=== PATIENT | male | born 1955 | race American Indian/Alaskan Native ===

== ENCOUNTER 2018-11-06 19:26 | Inpatient (IN) | payer OTHER ==
[2018-11-06] MEDS ORDERED: TYLENOL PO STA (19:52)
[2018-11-06] MEDS ORDERED: NACL 0.9% 500 ML 500 ML IV ONE (19:52)
--- NOTE | 2018-11-06 20:14 | Emergency Department Report ---
ED Fever HPI - General Chief Complaint: Fever Stated Complaint: FEVER Time Seen by Provider: 11/06/18 20:09 Source: patient Exam Limitations: no limitations - History of Present Illness Initial Comments: PT is a 62-year-old male that comes to the emergency room with complaints of fever. Patient also complaining of being fatigued. Patient states he had a prostate biopsy yesterday. Timing/Duration: this morning Fever Severity/Quality: greater than 102 F Fever Therapy SALES ADMINISTRATOR: none Associated Symptoms: denies: abdominal pain, chest pain, confusion, cough, diaphoresis, headache, muscle aches, nausea/vomiting, rash, shortness of breath, sore throat, stiff neck, syncope, weakness ED Review of Systems ROS: Stated complaint: FEVER Other details as noted in HPI Constitutional: fever. denies: chills Eyes: denies: eye pain, eye discharge, vision change ENT: denies: ear pain, throat pain Respiratory: denies: cough, shortness of breath, wheezing Cardiovascular: denies: chest pain, palpitations Endocrine: no symptoms reported Gastrointestinal: denies: abdominal pain, nausea, diarrhea Genitourinary: denies: urgency, dysuria Musculoskeletal: denies: back pain, joint swelling, arthralgia Skin: denies: rash, lesions Neurological: denies: headache, weakness, paresthesias Psychiatric: denies: anxiety, depression Hematological/Lymphatic: denies: easy bleeding, easy bruising ED Past Medical Hx - Past Medical History Previous Medical History?: Yes Hx Sickle Cell Disease: Yes Hx Asthma: No - Surgical History Past Surgical History?: Yes Additional Surgical History: Prostate biopsy - Family History Family history: no significant - Social History Smoking Status: Never Smoker Substance Use Type: None ED Physical Exam - General Limitations: No Limitations General appearance: alert, in no apparent distress - Head Head exam: Present: atraumatic, normocephalic - Eye Eye exam: Present: normal appearance - ENT ENT exam: Present: mucous membranes moist - Neck Neck exam: Present: normal inspection - Respiratory Respiratory exam: Present: normal lung sounds bilaterally. Absent: respiratory distress - Cardiovascular Cardiovascular Exam: Present: regular rate, normal rhythm. Absent: systolic murmur, diastolic murmur, rubs, gallop - GI/Abdominal GI/Abdominal exam: Present: soft, normal bowel sounds - Rectal Rectal exam: Present: deferred - Extremities Exam Extremities exam: Present: normal inspection - Back Exam Back exam: Present: normal inspection - Neurological Exam Neurological exam: Present: alert, oriented X3 - Psychiatric Psychiatric exam: Present: normal affect, normal mood - Skin Skin exam: Present: warm, dry, intact, normal color. Absent: rash ED Course Vital Signs 11/06/18 11/06/18 11/06/18 15:16 19:29 19:34 Temperature 102.5 F H Pulse Rate 104 H Respiratory 20 Rate Blood Pressure 124/74 97/64 106/65 Blood Pressure [Right] O2 Sat by Pulse 95 Oximetry 11/06/18 11/06/18 11/06/18 19:46 20:00 20:16 Temperature Pulse Rate 102 H 98 H 99 H Respiratory 32 H 23 32 H Rate Blood Pressure 97/64 104/64 97/59 Blood Pressure [Right] O2 Sat by Pulse 95 97 96 Oximetry 11/06/18 11/06/18 11/06/18 20:30 20:46 21:00 Temperature Pulse Rate 101 H 97 H 103 H Respiratory 27 H 29 H 33 H Rate Blood Pressure 97/59 119/68 112/65 Blood Pressure [Right] O2 Sat by Pulse 95 97 100 Oximetry 11/06/18 11/06/18 11/06/18 21:14 21:16 21:30 Temperature 100.7 F H Pulse Rate 101 H 101 H 98 H Respiratory 28 H 29 H 28 H Rate Blood Pressure 106/67 117/66 Blood Pressure 106/67 [Right] O2 Sat by Pulse 100 100 100 Oximetry 11/06/18 11/06/18 11/06/18 21:45 22:17 22:30 Temperature Pulse Rate 101 H 105 H 108 H Respiratory 31 H 26 H 27 H Rate Blood Pressure 111/68 140/69 118/48 Blood Pressure [Right] O2 Sat by Pulse 100 100 98 Oximetry 11/06/18 11/06/18 11/06/18 22:45 23:01 23:15 Temperature Pulse Rate 107 H 105 H 106 H Respiratory 25 H 31 H 30 H Rate Blood Pressure 112/62 112/62 111/66 Blood Pressure [Right] O2 Sat by Pulse 100 100 97 Oximetry 11/06/18 11/06/18 11/07/18 23:30 23:45 00:01 Temperature Pulse Rate 104 H 95 H 108 H Respiratory 26 H 25 H 23 Rate Blood Pressure 115/63 114/65 110/65 Blood Pressure [Right] O2 Sat by Pulse 99 97 Oximetry 11/07/18 11/07/18 11/07/18 00:15 00:19 00:28 Temperature 100.5 F H 98.1 F Pulse Rate 103 H Respiratory 16 Rate Blood Pressure 110/65 Blood Pressure [Right] O2 Sat by Pulse Oximetry 11/07/18 11/07/18 11/07/18 00:30 00:45 01:00 Temperature Pulse Rate 101 H 98 H 96 H Respiratory 30 H 26 H 26 H Rate Blood Pressure 118/68 112/73 111/70 Blood Pressure [Right] O2 Sat by Pulse 96 Oximetry 11/07/18 11/07/18 01:10 01:28 Temperature 99.3 F Pulse Rate 101 H 96 H Respiratory 28 H 28 H Rate Blood Pressure 111/70 90/48 Blood Pressure [Right] O2 Sat by Pulse 94 95 Oximetry - Reevaluation(s) Reevaluation #1: Discussed all results with patient. Patient agrees with plan of care and admission. Patient admitted to the hospitalist service. 11/06/18 23:30 - Consultations Consultation #1: Hospitalist consulted for admission. Hospitalist to admit patient and assume care of patient. 11/06/18 23:30 ED Medical Decision Making - Lab Data Result diagrams: 11/06/18 20:18 11/06/18 20:18 - EKG Data -: EKG Interpreted by [facility] EKG shows normal: sinus rhythm, axis, intervals, QRS complexes, ST-T waves Rate: normal - Radiology Data Radiology results: report reviewed, image reviewed PROCEDURE: XR CHEST 1V AP TECHNIQUE: Single AP view of the chest HISTORY: possible Sepsis COMPARISONS: FINDINGS: Cardiac and mediastinal contours are unremarkable. There is some streaky opacity at the right lung base. There is mild vascular and interstitial prominence. No pleural effusion identified. Noted is a right shoulder prosthesis. IMPRESSION: Mild scarring or atelectasis of the right lung base Findings suggestive of mild CHF Right shoulder prosthesis. ADDENDUM ADDENDUM: No extraluminal air is seen to suggest bowel perforation. Incidental note is made of a small fat- containing umbilical hernia. PROCEDURE: CT ABDOMEN PELVIS WO CON TECHNIQUE: Computerized axial tomography of the abdomen and pelvis was performed without intravenous contrast. This study is performed without intravascular contrast material and its sensitivity for abdominal and pelvic pathology, including neoplasms, inflammation, abscess, free fluid, thrombosis, arterial dissection and infarction, is reduced compared with a contrast enhanced study. HISTORY: abd pAIN COMPARISONS: None . FINDINGS: Visualized lower thorax: No significant abnormality. Liver: There is diffuse low-attenuation of the liver, compatible with fatty infiltration. Spleen: Spleen is mildly prominent. Gallbladder and biliary system: Gallbladder is present. There is layering high density within the gallbladder lumen, which could be related to gallbladder sludge or gallstones. Pancreas: Normal. Adrenals: Normal. Kidneys: 2.3 cm left renal cyst. No hydronephrosis or urolithiasis. GI tract: Appendix is visualized and does not appear inflamed. No evidence of bowel obstruction . The transverse colon is decompressed, which could be related to peristalsis. There is mild distention of the right colon with stool. No definite signs of colonic obstruction are seen however. There is stranding surrounding the rectum and also the prostate gland and seminal vesicles Lymph nodes and mesentery: Normal. Vasculature: Normal.. Bladder: Normal. Reproductive organs: There is stranding surrounding the seminal vesicles and prostate. Prostate measures 6 cm transverse Peritoneum: No free fluid. Musculoskeletal structures: No significant abnormality. Other: None. IMPRESSION: There is stranding surrounding the rectum as well as the seminal vesicles and prostate. Findings could be related to proctitis or prostatitis. Fatty infiltration of the liver. Possible gallbladder sludge or stones . - Medical Decision Making She is a 62-year-old male that presents emergency room with complaints of fever. Patient found to have prostatitis and urinary tract infection and sepsis. Patient was treated with a sepsis protocol and IV fluids and antibiotics. His labs unremarkable except for elevated white count and acute renal insufficiency and lactic acidosis and UTI. Patient source of fever. To be a acute prostatitis. Patient recently had a prostate biopsy. Patient was admitted to the hospitalist service. - Differential Diagnosis fever. Prostatitis. Colon injury. Fever secondary to procedure Critical Care Time: Yes Critical care attestation.: If time is entered above; I have spent that time in minutes in the direct care of this critically ill patient, excluding procedure time. Critical Care Time: 45 MINUTES ED Disposition Clinical Impression: Lactic acid acidosis, Acute renal insufficiency Sepsis Qualifiers: Sepsis type: sepsis due to unspecified organism Qualified Code(s): A41.9 - Sepsis, unspecified organism Fever Qualifiers: Fever type: unspecified Qualified Code(s): R50.9 - Fever, unspecified Prostatitis Qualifiers: Prostatitis type: acute Qualified Code(s): N41.0 - Acute prostatitis UTI (urinary tract infection) Qualifiers: Urinary tract infection type: site unspecified Hematuria presence: with hematuria Qualified Code(s): N39.0 - Urinary tract infection, site not specified; R31.9 - Hematuria, unspecified Disposition: 09 OP ADMIT IP TO THIS HOSP Is pt being admited?: Yes Does the pt Need Aspirin: No Condition: Critical Time of Disposition: 23:29
[2018-11-06] MEDS ORDERED: NACL 0.9% 1000 ML 1,000 ML IV ONE ×2 (20:15→21:19)
--- NOTE | 2018-11-06 20:49 | XRay Report ---
PROCEDURE: XR CHEST 1V AP TECHNIQUE: Single AP view of the chest HISTORY: possible Sepsis COMPARISONS: FINDINGS: Cardiac and mediastinal contours are unremarkable. There is some streaky opacity at the right lung ba se. There is mild vascular and interstitial prominence. No pleural effusion identified. Noted is a ri ght shoulder prosthesis. IMPRESSION: Mild scarring or atelectasis of the right lung base Findings suggestive of mild CHF Right shoulder prosthesis. This document is electronically signed by Derik Carrasco MD., November 06 2018 08:47:19 PM ET
[2018-11-06 20:55] LABS: Hematocrit 32.5 % (35.5-45.6); Hemoglobin 11.1 gm/dl (11.8-15.2); Mean Corpuscular HGB Conc 34 % (32-34); Mean Corpuscular Volume 83 fl (84-94); Red Blood Count 3.91 M/mm3 (3.65-5.03); Red Cell Distribution Width 20.4 % (13.2-15.2)
[2018-11-06 20:56] LABS: Platelet Count 117 K/mm3 (140-440)
[2018-11-06 21:05] LABS: INR 1.11 (0.87-1.13)
[2018-11-06 21:16] LABS: Calcium 8.8 mg/dL (8.4-10.2)
[2018-11-06] MEDS ORDERED: ZOSYN/NS 4.5GM/100ML 4.5 GM/100 ML VIAL IV ONE (21:19)
[2018-11-06 21:49] LABS: Basophils % (Manual) 0 % (0.0-1.8); Eosinophils % (Manual) 0 % (0.0-4.3); Total Cells Counted 100
[2018-11-06 21:50] LABS: Anisocytosis 1+; Platelet Estimate Consistent w Auto; Target Cells 1+
--- NOTE | 2018-11-06 22:45 | Cat Scan Report ---
PROCEDURE: CT ABDOMEN PELVIS WO CON TECHNIQUE: Computerized axial tomography of the abdomen and pelvis was performed without intravenous contrast. This study is performed without intravascular contrast material and its sensitivity for ab dominal and pelvic pathology, including neoplasms, inflammation, abscess, free fluid, thrombosis, art erial dissection and infarction, is reduced compared with a contrast enhanced study. HISTORY: abd pAIN COMPARISONS: None . FINDINGS: Visualized lower thorax: No significant abnormality. Liver: There is diffuse low-attenuation of the liver, compatible with fatty infiltration. Spleen: Spleen is mildly prominent. Gallbladder and biliary system: Gallbladder is present. There is layering high density within the gal lbladder lumen, which could be related to gallbladder sludge or gallstones. Pancreas: Normal. Adrenals: Normal. Kidneys: 2.3 cm left renal cyst. No hydronephrosis or urolithiasis. GI tract: Appendix is visualized and does not appear inflamed. No evidence of bowel obstruction . Th e transverse colon is decompressed, which could be related to peristalsis. There is mild distention o f the right colon with stool. No definite signs of colonic obstruction are seen however. There is str anding surrounding the rectum and also the prostate gland and seminal vesicles Lymph nodes and mesentery: Normal. Vasculature: Normal.. Bladder: Normal. Reproductive organs: There is stranding surrounding the seminal vesicles and prostate. Prostate measu res 6 cm transverse Peritoneum: No free fluid. Musculoskeletal structures: No significant abnormality. Other: None. IMPRESSION: There is stranding surrounding the rectum as well as the seminal vesicles and prostate. Findings coul d be related to proctitis or prostatitis. Fatty infiltration of the liver. Possible gallbladder sludge or stones . This document is electronically signed by Ursula Glasgow MD., November 06 2018 10:43:36 PM ET
--- NOTE | 2018-11-06 23:49 | History and Physical Report ---
History of Present Illness Date of examination: 11/07/18 History of present illness: 62-year-old man with a history of sickle cell disease comes emergency room with complaints of fever,chills, fatigue, status post prostate biopsy on Saturday. Review of systems Constitutional: no weight loss Ears, eyes, nose, mouth and throat: no nasal congestion, no nasal discharge, no sinus pressure, no vision change, no red eye. Neck: No neck pain or rigidity. Cardiovascular: no palpitations, chest pain Respiratory: no cough, shortness of breath Gastrointestinal: no hematochezia, abdominal pain Genitourinary : no frequency , no hematuria Musculoskeletal: no joint swelling or muscle ache Integumentary: no rash, no pruritis Neurological: no parathesias, no focal weakness Endocrine: no cold or heat intolerance, no polyuria or polydipsia Hematologic/Lymphatic: no easy bruising, no easy bleeding, no gland swelling Allergic/Immunologic: no urticaria, no angioedema. PAST MEDICAL HISTORY: sickle cell disease PAST SURGICAL HISTORY: Right shoulder, left wrist, right great toe SOCIAL HISTORY: Denies alcohol, drugs, tobacco FAMILY HISTORY: Hypertension Medications and Allergies Allergies Allergy/AdvReac Type Severity Reaction Status Date / Time No Known Allergies Allergy Unverified 04/17/16 18:17 Exam - Physical Exam Narrative exam: General Apperance: The patient lying in bed, breathing comfortable HEENT: Normocephalic, atraumatic. Pupils equally round and reactive to light, EOMI, no sclericterus or JVD or thyromegaly or nodule. , no carotid bruit, mucous membranes moist, no exudate or erythema Heart: S1-S2, regular is rhythm Lungs: Clear to auscultation bilaterally, breathing comfortable Abdomen: Positive bowel sounds, soft, nontender, nondistended, no organomegaly Extremities: No edema cyanosis clubbing Skin: no rash, nodule, warm and dry Neuro: cranial nerves 2-12 intact, speech is fluent, motor/sensory intact - Constitutional Vitals: Temp Pulse Resp BP Pulse Ox 100.7 F H 105 H 31 H 112/62 100 11/06/18 21:16 11/06/18 23:01 11/06/18 23:01 11/06/18 23:01 11/06/18 23:01 Results - Labs CBC & Chem 7: 11/06/18 20:18 11/06/18 20:18 Labs: Abnormal lab results 11/06/18 11/06/18 11/06/18 Range/Units 20:18 20:18 20:18 WBC 15.3 H (4.5-11.0) K/mm3 Hgb 11.1 L (11.8-15.2) gm/dl Hct 32.5 L (35.5-45.6) % MCV 83 L (84-94) fl RDW 20.4 H (13.2-15.2) % Plt Count 117 L (140-440) K/mm3 Seg Neuts % (Manual) 95.0 H (40.0-70.0) % Lymphocytes % (Manual) 4.0 L (13.4-35.0) % Nucleated RBC % 2.0 H (0.0-0.9) % Seg Neutrophils # Man 14.5 H (1.8-7.7) K/mm3 Lymphocytes # (Manual) 0.6 L (1.2-5.4) K/mm3 PT 15.0 H (12.2-14.9) Sec. Potassium 3.3 L (3.6-5.0) mmol/L Creatinine 1.9 H (0.8-1.5) mg/dL Glucose 110 H (75-100) mg/dL Lactic Acid (0.7-2.0) mmol/L Total Bilirubin 1.70 H (0.1-1.2) mg/dL Total Protein 6.2 L (6.3-8.2) g/dL 11/06/18 11/06/18 Range/Units 20:18 22:54 WBC (4.5-11.0) K/mm3 Hgb (11.8-15.2) gm/dl Hct (35.5-45.6) % MCV (84-94) fl RDW (13.2-15.2) % Plt Count (140-440) K/mm3 Seg Neuts % (Manual) (40.0-70.0) % Lymphocytes % (Manual) (13.4-35.0) % Nucleated RBC % (0.0-0.9) % Seg Neutrophils # Man (1.8-7.7) K/mm3 Lymphocytes # (Manual) (1.2-5.4) K/mm3 PT (12.2-14.9) Sec. Potassium (3.6-5.0) mmol/L Creatinine (0.8-1.5) mg/dL Glucose (75-100) mg/dL Lactic Acid 5.80 H* 8.30 H* (0.7-2.0) mmol/L Total Bilirubin (0.1-1.2) mg/dL Total Protein (6.3-8.2) g/dL Assessment and Plan Assessment Sepsis Acute renal failure Sickle cell disease, stable Plan Admit to medicine Start IV fluid, Zosyn, follow cultures IV morphine, DVT prophylaxis
[2018-11-07 00:30] LABS: Bacteria,Urine 2+ /HPF (Negative); Bilirubin,Urine NEG (Negative); Blood,Urine LG (Negative); Color,Urine Amber (Yellow); Granular Casts,Urine 2 /LPF; Hyaline Casts,Urine 56 /LPF; Mucus,Urine FEW /HPF; Urobilinogen,Urine < 2.0 mg/dL (<2.0)
[2018-11-07 00:35] LABS: RBC,Urine > 182.0 /HPF (0.0-6.0)
[2018-11-07] MEDS ORDERED: ZOFRAN IV PRN (01:19)
[2018-11-07] MEDS ORDERED: MORPHINE IV PRN (01:19)
[2018-11-07] MEDS ORDERED: SODIUM CHLORIDE FLUSH SYRINGE 10 ML IV PRN (01:19)
[2018-11-07] MEDS: NACL 0.9% 1000 ML 1,000 ML IV SCH ×3 (02:06→19:36)
[2018-11-07] MEDS ORDERED: ZOSYN/NS 4.5GM/100ML 4.5 GM/100 ML VIAL IV SCH ×2 (05:00→06:00)
[2018-11-07] MEDS: ZOSYN/NS 2.25 GM/50ML 2.25 GM/50 ML BAG IV SCH ×2 (05:43→11:32)
[2018-11-07 05:59] LABS: Hematocrit 32.2 % (35.5-45.6); Hemoglobin 10.8 gm/dl (11.8-15.2); Mean Corpuscular HGB Conc 34 % (32-34); Mean Corpuscular Volume 83 fl (84-94); Platelet Count 116 K/mm3 (140-440); Red Blood Count 3.87 M/mm3 (3.65-5.03); Red Cell Distribution Width 19.8 % (13.2-15.2)
[2018-11-07 06:26] LABS: BUN/Creatinine Ratio 12; Blood Urea Nitrogen 17 mg/dL (9-20); Calcium 8.2 mg/dL (8.4-10.2); Hemolysis Index 6
[2018-11-07] MEDS: SODIUM CHLORIDE FLUSH SYRINGE 10 ML IV SCH (09:14)
[2018-11-07 10:06] LABS: Band Neutrophils # (Manual) 7.9 K/mm3; Basophils % (Manual) 0 % (0.0-1.8); Eosinophils % (Manual) 0 % (0.0-4.3); Total Cells Counted 100
[2018-11-07 10:07] LABS: Anisocytosis 1+; Hypochromasia 1+; Macrocytosis 1+; Platelet Estimate Consistent w Auto
--- NOTE | 2018-11-07 14:22 | Consultation ---
History of Present Illness - Reason for Consult Consult date: 11/07/18 sepsis Requesting physician: RIGO BAUM - History of Present Illness 62 y/o male with a history of sickle cell disease; admitted on 11/06/18 due to 24 hour-history of fever, chills and generalized malaise. Patient underwent transrectal-prostate biopsy on 11/05/[address] Hidalgo. Patient denies N/V/D, cough, SOB, abdominal pain, urinary symptoms. In the ED, temp 102, HR 104, R 20, O2 sat 95%, BP 97/64. WBC 15-->36K, Hg 11, Plat 117. Creat 1.9. LFTs normal. Lactate 5.8. UA 59 wbc, trace LE, +nitrates, large blood. Blood culture 10/17/[address] abd showed rectal prostate and seminal vesicles stranding. Review of Systems: General: + fever, + chills, nightsweats, +malaise Cutaneous: no rash, pruritus Head: no headaches or injury Eyes: no changes in vision, eye pain, double vision Ears: no ear pain, ear discharge, ringing or hearing loss Nose: no nose bleeding, stuffiness Mouth & throat: no bleeding gums, no horseness, no dental problems, or swollen glands Neck: no pain, node enlargement/lumps, tyroid enlargement or tenderness Respiratory: no cough, wheezing, sputum, hemoptysis, pleuritic chest pain Cardiovascular: no chest pain, leg edema, cyanosis, ESCALANTE, orthopnea Musculoskeletal: no decreased joint motion, bone or joint pain, joint swelling, muscle aches Gastrointestinal: no nausea, vomiting, hematemesis, diarrhea, constipation, melena, bright red blood in stools, fecal incontinence, jaundice Genitourinary/Reproductive: no frequent urination, dysuria, hematuria, incontinence Neurogical: no seizures, no headaches, no weakness, no paresthesias, no loss of speech or vision; no memory loss, no vertigo, no tremors, no numbness Psychiatric: stable mood; no excessive anxiety, sadness or moodiness Medications and Allergies Allergies Allergy/AdvReac Type Severity Reaction Status Date / Time No Known Allergies Allergy Unverified 04/17/16 18:17 Active Meds: Active Medications Acetaminophen (Tylenol) 650 mg PO Q4H PRN PRN Reason: Pain MILD(1-3)/Fever >100.5/RAY Albuterol (Proventil) 2.5 mg IH Q6HRT [facility] Sodium Chloride (Nacl 0.9% 1000 Ml) 1,000 mls @ 150 mls/hr IV DIRECT [facility] Last Admin: 11/07/18 11:31 Dose: 150 mls/hr Documented by: Piperacillin Sod/Tazobactam Sod (Zosyn/Ns 2.25 Gm/50ml) 2.25 gm in 50 mls @ 100 mls/hr IV Q6HR [facility] Last Admin: 11/07/18 11:32 Dose: 100 mls/hr Documented by: Morphine Sulfate (Morphine) 2 mg IV Q4H PRN PRN Reason: Pain, Moderate (4-6) Ondansetron HCl (Zofran) 4 mg IV Q4H PRN PRN Reason: Nausea And Vomiting Sodium Chloride (Sodium Chloride Flush Syringe 10 Ml) 10 ml IV BID [facility] Last Admin: 11/07/18 09:14 Dose: 10 ml Documented by: Sodium Chloride (Sodium Chloride Flush Syringe 10 Ml) 10 ml IV PRN PRN PRN Reason: LINE FLUSH Physical Examination - Physical Exam Narrative exam: General appearance: Alert in NAD, conversant Eyes: anicteric sclerae, moist conjunctivae; no lid-lag; PERRLA HENT: Atraumatic; oropharynx clear with moist mucous membranes and no mucosal ulcerations/no oral thrush; normal hard and soft palate. Normal external ears. Neck: Trachea midline; supple, no thyromegaly or lymphadenopathy Lungs: CTA, with normal respiratory effort and no intercostal retractions CV: RRR, no murmurs Abdomen: Soft, non-tender; no masses or hepatosplenomegaly Extremities: No peripheral edema or extremity lymphadenopathy Skin: Normal temperature, turgor and texture; no rash, ulcers or subcutaneous nodules Psych: Appropriate affect, alert and oriented to person, place and time. Neuro: alert and oriented x 3. Moving all extermities - Constitutional Vitals: Vital Signs Temp Pulse Resp BP Pulse Ox 101.0 F H 94 H 22 103/60 95 11/07/18 11:48 11/07/18 11:48 11/07/18 11:48 11/07/18 11:48 11/07/18 12:28 Temperature -Last 24 Hours Temperature 101.0 F Temperature 99.3 F Temperature 98.1 F Temperature 100.5 F Temperature 100.7 F Temperature 102.5 F Results - Labs CBC & Chem 7: 11/07/18 05:13 11/07/18 05:13 Labs: Abnormal lab results 11/06/18 11/06/18 11/06/18 Range/Units 20:18 20:18 20:18 WBC 15.3 H (4.5-11.0) K/mm3 Hgb 11.1 L (11.8-15.2) gm/dl Hct 32.5 L (35.5-45.6) % MCV 83 L (84-94) fl RDW 20.4 H (13.2-15.2) % Plt Count 117 L (140-440) K/mm3 Seg Neuts % (Manual) 95.0 H (40.0-70.0) % Lymphocytes % (Manual) 4.0 L (13.4-35.0) % Nucleated RBC % 2.0 H (0.0-0.9) % Seg Neutrophils # Man 14.5 H (1.8-7.7) K/mm3 Lymphocytes # (Manual) 0.6 L (1.2-5.4) K/mm3 PT 15.0 H (12.2-14.9) Sec. Potassium 3.3 L (3.6-5.0) mmol/L Carbon Dioxide (22-30) mmol/L Creatinine 1.9 H (0.8-1.5) mg/dL Glucose 110 H (75-100) mg/dL Lactic Acid (0.7-2.0) mmol/L Calcium (8.4-10.2) mg/dL Total Bilirubin 1.70 H (0.1-1.2) mg/dL Total Protein 6.2 L (6.3-8.2) g/dL Urine WBC (Auto) (0.0-6.0) /HPF 11/06/18 11/06/18 11/07/18 Range/Units 20:18 22:54 00:07 WBC (4.5-11.0) K/mm3 Hgb (11.8-15.2) gm/dl Hct (35.5-45.6) % MCV (84-94) fl RDW (13.2-15.2) % Plt Count (140-440) K/mm3 Seg Neuts % (Manual) (40.0-70.0) % Lymphocytes % (Manual) (13.4-35.0) % Nucleated RBC % (0.0-0.9) % Seg Neutrophils # Man (1.8-7.7) K/mm3 Lymphocytes # (Manual) (1.2-5.4) K/mm3 PT (12.2-14.9) Sec. Potassium (3.6-5.0) mmol/L Carbon Dioxide (22-30) mmol/L Creatinine (0.8-1.5) mg/dL Glucose (75-100) mg/dL Lactic Acid 5.80 H* 8.30 H* (0.7-2.0) mmol/L Calcium (8.4-10.2) mg/dL Total Bilirubin (0.1-1.2) mg/dL Total Protein (6.3-8.2) g/dL Urine WBC (Auto) 59.0 H (0.0-6.0) /HPF 11/07/18 11/07/18 Range/Units 05:13 05:13 WBC 36.0 H (4.5-11.0) K/mm3 Hgb 10.8 L (11.8-15.2) gm/dl Hct 32.2 L (35.5-45.6) % MCV 83 L (84-94) fl RDW 19.8 H (13.2-15.2) % Plt Count 116 L (140-440) K/mm3 Seg Neuts % (Manual) 74.0 H (40.0-70.0) % Lymphocytes % (Manual) 3.0 L (13.4-35.0) % Nucleated RBC % 2.0 H (0.0-0.9) % Seg Neutrophils # Man 26.6 H (1.8-7.7) K/mm3 Lymphocytes # (Manual) 1.1 L (1.2-5.4) K/mm3 PT (12.2-14.9) Sec. Potassium (3.6-5.0) mmol/L Carbon Dioxide 21 L (22-30) mmol/L Creatinine (0.8-1.5) mg/dL Glucose 107 H (75-100) mg/dL Lactic Acid (0.7-2.0) mmol/L Calcium 8.2 L (8.4-10.2) mg/dL Total Bilirubin (0.1-1.2) mg/dL Total Protein (6.3-8.2) g/dL Urine WBC (Auto) (0.0-6.0) /HPF Assessment and Plan Cultures: Blood culture 10/17/2018 no growth today. Assessment: 62 y/o male with a history of sickle cell disease; admitted on 11/06/18 due to 24 hour-history of fever, chills and generalized malaise. Patient underwent transre ctal-prostate biopsy on 11/05/[address] Hidalgo. Patient denies N/V/D, cough, SOB, abdominal pain, urinary symptoms. 1) Severe Sepsis: Present on admission, manifested by fever, tachycardia, hypotension, leukocytosis, increased lactate. Etiology most likely UTI +/- post-biopsy prostatitis and prostatitis. He received cipro PO x 3 days before biopsy. - UA 59 wbc, trace LE, +nitrates, large blood. - Blood culture 10/17/2018 no growth today. - CT abd showed rectal prostate and seminal vesicles stranding. 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
[2018-11-07] MEDS: PROVENTIL IH SCH ×2 (15:26→20:53)
--- NOTE | 2018-11-07 15:42 | Progress Note ---
Assessment and Plan Assessment and plan: he is a 62-year-old male that presents emergency room with complaints of fever. Patient found to have prostatitis and urinary tract infection and sepsis. Patient was treated with a sepsis protocol and IV fluids and antibiotics. His labs unremarkable except for elevated white count and acute renal insufficiency and lactic acidosis and UTI. Patient source of fever. To be a acute prostatitis. Patient recently had a prostate biopsy. Patient was admitted to the hospitalist service. Sepsis Acute Cystitis s/p recent prostate biopsy Acute renal failure Sickle cell disease, stable Acute Respiratory Failure with hypoxia Thrombocytopenia Plan Continue supportive care Cultures, Urine culture. ID consult Continue gentle hydration, Zosyn, follow cultures Ok to start diet IV morphine, DVT prophylaxis History Interval history: Patient seen and examined today, admitted with sepsis. Denies any chest pain or chronic shortness of breath, Still with some shortness of breath today. Intermittent fever through out the day. Hospitalist Physical - Constitutional Vitals: Temp Pulse Resp BP Pulse Ox 101.0 F H 101 H 18 103/60 95 11/07/18 11:48 11/07/18 15:27 11/07/18 15:27 11/07/18 11:48 11/07/18 12:28 General appearance: Present: no acute distress, well-nourished - EENT Eyes: Present: PERRL, EOM intact ENT: hearing intact, clear oral mucosa - Neck Neck: Present: supple, normal ROM - Respiratory Respiratory effort: normal Respiratory: bilateral: CTA - Cardiovascular Rhythm: regular Heart Sounds: Present: S1 & S2. Absent: systolic murmur, diastolic murmur - Extremities Extremities: no ischemia, pulses intact, pulses symmetrical, No edema, normal temperature, normal color, Full ROM Peripheral Pulses: within normal limits - Abdominal General gastrointestinal: soft, non-tender, non-distended, normal bowel sounds - Integumentary Integumentary: Present: clear, warm, dry - Psychiatric Psychiatric: appropriate mood/affect, intact judgment & insight, memory intact, cooperative - Neurologic Neurologic: CNII-XII intact, moves all extremities - Allied Health Allied health notes reviewed: nursing Results - Labs CBC & Chem 7: 11/08/18 04:32 11/08/18 04:32 Labs: Laboratory Last Values WBC 36.0 K/mm3 (4.5-11.0) H 11/07/18 05:13 RBC 3.87 M/mm3 (3.65-5.03) 11/07/18 05:13 Hgb 10.8 gm/dl (11.8-15.2) L 11/07/18 05:13 Hct 32.2 % (35.5-45.6) L 11/07/18 05:13 MCV 83 fl (84-94) L 11/07/18 05:13 MCH 28 pg (28-32) 11/07/18 05:13 MCHC 34 % (32-34) 11/07/18 05:13 RDW 19.8 % (13.2-15.2) H 11/07/18 05:13 Plt Count 116 K/mm3 (140-440) L 11/07/18 05:13 Add Manual Diff Complete 11/07/18 05:13 Total Counted 100 11/07/18 05:13 Seg Neutrophils % Car Dropper 11/07/18 05:13 Seg Neuts % (Manual) 74.0 % (40.0-70.0) H 11/07/18 05:13 Band Neutrophils % 22.0 % 11/07/18 05:13 Lymphocytes % (Manual) 3.0 % (13.4-35.0) L 11/07/18 05:13 Reactive Lymphs % (Man) 0 % 11/07/18 05:13 Monocytes % (Manual) 1.0 % (0.0-7.3) 11/07/18 05:13 Eosinophils % (Manual) 0 % (0.0-4.3) 11/07/18 05:13 Basophils % (Manual) 0 % (0.0-1.8) 11/07/18 05:13 Metamyelocytes % 0 % 11/07/18 05:13 Myelocytes % 0 % 11/07/18 05:13 Promyelocytes % 0 % 11/07/18 05:13 Blast Cells % 0 % 11/07/18 05:13 Nucleated RBC % 2.0 % (0.0-0.9) H 11/07/18 05:13 Seg Neutrophils # Man 26.6 K/mm3 (1.8-7.7) H 11/07/18 05:13 Band Neutrophils # 7.9 K/mm3 11/07/18 05:13 Lymphocytes # (Manual) 1.1 K/mm3 (1.2-5.4) L 11/07/18 05:13 Abs React Lymphs (Man) 0.0 K/mm3 11/07/18 05:13 Monocytes # (Manual) 0.4 K/mm3 (0.0-0.8) 11/07/18 05:13 Eosinophils # (Manual) 0.0 K/mm3 (0.0-0.4) 11/07/18 05:13 Basophils # (Manual) 0.0 K/mm3 (0.0-0.1) 11/07/18 05:13 Metamyelocytes # 0.0 K/mm3 11/07/18 05:13 Myelocytes # 0.0 K/mm3 11/07/18 05:13 Promyelocytes # 0.0 K/mm3 11/07/18 05:13 Blast Cells # 0.0 K/mm3 11/07/18 05:13 WBC Morphology Not Reportable 11/07/18 05:13 Hypersegmented Neuts Not Reportable 11/07/18 05:13 Hyposegmented Neuts Not Reportable 11/07/18 05:13 Hypogranular Neuts Not Reportable 11/07/18 05:13 Smudge Cells Not Reportable 11/07/18 05:13 Toxic Granulation Not Reportable 11/07/18 05:13 Toxic Vacuolation Not Reportable 11/07/18 05:13 Dohle Bodies Not Reportable 11/07/18 05:13 Pelger-Huet Anomaly Not Reportable 11/07/18 05:13 Tory Rods Not Reportable 11/07/18 05:13 Platelet Estimate Consistent w auto 11/07/18 05:13 Clumped Platelets Not Reportable 11/07/18 05:13 Plt Clumps, EDTA Not Reportable 11/07/18 05:13 Large Platelets Not Reportable 11/07/18 05:13 Giant Platelets Not Reportable 11/07/18 05:13 Platelet Satelliting Not Reportable 11/07/18 05:13 Plt Morphology Comment Not Reportable 11/07/18 05:13 RBC Morphology Not Reportable 11/07/18 05:13 Dimorphic RBCs Not Reportable 11/07/18 05:13 Polychromasia Not Reportable 11/07/18 05:13 Hypochromasia 1+ 11/07/18 05:13 Poikilocytosis Not Reportable 11/07/18 05:13 Anisocytosis 1+ 11/07/18 05:13 Microcytosis Few 11/07/18 05:13 Macrocytosis 1+ 11/07/18 05:13 Spherocytes Not Reportable 11/07/18 05:13 Pappenheimer Bodies Not Reportable 11/07/18 05:13 Sickle Cells Not Reportable 11/07/18 05:13 Target Cells Not Reportable 11/07/18 05:13 Tear Drop Cells Not Reportable 11/07/18 05:13 Ovalocytes Not Reportable 11/07/18 05:13 Helmet Cells Not Reportable 11/07/18 05:13 [place] Bodies Not Reportable 11/07/18 05:13 [place] Rings Not Reportable 11/07/18 05:13 [place] Cells Not Reportable 11/07/18 05:13 Bite Cells Not Reportable 11/07/18 05:13 Crenated Cell Not Reportable 11/07/18 05:13 Elliptocytes Not Reportable 11/07/18 05:13 Acanthocytes (Spur) Not Reportable 11/07/18 05:13 Rouleaux Not Reportable 11/07/18 05:13 Hemoglobin C Crystals Not Reportable 11/07/18 05:13 Schistocytes Not Reportable 11/07/18 05:13 Malaria parasites Not Reportable 11/07/18 05:13 Sarwat Bodies Not Reportable 11/07/18 05:13 Hem Pathologist Commnt No 11/07/18 05:13 PT 15.0 Sec. (12.2-14.9) H 11/06/18 20:18 INR 1.11 (0.87-1.13) 11/06/18 20:18 VBG pH 7.340 (7.320-7.420) 11/06/18 20:18 Sodium 144 mmol/L (137-145) 11/07/18 05:13 Potassium 4.2 mmol/L (3.6-5.0) D 11/07/18 05:13 Chloride 104.4 mmol/L (98-107) 11/07/18 05:13 Carbon Dioxide 21 mmol/L (22-30) L 11/07/18 05:13 Anion Gap 23 mmol/L 11/07/18 05:13 BUN 17 mg/dL (9-20) 11/07/18 05:13 Creatinine 1.4 mg/dL (0.8-1.5) 11/07/18 05:13 Estimated GFR > 60 ml/min 11/07/18 05:13 BUN/Creatinine Ratio 12 % 11/07/18 05:13 Glucose 107 mg/dL (75-100) H 11/07/18 05:13 Lactic Acid 8.30 mmol/L (0.7-2.0) H* 11/06/18 22:54 Calcium 8.2 mg/dL (8.4-10.2) L 11/07/18 05:13 Total Bilirubin 1.70 mg/dL (0.1-1.2) H 11/06/18 20:18 AST 29 units/L (5-40) 11/06/18 20:18 ALT 17 units/L (7-56) 11/06/18 20:18 Alkaline Phosphatase 88 units/L (35-129) 11/06/18 20:18 Total Protein 6.2 g/dL (6.3-8.2) L 11/06/18 20:18 Albumin 4.0 g/dL (3.9-5) 11/06/18 20:18 Albumin/Globulin Ratio 1.8 % 11/06/18 20:18 Urine Color Rubia (Yellow) 11/07/18 00:07 Urine Turbidity Cloudy (Clear) 11/07/18 00:07 Urine pH 5.0 (5.0-7.0) 11/07/18 00:07 Ur Specific Reynolds 1.015 (1.003-1.030) 11/07/18 00:07 Urine Protein 100 mg/dl mg/dL (Negative) 11/07/18 00:07 Urine Glucose (UA) Neg mg/dL (Negative) 11/07/18 00:07 Urine Ketones Neg mg/dL (Negative) 11/07/18 00:07 Urine Blood Lg (Negative) 11/07/18 00:07 Urine Nitrite Pos (Negative) 11/07/18 00:07 Urine Bilirubin Neg (Negative) 11/07/18 00:07 Urine Urobilinogen < 2.0 mg/dL (<2.0) 11/07/18 00:07 Ur Leukocyte Esterase Tr (Negative) 11/07/18 00:07 Urine WBC (Auto) 59.0 /HPF (0.0-6.0) H 11/07/18 00:07 Urine RBC (Auto) > 182.0 /HPF (0.0-6.0) 11/07/18 00:07 U Epithel Cells (Auto) 1.0 /HPF (0-13.0) 11/07/18 00:07 Urine Bacteria (Auto) 2+ /HPF (Negative) 11/07/18 00:07 Hyaline Casts 56 /LPF 11/07/18 00:07 Granular Casts 2 /LPF 11/07/18 00:07 Urine Mucus Few /HPF 11/07/18 00:07 Active Medications - Current Medications Current Medications: Generic Name Dose Route Start Last Admin Trade Name Freq PRN Reason Stop Dose Admin Acetaminophen 650 mg 11/07/18 01:19 Tylenol PO Q4H PRN Pain MILD(1-3)/Fever >100.5/RAY Albuterol 2.5 mg 11/07/18 14:00 11/07/18 15:26 Proventil IH 2.5 mg Q6HRT LENORE Administration Sodium Chloride 1,000 mls @ 150 mls/hr 11/07/18 02:00 11/07/18 11:31 Nacl 0.9% 1000 Ml IV 150 mls/hr DIRECT LENORE Administration Cefepime HCl 2 gm in 100 mls @ 200 mls/hr 11/07/18 15:00 Maxipime/Ns 2 Gm/100 Ml IV Q8HR LENORE Protocol Metronidazole 500 mg in 100 mls @ 100 mls/hr 11/07/18 15:00 Flagyl 500 Mg/100 Ml IV Q8HR LENORE Protocol Morphine Sulfate 2 mg 11/07/18 01:19 Morphine IV Q4H PRN Pain, Moderate (4-6) Ondansetron HCl 4 mg 11/07/18 01:19 Zofran IV Q4H PRN Nausea And Vomiting Sodium Chloride 10 ml 11/07/18 10:00 11/07/18 09:14 Sodium Chloride Flush Syringe 10 Ml IV 10 ml BID LENORE Administration Sodium Chloride 10 ml 11/07/18 01:19 Sodium Chloride Flush Syringe 10 Ml IV PRN PRN LINE FLUSH Nutrition/Malnutrition Assess - Dietary Evaluation Nutrition/Malnutrition Findings: Nutrition Notes Start: 11/07/18 14:42 Freq: Status: Active Protocol: Document 11/07/18 14:42 RM (Rec: 11/07/18 14:43 RM [id number]) Nutrition Notes Need for Assessment generated from: educational adviser,Education Initial or Follow up Brief Note Subjective/Other Information Screened for new onset DM diet education. No Dx of DM or A1c in record. Per nurse pt does not have hx of DM. Nutrition Intervention Revisit per MD consult or patient Sign Off request:
[2018-11-07] MEDS: TYLENOL PO PRN (18:08)
[2018-11-07] MEDS: FLAGYL 500 MG/100 ML 500 MG/100 ML BAG IV SCH ×2 (18:13→22:00)
[2018-11-07] MEDS: MAXIPIME/NS 2 GM/100 ML 2 GM/100 ML BAG IV SCH ×2 (18:15→22:00)
[2018-11-08] MEDS: TYLENOL PO PRN ×3 (04:42→17:14)
[2018-11-08] MEDS: FLAGYL 500 MG/100 ML 500 MG/100 ML BAG IV SCH ×3 (05:00→13:03)
[2018-11-08 05:22] LABS: Hematocrit 31.3 % (35.5-45.6); Hemoglobin 10.4 gm/dl (11.8-15.2); Mean Corpuscular HGB Conc 33 % (32-34); Mean Corpuscular Volume 82 fl (84-94); Platelet Count 126 K/mm3 (140-440); Red Blood Count 3.83 M/mm3 (3.65-5.03)
[2018-11-08 05:32] LABS: Red Cell Distribution Width 20.7 % (13.2-15.2)
[2018-11-08 06:00] LABS: BUN/Creatinine Ratio 11; Blood Urea Nitrogen 11 mg/dL (9-20); Hemolysis Index 4
[2018-11-08] MEDS: MAXIPIME/NS 2 GM/100 ML 2 GM/100 ML BAG IV SCH ×2 (06:51→13:03)
[2018-11-08] MEDS: PROVENTIL IH SCH ×3 (07:36→21:35)
[2018-11-08] MEDS: NACL 0.9% 1000 ML 1,000 ML IV SCH (09:45)
[2018-11-08] MEDS: SODIUM CHLORIDE FLUSH SYRINGE 10 ML IV SCH (10:00)
[2018-11-08] MEDS ORDERED: NACL 0.9% 1000 ML 1,000 ML IV ONE ×3 (11:29→16:09)
--- NOTE | 2018-11-08 12:43 | Progress Note ---
Assessment and Plan Assessment and plan: he is a 62-year-old male that presents emergency room with complaints of fever. Patient found to have prostatitis and urinary tract infection and sepsis. Patient was treated with a sepsis protocol and IV fluids and antibiotics. His labs unremarkable except for elevated white count and acute renal insufficiency and lactic acidosis and UTI. Patient source of fever. To be a acute prostatitis. Patient recently had a prostate biopsy. Patient was admitted to the hospitalist service. Sepsis- Secondary to GNR bactermia Acute Cystitis s/p recent prostate biopsy Acute renal failure Sickle cell disease, stable Acute Respiratory Failure with hypoxia Thrombocytopenia Plan Continue supportive care Obtain chest x-ray Give 2 additional bolus of fluid Obtain echocardiogram to rule out any cardiac pathology considering patient's sickle cell disease Cultures, Urine culture. ID consult INPUT NOTED Continue gentle hydration, Zosyn, follow cultures Ok to start diet IV morphine, DVT prophylaxis History Interval history: Patient seen and examined today, admitted with sepsis. still with shortness of breath, and recurrent fever. Hospitalist Physical - Physical exam Narrative exam: VITAL SIGNS: Reviewed. GENERAL: The patient appeared well nourished and normally developed, Vital signs as documented. Ill-appearing and appears with mild distress HEAD: No signs of head trauma. EYES: Pupils are equal. Extraocular motions intact. EARS: Hearing grossly intact. MOUTH: Oropharynx is normal. NECK: No adenopathy, no JVD. CHEST: Chest with wheezing but much better than yesterday sounds bilaterally. No rales, or rhonchi. CARDIAC: Tachycardic but regular rhythm. S1 and S2, without murmurs, gallops, or rubs. VASCULAR: No Edema. Peripheral pulses normal and equal in all extremities. ABDOMEN: Soft, non tender and non distended. No rebound or guarding, and no masses palpated. Bowel Sounds normal. MUSCULOSKELETAL: Good range of motion of all major joints. Extremities without clubbing, cyanosis or edema. NEUROLOGIC EXAM: Alert and oriented x 3 No focal sensory or strength deficits. Speech normal. Follows commands. PSYCHIATRIC: Mood normal. SKIN: No rash or lesions. - Constitutional Vitals: Temp Pulse Resp BP Pulse Ox 97.7 F 102 H 18 112/68 95 11/08/18 07:02 11/08/18 07:52 11/08/18 07:52 11/08/18 04:24 11/08/18 07:36 General appearance: Present: no acute distress, well-nourished Results - Labs CBC & Chem 7: 11/08/18 04:32 11/08/18 04:32 Labs: Laboratory Last Values WBC 33.2 K/mm3 (4.5-11.0) H 11/08/18 04:32 RBC 3.83 M/mm3 (3.65-5.03) 11/08/18 04:32 Hgb 10.4 gm/dl (11.8-15.2) L 11/08/18 04:32 Hct 31.3 % (35.5-45.6) L 11/08/18 04:32 MCV 82 fl (84-94) L 11/08/18 04:32 MCH 27 pg (28-32) L 11/08/18 04:32 MCHC 33 % (32-34) 11/08/18 04:32 RDW 20.7 % (13.2-15.2) H 11/08/18 04:32 Plt Count 126 K/mm3 (140-440) L 11/08/18 04:32 Add Manual Diff Complete 11/07/18 05:13 Total Counted 100 11/07/18 05:13 Seg Neutrophils % Environmental Permitting Specialist 11/07/18 05:13 Seg Neuts % (Manual) 74.0 % (40.0-70.0) H 11/07/18 05:13 Band Neutrophils % 22.0 % 11/07/18 05:13 Lymphocytes % (Manual) 3.0 % (13.4-35.0) L 11/07/18 05:13 Reactive Lymphs % (Man) 0 % 11/07/18 05:13 Monocytes % (Manual) 1.0 % (0.0-7.3) 11/07/18 05:13 Eosinophils % (Manual) 0 % (0.0-4.3) 11/07/18 05:13 Basophils % (Manual) 0 % (0.0-1.8) 11/07/18 05:13 Metamyelocytes % 0 % 11/07/18 05:13 Myelocytes % 0 % 11/07/18 05:13 Promyelocytes % 0 % 11/07/18 05:13 Blast Cells % 0 % 11/07/18 05:13 Nucleated RBC % 2.0 % (0.0-0.9) H 11/07/18 05:13 Seg Neutrophils # Man 26.6 K/mm3 (1.8-7.7) H 11/07/18 05:13 Band Neutrophils # 7.9 K/mm3 11/07/18 05:13 Lymphocytes # (Manual) 1.1 K/mm3 (1.2-5.4) L 11/07/18 05:13 Abs React Lymphs (Man) 0.0 K/mm3 11/07/18 05:13 Monocytes # (Manual) 0.4 K/mm3 (0.0-0.8) 11/07/18 05:13 Eosinophils # (Manual) 0.0 K/mm3 (0.0-0.4) 11/07/18 05:13 Basophils # (Manual) 0.0 K/mm3 (0.0-0.1) 11/07/18 05:13 Metamyelocytes # 0.0 K/mm3 11/07/18 05:13 Myelocytes # 0.0 K/mm3 11/07/18 05:13 Promyelocytes # 0.0 K/mm3 11/07/18 05:13 Blast Cells # 0.0 K/mm3 11/07/18 05:13 WBC Morphology Not Reportable 11/07/18 05:13 Hypersegmented Neuts Not Reportable 11/07/18 05:13 Hyposegmented Neuts Not Reportable 11/07/18 05:13 Hypogranular Neuts Not Reportable 11/07/18 05:13 Smudge Cells Not Reportable 11/07/18 05:13 Toxic Granulation Not Reportable 11/07/18 05:13 Toxic Vacuolation Not Reportable 11/07/18 05:13 Dohle Bodies Not Reportable 11/07/18 05:13 Pelger-Huet Anomaly Not Reportable 11/07/18 05:13 Tory Rods Not Reportable 11/07/18 05:13 Platelet Estimate Consistent w auto 11/07/18 05:13 Clumped Platelets Not Reportable 11/07/18 05:13 Plt Clumps, EDTA Not Reportable 11/07/18 05:13 Large Platelets Not Reportable 11/07/18 05:13 Giant Platelets Not Reportable 11/07/18 05:13 Platelet Satelliting Not Reportable 11/07/18 05:13 Plt Morphology Comment Not Reportable 11/07/18 05:13 RBC Morphology Not Reportable 11/07/18 05:13 Dimorphic RBCs Not Reportable 11/07/18 05:13 Polychromasia Not Reportable 11/07/18 05:13 Hypochromasia 1+ 11/07/18 05:13 Poikilocytosis Not Reportable 11/07/18 05:13 Anisocytosis 1+ 11/07/18 05:13 Microcytosis Few 11/07/18 05:13 Macrocytosis 1+ 11/07/18 05:13 Spherocytes Not Reportable 11/07/18 05:13 Pappenheimer Bodies Not Reportable 11/07/18 05:13 Sickle Cells Not Reportable 11/07/18 05:13 Target Cells Not Reportable 11/07/18 05:13 Tear Drop Cells Not Reportable 11/07/18 05:13 Ovalocytes Not Reportable 11/07/18 05:13 Helmet Cells Not Reportable 11/07/18 05:13 Ques[place] Bodies Not Reportable 11/07/18 05:13 [place] Rings Not Reportable 11/07/18 05:13 Sheng Cells Not Reportable 11/07/18 05:13 Bite Cells Not Reportable 11/07/18 05:13 Crenated Cell Not Reportable 11/07/18 05:13 Elliptocytes Not Reportable 11/07/18 05:13 Acanthocytes (Spur) Not Reportable 11/07/18 05:13 Rouleaux Not Reportable 11/07/18 05:13 Hemoglobin C Crystals Not Reportable 11/07/18 05:13 Schistocytes Not Reportable 11/07/18 05:13 Malaria parasites Not Reportable 11/07/18 05:13 Sarwat Bodies Not Reportable 11/07/18 05:13 Hem Pathologist Commnt No 11/07/18 05:13 PT 15.0 Sec. (12.2-14.9) H 11/06/18 20:18 INR 1.11 (0.87-1.13) 11/06/18 20:18 VBG pH 7.340 (7.320-7.420) 11/06/18 20:18 Sodium 142 mmol/L (137-145) 11/08/18 04:32 Potassium 3.7 mmol/L (3.6-5.0) 11/08/18 04:32 Chloride 106.5 mmol/L (98-107) 11/08/18 04:32 Carbon Dioxide 22 mmol/L (22-30) 11/08/18 04:32 Anion Gap 17 mmol/L 11/08/18 04:32 BUN 11 mg/dL (9-20) 11/08/18 04:32 Creatinine 1.0 mg/dL (0.8-1.5) 11/08/18 04:32 Estimated GFR > 60 ml/min 11/08/18 04:32 BUN/Creatinine Ratio 11 % 11/08/18 04:32 Glucose 124 mg/dL (75-100) H 11/08/18 04:32 Lactic Acid 1.40 mmol/L (0.7-2.0) 11/07/18 23:22 Calcium 8.0 mg/dL (8.4-10.2) L 11/08/18 04:32 Total Bilirubin 1.70 mg/dL (0.1-1.2) H 11/06/18 20:18 AST 29 units/L (5-40) 11/06/18 20:18 ALT 17 units/L (7-56) 11/06/18 20:18 Alkaline Phosphatase 88 units/L (35-129) 11/06/18 20:18 Total Protein 6.2 g/dL (6.3-8.2) L 11/06/18 20:18 Albumin 4.0 g/dL (3.9-5) 11/06/18 20:18 Albumin/Globulin Ratio 1.8 % 11/06/18 20:18 Urine Color Rubia (Yellow) 11/07/18 00:07 Urine Turbidity Cloudy (Clear) 11/07/18 00:07 Urine pH 5.0 (5.0-7.0) 11/07/18 00:07 Ur Specific [place] 1.015 (1.003-1.030) 11/07/18 00:07 Urine Protein 100 mg/dl mg/dL (Negative) 11/07/18 00:07 Urine Glucose (UA) Neg mg/dL (Negative) 11/07/18 00:07 Urine Ketones Neg mg/dL (Negative) 11/07/18 00:07 Urine Blood Lg (Negative) 11/07/18 00:07 Urine Nitrite Pos (Negative) 11/07/18 00:07 Urine Bilirubin Neg (Negative) 11/07/18 00:07 Urine Urobilinogen < 2.0 mg/dL (<2.0) 11/07/18 00:07 Ur Leukocyte Esterase Tr (Negative) 11/07/18 00:07 Urine WBC (Auto) 59.0 /HPF (0.0-6.0) H 11/07/18 00:07 Urine RBC (Auto) > 182.0 /HPF (0.0-6.0) 11/07/18 00:07 U Epithel Cells (Auto) 1.0 /HPF (0-13.0) 11/07/18 00:07 Urine Bacteria (Auto) 2+ /HPF (Negative) 11/07/18 00:07 Hyaline Casts 56 /LPF 11/07/18 00:07 Granular Casts 2 /LPF 11/07/18 00:07 Urine Mucus Few /HPF 11/07/18 00:07 Active Medications - Current Medications Current Medications: Generic Name Dose Route Start Last Admin Trade Name Freq PRN Reason Stop Dose Admin Acetaminophen 650 mg 11/07/18 01:19 11/08/18 11:25 Tylenol PO 650 mg Q4H PRN Administration Pain MILD(1-3)/Fever >100.5/RAY Albuterol 2.5 mg 11/08/18 08:00 11/08/18 07:36 Proventil IH 2.5 mg TIDRT LENORE Administration Sodium Chloride 1,000 mls @ 150 mls/hr 11/07/18 02:00 11/08/18 09:45 Nacl 0.9% 1000 Ml IV 150 mls/hr DIRECT LENORE Administration Cefepime HCl 2 gm in 100 mls @ 200 mls/hr 11/07/18 15:00 11/08/18 06:51 Maxipime/Ns 2 Gm/100 Ml IV 200 mls/hr Q8HR LENORE Administration Protocol Metronidazole 500 mg in 100 mls @ 100 mls/hr 11/07/18 15:00 11/08/18 06:56 Flagyl 500 Mg/100 Ml IV Not Given Q8HR LENORE Protocol Morphine Sulfate 2 mg 11/07/18 01:19 Morphine IV Q4H PRN Pain, Moderate (4-6) Ondansetron HCl 4 mg 11/07/18 01:19 11/07/18 18:08 Zofran IV 4 mg Q4H PRN Administration Nausea And Vomiting Sodium Chloride 10 ml 11/07/18 10:00 11/08/18 10:00 Sodium Chloride Flush Syringe 10 Ml IV 10 ml BID LENORE Administration Sodium Chloride 10 ml 11/07/18 01:19 Sodium Chloride Flush Syringe 10 Ml IV PRN PRN LINE FLUSH Nutrition/Malnutrition Assess - Dietary Evaluation Nutrition/Malnutrition Findings: Nutrition Notes Start: 11/07/18 14:42 Freq: Status: Active Protocol: Document 11/07/18 14:42 RM (Rec: 11/07/18 14:43 RM [id number]) Nutrition Notes Need for Assessment generated from: frickertron checker,Education Initial or Follow up Brief Note Subjective/Other Information Screened for new onset DM diet education. No Dx of DM or A1c in record. Per nurse pt does not have hx of DM. Nutrition Intervention Revisit per MD consult or patient Sign Off request:
[2018-11-08] MEDS ORDERED: SOLU-Medrol IV ONE (15:10)
--- NOTE | 2018-11-08 16:30 | Progress Note ---
Assessment and Plan Cultures: Blood culture 10/17/2018: GNR 11/07/2018 urine culture: <10K bacteria Assessment: 62 y/o male with a history of sickle cell disease; admitted on 11/06/18 due to 24 hour-history of fever, chills and generalized malaise. Patient underwent transrectal-prostate biopsy on 11/05/[address] Hidalgo. Patient denies N/V/D, cough, SOB, abdominal pain, urinary symptoms. 1) Severe Sepsis secondary to GNR bacteremia: Present on admission, manifested by fever, tachycardia, hypotension, leukocytosis, increased lactate. Etiology most likely UTI +/- post-biopsy prostatitis and prostatitis. He received cipro PO x 3 days before biopsy. - UA 59 wbc, trace LE, +nitrates, large blood. - Blood culture 10/17/2018 no growth today. - CT abd showed rectal prostate and seminal vesicles stranding. 2) BIN: better Recommendations: - given increasing WBC and persistent fever, in spite of Cefepime, will d/c Cefepime, Flagyl and started IV Meropenem - consult - follow up ID and sensitivity d/w Dr. Neumann. Holger Lara MD [facility] C: [phone] O: [phone] F: [phone] Subjective Date of service: 11/08/18 Interval history: Still spiking high fevers. Reports shortness of breath. WBC increased. No diarrhea, no BM. Objective - Exam Narrative Exam: Physical Exam: Constitutional: Alert, cooperative. No acute distress Head, Ears, Nose: Normocephalic, atraumatic. External ears, nose normal Eyes: Conjunctivae/corneas clear. No icterus. No ptosis. Neck: Supple, no meningeal signs Cardiovascular: S1, S2 normal. Respiratory: Good air entry, clear to auscultation bilaterally GI: Soft, non-tender; bowel sounds normal. No peritoneal signs Musculoskeletal: No pedal edema, no cyanosis. Skin: No rash or abscess Hem/Lymphatic: No palpable cervical or supraclavicular nodes. No lymphangitis Psych: Mood ok. Affect normal Neurological: Awake, alert, oriented. No gross abnormality - Constitutional Vitals: Vital Signs Temp Pulse Resp BP Pulse Ox 102.2 F H 134 H 26 H 164/83 97 03/23/19 11:17 11/08/18 14:30 11/08/18 14:30 11/08/18 11:17 11/08/18 14:10 Temperature -Last 24 Hours Temperature 102.2 F Temperature 97.7 F Temperature 101.4 F Temperature 98.6 F Temperature 99.7 F Temperature 98.5 F Temperature 100.1 F Temperature 102.8 F - Labs CBC & Chem 7: 11/08/18 04:32 11/08/18 04:32 Labs: Abnormal lab results 11/08/18 11/08/18 Range/Units 04:32 04:32 WBC 33.2 H (4.5-11.0) K/mm3 Hgb 10.4 L (11.8-15.2) gm/dl Hct 31.3 L (35.5-45.6) % MCV 82 L (84-94) fl MCH 27 L (28-32) pg RDW 20.7 H (13.2-15.2) % Plt Count 126 L (140-440) K/mm3 Glucose 124 H (75-100) mg/dL Calcium 8.0 L (8.4-10.2) mg/dL
--- NOTE | 2018-11-08 16:46 | XRay Report ---
PROCEDURE: XR CHEST 1V AP HISTORY: SHORTNESS OF BREATH FINDINGS: Frontal view of the chest was acquired and compared to the prior examination of November 06. There is cardiomegaly. There is left lateral basilar linear scar versus atelectasis. There is no acut e consolidative pulmonary infiltrate. There is a right proximal humeral prosthesis. IMPRESSION: Cardiomegaly This document is electronically signed by Ildefonso Wilkes MD., November 08 2018 04:44:18 PM ET
[2018-11-08] MEDS: MERREM 1,000 MG in NACL 0.9% 100 ML IV SCH ×2 (17:15→23:55)
[2018-11-09] MEDS: MERREM 1,000 MG in NACL 0.9% 100 ML IV SCH ×3 (06:01→22:22)
[2018-11-09] MEDS: TYLENOL PO PRN (06:06)
[2018-11-09] MEDS: PROVENTIL IH SCH ×3 (08:49→20:19)
[2018-11-09 09:22] LABS: Mean Corpuscular HGB Conc 34 % (32-34); Mean Corpuscular Volume 83 fl (84-94); Red Blood Count 3.52 M/mm3 (3.65-5.03)
[2018-11-09] MEDS: SODIUM CHLORIDE FLUSH SYRINGE 10 ML IV SCH ×2 (09:25→22:26)
[2018-11-09 09:27] LABS: Red Cell Distribution Width 20.1 % (13.2-15.2)
[2018-11-09 10:18] LABS: Platelet Count 127 K/mm3 (140-440)
--- NOTE | 2018-11-09 14:10 | Progress Note ---
Assessment and Plan Assessment and plan: he is a 62-year-old male that presents emergency room with complaints of fever. Patient found to have prostatitis and urinary tract infection and sepsis. Patient was treated with a sepsis protocol and IV fluids and antibiotics. His labs unremarkable except for elevated white count and acute renal insufficiency and lactic acidosis and UTI. Patient source of fever. To be a acute prostatitis. Patient recently had a prostate biopsy. Patient was admitted to the hospitalist service. chest xray: cardiomegaly Sepsis- Secondary to GNR bactermia Acute Cystitis s/p recent prostate biopsy Ecoli Bacterimia Acute renal failure Sickle cell disease, stable Acute Respiratory Failure with hypoxia Thrombocytopenia Plan Continue supportive care Abx adjusted by ID, noted improvement Will call Dr Hidalgo again in AM Give 2 additional bolus of fluid outpatient cardiology eval for cardiomegaly Cultures, Urine culture. ID consult INPUT NOTED Continue gentle hydration, Cultures noted Ok to start diet IV morphine, DVT prophylaxis History Interval history: Patient seen and examined today, admitted with sepsis. still with shortness of breath, But appears to be improving clinically Hospitalist Physical - Physical exam Narrative exam: VITAL SIGNS: Reviewed. GENERAL: The patient appeared well nourished and normally developed, Vital signs as documented. Ill-appearing and appears with mild distress HEAD: No signs of head trauma. EYES: Pupils are equal. Extraocular motions intact. EARS: Hearing grossly intact. MOUTH: Oropharynx is normal. NECK: No adenopathy, no JVD. CHEST: Chest with clear sounds bilaterally. No rales, or rhonchi. CARDIAC: regular rate and rhythm. S1 and S2, without murmurs, gallops, or rubs. VASCULAR: No Edema. Peripheral pulses normal and equal in all extremities. ABDOMEN: Soft, non tender and non distended. No rebound or guarding, and no masses palpated. Bowel Sounds normal. MUSCULOSKELETAL: Good range of motion of all major joints. Extremities without clubbing, cyanosis or edema. NEUROLOGIC EXAM: Alert and oriented x 3 No focal sensory or strength deficits. Speech normal. Follows commands. PSYCHIATRIC: Mood normal. SKIN: No rash or lesions. - Constitutional Vitals: Temp Pulse Resp BP Pulse Ox 98.8 F 92 H 24 127/85 96 11/09/18 11:35 11/09/18 11:35 11/09/18 11:35 11/09/18 11:35 11/09/18 11:35 General appearance: Present: no acute distress, well-nourished Results - Labs CBC & Chem 7: 11/09/18 08:28 11/08/18 04:32 Labs: Laboratory Last Values WBC 22.3 K/mm3 (4.5-11.0) H 11/09/18 08:28 RBC 3.52 M/mm3 (3.65-5.03) L 11/09/18 08:28 Hgb 10.0 gm/dl (11.8-15.2) L 11/09/18 08:28 Hct 29.0 % (35.5-45.6) L 11/09/18 08:28 MCV 83 fl (84-94) L 11/09/18 08:28 MCH 28 pg (28-32) 11/09/18 08:28 MCHC 34 % (32-34) 11/09/18 08:28 RDW 20.1 % (13.2-15.2) H 11/09/18 08:28 Plt Count 127 K/mm3 (140-440) L 11/09/18 08:28 Add Manual Diff Complete 11/07/18 05:13 Total Counted 100 11/07/18 05:13 Seg Neutrophils % [employer] 11/07/18 05:13 Seg Neuts % (Manual) 74.0 % (40.0-70.0) H 11/07/18 05:13 Band Neutrophils % 22.0 % 11/07/18 05:13 Lymphocytes % (Manual) 3.0 % (13.4-35.0) L 11/07/18 05:13 Reactive Lymphs % (Man) 0 % 11/07/18 05:13 Monocytes % (Manual) 1.0 % (0.0-7.3) 11/07/18 05:13 Eosinophils % (Manual) 0 % (0.0-4.3) 11/07/18 05:13 Basophils % (Manual) 0 % (0.0-1.8) 11/07/18 05:13 Metamyelocytes % 0 % 11/07/18 05:13 Myelocytes % 0 % 11/07/18 05:13 Promyelocytes % 0 % 11/07/18 05:13 Blast Cells % 0 % 11/07/18 05:13 Nucleated RBC % 2.0 % (0.0-0.9) H 11/07/18 05:13 Seg Neutrophils # Man 26.6 K/mm3 (1.8-7.7) H 11/07/18 05:13 Band Neutrophils # 7.9 K/mm3 11/07/18 05:13 Lymphocytes # (Manual) 1.1 K/mm3 (1.2-5.4) L 11/07/18 05:13 Abs React Lymphs (Man) 0.0 K/mm3 11/07/18 05:13 Monocytes # (Manual) 0.4 K/mm3 (0.0-0.8) 11/07/18 05:13 Eosinophils # (Manual) 0.0 K/mm3 (0.0-0.4) 11/07/18 05:13 Basophils # (Manual) 0.0 K/mm3 (0.0-0.1) 11/07/18 05:13 Metamyelocytes # 0.0 K/mm3 11/07/18 05:13 Myelocytes # 0.0 K/mm3 11/07/18 05:13 Promyelocytes # 0.0 K/mm3 11/07/18 05:13 Blast Cells # 0.0 K/mm3 11/07/18 05:13 WBC Morphology Not Reportable 11/07/18 05:13 Hypersegmented Neuts Not Reportable 11/07/18 05:13 Hyposegmented Neuts Not Reportable 11/07/18 05:13 Hypogranular Neuts Not Reportable 11/07/18 05:13 Smudge Cells Not Reportable 11/07/18 05:13 Toxic Granulation Not Reportable 11/07/18 05:13 Toxic Vacuolation Not Reportable 11/07/18 05:13 Dohle Bodies Not Reportable 11/07/18 05:13 Pelger-Huet Anomaly Not Reportable 11/07/18 05:13 Tory Rods Not Reportable 11/07/18 05:13 Platelet Estimate Consistent w auto 11/07/18 05:13 Clumped Platelets Not Reportable 11/07/18 05:13 Plt Clumps, EDTA Not Reportable 11/07/18 05:13 Large Platelets Not Reportable 11/07/18 05:13 Giant Platelets Not Reportable 11/07/18 05:13 Platelet Satelliting Not Reportable 11/07/18 05:13 Plt Morphology Comment Not Reportable 11/07/18 05:13 RBC Morphology Not Reportable 11/07/18 05:13 Dimorphic RBCs Not Reportable 11/07/18 05:13 Polychromasia Not Reportable 11/07/18 05:13 Hypochromasia 1+ 11/07/18 05:13 Poikilocytosis Not Reportable 11/07/18 05:13 Anisocytosis 1+ 11/07/18 05:13 Microcytosis Few 11/07/18 05:13 Macrocytosis 1+ 11/07/18 05:13 Spherocytes Not Reportable 11/07/18 05:13 Pappenheimer Bodies Not Reportable 11/07/18 05:13 Sickle Cells Not Reportable 11/07/18 05:13 Target Cells Not Reportable 11/07/18 05:13 Tear Drop Cells Not Reportable 11/07/18 05:13 Ovalocytes Not Reportable 11/07/18 05:13 Helmet Cells Not Reportable 11/07/18 05:13 Quesada-Morse Bodies Not Reportable 11/07/18 05:13 [place] Rings Not Reportable 11/07/18 05:13 Sheng Cells Not Reportable 11/07/18 05:13 Bite Cells Not Reportable 11/07/18 05:13 Crenated Cell Not Reportable 11/07/18 05:13 Elliptocytes Not Reportable 11/07/18 05:13 Acanthocytes (Spur) Not Reportable 11/07/18 05:13 Rouleaux Not Reportable 11/07/18 05:13 Hemoglobin C Crystals Not Reportable 11/07/18 05:13 Schistocytes Not Reportable 11/07/18 05:13 Malaria parasites Not Reportable 11/07/18 05:13 [place] Bodies Not Reportable 11/07/18 05:13 Hem Pathologist Commnt No 11/07/18 05:13 PT 15.0 Sec. (12.2-14.9) H 11/06/18 20:18 INR 1.11 (0.87-1.13) 11/06/18 20:18 VBG pH 7.340 (7.320-7.420) 11/06/18 20:18 Sodium 142 mmol/L (137-145) 11/08/18 04:32 Potassium 3.7 mmol/L (3.6-5.0) 11/08/18 04:32 Chloride 106.5 mmol/L (98-107) 11/08/18 04:32 Carbon Dioxide 22 mmol/L (22-30) 11/08/18 04:32 Anion Gap 17 mmol/L 11/08/18 04:32 BUN 11 mg/dL (9-20) 11/08/18 04:32 Creatinine 1.0 mg/dL (0.8-1.5) 11/08/18 04:32 Estimated GFR > 60 ml/min 11/08/18 04:32 BUN/Creatinine Ratio 11 % 11/08/18 04:32 Glucose 124 mg/dL (75-100) H 11/08/18 04:32 Lactic Acid 1.40 mmol/L (0.7-2.0) 11/07/18 23:22 Calcium 8.0 mg/dL (8.4-10.2) L 11/08/18 04:32 Total Bilirubin 1.70 mg/dL (0.1-1.2) H 11/06/18 20:18 AST 29 units/L (5-40) 11/06/18 20:18 ALT 17 units/L (7-56) 11/06/18 20:18 Alkaline Phosphatase 88 units/L (35-129) 11/06/18 20:18 Total Protein 6.2 g/dL (6.3-8.2) L 11/06/18 20:18 Albumin 4.0 g/dL (3.9-5) 11/06/18 20:18 Albumin/Globulin Ratio 1.8 % 11/06/18 20:18 Urine Color Rubia (Yellow) 11/07/18 00:07 Urine Turbidity Cloudy (Clear) 11/07/18 00:07 Urine pH 5.0 (5.0-7.0) 11/07/18 00:07 Ur Specific [place] 1.015 (1.003-1.030) 11/07/18 00:07 Urine Protein 100 mg/dl mg/dL (Negative) 11/07/18 00:07 Urine Glucose (UA) Neg mg/dL (Negative) 11/07/18 00:07 Urine Ketones Neg mg/dL (Negative) 11/07/18 00:07 Urine Blood Lg (Negative) 11/07/18 00:07 Urine Nitrite Pos (Negative) 11/07/18 00:07 Urine Bilirubin Neg (Negative) 11/07/18 00:07 Urine Urobilinogen < 2.0 mg/dL (<2.0) 11/07/18 00:07 Ur Leukocyte Esterase Tr (Negative) 11/07/18 00:07 Urine WBC (Auto) 59.0 /HPF (0.0-6.0) H 11/07/18 00:07 Urine RBC (Auto) > 182.0 /HPF (0.0-6.0) 11/07/18 00:07 U Epithel Cells (Auto) 1.0 /HPF (0-13.0) 11/07/18 00:07 Urine Bacteria (Auto) 2+ /HPF (Negative) 11/07/18 00:07 Hyaline Casts 56 /LPF 11/07/18 00:07 Granular Casts 2 /LPF 11/07/18 00:07 Urine Mucus Few /HPF 11/07/18 00:07 Active Medications - Current Medications Current Medications: Generic Name Dose Route Start Last Admin Trade Name Freq PRN Reason Stop Dose Admin Acetaminophen 650 mg 11/07/18 01:19 11/09/18 06:06 Tylenol PO 650 mg Q4H PRN Administration Pain MILD(1-3)/Fever >100.5/RAY Albuterol 2.5 mg 11/08/18 08:00 11/09/18 08:49 Proventil IH 2.5 mg TIDRT LENORE Administration Sodium Chloride 1,000 mls @ 150 mls/hr 11/07/18 02:00 11/08/18 09:45 Nacl 0.9% 1000 Ml IV 150 mls/hr DIRECT LENORE Administration Meropenem 1,000 mg/ Sodium 100 mls @ 100 mls/hr 11/08/18 17:00 11/09/18 13:29 Chloride IV 100 mls/hr Q8HR LENORE Administration Protocol Morphine Sulfate 2 mg 11/07/18 01:19 Morphine IV Q4H PRN Pain, Moderate (4-6) Ondansetron HCl 4 mg 11/07/18 01:19 11/07/18 18:08 Zofran IV 4 mg Q4H PRN Administration Nausea And Vomiting Sodium Chloride 10 ml 11/07/18 10:00 11/09/18 09:25 Sodium Chloride Flush Syringe 10 Ml IV 10 ml BID LENORE Administration Sodium Chloride 10 ml 11/07/18 01:19 Sodium Chloride Flush Syringe 10 Ml IV PRN PRN LINE FLUSH Nutrition/Malnutrition Assess - Dietary Evaluation Nutrition/Malnutrition Findings: Nutrition Notes Start: 11/07/18 14:42 Freq: Status: Active Protocol: Document 11/07/18 14:42 RM (Rec: 11/07/18 14:43 RM [id number]) Nutrition Notes Need for Assessment generated from: community outreach advocate,Education Initial or Follow up Brief Note Subjective/Other Information Screened for new onset DM diet education. No Dx of DM or A1c in record. Per nurse pt does not have hx of DM. Nutrition Intervention Revisit per MD consult or patient Sign Off request:
[2018-11-10] MEDS: NACL 0.9% 1000 ML 1,000 ML IV SCH ×3 (02:00→23:28)
[2018-11-10] MEDS: TYLENOL PO PRN ×3 (03:37→14:15)
[2018-11-10] MEDS ORDERED: PROVENTIL IH PRN (04:01)
[2018-11-10] MEDS: MERREM 1,000 MG in NACL 0.9% 100 ML IV SCH ×3 (05:35→21:47)
[2018-11-10 06:27] LABS: Hematocrit 29.4 % (35.5-45.6); Mean Corpuscular HGB Conc 34 % (32-34); Mean Corpuscular Volume 82 fl (84-94); Red Blood Count 3.59 M/mm3 (3.65-5.03); Red Cell Distribution Width 20.1 % (13.2-15.2)
[2018-11-10] MEDS: PROVENTIL IH SCH ×4 (07:54→20:44)
[2018-11-10 08:13] LABS: Platelet Count 144 K/mm3 (140-440)
[2018-11-10] MEDS: SODIUM CHLORIDE FLUSH SYRINGE 10 ML IV SCH ×3 (08:54→21:47)
--- NOTE | 2018-11-10 11:35 | Progress Note ---
Assessment and Plan Cultures: 11/06/2018 Blood culture : ESBL E. Coli, 11/07/2018 urine culture: <10K bacteria 11/08/2018 Blood culture: GNR, 4 out of 4 bottles Assessment: 62 y/o male with a history of sickle cell disease; admitted on 11/06/18 due to 24 hour-history of fever, chills and generalized malaise. Patient underwent transrectal-prostate biopsy on 11/05/[address] Hidalgo. Patient denies N/V/D, cough, SOB, abdominal pain, urinary symptoms. 1) Severe Sepsis secondary to GNR bacteremia: Fevers continuing, leukocytosis trending down. Etiology most likely UTI +/- post-biopsy prostatitis and prostatitis. He received cipro PO x 3 days before biopsy. - UA 59 wbc, trace LE, +nitrates, large blood. - Blood culture 10/17/2018 no growth today. - CT abd showed rectal prostate and seminal vesicles stranding 2) ESBL E. Coli bacteremia: Continue Meropenem. Repeat blood cultures show GNR, 4 out of 4 bottles, F/u ID and CARMEL's. Repeat blood cultures to ensure clearance. Order CT with contrast. 3) UTI: U/A with 59 WBC and trace LE, significant hematuria . Urine culture negative. 2) BIN: better Recommendations: - f/u consult -new blood cultures ordered to ensure clearance -CT scan with contrast ordered -Continue Meropenem 1 gm IV every 8 hours -continue contact isolation for ESBL -f/u ID and CARMEL's Alexandria Iverson NP [facility] M: [phone] O:[phone] Subjective Date of service: 11/10/18 Interval history: Patient seen and examined. Reports generalized weakness, no SOB. +fevers. Family at bedside. Objective - Exam Narrative Exam: Constitutional: Alert, cooperative. mild distress observed. Head, Ears, Nose: Normocephalic, atraumatic. External ears, nose normal Eyes: Conjunctivae/corneas clear. No icterus. No ptosis. Neck: Supple, no meningeal signs Cardiovascular: S1, S2 normal. Respiratory: Good air entry, clear to auscultation bilaterally GI: Soft, non-tender; bowel sounds normal. No peritoneal signs Musculoskeletal: No pedal edema, no cyanosis. Skin: No rash or abscess Hem/Lymphatic: No palpable cervical or supraclavicular nodes. No lymphangitis Psych: Mood ok. Affect normal Neurological: Awake, alert, oriented. No gross abnormality - Constitutional Vitals: Vital Signs Temp Pulse Resp BP Pulse Ox 102.7 F H 119 H 20 115/75 93 11/10/18 05:12 11/10/18 08:07 11/10/18 08:07 11/09/18 23:05 11/10/18 07:54 Temperature -Last 24 Hours Temperature 102.7 F Temperature 99.3 F Temperature 99.3 F Temperature 98.4 F Temperature 98.8 F - Labs CBC & Chem 7: 11/10/18 05:55 11/08/18 04:32 Labs: Abnormal lab results 11/10/18 Range/Units 05:55 WBC 12.9 H (4.5-11.0) K/mm3 RBC 3.59 L (3.65-5.03) M/mm3 Hgb 10.0 L (11.8-15.2) gm/dl Hct 29.4 L (35.5-45.6) % MCV 82 L (84-94) fl RDW 20.1 H (13.2-15.2) %
--- NOTE | 2018-11-10 14:06 | Cat Scan Report ---
CT ABDOMEN PELVIS WITH CONTRAST: HISTORY: Worsening fever. COMPARISON: 11/06/18. TECHNIQUE: Helical CT in 1.25mm intervals following IV contrast. Sagittal and coronal reconstructions. FINDINGS: Lung bases: Mild cardiomegaly is stable. Small bilateral pleural effusions have developed. Partial atelectasis has developed in the left lower lobe. Liver: Normal. Biliary system: Normal. Pancreas: Normal. Spleen: There is moderate splenomegaly measuring 15.7 cm. There are multiple subtle foci of enhancement within the splenic parenchyma. The etiology of this is unclear. These do not have the typical appearance of hemangiomas or abscesses. A neoplastic process cannot be excluded. Kidneys/ureters/bladder: Few cysts in the left kidney measuring up to 2 cm are unchanged. Focal cortical scarring in the posterior right kidney is again noted. The ureters are normal course and caliber. The bladder is unremarkable. Adrenal glands: Normal. Aorta: Normal. Intestines: No evidence for bowel obstruction, bowel wall thickening or inflammation. There is moderate stool in the colon. Appendix: Normal. Pelvic viscera: The prostate gland remains mildly enlarged measuring 6 cm in diameter. Fat stranding surrounding the prostate and rectum has resolved. Ascites: None. Adenopathy: None. Musculoskeletal: Intact. No fracture or suspicious bony lesion. IMPRESSION: Mild cardiomegaly, stable. Small pleural effusions have developed. Partial atelectasis has developed in the left lower lobe. Infiltrate is thought less likely. Moderate splenomegaly. There are multiple foci of enhancement in the spleen following IV contrast. The etiology of these are unclear. Please see above. Nonspecific fat stranding surrounding the prostate gland, seminal vesicles and rectum has resolved.
[2018-11-10] MEDS ORDERED: LASIX IV ONE (15:15)
[2018-11-10] MEDS ORDERED: SOLU-Medrol IV ONE (15:35)
--- NOTE | 2018-11-10 19:23 | Progress Note ---
Assessment and Plan Assessment and plan: he is a 62-year-old male that presents emergency room with complaints of fever. Patient found to have prostatitis and urinary tract infection and sepsis. Patient was treated with a sepsis protocol and IV fluids and antibiotics. His labs unremarkable except for elevated white count and acute renal insufficiency and lactic acidosis and UTI. Patient source of fever. To be a acute prostatitis. Patient recently had a prostate biopsy. Patient was admitted to the hospitalist service. chest xray: cardiomegaly CT A/P: IMPRESSION: Mild cardiomegaly, stable. Small pleural effusions have developed. Partial atelectasis has developed in the left lower lobe. Infiltrate is thought less likely. Moderate splenomegaly. There are multiple foci of enhancement in the spleen following IV contrast. The etiology of these are unclear. Please see above. Nonspecific fat stranding surrounding the prostate gland, seminal vesicles and rectum has resolved. Severe Sepsis WITH POSITIVE SOFA creteria- Secondary to GNR bactermia ESBL E coli bactermia Acute Cystitis s/p recent prostate biopsy Acute renal failure Sickle cell disease, stable Acute Respiratory Failure with hypoxia-Improving Thrombocytopenia Plan Continue supportive care Abx adjusted by ID, noted improvement s/p Transrectal prostate biopsy on 11/05/18. Dr Hidalgo informed patient is in the hospital Patient received fluid resuscitation. Will give a small dose of lasix. outpatient cardiology eval for cardiomegaly Contact isolation for ESBL Cultures, Urine culture. ID consult INPUT NOTED Continue gentle hydration, Cultures noted Ok to start diet ADD heparin to DVT prophy and monitor H/H IV morphine, DVT prophylaxis Plan discussed with patient, family and ID History Interval history: Patient seen and examined today, admitted with sepsis. shortness of breath improving. Hospitalist Physical - Physical exam Narrative exam: VITAL SIGNS: Reviewed. GENERAL: The patient appeared well nourished and normally developed, Vital signs as documented. Ill-appearing HEAD: No signs of head trauma. EYES: Pupils are equal. Extraocular motions intact. EARS: Hearing grossly intact. MOUTH: Oropharynx is normal. NECK: No adenopathy, no JVD. CHEST: Chest with clear sounds bilaterally. No rales, or rhonchi. CARDIAC: regular rate and rhythm. S1 and S2, without murmurs, gallops, or rubs. VASCULAR: No Edema. Peripheral pulses normal and equal in all extremities. ABDOMEN: Soft, non tender and non distended. No rebound or guarding, and no masses palpated. Bowel Sounds normal. MUSCULOSKELETAL: Good range of motion of all major joints. Extremities without clubbing, cyanosis or edema. NEUROLOGIC EXAM: Alert and oriented x 3 No focal sensory or strength deficits. Speech normal. Follows commands. PSYCHIATRIC: Mood normal. SKIN: No rash or lesions. - Constitutional Vitals: Temp Pulse Resp BP Pulse Ox 99.4 F 111 H 20 94/52 97 11/10/18 16:33 11/10/18 16:33 11/10/18 16:33 11/10/18 16:33 11/10/18 16:33 General appearance: Present: no acute distress, well-nourished Results - Labs CBC & Chem 7: 11/10/18 05:55 11/08/18 04:32 Labs: Laboratory Last Values WBC 12.9 K/mm3 (4.5-11.0) H 11/10/18 05:55 RBC 3.59 M/mm3 (3.65-5.03) L 11/10/18 05:55 Hgb 10.0 gm/dl (11.8-15.2) L 11/10/18 05:55 Hct 29.4 % (35.5-45.6) L 11/10/18 05:55 MCV 82 fl (84-94) L 11/10/18 05:55 MCH 28 pg (28-32) 11/10/18 05:55 MCHC 34 % (32-34) 11/10/18 05:55 RDW 20.1 % (13.2-15.2) H 11/10/18 05:55 Plt Count 144 K/mm3 (140-440) 11/10/18 05:55 Add Manual Diff Complete 11/07/18 05:13 Total Counted 100 11/07/18 05:13 Seg Neutrophils % Multimedia Journalist 11/07/18 05:13 Seg Neuts % (Manual) 74.0 % (40.0-70.0) H 11/07/18 05:13 Band Neutrophils % 22.0 % 11/07/18 05:13 Lymphocytes % (Manual) 3.0 % (13.4-35.0) L 11/07/18 05:13 Reactive Lymphs % (Man) 0 % 11/07/18 05:13 Monocytes % (Manual) 1.0 % (0.0-7.3) 11/07/18 05:13 Eosinophils % (Manual) 0 % (0.0-4.3) 11/07/18 05:13 Basophils % (Manual) 0 % (0.0-1.8) 11/07/18 05:13 Metamyelocytes % 0 % 11/07/18 05:13 Myelocytes % 0 % 11/07/18 05:13 Promyelocytes % 0 % 11/07/18 05:13 Blast Cells % 0 % 11/07/18 05:13 Nucleated RBC % 2.0 % (0.0-0.9) H 11/07/18 05:13 Seg Neutrophils # Man 26.6 K/mm3 (1.8-7.7) H 11/07/18 05:13 Band Neutrophils # 7.9 K/mm3 11/07/18 05:13 Lymphocytes # (Manual) 1.1 K/mm3 (1.2-5.4) L 11/07/18 05:13 Abs React Lymphs (Man) 0.0 K/mm3 11/07/18 05:13 Monocytes # (Manual) 0.4 K/mm3 (0.0-0.8) 11/07/18 05:13 Eosinophils # (Manual) 0.0 K/mm3 (0.0-0.4) 11/07/18 05:13 Basophils # (Manual) 0.0 K/mm3 (0.0-0.1) 11/07/18 05:13 Metamyelocytes # 0.0 K/mm3 11/07/18 05:13 Myelocytes # 0.0 K/mm3 11/07/18 05:13 Promyelocytes # 0.0 K/mm3 11/07/18 05:13 Blast Cells # 0.0 K/mm3 11/07/18 05:13 WBC Morphology Not Reportable 11/07/18 05:13 Hypersegmented Neuts Not Reportable 11/07/18 05:13 Hyposegmented Neuts Not Reportable 11/07/18 05:13 Hypogranular Neuts Not Reportable 11/07/18 05:13 Smudge Cells Not Reportable 11/07/18 05:13 Toxic Granulation Not Reportable 11/07/18 05:13 Toxic Vacuolation Not Reportable 11/07/18 05:13 Dohle Bodies Not Reportable 11/07/18 05:13 Pelger-Huet Anomaly Not Reportable 11/07/18 05:13 Tory Rods Not Reportable 11/07/18 05:13 Platelet Estimate Consistent w auto 11/07/18 05:13 Clumped Platelets Not Reportable 11/07/18 05:13 Plt Clumps, EDTA Not Reportable 11/07/18 05:13 Large Platelets Not Reportable 11/07/18 05:13 Giant Platelets Not Reportable 11/07/18 05:13 Platelet Satelliting Not Reportable 11/07/18 05:13 Plt Morphology Comment Not Reportable 11/07/18 05:13 RBC Morphology Not Reportable 11/07/18 05:13 Dimorphic RBCs Not Reportable 11/07/18 05:13 Polychromasia Not Reportable 11/07/18 05:13 Hypochromasia 1+ 11/07/18 05:13 Poikilocytosis Not Reportable 11/07/18 05:13 Anisocytosis 1+ 11/07/18 05:13 Microcytosis Few 11/07/18 05:13 Macrocytosis 1+ 11/07/18 05:13 Spherocytes Not Reportable 11/07/18 05:13 Pappenheimer Bodies Not Reportable 11/07/18 05:13 Sickle Cells Not Reportable 11/07/18 05:13 Target Cells Not Reportable 11/07/18 05:13 Tear Drop Cells Not Reportable 11/07/18 05:13 Ovalocytes Not Reportable 11/07/18 05:13 Helmet Cells Not Reportable 11/07/18 05:13 Quesada-Tar Heel Bodies Not Reportable 11/07/18 05:13 Clifton Rings Not Reportable 11/07/18 05:13 Sheng Cells Not Reportable 11/07/18 05:13 Bite Cells Not Reportable 11/07/18 05:13 Crenated Cell Not Reportable 11/07/18 05:13 Elliptocytes Not Reportable 11/07/18 05:13 Acanthocytes (Spur) Not Reportable 11/07/18 05:13 Rouleaux Not Reportable 11/07/18 05:13 Hemoglobin C Crystals Not Reportable 11/07/18 05:13 Schistocytes Not Reportable 11/07/18 05:13 Malaria parasites Not Reportable 11/07/18 05:13 Sarwat Bodies Not Reportable 11/07/18 05:13 Hem Pathologist Commnt No 11/07/18 05:13 PT 15.0 Sec. (12.2-14.9) H 11/06/18 20:18 INR 1.11 (0.87-1.13) 11/06/18 20:18 VBG pH 7.340 (7.320-7.420) 11/06/18 20:18 Sodium 142 mmol/L (137-145) 11/08/18 04:32 Potassium 3.7 mmol/L (3.6-5.0) 11/08/18 04:32 Chloride 106.5 mmol/L (98-107) 11/08/18 04:32 Carbon Dioxide 22 mmol/L (22-30) 11/08/18 04:32 Anion Gap 17 mmol/L 11/08/18 04:32 BUN 11 mg/dL (9-20) 11/08/18 04:32 Creatinine 1.0 mg/dL (0.8-1.5) 11/08/18 04:32 Estimated GFR > 60 ml/min 11/08/18 04:32 BUN/Creatinine Ratio 11 % 11/08/18 04:32 Glucose 124 mg/dL (75-100) H 11/08/18 04:32 Lactic Acid 1.40 mmol/L (0.7-2.0) 11/07/18 23:22 Calcium 8.0 mg/dL (8.4-10.2) L 11/08/18 04:32 Total Bilirubin 1.70 mg/dL (0.1-1.2) H 11/06/18 20:18 AST 29 units/L (5-40) 11/06/18 20:18 ALT 17 units/L (7-56) 11/06/18 20:18 Alkaline Phosphatase 88 units/L (35-129) 11/06/18 20:18 Total Protein 6.2 g/dL (6.3-8.2) L 11/06/18 20:18 Albumin 4.0 g/dL (3.9-5) 11/06/18 20:18 Albumin/Globulin Ratio 1.8 % 11/06/18 20:18 Urine Color Rubia (Yellow) 11/07/18 00:07 Urine Turbidity Cloudy (Clear) 11/07/18 00:07 Urine pH 5.0 (5.0-7.0) 11/07/18 00:07 Ur Specific [place] 1.015 (1.003-1.030) 11/07/18 00:07 Urine Protein 100 mg/dl mg/dL (Negative) 11/07/18 00:07 Urine Glucose (UA) Neg mg/dL (Negative) 11/07/18 00:07 Urine Ketones Neg mg/dL (Negative) 11/07/18 00:07 Urine Blood Lg (Negative) 11/07/18 00:07 Urine Nitrite Pos (Negative) 11/07/18 00:07 Urine Bilirubin Neg (Negative) 11/07/18 00:07 Urine Urobilinogen < 2.0 mg/dL (<2.0) 11/07/18 00:07 Ur Leukocyte Esterase Tr (Negative) 11/07/18 00:07 Urine WBC (Auto) 59.0 /HPF (0.0-6.0) H 11/07/18 00:07 Urine RBC (Auto) > 182.0 /HPF (0.0-6.0) 11/07/18 00:07 U Epithel Cells (Auto) 1.0 /HPF (0-13.0) 11/07/18 00:07 Urine Bacteria (Auto) 2+ /HPF (Negative) 11/07/18 00:07 Hyaline Casts 56 /LPF 11/07/18 00:07 Granular Casts 2 /LPF 11/07/18 00:07 Urine Mucus Few /HPF 11/07/18 00:07 Active Medications - Current Medications Current Medications: Generic Name Dose Route Start Last Admin Trade Name Freq PRN Reason Stop Dose Admin Acetaminophen 650 mg 11/07/18 01:19 11/10/18 14:15 Tylenol PO 650 mg Q4H PRN Administration Pain MILD(1-3)/Fever >100.5/RAY Albuterol 2.5 mg 11/08/18 08:00 11/10/18 14:40 Proventil IH 2.5 mg TIDRT LENORE Administration Albuterol 2.5 mg 11/10/18 04:01 Proventil IH Q6HRT PRN Shortness Of Breath Sodium Chloride 1,000 mls @ 75 mls/hr 11/07/18 02:00 11/10/18 10:55 Nacl 0.9% 1000 Ml IV 150 mls/hr DIRECT LENORE Administration Meropenem 1,000 mg/ Sodium 100 mls @ 100 mls/hr 11/08/18 17:00 11/10/18 14:19 Chloride IV 100 mls/hr Q8HR LENORE Administration Protocol Morphine Sulfate 2 mg 11/07/18 01:19 Morphine IV Q4H PRN Pain, Moderate (4-6) Ondansetron HCl 4 mg 11/07/18 01:19 11/07/18 18:08 Zofran IV 4 mg Q4H PRN Administration Nausea And Vomiting Sodium Chloride 10 ml 11/07/18 10:00 11/10/18 14:23 Sodium Chloride Flush Syringe 10 Ml IV 10 ml BID LENORE Administration Sodium Chloride 10 ml 11/07/18 01:19 Sodium Chloride Flush Syringe 10 Ml IV PRN PRN LINE FLUSH Nutrition/Malnutrition Assess - Dietary Evaluation Nutrition/Malnutrition Findings: Nutrition Notes Start: 11/07/18 14:42 Freq: Status: Active Protocol: Document 11/07/18 14:42 RM (Rec: 11/07/18 14:43 RM [id number]) Nutrition Notes Need for Assessment generated from: youth care specialist,Education Initial or Follow up Brief Note Subjective/Other Information Screened for new onset DM diet education. No Dx of DM or A1c in record. Per nurse pt does not have hx of DM. Nutrition Intervention Revisit per MD consult or patient Sign Off request:
[2018-11-10] MEDS: HEPARIN SUB-Q SCH (21:47)
[2018-11-11] MEDS: MERREM 1,000 MG in NACL 0.9% 100 ML IV SCH ×3 (05:35→21:24)
[2018-11-11 05:46] LABS: Hematocrit 27.9 % (35.5-45.6); Hemoglobin 9.4 gm/dl (11.8-15.2); Mean Corpuscular HGB Conc 34 % (32-34); Mean Corpuscular Volume 82 fl (84-94); Red Blood Count 3.39 M/mm3 (3.65-5.03)
[2018-11-11 05:48] LABS: Platelet Count 121 K/mm3 (140-440); Red Cell Distribution Width 20.3 % (13.2-15.2)
[2018-11-11 06:17] LABS: BUN/Creatinine Ratio 20; Blood Urea Nitrogen 14 mg/dL (9-20); Calcium 8.9 mg/dL (8.4-10.2); Hemolysis Index 16
[2018-11-11] MEDS: PROVENTIL IH SCH ×3 (08:57→21:20)
[2018-11-11] MEDS: SODIUM CHLORIDE FLUSH SYRINGE 10 ML IV SCH ×2 (10:23→21:24)
[2018-11-11] MEDS: HEPARIN SUB-Q SCH ×2 (10:23→21:25)
--- NOTE | 2018-11-11 10:52 | Progress Note ---
Assessment and Plan Cultures: 11/06/2018 Blood culture : ESBL E. Coli, 11/07/2018 urine culture: <10K bacteria 11/08/2018 Blood culture: GNR, 4 out of 4 bottles 11/10/2018 Blood culture: in progress Assessment: 62 y/o male with a history of sickle cell disease; admitted on 11/06/18 due to 24 hour-history of fever, chills and generalized malaise. Patient underwent transrectal-prostate biopsy on 11/05/[address] Hidalgo. Patient denies N/V/D, cough, SOB, abdominal pain, urinary symptoms. 1) Severe Sepsis secondary to GNR bacteremia: Fevers and leukocytosis continuing. Etiology E.coli bacteremia, Source most likely UTI. He received cipro PO x 3 days before biopsy. - UA 59 wbc, trace LE, +nitrates, large blood. - Blood culture 10/17/2018 no growth today. - CT abd showed rectal prostate and seminal vesicles stranding - CT with contrast showed that the The prostate gland remains mildly enlarged measuring 6 cm in diameter.Nonspecific fat stranding surrounding the prostate gland, seminal vesicles and rectum has resolved. 2) ESBL E. Coli bacteremia: Continue Meropenem. Repeat blood cultures show GNR, 4 out of 4 bottles, F/u ID and CARMEL's. F/u repeat blood cultures to ensure clearance. 3) UTI: U/A with 59 WBC and trace LE, significant hematuria . Urine culture negative. 2) BIN: better Recommendations: - f/u consult -f/u repeat blood cultures ordered to ensure clearance -Continue Meropenem 1 gm IV every 8 hours, D4 -continue contact isolation for ESBL -f/u ID and CARMEL's - consider urology consult if fever persists -Anticipate discharge on Ertapenem 1 gm IV q day for total 10 day ending 11-18-18 -Order sent to [facility] for approval -f/u in ID office 11-27-18 [facility] M: [phone] O:[phone] Subjective Date of service: 11/11/18 Interval history: Patient seen and examined. Reports generalized weakness, no SOB. +fevers. Family at bedside. Objective - Exam Narrative Exam: Constitutional: Alert, cooperative. mild distress observed. Head, Ears, Nose: Normocephalic, atraumatic. External ears, nose normal Eyes: Conjunctivae/corneas clear. No icterus. No ptosis. Neck: Supple, no meningeal signs Cardiovascular: S1, S2 normal. Respiratory: Good air entry, clear to auscultation bilaterally, + tachypnea GI: Soft, non-tender; bowel sounds normal. No peritoneal signs Musculoskeletal: No pedal edema, no cyanosis. Skin: No rash or abscess Hem/Lymphatic: No palpable cervical or supraclavicular nodes. No lymphangitis Psych: Mood ok. Affect normal Neurological: Awake, alert, oriented. No gross abnormality - Constitutional Vitals: Vital Signs Temp Pulse Resp BP Pulse Ox 98.8 F 88 19 133/88 98 11/11/18 05:12 11/11/18 09:11 11/11/18 09:11 11/11/18 05:12 11/11/18 09:01 Temperature -Last 24 Hours Temperature 98.8 F Temperature 98.9 F Temperature 99.4 F Temperature 101.0 F - Labs CBC & Chem 7: 11/11/18 05:02 11/11/18 05:02 Labs: Abnormal lab results 11/11/18 11/11/18 Range/Units 05:02 05:02 WBC 16.5 H (4.5-11.0) K/mm3 RBC 3.39 L (3.65-5.03) M/mm3 Hgb 9.4 L (11.8-15.2) gm/dl Hct 27.9 L (35.5-45.6) % MCV 82 L (84-94) fl RDW 20.3 H (13.2-15.2) % Plt Count 121 L (140-440) K/mm3 Chloride 107.7 H (98-107) mmol/L Creatinine 0.7 L (0.8-1.5) mg/dL Glucose 150 H (75-100) mg/dL
[2018-11-11] MEDS ORDERED: SENOKOT PO SCH (13:00)
[2018-11-11] MEDS: NACL 0.9% 1000 ML 1,000 ML IV SCH (13:12)
--- NOTE | 2018-11-11 17:49 | Progress Note ---
Assessment and Plan Assessment and plan: he is a 62-year-old male that presents emergency room with complaints of fever. Patient found to have prostatitis and urinary tract infection and sepsis. Patient was treated with a sepsis protocol and IV fluids and antibiotics. His labs unremarkable except for elevated white count and acute renal insufficiency and lactic acidosis and UTI. Patient source of fever. To be a acute prostatitis. Patient recently had a prostate biopsy. Patient was admitted to the hospitalist service. chest xray: cardiomegaly CT A/P: IMPRESSION: Mild cardiomegaly, stable. Small pleural effusions have developed. Partial atelectasis has developed in the left lower lobe. Infiltrate is thought less likely. Moderate splenomegaly. There are multiple foci of enhancement in the spleen following IV contrast. The etiology of these are unclear. Please see above. Nonspecific fat stranding surrounding the prostate gland, seminal vesicles and rectum has resolved. Severe Sepsis WITH POSITIVE SOFA creteria- Secondary to GNR bactermia ESBL E coli bactermia Acute Cystitis s/p recent prostate biopsy Acute renal failure Sickle cell disease, stable Acute Respiratory Failure with hypoxia-Improving Thrombocytopenia Plan Continue supportive care Abx adjusted by ID, noted improvement s/p Transrectal prostate biopsy on 11/05/18. Dr Hidalgo informed patient is in the hospital Patient received fluid resuscitation. Will give a small dose of lasix. outpatient cardiology eval for cardiomegaly Contact isolation for ESBL Cultures, Urine culture. ID consult INPUT NOTED Continue gentle hydration, Cultures noted Ok to start diet ADD heparin to DVT prophy and monitor H/H IV morphine, DVT prophylaxis Plan discussed with patient, family and ID History Interval history: Patient seen and examined today, admitted with sepsis. Shortness of breath improving, But still with fever. Hospitalist Physical - Physical exam Narrative exam: VITAL SIGNS: Reviewed. GENERAL: The patient appeared well nourished and normally developed, Vital signs as documented. Ill-appearing HEAD: No signs of head trauma. EYES: Pupils are equal. Extraocular motions intact. EARS: Hearing grossly intact. MOUTH: Oropharynx is normal. NECK: No adenopathy, no JVD. CHEST: Chest with clear sounds bilaterally. No rales, or rhonchi. CARDIAC: regular rate and rhythm. S1 and S2, without murmurs, gallops, or rubs. VASCULAR: No Edema. Peripheral pulses normal and equal in all extremities. ABDOMEN: Soft, non tender and non distended. No rebound or guarding, and no masses palpated. Bowel Sounds normal. MUSCULOSKELETAL: Good range of motion of all major joints. Extremities without clubbing, cyanosis or edema. NEUROLOGIC EXAM: Alert and oriented x 3 No focal sensory or strength deficits. Speech normal. Follows commands. PSYCHIATRIC: Mood normal. SKIN: No rash or lesions. - Constitutional Vitals: Temp Pulse Resp BP Pulse Ox 99.8 F H 106 H 20 119/81 95 11/11/18 12:16 11/11/18 14:57 11/11/18 14:57 11/11/18 12:16 11/11/18 12:16 General appearance: Present: no acute distress, well-nourished Results - Labs CBC & Chem 7: 11/12/18 05:59 11/12/18 05:59 Labs: Laboratory Last Values WBC 16.5 K/mm3 (4.5-11.0) H 11/11/18 05:02 RBC 3.39 M/mm3 (3.65-5.03) L 11/11/18 05:02 Hgb 9.4 gm/dl (11.8-15.2) L 11/11/18 05:02 Hct 27.9 % (35.5-45.6) L 11/11/18 05:02 MCV 82 fl (84-94) L 11/11/18 05:02 MCH 28 pg (28-32) 11/11/18 05:02 MCHC 34 % (32-34) 11/11/18 05:02 RDW 20.3 % (13.2-15.2) H 11/11/18 05:02 Plt Count 121 K/mm3 (140-440) L 11/11/18 05:02 Add Manual Diff Complete 11/07/18 05:13 Total Counted 100 11/07/18 05:13 Seg Neutrophils % [employer] 11/07/18 05:13 Seg Neuts % (Manual) 74.0 % (40.0-70.0) H 11/07/18 05:13 Band Neutrophils % 22.0 % 11/07/18 05:13 Lymphocytes % (Manual) 3.0 % (13.4-35.0) L 11/07/18 05:13 Reactive Lymphs % (Man) 0 % 11/07/18 05:13 Monocytes % (Manual) 1.0 % (0.0-7.3) 11/07/18 05:13 Eosinophils % (Manual) 0 % (0.0-4.3) 11/07/18 05:13 Basophils % (Manual) 0 % (0.0-1.8) 11/07/18 05:13 Metamyelocytes % 0 % 11/07/18 05:13 Myelocytes % 0 % 11/07/18 05:13 Promyelocytes % 0 % 11/07/18 05:13 Blast Cells % 0 % 11/07/18 05:13 Nucleated RBC % 2.0 % (0.0-0.9) H 11/07/18 05:13 Seg Neutrophils # Man 26.6 K/mm3 (1.8-7.7) H 11/07/18 05:13 Band Neutrophils # 7.9 K/mm3 11/07/18 05:13 Lymphocytes # (Manual) 1.1 K/mm3 (1.2-5.4) L 11/07/18 05:13 Abs React Lymphs (Man) 0.0 K/mm3 11/07/18 05:13 Monocytes # (Manual) 0.4 K/mm3 (0.0-0.8) 11/07/18 05:13 Eosinophils # (Manual) 0.0 K/mm3 (0.0-0.4) 11/07/18 05:13 Basophils # (Manual) 0.0 K/mm3 (0.0-0.1) 11/07/18 05:13 Metamyelocytes # 0.0 K/mm3 11/07/18 05:13 Myelocytes # 0.0 K/mm3 11/07/18 05:13 Promyelocytes # 0.0 K/mm3 11/07/18 05:13 Blast Cells # 0.0 K/mm3 11/07/18 05:13 WBC Morphology Not Reportable 11/07/18 05:13 Hypersegmented Neuts Not Reportable 11/07/18 05:13 Hyposegmented Neuts Not Reportable 11/07/18 05:13 Hypogranular Neuts Not Reportable 11/07/18 05:13 Smudge Cells Not Reportable 11/07/18 05:13 Toxic Granulation Not Reportable 11/07/18 05:13 Toxic Vacuolation Not Reportable 11/07/18 05:13 Dohle Bodies Not Reportable 11/07/18 05:13 Pelger-Huet Anomaly Not Reportable 11/07/18 05:13 Tory Rods Not Reportable 11/07/18 05:13 Platelet Estimate Consistent w auto 11/07/18 05:13 Clumped Platelets Not Reportable 11/07/18 05:13 Plt Clumps, EDTA Not Reportable 11/07/18 05:13 Large Platelets Not Reportable 11/07/18 05:13 Giant Platelets Not Reportable 11/07/18 05:13 Platelet Satelliting Not Reportable 11/07/18 05:13 Plt Morphology Comment Not Reportable 11/07/18 05:13 RBC Morphology Not Reportable 11/07/18 05:13 Dimorphic RBCs Not Reportable 11/07/18 05:13 Polychromasia Not Reportable 11/07/18 05:13 Hypochromasia 1+ 11/07/18 05:13 Poikilocytosis Not Reportable 11/07/18 05:13 Anisocytosis 1+ 11/07/18 05:13 Microcytosis Few 11/07/18 05:13 Macrocytosis 1+ 11/07/18 05:13 Spherocytes Not Reportable 11/07/18 05:13 Pappenheimer Bodies Not Reportable 11/07/18 05:13 Sickle Cells Not Reportable 11/07/18 05:13 Target Cells Not Reportable 11/07/18 05:13 Tear Drop Cells Not Reportable 11/07/18 05:13 Ovalocytes Not Reportable 11/07/18 05:13 Helmet Cells Not Reportable 11/07/18 05:13 [place] Bodies Not Reportable 11/07/18 05:13 [place] Rings Not Reportable 11/07/18 05:13 [place] Cells Not Reportable 11/07/18 05:13 Bite Cells Not Reportable 11/07/18 05:13 Crenated Cell Not Reportable 11/07/18 05:13 Elliptocytes Not Reportable 11/07/18 05:13 Acanthocytes (Spur) Not Reportable 11/07/18 05:13 Rouleaux Not Reportable 11/07/18 05:13 Hemoglobin C Crystals Not Reportable 11/07/18 05:13 Schistocytes Not Reportable 11/07/18 05:13 Malaria parasites Not Reportable 11/07/18 05:13 [place] Bodies Not Reportable 11/07/18 05:13 Hem Pathologist Commnt No 11/07/18 05:13 PT 15.0 Sec. (12.2-14.9) H 11/06/18 20:18 INR 1.11 (0.87-1.13) 11/06/18 20:18 VBG pH 7.340 (7.320-7.420) 11/06/18 20:18 Sodium 143 mmol/L (137-145) 11/11/18 05:02 Potassium 4.3 mmol/L (3.6-5.0) 11/11/18 05:02 Chloride 107.7 mmol/L (98-107) H 11/11/18 05:02 Carbon Dioxide 27 mmol/L (22-30) 11/11/18 05:02 Anion Gap 13 mmol/L 11/11/18 05:02 BUN 14 mg/dL (9-20) 11/11/18 05:02 Creatinine 0.7 mg/dL (0.8-1.5) L 11/11/18 05:02 Estimated GFR > 60 ml/min 11/11/18 05:02 BUN/Creatinine Ratio 20 % 11/11/18 05:02 Glucose 150 mg/dL (75-100) H 11/11/18 05:02 Lactic Acid 1.40 mmol/L (0.7-2.0) 11/07/18 23:22 Calcium 8.9 mg/dL (8.4-10.2) 11/11/18 05:02 Total Bilirubin 1.70 mg/dL (0.1-1.2) H 11/06/18 20:18 AST 29 units/L (5-40) 11/06/18 20:18 ALT 17 units/L (7-56) 11/06/18 20:18 Alkaline Phosphatase 88 units/L (35-129) 11/06/18 20:18 Total Protein 6.2 g/dL (6.3-8.2) L 11/06/18 20:18 Albumin 4.0 g/dL (3.9-5) 11/06/18 20:18 Albumin/Globulin Ratio 1.8 % 11/06/18 20:18 Urine Color Rubia (Yellow) 11/07/18 00:07 Urine Turbidity Cloudy (Clear) 11/07/18 00:07 Urine pH 5.0 (5.0-7.0) 11/07/18 00:07 Ur Specific Dickinson 1.015 (1.003-1.030) 11/07/18 00:07 Urine Protein 100 mg/dl mg/dL (Negative) 11/07/18 00:07 Urine Glucose (UA) Neg mg/dL (Negative) 11/07/18 00:07 Urine Ketones Neg mg/dL (Negative) 11/07/18 00:07 Urine Blood Lg (Negative) 11/07/18 00:07 Urine Nitrite Pos (Negative) 11/07/18 00:07 Urine Bilirubin Neg (Negative) 11/07/18 00:07 Urine Urobilinogen < 2.0 mg/dL (<2.0) 11/07/18 00:07 Ur Leukocyte Esterase Tr (Negative) 11/07/18 00:07 Urine WBC (Auto) 59.0 /HPF (0.0-6.0) H 11/07/18 00:07 Urine RBC (Auto) > 182.0 /HPF (0.0-6.0) 11/07/18 00:07 U Epithel Cells (Auto) 1.0 /HPF (0-13.0) 11/07/18 00:07 Urine Bacteria (Auto) 2+ /HPF (Negative) 11/07/18 00:07 Hyaline Casts 56 /LPF 11/07/18 00:07 Granular Casts 2 /LPF 11/07/18 00:07 Urine Mucus Few /HPF 11/07/18 00:07 Active Medications - Current Medications Current Medications: Generic Name Dose Route Start Last Admin Trade Name Freq PRN Reason Stop Dose Admin Acetaminophen 650 mg 11/07/18 01:19 11/10/18 14:15 Tylenol PO 650 mg Q4H PRN Administration Pain MILD(1-3)/Fever >100.5/RAY Albuterol 2.5 mg 11/08/18 08:00 11/11/18 14:43 Proventil IH 2.5 mg TIDRT [facility] Administration Albuterol 2.5 mg 11/10/18 04:01 Proventil IH Q6HRT PRN Shortness Of Breath Heparin Sodium (Porcine) 5,000 unit 11/10/18 22:00 11/11/18 10:23 Heparin SUB-Q 5,000 unit Q12HR [facility] Administration Sodium Chloride 1,000 mls @ 75 mls/hr 11/07/18 02:00 11/11/18 13:12 Nacl 0.9% 1000 Ml IV 150 mls/hr DIRECT [facility] Administration Meropenem 1,000 mg/ Sodium 100 mls @ 100 mls/hr 11/08/18 17:00 11/11/18 14:44 Chloride IV 100 mls/hr Q8HR [facility] Administration Protocol Morphine Sulfate 2 mg 11/07/18 01:19 Morphine IV Q4H PRN Pain, Moderate (4-6) Ondansetron HCl 4 mg 11/07/18 01:19 11/07/18 18:08 Zofran IV 4 mg Q4H PRN Administration Nausea And Vomiting Senna 17.2 mg 11/11/18 13:06 Senokot PO Q12H [facility] Sodium Chloride 10 ml 11/07/18 10:00 11/11/18 10:23 Sodium Chloride Flush Syringe 10 Ml IV 10 ml BID [facility] Administration Sodium Chloride 10 ml 11/07/18 01:19 Sodium Chloride Flush Syringe 10 Ml IV PRN PRN LINE FLUSH Nutrition/Malnutrition Assess - Dietary Evaluation Nutrition/Malnutrition Findings: Nutrition Notes Start: 11/07/18 14:42 Freq: Status: Active Protocol: Document 11/07/18 14:42 RM (Rec: 11/07/18 14:43 RM [id number]) Nutrition Notes Need for Assessment generated from: behavioral health worker,Education Initial or Follow up Brief Note Subjective/Other Information Screened for new onset DM diet education. No Dx of DM or A1c in record. Per nurse pt does not have hx of DM. Nutrition Intervention Revisit per MD consult or patient Sign Off request:
[2018-11-12] MEDS: TYLENOL PO PRN (01:25)
[2018-11-12] MEDS: MERREM 1,000 MG in NACL 0.9% 100 ML IV SCH ×3 (06:42→22:19)
[2018-11-12 06:51] LABS: Hematocrit 27.6 % (35.5-45.6); Hemoglobin 9.4 gm/dl (11.8-15.2); Mean Corpuscular HGB Conc 34 % (32-34); Mean Corpuscular Volume 82 fl (84-94); Red Blood Count 3.39 M/mm3 (3.65-5.03)
[2018-11-12 06:52] LABS: Platelet Count 111 K/mm3 (140-440); Red Cell Distribution Width 20.1 % (13.2-15.2)
[2018-11-12 06:58] LABS: BUN/Creatinine Ratio 26; Blood Urea Nitrogen 18 mg/dL (9-20); Calcium 8.2 mg/dL (8.4-10.2); Hemolysis Index 39
[2018-11-12] MEDS: PROVENTIL IH SCH (08:27)
--- NOTE | 2018-11-12 10:22 | XRay Report ---
AP CHEST: HISTORY: Shortness of breath Compared to 11/08/18. Cardiomegaly is unchanged. Pulmonary vessels are borderline. Mild bibasilar linear scarring or atelectasis is unchanged. The lungs are grossly clear. No large infiltrate, pleural effusion or pneumothorax is identified. IMPRESSION: Cardiomegaly. Bibasilar scarring versus atelectasis. No acute change since 11/08/18.
--- NOTE | 2018-11-12 11:03 | Progress Note ---
Assessment and Plan Cultures: 11/06/2018 Blood culture : ESBL E. Coli, 11/07/2018 urine culture: <10K bacteria 11/08/2018 Blood culture: GNR, 4 out of 4 bottles 11/10/2018 Blood culture: GNR 2 out of 4 bottles Assessment: 62 y/o male with a history of sickle cell disease; admitted on 11/06/18 due to 24 hour-history of fever, chills and generalized malaise. Patient underwent transrectal-prostate biopsy on 11/05/[address] Hidalgo. Patient denies N/V/D, cough, SOB, abdominal pain, urinary symptoms. 1) Severe Sepsis secondary to GNR bacteremia: Fevers spikes and leukocytosis continuing. Etiology E.coli bacteremia, Source most likely UTI. He received cipro PO x 3 days before biopsy. - UA 59 wbc, trace LE, +nitrates, large blood. - Blood culture 10/17/2018 no growth today. - CT abd showed rectal prostate and seminal vesicles stranding - CT with contrast showed that the The prostate gland remains mildly enlarged measuring 6 cm in diameter.Nonspecific fat stranding surrounding the prostate gland, seminal vesicles and rectum has resolved. -Spleen CT/US - showed lesions, ?sickle cell or emboli 2) ESBL E. Coli bacteremia: Continue Meropenem. Repeat blood cultures show GNR, 4 out of 4 bottles. Repeat cultures still growing GNR, 2 out of 4 bottles. Ordered repeat blood cultures to ensure clearance. 3) UTI: U/A with 59 WBC and trace LE, significant hematuria . Urine culture negative. 2) BIN: better Recommendations: -f/u repeat blood cultures for ID and CARMEL's -Continue Meropenem 1 gm IV every 8 hours, D5 -continue contact isolation for ESBL -Repeat CBC for morning -order repeat blood cultures -order TTE -order abdominal ultrasound to evaluate spleen lesions -f/u renal ultrasound -Discussion with Dr. Neumann -Discussion with Dr. Hidalgo regarding persistent bacteremia and fevers. -request and surgical consultations -Anticipate discharge on Ertapenem 1 gm IV q day for total 10 day ending 11-18-18 -f/u in ID office 11-27-18 d/w Dr. Eddy Iverson, [employer] ANALYST [facility] M: [id number] O:[phone] Subjective Date of service: 11/12/18 Interval history: Patient seen and examined. Reports generalized weakness, + tachypnea, no pain. + fevers. Objective - Exam Narrative Exam: Constitutional: Alert, cooperative. mild distress observed. Head, Ears, Nose: Normocephalic, atraumatic. External ears, nose normal Eyes: Conjunctivae/corneas clear. No icterus. No ptosis. Neck: Supple, no meningeal signs Cardiovascular: S1, S2 normal. Respiratory: Good air entry, clear to auscultation bilaterally, + tachypnea GI: Soft, non-tender; bowel sounds normal. No peritoneal signs Musculoskeletal: No pedal edema, no cyanosis. Skin: No rash or abscess Hem/Lymphatic: No palpable cervical or supraclavicular nodes. No lymphangitis Psych: Mood ok. Affect normal Neurological: Awake, alert, oriented. No gross abnormality - Constitutional Vitals: Vital Signs Temp Pulse Resp BP Pulse Ox 99.3 F 123 H 20 103/67 94 11/12/18 06:36 11/12/18 08:47 11/12/18 08:47 11/12/18 06:36 11/12/18 08:27 Temperature -Last 24 Hours Temperature 99.3 F Temperature 101.6 F Temperature 101.6 F Temperature 99.8 F - Labs CBC & Chem 7: 11/12/18 05:59 11/12/18 05:59 Labs: Abnormal lab results 11/12/18 11/12/18 Range/Units 05:59 05:59 WBC 13.6 H (4.5-11.0) K/mm3 RBC 3.39 L (3.65-5.03) M/mm3 Hgb 9.4 L (11.8-15.2) gm/dl Hct 27.6 L (35.5-45.6) % MCV 82 L (84-94) fl RDW 20.1 H (13.2-15.2) % Plt Count 111 L (140-440) K/mm3 Creatinine 0.7 L (0.8-1.5) mg/dL Glucose 130 H (75-100) mg/dL Calcium 8.2 L (8.4-10.2) mg/dL
[2018-11-12] MEDS: SENOKOT PO SCH ×4 (11:44→22:19)
[2018-11-12] MEDS: SODIUM CHLORIDE FLUSH SYRINGE 10 ML IV SCH ×2 (11:45→22:20)
[2018-11-12] MEDS: HEPARIN SUB-Q SCH ×2 (11:45→22:20)
--- NOTE | 2018-11-12 14:18 | Consultation ---
History of Present Illness - Reason for Consult Consult date: 11/12/18 - History of Present Illness NEW TO OUR PRACTICE 62 y/o male with a history of sickle cell disease; admitted on 11/06/18 due to 24 hour-history of fever, chills and generalized malaise. Patient underwent transrectal-prostate biopsy on 11/05/[address] Hidalgo. Patient denies N/V/D, cough, SOB, abdominal pain, urinary symptoms. Pt's mother at the bedside. reviewed surgery note. Cultures: 11/06/2018 Blood culture : ESBL E. Coli, 11/07/2018 urine culture: <10K bacteria 11/08/2018 Blood culture: GNR, 4 out of 4 bottles 11/10/2018 Blood culture: GNR 2 out of 4 bottles - UA 59 wbc, trace LE, +nitrates, large blood. - Blood culture 10/17/2018 no growth today. - CT abd showed rectal prostate and seminal vesicles stranding - CT with contrast showed that the The prostate gland remains mildly enlarged measuring 6 cm in diameter.Nonspecific fat stranding surrounding the prostate gland, seminal vesicles and rectum has resolved. Assessment: 1) Severe Sepsis secondary to GNR bacteremia: Fevers spikes and leukocytosis continuing. Etiology E.coli bacteremia, Source most likely UTI. He received cipro PO x 3 days before biopsy. -No surigical intervention needed at this time -continue abx therapy Medications and Allergies Allergies Allergy/AdvReac Type Severity Reaction Status Date / Time No Known Allergies Allergy Unverified 04/17/16 18:17 Home Medications Medication Instructions Recorded Confirmed Last Taken Type Aspir-Low 81 mg PO 11/08/18 1 Week Ago History ~11/01/18 Folic Acid [Folvite] 1 mg PO QDAY 11/08/18 11/08/18 1 Week Ago History ~11/01/18 Multivitamin 1 tab PO DAILY 11/08/18 11/08/18 11/01/18 History Active Meds: Active Medications Acetaminophen (Tylenol) 650 mg PO Q4H PRN PRN Reason: Pain MILD(1-3)/Fever >100.5/RAY Last Admin: 11/12/18 01:25 Dose: 650 mg Documented by: Albuterol (Proventil) 2.5 mg IH Q6HRT PRN PRN Reason: Shortness Of Breath Last Admin: 11/12/18 05:23 Dose: 2.5 mg Documented by: Albuterol/Ipratropium (Duoneb *Not For Prn Use*) 1 ampul IH Q6HRT [facility] Heparin Sodium (Porcine) (Heparin) 5,000 unit SUB-Q Q12HR [facility] Last Admin: 11/12/18 11:45 Dose: 5,000 unit Documented by: Sodium Chloride (Nacl 0.9% 1000 Ml) 1,000 mls @ 75 mls/hr IV DIRECT [facility] Last Admin: 11/11/18 13:12 Dose: 150 mls/hr Documented by: Meropenem 1,000 mg/ Sodium (Chloride) 100 mls @ 100 mls/hr IV Q8HR [facility]; Pr otocol Last Admin: 11/12/18 06:42 Dose: 100 mls/hr Documented by: Morphine Sulfate (Morphine) 2 mg IV Q4H PRN PRN Reason: Pain, Moderate (4-6) Ondansetron HCl (Zofran) 4 mg IV Q4H PRN PRN Reason: Nausea And Vomiting Last Admin: 11/07/18 18:08 Dose: 4 mg Documented by: Senna (Senokot) 17.2 mg PO Q12H [facility] Sodium Chloride (Sodium Chloride Flush Syringe 10 Ml) 10 ml IV BID [facility] Last Admin: 11/12/18 11:45 Dose: 10 ml Documented by: Sodium Chloride (Sodium Chloride Flush Syringe 10 Ml) 10 ml IV PRN PRN PRN Reason: LINE FLUSH Exam - Constitutional Vitals: Temp Pulse Resp BP Pulse Ox 97.8 F 111 H 20 124/82 96 11/12/18 12:29 11/12/18 12:29 11/12/18 12:29 11/12/18 12:29 11/12/18 12:29 Results - Labs CBC & Chem 7: 11/12/18 05:59 11/12/18 05:59 Labs: Abnormal lab results 11/12/18 11/12/18 Range/Units 05:59 05:59 WBC 13.6 H (4.5-11.0) K/mm3 RBC 3.39 L (3.65-5.03) M/mm3 Hgb 9.4 L (11.8-15.2) gm/dl Hct 27.6 L (35.5-45.6) % MCV 82 L (84-94) fl RDW 20.1 H (13.2-15.2) % Plt Count 111 L (140-440) K/mm3 Creatinine 0.7 L (0.8-1.5) mg/dL Glucose 130 H (75-100) mg/dL Calcium 8.2 L (8.4-10.2) mg/dL
[2018-11-12] MEDS ORDERED: MIRALAX 3350 PO NR (14:33)
--- NOTE | 2018-11-12 14:37 | Consultation ---
History of Present Illness Consult date: 11/12/18 - History of present illness History of present illness: 62 yo M with hx of sickle cell anemia underwent transrectal biopsy by Dr. Hidalgo on 11/05/18. The patient states his PCP found that his [employer] was 5.2 and an MRI of the hips done showed something abnormal on the prostate. He was scheduled for prostate bx. The biopsy was uneventful, however less than 24 hours after the procedure he started experiencing chills, fevers. He states that at some point he started to become delirious and his family called EMS to take him to the hospital. Since being in the hospital he states he has noticed his abdomen is more distended that usual. He denies abdominal pain, n/v. He is tolerating a diet. He is having flatus and has had 2 small BMs without gross hematochezia or melena. He has not noticed any mucous discharge from rectum. No pain upon defecation and no urgency to have a BM. He c/o frequent urination but no dysuria. He is SOB at times. No CP. He is persistently febrile. Past History Past Medical History: other (sickle cell anemia) Past Surgical History: Other (prostate biopsy) Social history: no significant social history Family history: no significant family history Medications and Allergies Allergies Allergy/AdvReac Type Severity Reaction Status Date / Time No Known Allergies Allergy Unverified 04/17/16 18:17 Home Medications Medication Instructions Recorded Confirmed Last Taken Type Aspir-Low 81 mg PO 11/08/18 1 Week Ago History ~11/01/18 Folic Acid [Folvite] 1 mg PO QDAY 11/08/18 11/08/18 1 Week Ago History ~11/01/18 Multivitamin 1 tab PO DAILY 11/08/18 11/08/18 11/01/18 History Active Meds: Active Medications Acetaminophen (Tylenol) 650 mg PO Q4H PRN PRN Reason: Pain MILD(1-3)/Fever >100.5/RAY Last Admin: 11/12/18 01:25 Dose: 650 mg Documented by: Albuterol (Proventil) 2.5 mg IH Q6HRT PRN PRN Reason: Shortness Of Breath Last Admin: 11/12/18 05:23 Dose: 2.5 mg Documented by: Albuterol/Ipratropium (Duoneb *Not For Prn Use*) 1 ampul IH Q6HRT [facility] Docusate Sodium (Colace) 100 mg PO BID [facility] Heparin Sodium (Porcine) (Heparin) 5,000 unit SUB-Q Q12HR [facility] Last Admin: 11/12/18 11:45 Dose: 5,000 unit Documented by: Sodium Chloride (Nacl 0.9% 1000 Ml) 1,000 mls @ 75 mls/hr IV DIRECT [facility] Last Admin: 11/11/18 13:12 Dose: 150 mls/hr Documented by: Meropenem 1,000 mg/ Sodium (Chloride) 100 mls @ 100 mls/hr IV Q8HR [facility]; Protocol Last Admin: 11/12/18 06:42 Dose: 100 mls/hr Documented by: Morphine Sulfate (Morphine) 2 mg IV Q4H PRN PRN Reason: Pain, Moderate (4-6) Ondansetron HCl (Zofran) 4 mg IV Q4H PRN PRN Reason: Nausea And Vomiting Last Admin: 11/07/18 18:08 Dose: 4 mg Documented by: Polyethylene Glycol (Miralax [id number]) 17 gm PO ONCE ONE Stop: 11/12/18 14:34 Senna (Senokot) 17.2 mg PO Q12H [facility] Sodium Chloride (Sodium Chloride Flush Syringe 10 Ml) 10 ml IV BID [facility] Last Admin: 11/12/18 11:45 Dose: 10 ml Documented by: Sodium Chloride (Sodium Chloride Flush Syringe 10 Ml) 10 ml IV PRN PRN PRN Reason: LINE FLUSH Review of Systems All systems: negative (10 pt ROS peformed and negative except for that listed in HPI) Exam Vital Signs BP 124/74 11/06/18 15:16 Narrative exam: Gen; AAOx3. NAD ENT: no scleral icterus or conjunctival pallor CV: s1, S2+ Resp: even and unlabored Abd: soft, distended, NT. + bowel sounds in all 4 quadrants. No r/r/g Ext: no c/c/e Rectal: No gross blood, masses, or TTP. No stool in rectal vault. Firm area at 6 oclock position without fluctuance or TTP. External exam - no induration, fluctuance, or drainage. Results - Labs 11/12/18 05:59 11/12/18 05:59 Abnormal lab results 11/12/18 11/12/18 Range/Units 05:59 05:59 WBC 13.6 H (4.5-11.0) K/mm3 RBC 3.39 L (3.65-5.03) M/mm3 Hgb 9.4 L (11.8-15.2) gm/dl Hct 27.6 L (35.5-45.6) % MCV 82 L (84-94) fl RDW 20.1 H (13.2-15.2) % Plt Count 111 L (140-440) K/mm3 Creatinine 0.7 L (0.8-1.5) mg/dL Glucose 130 H (75-100) mg/dL Calcium 8.2 L (8.4-10.2) mg/dL Diabetes panel 11/12/18 Range/Units 05:59 Sodium 139 (137-145) mmol/L Potassium 4.2 (3.6-5.0) mmol/L Chloride 105.7 (98-107) mmol/L Carbon Dioxide 22 (22-30) mmol/L BUN 18 (9-20) mg/dL Creatinine 0.7 L (0.8-1.5) mg/dL Glucose 130 H (75-100) mg/dL Calcium 8.2 L (8.4-10.2) mg/dL Calcium panel 11/12/18 Range/Units 05:59 Calcium 8.2 L (8.4-10.2) mg/dL Pituitary panel 11/12/18 Range/Units 05:59 Sodium 139 (137-145) mmol/L Potassium 4.2 (3.6-5.0) mmol/L Chloride 105.7 (98-107) mmol/L Carbon Dioxide 22 (22-30) mmol/L BUN 18 (9-20) mg/dL Creatinine 0.7 L (0.8-1.5) mg/dL Glucose 130 H (75-100) mg/dL Calcium 8.2 L (8.4-10.2) mg/dL Adrenal panel 11/12/18 Range/Units 05:59 Sodium 139 (137-145) mmol/L Potassium 4.2 (3.6-5.0) mmol/L Chloride 105.7 (98-107) mmol/L Carbon Dioxide 22 (22-30) mmol/L BUN 18 (9-20) mg/dL Creatinine 0.7 L (0.8-1.5) mg/dL Glucose 130 H (75-100) mg/dL Calcium 8.2 L (8.4-10.2) mg/dL - Imaging CT scan - abdomen: report reviewed, image reviewed CT scan - pelvis: report reviewed, image reviewed Assessment and Plan 62 yo M with 1. sepsis 2. GNR bacteremia 3. UTI 4. s/p transrectal prostate biopsy on 11/05/18 CT scan from 11/10/18 reviewed and compared with CT scan from 11/06. There is an improvement in inflammation surrounding rectum and prostate on most recent imaging. There is no free air or evidence of abscess. Plan: 1. continue with abx 2. doubt acute rectal perforation. No evidence for perforation or abscess on physical exam or imaging. Firm area on rectal exam likely the site of prostate biopsy. 3. bowel regimen 4. reg diet 5. urology on board No general surgical intervention indicated at this time. D/W Dr. Neumann Thank you, please call with questions
[2018-11-12] MEDS: DUONEB *Not for PRN Use IH SCH ×3 (14:50→22:33)
--- NOTE | 2018-11-12 16:12 | Event Note ---
Date: 11/12/18 Physician attestation: I have independently interviewed and examined the patient. I personally discussed interval history, physical exam findings and assessment/plan with WILLIAM Iverson. I personally called Dr Hidalgo to discuss case lauro make him aware of persistent bactermeia. He does not have credintials at [facility]. Patient continues with high fever and persistently positive blood culture for ESBL E coli despite appropriate abx-meroepenem. CT x 2 showed no perirectal collections. I will request and surgical consultations. Repeat blood cultures today. At discharge will continue ertapenem 1 gm IV qday for 21 jo-nan at least from negative blood cultures. Also requested TTE and Spleen US as spleen CT showed lesions ? from Sickle cell or emboli. Corrine Ortega
--- NOTE | 2018-11-12 17:16 | Progress Note ---
Assessment and Plan Assessment and plan: he is a 62-year-old male that presents emergency room with complaints of fever. Patient found to have prostatitis and urinary tract infection and sepsis. Patient was treated with a sepsis protocol and IV fluids and antibiotics. His labs unremarkable except for elevated white count and acute renal insufficiency and lactic acidosis and UTI. Patient source of fever. To be a acute prostatitis. Patient recently had a prostate biopsy. Patient was admitted to the hospitalist service. chest xray: cardiomegaly CT A/P: IMPRESSION: Mild cardiomegaly, stable. Small pleural effusions have developed. Partial atelectasis has developed in the left lower lobe. Infiltrate is thought less likely. Moderate splenomegaly. There are multiple foci of enhancement in the spleen following IV contrast. The etiology of these are unclear. Please see above. Nonspecific fat stranding surrounding the prostate gland, seminal vesicles and rectum has resolved. Severe Sepsis WITH POSITIVE SOFA criteria- Secondary to GNR bacterial ESBL E coli bactermia Persistent Fever and persistent bactermia Acute Cystitis s/p recent prostate biopsy Acute renal failure Secondary to vasomotor nephropathy Sickle cell disease, stable Acute Respiratory Failure with Hypoxia-Improving Thrombocytopenia Plan Continue supportive care Abx adjusted by ID, Continue Merropenem s/p Transrectal prostate biopsy on 11/05/18. Dr Hidalgo informed patient is in the hospital Patient received fluid resuscitation. TTE, US OF SPLEEN pending, evaluate for septic Emboli and General Surgery consult Outpatient cardiology eval for Cardiomegaly Contact isolation for ESBL Cultures, Urine culture. ID consult INPUT NOTED IV morphine, DVT prophylaxis Plan discussed with patient, family and ID and surgery History Interval history: Patient seen and examined today, admitted with sepsis. Shortness of breath improving, persistent fever Hospitalist Physical - Physical exam Narrative exam: VITAL SIGNS: Reviewed. GENERAL: The patient appeared well nourished and normally developed, Vital signs as documented. Ill-appearing HEAD: No signs of head trauma. EYES: Pupils are equal. Extraocular motions intact. EARS: Hearing grossly intact. MOUTH: Oropharynx is normal. NECK: No adenopathy, no JVD. CHEST: Chest with clear sounds bilaterally. No rales, or rhonchi. CARDIAC: regular rate and rhythm. S1 and S2, without murmurs, gallops, or rubs. VASCULAR: No Edema. Peripheral pulses normal and equal in all extremities. ABDOMEN: Soft, non tender and non distended. No rebound or guarding, and no masses palpated. Bowel Sounds normal. MUSCULOSKELETAL: Good range of motion of all major joints. Extremities without clubbing, cyanosis or edema. NEUROLOGIC EXAM: Alert and oriented x 3 No focal sensory or strength deficits. Speech normal. Follows commands. PSYCHIATRIC: Mood normal. SKIN: No rash or lesions. - Constitutional Vitals: Temp Pulse Resp BP Pulse Ox 97.8 F 96 H 20 124/82 96 11/12/18 12:29 11/12/18 15:04 11/12/18 15:04 11/12/18 12:29 11/12/18 12:29 General appearance: Present: no acute distress, well-nourished Results - Labs CBC & Chem 7: 11/12/18 05:59 11/12/18 05:59 Labs: Laboratory Last Values WBC 13.6 K/mm3 (4.5-11.0) H 11/12/18 05:59 RBC 3.39 M/mm3 (3.65-5.03) L 11/12/18 05:59 Hgb 9.4 gm/dl (11.8-15.2) L 11/12/18 05:59 Hct 27.6 % (35.5-45.6) L 11/12/18 05:59 MCV 82 fl (84-94) L 11/12/18 05:59 MCH 28 pg (28-32) 11/12/18 05:59 MCHC 34 % (32-34) 11/12/18 05:59 RDW 20.1 % (13.2-15.2) H 11/12/18 05:59 Plt Count 111 K/mm3 (140-440) L 11/12/18 05:59 Add Manual Diff Complete 11/07/18 05:13 Total Counted 100 11/07/18 05:13 Seg Neutrophils % [employer] 11/07/18 05:13 Seg Neuts % (Manual) 74.0 % (40.0-70.0) H 11/07/18 05:13 Band Neutrophils % 22.0 % 11/07/18 05:13 Lymphocytes % (Manual) 3.0 % (13.4-35.0) L 11/07/18 05:13 Reactive Lymphs % (Man) 0 % 11/07/18 05:13 Monocytes % (Manual) 1.0 % (0.0-7.3) 11/07/18 05:13 Eosinophils % (Manual) 0 % (0.0-4.3) 11/07/18 05:13 Basophils % (Manual) 0 % (0.0-1.8) 11/07/18 05:13 Metamyelocytes % 0 % 11/07/18 05:13 Myelocytes % 0 % 11/07/18 05:13 Promyelocytes % 0 % 11/07/18 05:13 Blast Cells % 0 % 11/07/18 05:13 Nucleated RBC % 2.0 % (0.0-0.9) H 11/07/18 05:13 Seg Neutrophils # Man 26.6 K/mm3 (1.8-7.7) H 11/07/18 05:13 Band Neutrophils # 7.9 K/mm3 11/07/18 05:13 Lymphocytes # (Manual) 1.1 K/mm3 (1.2-5.4) L 11/07/18 05:13 Abs React Lymphs (Man) 0.0 K/mm3 11/07/18 05:13 Monocytes # (Manual) 0.4 K/mm3 (0.0-0.8) 11/07/18 05:13 Eosinophils # (Manual) 0.0 K/mm3 (0.0-0.4) 11/07/18 05:13 Basophils # (Manual) 0.0 K/mm3 (0.0-0.1) 11/07/18 05:13 Metamyelocytes # 0.0 K/mm3 11/07/18 05:13 Myelocytes # 0.0 K/mm3 11/07/18 05:13 Promyelocytes # 0.0 K/mm3 11/07/18 05:13 Blast Cells # 0.0 K/mm3 11/07/18 05:13 WBC Morphology Not Reportable 11/07/18 05:13 Hypersegmented Neuts Not Reportable 11/07/18 05:13 Hyposegmented Neuts Not Reportable 11/07/18 05:13 Hypogranular Neuts Not Reportable 11/07/18 05:13 Smudge Cells Not Reportable 11/07/18 05:13 Toxic Granulation Not Reportable 11/07/18 05:13 Toxic Vacuolation Not Reportable 11/07/18 05:13 Dohle Bodies Not Reportable 11/07/18 05:13 Pelger-Huet Anomaly Not Reportable 11/07/18 05:13 Tory Rods Not Reportable 11/07/18 05:13 Platelet Estimate Consistent w auto 11/07/18 05:13 Clumped Platelets Not Reportable 11/07/18 05:13 Plt Clumps, EDTA Not Reportable 11/07/18 05:13 Large Platelets Not Reportable 11/07/18 05:13 Giant Platelets Not Reportable 11/07/18 05:13 Platelet Satelliting Not Reportable 11/07/18 05:13 Plt Morphology Comment Not Reportable 11/07/18 05:13 RBC Morphology Not Reportable 11/07/18 05:13 Dimorphic RBCs Not Reportable 11/07/18 05:13 Polychromasia Not Reportable 11/07/18 05:13 Hypochromasia 1+ 11/07/18 05:13 Poikilocytosis Not Reportable 11/07/18 05:13 Anisocytosis 1+ 11/07/18 05:13 Microcytosis Few 11/07/18 05:13 Macrocytosis 1+ 11/07/18 05:13 Spherocytes Not Reportable 11/07/18 05:13 Pappenheimer Bodies Not Reportable 11/07/18 05:13 Sickle Cells Not Reportable 11/07/18 05:13 Target Cells Not Reportable 11/07/18 05:13 Tear Drop Cells Not Reportable 11/07/18 05:13 Ovalocytes Not Reportable 11/07/18 05:13 Helmet Cells Not Reportable 11/07/18 05:13 [place] Bodies Not Reportable 11/07/18 05:13 [place] Rings Not Reportable 11/07/18 05:13 [place] Cells Not Reportable 11/07/18 05:13 Bite Cells Not Reportable 11/07/18 05:13 Crenated Cell Not Reportable 11/07/18 05:13 Elliptocytes Not Reportable 11/07/18 05:13 Acanthocytes (Spur) Not Reportable 11/07/18 05:13 Rouleaux Not Reportable 11/07/18 05:13 Hemoglobin C Crystals Not Reportable 11/07/18 05:13 Schistocytes Not Reportable 11/07/18 05:13 Malaria parasites Not Reportable 11/07/18 05:13 [place] Bodies Not Reportable 11/07/18 05:13 Hem Pathologist Commnt No 11/07/18 05:13 PT 15.0 Sec. (12.2-14.9) H 11/06/18 20:18 INR 1.11 (0.87-1.13) 11/06/18 20:18 VBG pH 7.340 (7.320-7.420) 11/06/18 20:18 Sodium 139 mmol/L (137-145) 11/12/18 05:59 Potassium 4.2 mmol/L (3.6-5.0) 11/12/18 05:59 Chloride 105.7 mmol/L (98-107) 11/12/18 05:59 Carbon Dioxide 22 mmol/L (22-30) 11/12/18 05:59 Anion Gap 16 mmol/L 11/12/18 05:59 BUN 18 mg/dL (9-20) 11/12/18 05:59 Creatinine 0.7 mg/dL (0.8-1.5) L 11/12/18 05:59 Estimated GFR > 60 ml/min 11/12/18 05:59 BUN/Creatinine Ratio 26 % 11/12/18 05:59 Glucose 130 mg/dL (75-100) H 11/12/18 05:59 Lactic Acid 1.40 mmol/L (0.7-2.0) 11/07/18 23:22 Calcium 8.2 mg/dL (8.4-10.2) L 11/12/18 05:59 Total Bilirubin 1.70 mg/dL (0.1-1.2) H 11/06/18 20:18 AST 29 units/L (5-40) 11/06/18 20:18 ALT 17 units/L (7-56) 11/06/18 20:18 Alkaline Phosphatase 88 units/L (35-129) 11/06/18 20:18 Total Protein 6.2 g/dL (6.3-8.2) L 11/06/18 20:18 Albumin 4.0 g/dL (3.9-5) 11/06/18 20:18 Albumin/Globulin Ratio 1.8 % 11/06/18 20:18 Urine Color Rubia (Yellow) 11/07/18 00:07 Urine Turbidity Cloudy (Clear) 11/07/18 00:07 Urine pH 5.0 (5.0-7.0) 11/07/18 00:07 Ur Specific [place] 1.015 (1.003-1.030) 11/07/18 00:07 Urine Protein 100 mg/dl mg/dL (Negative) 11/07/18 00:07 Urine Glucose (UA) Neg mg/dL (Negative) 11/07/18 00:07 Urine Ketones Neg mg/dL (Negative) 11/07/18 00:07 Urine Blood Lg (Negative) 11/07/18 00:07 Urine Nitrite Pos (Negative) 11/07/18 00:07 Urine Bilirubin Neg (Negative) 11/07/18 00:07 Urine Urobilinogen < 2.0 mg/dL (<2.0) 11/07/18 00:07 Ur Leukocyte Esterase Tr (Negative) 11/07/18 00:07 Urine WBC (Auto) 59.0 /HPF (0.0-6.0) H 11/07/18 00:07 Urine RBC (Auto) > 182.0 /HPF (0.0-6.0) 11/07/18 00:07 U Epithel Cells (Auto) 1.0 /HPF (0-13.0) 11/07/18 00:07 Urine Bacteria (Auto) 2+ /HPF (Negative) 11/07/18 00:07 Hyaline Casts 56 /LPF 11/07/18 00:07 Granular Casts 2 /LPF 11/07/18 00:07 Urine Mucus Few /HPF 11/07/18 00:07 Active Medications - Current Medications Current Medications: Generic Name Dose Route Start Last Admin Trade Name Freq PRN Reason Stop Dose Admin Acetaminophen 650 mg 11/07/18 01:19 11/12/18 01:25 Tylenol PO 650 mg Q4H PRN Administration Pain MILD(1-3)/Fever >100.5/RAY Albuterol 2.5 mg 11/10/18 04:01 11/12/18 05:23 Proventil IH 2.5 mg Q6HRT PRN Administration Shortness Of Breath Albuterol/Ipratropium 1 ampul 11/12/18 09:30 11/12/18 15:34 Duoneb *Not For Prn Use* IH Not Given Q6HRT [facility] Docusate Sodium 100 mg 11/12/18 15:00 Colace PO BID LENORE Heparin Sodium (Porcine) 5,000 unit 11/10/18 22:00 11/12/18 11:45 Heparin SUB-Q 5,000 unit Q12HR LENORE Administration Sodium Chloride 1,000 mls @ 75 mls/hr 11/07/18 02:00 11/11/18 13:12 Nacl 0.9% 1000 Ml IV 150 mls/hr DIRECT LENORE Administration Meropenem 1,000 mg/ Sodium 100 mls @ 100 mls/hr 11/08/18 17:00 11/12/18 06:42 Chloride IV 100 mls/hr Q8HR LENORE Administration Protocol Morphine Sulfate 2 mg 11/07/18 01:19 Morphine IV Q4H PRN Pain, Moderate (4-6) Ondansetron HCl 4 mg 11/07/18 01:19 11/07/18 18:08 Zofran IV 4 mg Q4H PRN Administration Nausea And Vomiting Polyethylene Glycol 17 gm 11/12/18 14:33 Miralax 3350 PO 11/12/18 18:00 ONCE NR Senna 17.2 mg 11/12/18 22:00 Senokot PO Q12H LENORE Sodium Chloride 10 ml 11/07/18 10:00 11/12/18 11:45 Sodium Chloride Flush Syringe 10 Ml IV 10 ml BID LENORE Administration Sodium Chloride 10 ml 11/07/18 01:19 Sodium Chloride Flush Syringe 10 Ml IV PRN PRN LINE FLUSH Nutrition/Malnutrition Assess - Dietary Evaluation Nutrition/Malnutrition Findings: Nutrition Notes Start: 11/07/18 14:42 Freq: Status: Active Protocol: Document 11/07/18 14:42 RM (Rec: 11/07/18 14:43 RM [id number]) Nutrition Notes 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 No Dx of DM or A1c in record. Per nurse pt does not have hx of DM. Nutrition Intervention Revisit per MD consult or patient Sign Off request: - Attestation Statement I have reviewed and agreed w/ Malnutrition eval & tx plan: Yes
[2018-11-12] MEDS: NACL 0.9% 1000 ML 1,000 ML IV SCH (17:39)
[2018-11-12] MEDS: COLACE PO SCH ×2 (19:27→22:20)
--- NOTE | 2018-11-12 20:21 | Ultrasound Report ---
PROCEDURE: US RENAL BILAT TECHNIQUE: Real-time sonography in multiple planes of the kidneys, ureters and urinary bladder was p erformed with image documentation. HISTORY: Pyelonephritis COMPARISONS: None . FINDINGS: RIGHT kidney: Normal echotexture. No focal renal mass, calculus, or hydronephrosis. Length: 13 x 5.5 x 4.9 cm. LEFT kidney: There are well-defined simple cyst measuring 2.1 x 1.9 cm is noted in the lower portion. Otherwise renal parenchymal echotexture is within normal limits without calculi or hydronephrosis.. Length: 13.2 x 6.3 x 6.3 cm. Bladder: Normal. No distention or wall thickening. IMPRESSION: Unremarkable study. This document is electronically signed by Tyrell Urbina MD., November 12 2018 08:19:32 PM ET
--- NOTE | 2018-11-12 20:43 | Ultrasound Report ---
PROCEDURE: US SPLEEN TECHNIQUE: Real-time sonography in multiple planes of the spleen was performed with image documentat ion. CPT 75218 HISTORY: Splenic lesions COMPARISONS: CT abdomen 11/10/2018 . FINDINGS: There is mild degree splenomegaly. Multiple mixed echogenic ill-defined lesions are identified scatte red in the spleen largest measuring 3.4 x 2.0 x 2.3 cm. Some of the lesions have cystic components. T hese lesions are relatively hypovascular. A small amount of perisplenic fluid is noted near the infer ior margin. IMPRESSION: Multiple nonspecific lesions identified in the spleen which appear predominantly solid an d mixed echoic. Differential diagnosis includes benign lesions such as hemangioma and malignant lesio ns such as metastases. Clinical correlation and biopsy are recommended. Etiologies such as abscess, a nd infarction are unlikely and etiologies such as lymphangioma and lymphoma are felt to be less likel y. This document is electronically signed by Tyrell Urbina MD., November 12 2018 08:41:17 PM ET
[2018-11-13] MEDS: TYLENOL PO PRN ×2 (01:30→23:16)
[2018-11-13] MEDS: DUONEB *Not for PRN Use IH SCH ×4 (03:44→22:03)
[2018-11-13] MEDS: MERREM 1,000 MG in NACL 0.9% 100 ML IV SCH ×3 (06:14→23:12)
[2018-11-13] MEDS: COLACE PO SCH ×2 (11:01→23:24)
[2018-11-13] MEDS: HEPARIN SUB-Q SCH ×2 (11:01→23:20)
[2018-11-13] MEDS: SODIUM CHLORIDE FLUSH SYRINGE 10 ML IV SCH ×2 (11:02→23:19)
[2018-11-13] MEDS: NACL 0.9% 1000 ML 1,000 ML IV SCH (11:08)
[2018-11-13] MEDS: SENOKOT PO SCH ×2 (11:14→23:24)
--- NOTE | 2018-11-13 11:16 | Progress Note ---
Assessment and Plan Cultures: 11/06/2018 Blood culture : ESBL E. Coli, 11/07/2018 urine culture: <10K bacteria 11/08/2018 Blood culture: ESBL E. coli 4 out of 4 bottles 11/10/2018 Blood culture: ESBL E. coli 2 out of 4 bottles 11/12/2018 Blood Cultures: in progress Assessment: 62 y/o male with a history of sickle cell disease; admitted on 11/06/18 due to 24 hour-history of fever, chills and generalized malaise. Patient underwent transrectal-prostate biopsy on 11/05/[address] Hidalgo. Patient denies N/V/D, co ugh, SOB, abdominal pain, urinary symptoms. 1) Severe Sepsis secondary to GNR bacteremia: Noted fever spike 102.8, leukocytosis continuing. Etiology E.coli bacteremia, Source unclear most likely UTI. He received cipro PO x 3 days before biopsy. - UA 59 wbc, trace LE, +nitrates, large blood. - Blood culture 10/17/2018 no growth today. - CT abd showed rectal prostate and seminal vesicles stranding - CT with contrast showed that the The prostate gland remains mildly enlarged measuring 6 cm in diameter.Nonspecific fat stranding surrounding the prostate gland, seminal vesicles and rectum has resolved. -Spleen CT/US - showed lesions, ?sickle cell or emboli -Chest xray: The lungs are grossly clear. No consolidation -Renal U/S: right kidney: Normal echotexture. Left Kidney: well-defined simple cyst measuring 2.1 x 1.9 cm is noted in the lower portion. Otherwise renal parenchymal echotexture is within normal limits without calculi or hydronephrosus -Abdominal U/S: Multiple nonspecific lesions identified in the spleen which appear predominantly solid and mixed echoic. DDX includes benign lesions such as hemangioma and malignant lesions such as metastases. Clinical correlation and biopsy are recommended. 2) ESBL E. Coli bacteremia: Continue Meropenem. Repeat blood cultures show ESBL E. coli 4 out of 4 bottles. Repeat cultures still growing ESBL E. coli 2 out of 4 bottles. Ordered repeat blood cultures to ensure clearance. 3) UTI: U/A with 59 WBC and trace LE, significant hematuria . Urine culture negative. 2) BIN: better Recommendations: -f/u repeat blood cultures for ID and CARMEL's -Continue Meropenem 1 gm IV every 8 hours, D6 -continue contact isolation for ESBL -f/u TTE -Anticipate discharge on Ertapenem 1 gm IV q day for total 21 days from negative cultures -f/u in ID office 11-27-18 -Order chest CT with contrast -order CRP, CESAR, ANCA, C3, C4 -Order FLU PCR and Flu rapid -if further work up is negative , will consider WBC scan Alexandria Iverson NP [facility] M: [phone] O:[phone] Subjective Date of service: 11/13/18 Interval history: Patient seen and examined. Asleep, easily arousable. Mostly non-conversant today. Objective - Exam Narrative Exam: Constitutional: Alert, cooperative. mild distress observed. Head, Ears, Nose: Normocephalic, atraumatic. External ears, nose normal Eyes: Conjunctivae/corneas clear. No icterus. No ptosis. Neck: Supple, no meningeal signs Cardiovascular: S1, S2 normal. Respiratory: Good air entry, clear to auscultation bilaterally, + tachypnea GI: Soft, non-tender; bowel sounds normal. No peritoneal signs Musculoskeletal: No pedal edema, no cyanosis. Skin: No rash or abscess Hem/Lymphatic: No palpable cervical or supraclavicular nodes. No lymphangitis Psych: Mood ok. Affect normal Neurological: Awake, alert, oriented. No gross abnormality - Constitutional Vitals: Vital Signs Temp Pulse Resp BP Pulse Ox 102.8 F H 104 H 20 116/75 99 11/13/18 00:42 11/13/18 08:40 11/13/18 08:40 11/13/18 06:54 11/13/18 06:54 Temperature -Last 24 Hours Temperature 102.8 F Temperature 102.8 F Temperature 97.8 F - Labs CBC & Chem 7: 11/13/18 11:45 11/13/18 11:45
[2018-11-13 13:36] LABS: Hemoglobin 8.3 gm/dl (11.8-15.2); Mean Corpuscular HGB Conc 35 % (32-34); Mean Corpuscular Volume 81 fl (84-94); Red Blood Count 2.96 M/mm3 (3.65-5.03)
[2018-11-13 13:37] LABS: Platelet Count 135 K/mm3 (140-440); Red Cell Distribution Width 20.2 % (13.2-15.2)
[2018-11-13 13:48] LABS: BUN/Creatinine Ratio 20; Blood Urea Nitrogen 16 mg/dL (9-20); Calcium 8.5 mg/dL (8.4-10.2); Hemolysis Index 8
[2018-11-13 15:29] LABS: Band Neutrophils # (Manual) 1.8 K/mm3; Basophils % (Manual) 0 % (0.0-1.8); Eosinophils % (Manual) 0 % (0.0-4.3); Total Cells Counted 100
[2018-11-13 15:30] LABS: Anisocytosis 1+; Giant Platelets 1+; Poikilocytosis 1+; Target Cells 2+
[2018-11-13 15:31] LABS: Hypochromasia 2+; Large Platelets Few
[2018-11-13 15:33] LABS: Platelet Estimate Consistent w Auto
--- NOTE | 2018-11-13 17:19 | Progress Note ---
Assessment and Plan 62 yo M with 1. sepsis 2. GNR bacteremia 3. UTI 4. s/p transrectal prostate biopsy on 11/05/18 5. splenomegaly 6. sickle cell disease Patient continues to have high fevers. Discussed with Dr. Kam and there is concern for spleen pathology. I reviewed all abdominal images with Dr. Bowser. Abscess unlikely but he suspects possible splenic infarction. Recommends four phase liver CT to reevaluate. Plan: 1. continue with abx 2. doubt acute rectal perforation. No evidence for perforation or abscess on physical exam or imaging. Firm area on rectal exam likely the site of prostate biopsy. 3. bowel regimen 4. reg diet 5. will obtain CT abd/pelvis with IV contrast - four phase liver protocol. D/W office machine technician 6. CT chest and additional lab work ordered per ID to r/o other causes of infection Discussed work up and plan with patient and his mother. They understand. Very complex case. Will follow up Ct scan and review imaging with radiology in am. Further recommendations to follow. Thank you, please call with questions Subjective Date of service: 11/13/18 Narrative: Pt seen and examined. No acute complaints. Feels ok. Had a very large bowel movement this am which has helped with abdominal bloating. He is tolerating a diet. No n/v. Continues to have fevers. Objective Vital Signs - 12hr 11/13/18 11/13/18 11/13/18 06:54 08:29 08:40 Temperature Pulse Rate 88 Pulse Rate [ 100 H 104 H Anterior Bilateral Throughout] Respiratory 20 Rate Respiratory 20 20 Rate [Anterior Bilateral Throughout] Blood Pressure 116/75 O2 Sat by Pulse 99 Oximetry 11/13/18 11/13/18 11/13/18 11:38 13:23 13:35 Temperature 100.5 F H Pulse Rate 109 H Pulse Rate [ 100 H 109 H Anterior Bilateral Throughout] Respiratory 22 Rate Respiratory 20 20 Rate [Anterior Bilateral Throughout] Blood Pressure 119/71 O2 Sat by Pulse 94 Oximetry - General physical appearance Narrative Exam: Gen: AAOx3. NAD CV: s1, S2+ resp: even and unlabored Abd: soft, mildly distended, + LUQ TTP. No r/r/g Ext: no c/c/e - Labs 11/13/18 11:45 11/13/18 11:45 Diabetes panel 11/13/18 Range/Units 11:45 Sodium 138 (137-145) mmol/L Potassium 3.7 (3.6-5.0) mmol/L Chloride 104.1 (98-107) mmol/L Carbon Dioxide 24 (22-30) mmol/L BUN 16 (9-20) mg/dL Creatinine 0.8 (0.8-1.5) mg/dL Glucose 168 H (75-100) mg/dL Calcium 8.5 (8.4-10.2) mg/dL Calcium panel 11/13/18 Range/Units 11:45 Calcium 8.5 (8.4-10.2) mg/dL Pituitary panel 11/13/18 Range/Units 11:45 Sodium 138 (137-145) mmol/L Potassium 3.7 (3.6-5.0) mmol/L Chloride 104.1 (98-107) mmol/L Carbon Dioxide 24 (22-30) mmol/L BUN 16 (9-20) mg/dL Creatinine 0.8 (0.8-1.5) mg/dL Glucose 168 H (75-100) mg/dL Calcium 8.5 (8.4-10.2) mg/dL Adrenal panel 11/13/18 Range/Units 11:45 Sodium 138 (137-145) mmol/L Potassium 3.7 (3.6-5.0) mmol/L Chloride 104.1 (98-107) mmol/L Carbon Dioxide 24 (22-30) mmol/L BUN 16 (9-20) mg/dL Creatinine 0.8 (0.8-1.5) mg/dL Glucose 168 H (75-100) mg/dL Calcium 8.5 (8.4-10.2) mg/dL
--- NOTE | 2018-11-13 21:50 | Progress Note ---
Assessment and Plan Assessment and plan: he is a 62-year-old male that presents emergency room with complaints of fever. Patient found to have prostatitis and urinary tract infection and sepsis. Patient was treated with a sepsis protocol and IV fluids and antibiotics. His labs unremarkable except for elevated white count and acute renal insufficiency and lactic acidosis and UTI. Patient source of fever. To be a acute prostatitis. Patient recently had a prostate biopsy. Patient was admitted to the hospitalist service. * Patient has contineud on approprate antibiotic therapy but has continued to have persistent bacteremia given for 7 days * Abdominal ultrasound of the liver concerning for possible splenic infarct reviewed by surgeon and radiology does not show any evidence of abscess although a triphasic CT is being requested and ordered. * Surgery was consulted and ruled out rectal perforation * I have proceeded to consult hematology to advise if any hematological causes could be contributed to this * TTE done does not show any evidence of valvular regurgitation but reveals abnormal diastolic relaxation * I have also discussed with patient's urologist Dr. Hidalgo * Patient required some steroids and has also been placed on nebulizer treatments for respiratory distress which has improved * CT chest is pending chest xray: cardiomegaly CT A/P: IMPRESSION: Mild cardiomegaly, stable. Small pleural effusions have developed. Partial atelectasis has developed in the left lower lobe. Infiltrate is thought less likely. Moderate splenomegaly. There are multiple foci of enhancement in the spleen following IV contrast. The etiology of these are unclear. Please see above. Nonspecific fat stranding surrounding the prostate gland, seminal vesicles and rectum has resolved. Severe Sepsis WITH POSITIVE SOFA criteria- Secondary to GNR bacterial ESBL E coli bactermia Persistent Fever and persistent bactermia Acute Cystitis s/p recent prostate biopsy Acute renal failure Secondary to vasomotor nephropathy Sickle cell disease, stable Acute Respiratory Failure with Hypoxia-Improving Thrombocytopenia Plan Continue supportive care Abx adjusted by ID, Continue Merropenem s/p Transrectal prostate biopsy on 11/05/18. Dr Hidalgo informed patient is in the hospital Patient received fluid resuscitation. and General Surgery consult Outpatient cardiology eval for Cardiomegaly Contact isolation for ESBL Cultures, Urine culture. ID consult INPUT NOTED IV morphine, DVT prophylaxis Plan discussed with patient, family and ID and surgery History Interval history: Patient seen and examined today, admitted with sepsis. unfortunately still with fever and persistent bactermia Hospitalist Physical - Physical exam Narrative exam: VITAL SIGNS: Reviewed. GENERAL: The patient appeared well nourished and normally developed, Vital signs as documented. Ill-appearing HEAD: No signs of head trauma. EYES: Pupils are equal. Extraocular motions intact. EARS: Hearing grossly intact. MOUTH: Oropharynx is normal. NECK: No adenopathy, no JVD. CHEST: Chest with clear sounds bilaterally. No rales, or rhonchi. CARDIAC: regular rate and rhythm. S1 and S2, without murmurs, gallops, or rubs. VASCULAR: No Edema. Peripheral pulses normal and equal in all extremities. ABDOMEN: Soft, non tender and non distended. No rebound or guarding, and no masses palpated. Bowel Sounds normal. MUSCULOSKELETAL: Good range of motion of all major joints. Extremities without clubbing, cyanosis or edema. NEUROLOGIC EXAM: Alert and oriented x 3 No focal sensory or strength deficits. Speech normal. Follows commands. PSYCHIATRIC: Mood normal. SKIN: No rash or lesions. - Constitutional Vitals: Temp Pulse Resp BP Pulse Ox 99.9 F H 109 H 20 99/53 91 11/13/18 17:25 11/13/18 17:25 11/13/18 20:59 11/13/18 17:25 11/13/18 17:25 General appearance: Present: no acute distress, well-nourished Results - Labs CBC & Chem 7: 11/13/18 11:45 11/13/18 11:45 Labs: Laboratory Last Values WBC 19.8 K/mm3 (4.5-11.0) H 11/13/18 11:45 RBC 2.96 M/mm3 (3.65-5.03) L 11/13/18 11:45 Hgb 8.3 gm/dl (11.8-15.2) L 11/13/18 11:45 Hct 24.0 % (35.5-45.6) L 11/13/18 11:45 MCV 81 fl (84-94) L 11/13/18 11:45 MCH 28 pg (28-32) 11/13/18 11:45 MCHC 35 % (32-34) H 11/13/18 11:45 RDW 20.2 % (13.2-15.2) H 11/13/18 11:45 Plt Count 135 K/mm3 (140-440) L 11/13/18 11:45 Lymph # Box Coverer Hand 11/13/18 11:45 Add Manual Diff Complete 11/13/18 11:45 Total Counted 100 11/13/18 11:45 Seg Neutrophils % Box Coverer Hand 11/07/18 05:13 Seg Neuts % (Manual) 82.0 % (40.0-70.0) H 11/13/18 11:45 Band Neutrophils % 9.0 % 11/13/18 11:45 Lymphocytes % (Manual) 4.0 % (13.4-35.0) L 11/13/18 11:45 Reactive Lymphs % (Man) 1.0 % 11/13/18 11:45 Monocytes % (Manual) 2.0 % (0.0-7.3) 11/13/18 11:45 Eosinophils % (Manual) 0 % (0.0-4.3) 11/13/18 11:45 Basophils % (Manual) 0 % (0.0-1.8) 11/13/18 11:45 Metamyelocytes % 2.0 % 11/13/18 11:45 Myelocytes % 0 % 11/13/18 11:45 Promyelocytes % 0 % 11/13/18 11:45 Blast Cells % 0 % 11/13/18 11:45 Nucleated RBC % 6.0 % (0.0-0.9) H 11/13/18 11:45 Seg Neutrophils # Man 16.2 K/mm3 (1.8-7.7) H 11/13/18 11:45 Band Neutrophils # 1.8 K/mm3 11/13/18 11:45 Lymphocytes # (Manual) 0.8 K/mm3 (1.2-5.4) L 11/13/18 11:45 Abs React Lymphs (Man) 0.2 K/mm3 11/13/18 11:45 Monocytes # (Manual) 0.4 K/mm3 (0.0-0.8) 11/13/18 11:45 Eosinophils # (Manual) 0.0 K/mm3 (0.0-0.4) 11/13/18 11:45 Basophils # (Manual) 0.0 K/mm3 (0.0-0.1) 11/13/18 11:45 Metamyelocytes # 0.4 K/mm3 11/13/18 11:45 Myelocytes # 0.0 K/mm3 11/13/18 11:45 Promyelocytes # 0.0 K/mm3 11/13/18 11:45 Blast Cells # 0.0 K/mm3 11/13/18 11:45 WBC Morphology Not Reportable 11/13/18 11:45 Hypersegmented Neuts Not Reportable 11/13/18 11:45 Hyposegmented Neuts Not Reportable 11/13/18 11:45 Hypogranular Neuts Not Reportable 11/13/18 11:45 Smudge Cells Not Reportable 11/13/18 11:45 Toxic Granulation Not Reportable 11/13/18 11:45 Toxic Vacuolation Not Reportable 11/13/18 11:45 Dohle Bodies Not Reportable 11/13/18 11:45 Pelger-Huet Anomaly Not Reportable 11/13/18 11:45 Tory Rods Not Reportable 11/13/18 11:45 Platelet Estimate Consistent w auto 11/13/18 11:45 Clumped Platelets Not Reportable 11/13/18 11:45 Plt Clumps, EDTA Not Reportable 11/13/18 11:45 Large Platelets Few 11/13/18 11:45 Giant Platelets 1+ 11/13/18 11:45 Platelet Satelliting Not Reportable 11/13/18 11:45 Plt Morphology Comment Not Reportable 11/13/18 11:45 RBC Morphology Not Reportable 11/13/18 11:45 Dimorphic RBCs Not Reportable 11/13/18 11:45 Polychromasia 1+ 11/13/18 11:45 Hypochromasia 2+ 11/13/18 11:45 Poikilocytosis 1+ 11/13/18 11:45 Anisocytosis 1+ 11/13/18 11:45 Microcytosis Not Reportable 11/13/18 11:45 Macrocytosis Not Reportable 11/13/18 11:45 Spherocytes Not Reportable 11/13/18 11:45 Pappenheimer Bodies Not Reportable 11/13/18 11:45 Sickle Cells Not Reportable 11/13/18 11:45 Target Cells 2+ 11/13/18 11:45 Tear Drop Cells Not Reportable 11/13/18 11:45 Ovalocytes Not Reportable 11/13/18 11:45 Helmet Cells Not Reportable 11/13/18 11:45 [place] Bodies Not Reportable 11/13/18 11:45 [place] Rings Not Reportable 11/13/18 11:45 [place] Cells Not Reportable 11/13/18 11:45 Bite Cells Not Reportable 11/13/18 11:45 Crenated Cell Not Reportable 11/13/18 11:45 Elliptocytes Not Reportable 11/13/18 11:45 Acanthocytes (Spur) Not Reportable 11/13/18 11:45 Rouleaux Not Reportable 11/13/18 11:45 Hemoglobin C Crystals Not Reportable 11/13/18 11:45 Schistocytes Not Reportable 11/13/18 11:45 Malaria parasites Not Reportable 11/13/18 11:45 Sarwat Bodies Not Reportable 11/13/18 11:45 Hem Pathologist Commnt No 11/13/18 11:45 PT 15.0 Sec. (12.2-14.9) H 11/06/18 20:18 INR 1.11 (0.87-1.13) 11/06/18 20:18 VBG pH 7.340 (7.320-7.420) 11/06/18 20:18 Sodium 138 mmol/L (137-145) 11/13/18 11:45 Potassium 3.7 mmol/L (3.6-5.0) 11/13/18 11:45 Chloride 104.1 mmol/L (98-107) 11/13/18 11:45 Carbon Dioxide 24 mmol/L (22-30) 11/13/18 11:45 Anion Gap 14 mmol/L 11/13/18 11:45 BUN 16 mg/dL (9-20) 11/13/18 11:45 Creatinine 0.8 mg/dL (0.8-1.5) 11/13/18 11:45 Estimated GFR > 60 ml/min 11/13/18 11:45 BUN/Creatinine Ratio 20 % 11/13/18 11:45 Glucose 168 mg/dL (75-100) H 11/13/18 11:45 Lactic Acid 1.40 mmol/L (0.7-2.0) 11/07/18 23:22 Calcium 8.5 mg/dL (8.4-10.2) 11/13/18 11:45 Total Bilirubin 1.70 mg/dL (0.1-1.2) H 11/06/18 20:18 AST 29 units/L (5-40) 11/06/18 20:18 ALT 17 units/L (7-56) 11/06/18 20:18 Alkaline Phosphatase 88 units/L (35-129) 11/06/18 20:18 Total Protein 6.2 g/dL (6.3-8.2) L 11/06/18 20:18 Albumin 4.0 g/dL (3.9-5) 11/06/18 20:18 Albumin/Globulin Ratio 1.8 % 11/06/18 20:18 Urine Color Rubia (Yellow) 11/07/18 00:07 Urine Turbidity Cloudy (Clear) 11/07/18 00:07 Urine pH 5.0 (5.0-7.0) 11/07/18 00:07 Ur Specific [place] 1.015 (1.003-1.030) 11/07/18 00:07 Urine Protein 100 mg/dl mg/dL (Negative) 11/07/18 00:07 Urine Glucose (UA) Neg mg/dL (Negative) 11/07/18 00:07 Urine Ketones Neg mg/dL (Negative) 11/07/18 00:07 Urine Blood Lg (Negative) 11/07/18 00:07 Urine Nitrite Pos (Negative) 11/07/18 00:07 Urine Bilirubin Neg (Negative) 11/07/18 00:07 Urine Urobilinogen < 2.0 mg/dL (<2.0) 11/07/18 00:07 Ur Leukocyte Esterase Tr (Negative) 11/07/18 00:07 Urine WBC (Auto) 59.0 /HPF (0.0-6.0) H 11/07/18 00:07 Urine RBC (Auto) > 182.0 /HPF (0.0-6.0) 11/07/18 00:07 U Epithel Cells (Auto) 1.0 /HPF (0-13.0) 11/07/18 00:07 Urine Bacteria (Auto) 2+ /HPF (Negative) 11/07/18 00:07 Hyaline Casts 56 /LPF 11/07/18 00:07 Granular Casts 2 /LPF 11/07/18 00:07 Urine Mucus Few /HPF 11/07/18 00:07 HIV 1&2 Antibody Rapid Non react (Non React) 11/13/18 15:59 HIV P24 Antigen Non react (Non React) 11/13/18 15:59 Active Medications - Current Medications Current Medications: Generic Name Dose Route Start Last Admin Trade Name Freq PRN Reason Stop Dose Admin Acetaminophen 650 mg 11/07/18 01:19 11/13/18 01:30 Tylenol PO 650 mg Q4H PRN Administration Pain MILD(1-3)/Fever >100.5/RAY Albuterol 2.5 mg 11/10/18 04:01 11/12/18 05:23 Proventil IH 2.5 mg Q6HRT PRN Administration Shortness Of Breath Albuterol/Ipratropium 1 ampul 11/12/18 09:30 11/13/18 13:23 Duoneb *Not For Prn Use* IH 1 ampul Q6HRT LENORE Administration Docusate Sodium 100 mg 11/12/18 15:00 11/13/18 11:01 Colace PO 100 mg BID LENORE Administration Heparin Sodium (Porcine) 5,000 unit 11/10/18 22:00 11/13/18 11:01 Heparin SUB-Q 5,000 unit Q12HR LENORE Administration Sodium Chloride 1,000 mls @ 75 mls/hr 11/07/18 02:00 11/13/18 11:08 Nacl 0.9% 1000 Ml IV 150 mls/hr DIRECT LENORE Administration Meropenem 1,000 mg/ Sodium 100 mls @ 100 mls/hr 11/08/18 17:00 11/13/18 16:05 Chloride IV 100 mls/hr Q8HR LENORE Administration Protocol Morphine Sulfate 2 mg 11/07/18 01:19 Morphine IV Q4H PRN Pain, Moderate (4-6) Ondansetron HCl 4 mg 11/07/18 01:19 11/07/18 18:08 Zofran IV 4 mg Q4H PRN Administration Nausea And Vomiting Senna 17.2 mg 11/12/18 22:00 11/13/18 11:14 Senokot PO Not Given Q12H LENORE Sodium Chloride 10 ml 11/07/18 10:00 11/13/18 11:02 Sodium Chloride Flush Syringe 10 Ml IV Not Given BID LENORE Sodium Chloride 10 ml 11/07/18 01:19 Sodium Chloride Flush Syringe 10 Ml IV PRN PRN LINE FLUSH Nutrition/Malnutrition Assess - Dietary Evaluation Nutrition/Malnutrition Findings: Nutrition Notes Start: 11/07/18 14:42 Freq: Status: Active Protocol: Document 11/13/18 08:59 TW (Rec: 11/13/18 09:00 TW [id number]) Co-Sign 11/13/18 08:59 LP Nutrition Notes Need for Assessment generated from: LOS Initial or Follow up Brief Note Height 5 ft 9 in Weight 92 kg [place] Body Weight (kg) 72.72 BMI 29.9 Subjective/Other Information Screened for LOS. Per ADL, pt is eating 100% of meals. Nutrition Intervention Revisit per MD consult or patient Sign Off request:
[2018-11-14] MEDS: NACL 0.9% 1000 ML 1,000 ML IV SCH ×2 (03:08→22:04)
--- NOTE | 2018-11-14 05:24 | Hem/Onc Progress Note ---
Assessment and Plan fever prostate bx h/o sickle - admission hb 11, MCV normal. splenomegaly d/w dr rubio - ? spleen infarct - ? trial of NSAID dictation pending - Patient Problems (1) Fever Current Visit: Yes Status: Acute Qualifiers: Fever type: unspecified Qualified Code(s): R50.9 - Fever, unspecified Subjective Date of service: 11/14/18 Principal diagnosis: anemia - fever Interval history: leg swelling Objective - Constitutional Vitals: Last Vital Signs Temp 102.2 F H 11/14/18 05:16 Pulse 101 H 11/14/18 05:16 Resp 20 11/14/18 05:16 BP 129/75 11/14/18 05:16 Pulse Ox 95 11/14/18 05:16 Pain Intensity (0-10): denies any pain General appearance: no acute distress Performance status: 3-limited selfcare - EENT Eyes: EOM intact ENT: clear oral mucosa Lymph node exam: negative cervical - Neck Neck: normal ROM - Respiratory Respiratory effort: Positive: normal Respiratory: bilateral: CTA - Cardiovascular Heart Sounds: Present: S1 & S2 Extremity abnormal: edema - Gastrointestinal General gastrointestinal: Present: soft, non-tender Rectal Exam: deferred - Genitourinary Male genitourinary: Present: deferred - Integumentary Integumentary: warm - Musculoskeletal Musculoskeletal: strength equal bilaterally - Neurologic Neurologic: moves all extremities - Labs Lab Results: Laboratory Results - last 24 hr 11/13/18 11/13/18 11/13/18 11:45 11:45 15:59 WBC 19.8 H RBC 2.96 L Hgb 8.3 L Hct 24.0 L MCV 81 L MCH 28 MCHC 35 H RDW 20.2 H Plt Count 135 L Lymph # Process Control Operator Add Manual Diff Complete Total Counted 100 Seg Neuts % (Manual) 82.0 H Band Neutrophils % 9.0 Lymphocytes % (Manual) 4.0 L Reactive Lymphs % (Man) 1.0 Monocytes % (Manual) 2.0 Eosinophils % (Manual) 0 Basophils % (Manual) 0 Metamyelocytes % 2.0 Myelocytes % 0 Promyelocytes % 0 Blast Cells % 0 Nucleated RBC % 6.0 H Seg Neutrophils # Man 16.2 H Band Neutrophils # 1.8 Lymphocytes # (Manual) 0.8 L Abs React Lymphs (Man) 0.2 Monocytes # (Manual) 0.4 Eosinophils # (Manual) 0.0 Basophils # (Manual) 0.0 Metamyelocytes # 0.4 Myelocytes # 0.0 Promyelocytes # 0.0 Blast Cells # 0.0 WBC Morphology Not Reportable Hypersegmented Neuts Not Reportable Hyposegmented Neuts Not Reportable Hypogranular Neuts Not Reportable Smudge Cells Not Reportable Toxic Granulation Not Reportable Toxic Vacuolation Not Reportable Dohle Bodies Not Reportable Pelger-Huet Anomaly Not Reportable Tory Rods Not Reportable Platelet Estimate Consistent w auto Clumped Platelets Not Reportable Plt Clumps, EDTA Not Reportable Large Platelets Few Giant Platelets 1+ Platelet Satelliting Not Reportable Plt Morphology Comment Not Reportable RBC Morphology Not Reportable Dimorphic RBCs Not Reportable Polychromasia 1+ Hypochromasia 2+ Poikilocytosis 1+ Anisocytosis 1+ Microcytosis Not Reportable Macrocytosis Not Reportable Spherocytes Not Reportable Pappenheimer Bodies Not Reportable Sickle Cells Not Reportable Target Cells 2+ Tear Drop Cells Not Reportable Ovalocytes Not Reportable Helmet Cells Not Reportable [place] Bodies Not Reportable [place] Rings Not Reportable [place] Cells Not Reportable Bite Cells Not Reportable Crenated Cell Not Reportable Elliptocytes Not Reportable Acanthocytes (Spur) Not Reportable Rouleaux Not Reportable Hemoglobin C Crystals Not Reportable Schistocytes Not Reportable Malaria parasites Not Reportable Sarwat Bodies Not Reportable Hem Pathologist Commnt No Sodium 138 Potassium 3.7 Chloride 104.1 Carbon Dioxide 24 Anion Gap 14 BUN 16 Creatinine 0.8 Estimated GFR > 60 BUN/Creatinine Ratio 20 Glucose 168 H Calcium 8.5 C-Reactive Protein HIV 1&2 Antibody Rapid Non react HIV P24 Antigen Non react 11/14/18 00:00 WBC RBC Hgb Hct MCV MCH MCHC RDW Plt Count Lymph # Add Manual Diff Total Counted Seg Neuts % (Manual) Band Neutrophils % Lymphocytes % (Manual) Reactive Lymphs % (Man) Monocytes % (Manual) Eosinophils % (Manual) Basophils % (Manual) Metamyelocytes % Myelocytes % Promyelocytes % Blast Cells % Nucleated RBC % Seg Neutrophils # Man Band Neutrophils # Lymphocytes # (Manual) Abs React Lymphs (Man) Monocytes # (Manual) Eosinophils # (Manual) Basophils # (Manual) Metamyelocytes # Myelocytes # Promyelocytes # Blast Cells # WBC Morphology Hypersegmented Neuts Hyposegmented Neuts Hypogranular Neuts Smudge Cells Toxic Granulation Toxic Vacuolation Dohle Bodies Pelger-Huet Anomaly Tory Rods Platelet Estimate Clumped Platelets Plt Clumps, EDTA Large Platelets Giant Platelets Platelet Satelliting Plt Morphology Comment RBC Morphology Dimorphic RBCs Polychromasia Hypochromasia Poikilocytosis Anisocytosis Microcytosis Macrocytosis Spherocytes Pappenheimer Bodies Sickle Cells Target Cells Tear Drop Cells Ovalocytes Helmet Cells [place] Bodies [place] Rings Sheng Cells Bite Cells Crenated Cell Elliptocytes Acanthocytes (Spur) Rouleaux Hemoglobin C Crystals Schistocytes Malaria parasites Sarwat Bodies Hem Pathologist Commnt Sodium Potassium Chloride Carbon Dioxide Anion Gap BUN Creatinine Estimated GFR BUN/Creatinine Ratio Glucose Calcium C-Reactive Protein 31.80 H HIV 1&2 Antibody Rapid HIV P24 Antigen Medications & Allergies - Medications Allergies/Adverse Reactions: Allergies No Known Allergies Allergy (Unverified 04/17/16 18:17) Home Medications: Home Medications Medication Instructions Recorded Confirmed Last Taken Type Aspir-Low 81 mg PO DAILY 11/08/18 11/15/18 1 Week Ago History ~11/01/18 Folic Acid [Folvite] 1 mg PO QDAY 11/08/18 11/08/18 1 Week Ago History ~11/01/18 Multivitamin 1 tab PO DAILY 11/08/18 11/08/18 11/01/18 History Active Medications: Generic Name Dose Route Start Last Admin Trade Name Abramq PRN Reason Stop Dose Admin Acetaminophen 650 mg 11/07/18 01:19 11/13/18 23:16 Tylenol PO 650 mg Q4H PRN Administration Pain MILD(1-3)/Fever >100.5/RAY Albuterol 2.5 mg 11/10/18 04:01 11/12/18 05:23 Proventil IH 2.5 mg Q6HRT PRN Administration Shortness Of Breath Albuterol/Ipratropium 1 ampul 11/14/18 08:00 Duoneb *Not For Prn Use* IH TIDRT LENORE Docusate Sodium 100 mg 11/12/18 15:00 11/13/18 23:24 Colace PO Not Given BID LENORE Heparin Sodium (Porcine) 5,000 unit 11/10/18 22:00 11/13/18 23:20 Heparin SUB-Q 5,000 unit Q12HR LENORE Administration Sodium Chloride 1,000 mls @ 75 mls/hr 11/07/18 02:00 11/14/18 03:08 Nacl 0.9% 1000 Ml IV 150 mls/hr DIRECT LENORE Administration Meropenem 1,000 mg/ Sodium 100 mls @ 100 mls/hr 11/08/18 17:00 11/13/18 23:12 Chloride IV 100 mls/hr Q8HR LENORE Administration Protocol Morphine Sulfate 2 mg 11/07/18 01:19 Morphine IV Q4H PRN Pain, Moderate (4-6) Ondansetron HCl 4 mg 11/07/18 01:19 11/07/18 18:08 Zofran IV 4 mg Q4H PRN Administration Nausea And Vomiting Senna 17.2 mg 11/12/18 22:00 11/13/18 23:24 Senokot PO Not Given Q12H LENORE Sodium Chloride 10 ml 11/07/18 10:00 11/13/18 23:19 Sodium Chloride Flush Syringe 10 Ml IV 10 ml BID LENORE Administration Sodium Chloride 10 ml 11/07/18 01:19 Sodium Chloride Flush Syringe 10 Ml IV PRN PRN LINE FLUSH
--- NOTE | 2018-11-14 05:46 | Event Note ---
Date: 11/13/18 [id number]
[2018-11-14] MEDS: MERREM 1,000 MG in NACL 0.9% 100 ML IV SCH (05:57)
[2018-11-14 06:40] LABS: Hematocrit 22.4 % (35.5-45.6); Hemoglobin 7.7 gm/dl (11.8-15.2); Mean Corpuscular HGB Conc 34 % (32-34); Mean Corpuscular Volume 81 fl (84-94); Red Blood Count 2.77 M/mm3 (3.65-5.03); Red Cell Distribution Width 19.7 % (13.2-15.2)
[2018-11-14] MEDS: DUONEB *Not for PRN Use IH SCH ×3 (09:00→20:39)
--- NOTE | 2018-11-14 09:18 | Progress Note ---
Assessment and Plan Cultures: 11/06/2018 Blood culture : ESBL E. Coli, 11/07/2018 urine culture: <10K bacteria 11/08/2018 Blood culture: ESBL E. coli 4 out of 4 bottles 11/10/2018 Blood culture: ESBL E. coli 2 out of 4 bottles 11/12/2018 Blood Cultures: ESBL E. coli 1 out of 4 bottles 11/14/2018 Blood Cultures: in progress Assessment: 62 y/o male with a history of sickle cell disease; admitted on 11/06/18 due to 24 hour-history of fever, chills and generalized malaise. Patient underwent transrectal-prostate biopsy on 11/05/[address] Hidalgo. Patient denies N/V/D, cough, SOB, abdominal pain, urinary symptoms. 1) Severe Sepsis secondary to GNR bacteremia: Leukocytois trending up, Fever spikes continuing. Etiology ESBL E.coli bacteremia, Source unclear, ?UTI, sickle? malignancy?. - UA 59 wbc, trace LE, +nitrates, large blood. - Blood culture 10/17/2018 no growth today. - CT abd showed rectal prostate and seminal vesicles stranding - CT with contrast showed that the The prostate gland remains mildly enlarged measuring 6 cm in diameter.Nonspecific fat stranding surrounding the prostate gland, seminal vesicles and rectum has resolved. -Spleen CT/US - showed lesions, ?sickle cell or emboli -Chest xray: The lungs are grossly clear. No consolidation -Renal U/S: right kidney: Normal echotexture. Left Kidney: well-defined simple cyst measuring 2.1 x 1.9 cm is noted in the lower portion. Otherwise renal parenchymal echotexture is within normal limits without calculi or hydronephrosus -Abdominal U/S: Multiple nonspecific lesions identified in the spleen which appear predominantly solid and mixed echoic. DDX includes benign lesions such as hemangioma and malignant lesions such as metastases. Clinical correlation and biopsy are recommended. -CRP 31.80 -TTE- No valvular vegetation -CT abdomen and pelvis with 4 phase liver protocol shows evidence of evolving splenic infarction.The remainder of the splenic parenchyma is hypoattenuated with no evidence of perfusion. Mild inflammatory fat stranding has developed surrounding the spleen. No evidence for splenic hemorrhage. 2) ESBL E. Coli bacteremia: Continue Meropenem. Repeat blood cultures 11/08/18 ESBL E. coli 4 out of 4 bottles. Repeat cultures 11/10/18 still growing ESBL E. coli 2 out of 4 bottles. Repeat Blood cultures 11/12/18 still growing ESBL E. co l, 1 out of 4 bottles. Will repeat blood cultures today to ensure clearance. 3) UTI: U/A with 59 WBC and trace LE, significant hematuria . Urine culture negative. 4) BIN: better 5) HAP vs aspiration Pneumonia: Chest CT shows Left lower lobe consolidation consistent with pneumonia. Trace bilateral pleural effusions. Will add Vancomycin to cover HAP. Recommendations: -f/u repeat blood cultures for ID and CARMEL's -new blood cultures ordered to ensure clearance -continue contact isolation for ESBL -f/u CESAR, ANCA, C3, C4 -f/u FLU PCR and Flu rapid -if further work up is negative, will consider WBC scan -cardiology consult for ANGELA -discontinue Meropenem -Start Vabomere 4 gms IV every 8 hours (switch not due to meropenem failure but source control) -Start Vancomycin PK dosing to cover HAP Dr. Kam will be front office attendant this weekend [phone], please call for questions. Alexandria Iverson NP [facility] M: [id number] O:[phone] Subjective Date of service: 11/14/18 Interval history: Patient seen and examined. Sitting up in bed eating breakfast. Mild acute distress with tachypnea. Mother at bedside. Objective - Exam Narrative Exam: Constitutional: Alert, cooperative. mild distress observed. Head, Ears, Nose: Normocephalic, atraumatic. External ears, nose normal Eyes: Conjunctivae/corneas clear. No icterus. No ptosis. Neck: Supple, no meningeal signs Cardiovascular: S1, S2 normal. Respiratory: Good air entry, clear to auscultation bilaterally, + tachypnea GI: Soft, non-tender; bowel sounds normal. No peritoneal signs Musculoskeletal: No pedal edema, no cyanosis. Skin: No rash or abscess Hem/Lymphatic: No palpable cervical or supraclavicular nodes. No lymphangitis Psych: Mood ok. Affect normal Neurological: Awake, alert, oriented. No gross abnormality - Constitutional Vitals: Vital Signs Temp Pulse Resp BP Pulse Ox 102.2 F H 101 H 20 129/75 95 11/14/18 05:16 11/14/18 05:16 11/14/18 05:16 11/14/18 05:16 11/14/18 05:16 Temperature -Last 24 Hours Temperature 102.2 F Temperature 101.0 F Temperature 103.0 F Temperature 99.9 F Temperature 100.5 F - Labs CBC & Chem 7: 11/14/18 05:29 11/13/18 11:45 Labs: Abnormal lab results 11/13/18 11/13/18 11/14/18 Range/Units 11:45 11:45 00:00 WBC 19.8 H (4.5-11.0) K/mm3 RBC 2.96 L (3.65-5.03) M/mm3 Hgb 8.3 L (11.8-15.2) gm/dl Hct 24.0 L (35.5-45.6) % MCV 81 L (84-94) fl MCHC 35 H (32-34) % RDW 20.2 H (13.2-15.2) % Plt Count 135 L (140-440) K/mm3 Seg Neuts % (Manual) 82.0 H (40.0-70.0) % Lymphocytes % (Manual) 4.0 L (13.4-35.0) % Nucleated RBC % 6.0 H (0.0-0.9) % Seg Neutrophils # Man 16.2 H (1.8-7.7) K/mm3 Lymphocytes # (Manual) 0.8 L (1.2-5.4) K/mm3 Glucose 168 H (75-100) mg/dL C-Reactive Protein 31.80 H (0.00-1.30) mg/dL 11/14/18 Range/Units 05:29 WBC 24.2 H (4.5-11.0) K/mm3 RBC 2.77 L (3.65-5.03) M/mm3 Hgb 7.7 L (11.8-15.2) gm/dl Hct 22.4 L (35.5-45.6) % MCV 81 L (84-94) fl MCHC (32-34) % RDW 19.7 H (13.2-15.2) % Plt Count (140-440) K/mm3 Seg Neuts % (Manual) (40.0-70.0) % Lymphocytes % (Manual) (13.4-35.0) % Nucleated RBC % (0.0-0.9) % Seg Neutrophils # Man (1.8-7.7) K/mm3 Lymphocytes # (Manual) (1.2-5.4) K/mm3 Glucose (75-100) mg/dL C-Reactive Protein (0.00-1.30) mg/dL
[2018-11-14 09:42] LABS: Platelet Count 165 K/mm3 (140-440)
[2018-11-14] MEDS: COLACE PO SCH ×2 (10:00→22:18)
[2018-11-14] MEDS: SENOKOT PO SCH ×2 (10:00→22:18)
[2018-11-14] MEDS: SODIUM CHLORIDE FLUSH SYRINGE 10 ML IV SCH ×2 (11:33→22:19)
[2018-11-14] MEDS: HEPARIN SUB-Q SCH ×2 (12:36→21:57)
[2018-11-14] MEDS: VABOMERE 4 GM in NACL 0.9% 250ML 250 ML IV SCH ×2 (12:37→22:03)
--- NOTE | 2018-11-14 14:11 | Cat Scan Report ---
CT CHEST WITHOUT CONTRAST: HISTORY: Persistent fever, bacteremia, spleen lesions. COMPARISON: none. TECHNIQUE: Helical CT in 1.25mm intervals without IV contrast. Sagittal and coronal reformatted images. FINDINGS: Thyroid gland: Normal. Tracheobronchial tree: Normal. Esophagus: Normal. Heart: Mild cardiomegaly. Pericardium: Normal. Mediastinum: Normal. Lung Dunlap: There is consolidation throughout most of the left lower lobe. Mild linear atelectasis or scarring is noted at the right lung base. The upper lung zones are well aerated. No underlying parenchymal lung disease is appreciated. Pleural Spaces: Trace bilateral pleural effusions, left greater than right. Musculoskeletal: Intact. Right shoulder arthroplasty is noted. No bony destruction or suspicious bony lesion. IMPRESSION: Left lower lobe consolidation consistent with pneumonia. Trace bilateral pleural effusions. Mild cardiomegaly.
--- NOTE | 2018-11-14 14:21 | Cat Scan Report ---
CT ABDOMEN PELVIS WITH AND WITHOUT CONTRAST: HISTORY: Fever, bacteremia, splenic lesions. COMPARISON: 11/10/18. 11/06/18. TECHNIQUE: Helical CT in 1.25mm intervals before and after IV contrast. Sagittal and coronal reconstructions. Four-phase liver CT protocol. FINDINGS: Liver: Normal. Biliary system: Normal. Pancreas: Normal. Spleen: There is mild splenomegaly measuring 15.6 x 8.8 cm in axial plane. The spleen has a heterogeneous appearance on the precontrast images. Following the administration of IV contrast there is patchy in enhancement of approximately 10% of the splenic parenchyma. On the previous study, this enhancement pattern was thought to represent multiple splenic lesions. On the four-phase protocol, I suspect that there is an evolving splenic infarction. The patchy areas of enhancement on the previous study appear to represent viable splenic tissue and not masses. The remainder of the splenic parenchyma is hypoattenuated with no evidence of perfusion. Mild inflammatory fat stranding has developed surrounding the spleen. No evidence for splenic hemorrhage. Kidneys/ureters/bladder: Within normal limits. Focal scarring in the left kidney and left renal cysts are unchanged. Adrenal glands: Normal. Aorta: Normal. Intestines: No evidence for bowel obstruction or focal inflammation. Appendix: Appendectomy changes are suspected. Ascites: None. Adenopathy: None. Musculoskeletal: Normal. 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 Please see above. These findings were discussed with Dr. Powell.
--- NOTE | 2018-11-14 14:59 | Progress Note ---
Assessment and Plan 62 yo M with 1. sepsis 2. GNR bacteremia 3. UTI 4. s/p transrectal prostate biopsy on 11/05/18 5. splenomegaly 6. sickle cell disease Ct scan a/p Liver protocol performed today was reviewed with Dr. Bowser and Dr. Day. 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 There is no definitive abscess. Probable LLL PNA. Splenic infarction can lead to fever, LUQ pain, and leukocytosis and is not ne cessarily related to E coli bacteremia. Bacteremia is presumed to be a result of prostate biopsy induced prostatitis. Plan: 1. continue with abx 2. doubt acute rectal perforation. No evidence for perforation or abscess on physical exam or imaging. Firm area on rectal exam likely the site of prostate biopsy. 3. bowel regimen 4. reg diet 5. No clear indication for splenectomy or splenic drainage at this time. Would continue to observe patient and trend WBC 6. add NSAIDs Discussed work up and plan with patient and his mother. They understand. Very complex case. Reviewed plan with Dr. Celestin and Dr. Kam. Thank you, please call with questions Subjective Date of service: 11/14/18 Narrative: Pt seen and examined. No change. c/o abdominal distension but denies pain. + Fevers. Objective Vital Signs - 12hr 11/14/18 11/14/18 11/14/18 05:16 09:00 09:10 Temperature 102.2 F H Pulse Rate 101 H Pulse Rate [ 106 H 110 H Anterior Bilateral Throughout] Respiratory 20 Rate Respiratory 20 20 Rate [Anterior Bilateral Throughout] Blood Pressure 129/75 O2 Sat by Pulse 95 94 Oximetry 11/14/18 11/14/18 11/14/18 12:06 14:21 14:32 Temperature 100.3 F H Pulse Rate 107 H Pulse Rate [ 108 H 111 H Anterior Bilateral Throughout] Respiratory 22 Rate Respiratory 20 20 Rate [Anterior Bilateral Throughout] Blood Pressure 105/49 O2 Sat by Pulse 94 Oximetry - General physical appearance Narrative Exam: Gen: AAOx3. NAD ENT: no scleral icterus or conjunctival pallor CV: s1, S2+ resp; even and unlabored Abd: soft, distended, LUQ TTP - moderate. No r/r/g Ext: no c/c/e - Labs 11/14/18 05:29 11/13/18 11:45
[2018-11-14] MEDS ORDERED: VANCOMYCIN PHARMACY TO DOSE IV SCH (16:00)
[2018-11-14] MEDS ORDERED: VANCOMYCIN 1,500 MG in NACL 0.9% 500 ML 500 ML IV ONE (16:30)
[2018-11-14] MEDS: IBUPROFEN PO SCH ×2 (17:06→21:57)
--- NOTE | 2018-11-14 19:03 | Progress Note ---
Assessment and Plan Assessment and plan: Patient is a 62-year-old man with a history of Sickle cell disease and elevated PSA s/p transrectal-prostate biopsy on 11/05/[address] Hidalgo who presented to [facility] ED with fevers. Patient was diagnosis with prostatitis/urinary tract infection and sepsis. He was seen by Urologist, Dr. Hui on 11/12/18. Patient was treated with sepsis protocol including, IV fluids and antibiotics. His labs revealed elevated white count, acute renal insufficiency, lactic acidosis and UTI. Patient has continuedto have persistent bacteremia of E. coli despite Abx given for 7 days. * Chest xray: cardiomegaly * CT A/P: IMPRESSION: Mild cardiomegaly, stable. Small pleural effusions have developed. Partial atelectasis has developed in the left lower lobe. Infiltrate is thought less likely. Moderate splenomegaly. There are multiple foci of enhancement in the spleen following IV contrast. The etiology of these are unclear. Please see above. Nonspecific fat stranding surrounding the prostate gland, seminal vesicles and rectum has resolved. /Severe Sepsis, Secondary to E.coli UTI/prostatitis: ID is following, continue abx. /Splenic infarction can lead to fever, LUQ pain, and leukocytosis and is not necessarily related to E coli bacteremia. Bacteremia is presumed to be a result of prostate biopsy induced prostatitis: General Surgery is following,added NSAIDs /ESBL E coli bactermia: continue abx per ID recommendations /Acute Cystitis s/p recent prostate biopsy: Urology did evaluate and deemed no surgery needed at the time, recommended continuing ABX /Acute renal failure Secondary to vasomotor nephropathy: continue to monitor bmp /Sickle cell disease, stable: pain control and adequate hydration /Acute Respiratory Failure with Hypoxia-Improving: continue daily weaning O2 trails /Thrombocytopenia most likely consumption related: continue to monitor cbc and treat the sepsis /DVT ppx: on sq heparin Preventive Immunization once ID clears. History Interval history: Patient was seen and examined. Follow-up on current diagnosis fevers. Overnight uneventful. Patient denies any chest pain, shortness breath, nausea/vomiting or severe headaches. Imaging, nursing note, chart, labs and old chart reviewed. Discussed with patient. Hospitalist Physical - Physical exam Narrative exam: Gen: WDWN, NAD, Awake, Alert, Orientated HEENT: NCAT, EOMI, PERRL, OP Clear Neck: supple, no adenopathy, no thyromegaly, no JVD CVS/Heart: Regular tachycardia, normal S1S2, pulses present bilaterally Chest/Lungs: CTA B, Symmetrical chest expansion, good air entry bilaterally GI/Abdomen: soft, NTND, good bowel sounds, no guarding or rebound /Bladder: no suprapubic tenderness, no CVA or paraspinal tenderness Extermity/Skin: no c/c/e, no obvious rash MSK: FROM x 4 Neuro: CN 2-12 grossly intact, no new focal deficits Psych: calm - Constitutional Vitals: Temp Pulse Resp BP Pulse Ox 102.6 F H 113 H 24 122/71 93 11/14/18 17:12 11/14/18 17:12 11/14/18 17:12 11/14/18 17:12 11/14/18 17:12 General appearance: Present: no acute distress, well-nourished Results - Labs CBC & Chem 7: 11/15/18 04:43 11/15/18 04:43 Labs: Laboratory Last Values WBC 24.2 K/mm3 (4.5-11.0) H 11/14/18 05:29 RBC 2.77 M/mm3 (3.65-5.03) L 11/14/18 05:29 Hgb 7.7 gm/dl (11.8-15.2) L 11/14/18 05:29 Hct 22.4 % (35.5-45.6) L 11/14/18 05:29 MCV 81 fl (84-94) L 11/14/18 05:29 MCH 28 pg (28-32) 11/14/18 05:29 MCHC 34 % (32-34) 11/14/18 05:29 RDW 19.7 % (13.2-15.2) H 11/14/18 05:29 Plt Count 165 K/mm3 (140-440) 11/14/18 05:29 Lymph # Land Examiner 11/13/18 11:45 Add Manual Diff Complete 11/13/18 11:45 Total Counted 100 11/13/18 11:45 Seg Neutrophils % Land Examiner 11/07/18 05:13 Seg Neuts % (Manual) 82.0 % (40.0-70.0) H 11/13/18 11:45 Band Neutrophils % 9.0 % 11/13/18 11:45 Lymphocytes % (Manual) 4.0 % (13.4-35.0) L 11/13/18 11:45 Reactive Lymphs % (Man) 1.0 % 11/13/18 11:45 Monocytes % (Manual) 2.0 % (0.0-7.3) 11/13/18 11:45 Eosinophils % (Manual) 0 % (0.0-4.3) 11/13/18 11:45 Basophils % (Manual) 0 % (0.0-1.8) 11/13/18 11:45 Metamyelocytes % 2.0 % 11/13/18 11:45 Myelocytes % 0 % 11/13/18 11:45 Promyelocytes % 0 % 11/13/18 11:45 Blast Cells % 0 % 11/13/18 11:45 Nucleated RBC % 6.0 % (0.0-0.9) H 11/13/18 11:45 Seg Neutrophils # Man 16.2 K/mm3 (1.8-7.7) H 11/13/18 11:45 Band Neutrophils # 1.8 K/mm3 11/13/18 11:45 Lymphocytes # (Manual) 0.8 K/mm3 (1.2-5.4) L 11/13/18 11:45 Abs React Lymphs (Man) 0.2 K/mm3 11/13/18 11:45 Monocytes # (Manual) 0.4 K/mm3 (0.0-0.8) 11/13/18 11:45 Eosinophils # (Manual) 0.0 K/mm3 (0.0-0.4) 11/13/18 11:45 Basophils # (Manual) 0.0 K/mm3 (0.0-0.1) 11/13/18 11:45 Metamyelocytes # 0.4 K/mm3 11/13/18 11:45 Myelocytes # 0.0 K/mm3 11/13/18 11:45 Promyelocytes # 0.0 K/mm3 11/13/18 11:45 Blast Cells # 0.0 K/mm3 11/13/18 11:45 WBC Morphology Not Reportable 11/13/18 11:45 Hypersegmented Neuts Not Reportable 11/13/18 11:45 Hyposegmented Neuts Not Reportable 11/13/18 11:45 Hypogranular Neuts Not Reportable 11/13/18 11:45 Smudge Cells Not Reportable 11/13/18 11:45 Toxic Granulation Not Reportable 11/13/18 11:45 Toxic Vacuolation Not Reportable 11/13/18 11:45 Dohle Bodies Not Reportable 11/13/18 11:45 Pelger-Huet Anomaly Not Reportable 11/13/18 11:45 Tory Rods Not Reportable 11/13/18 11:45 Platelet Estimate Consistent w auto 11/13/18 11:45 Clumped Platelets Not Reportable 11/13/18 11:45 Plt Clumps, EDTA Not Reportable 11/13/18 11:45 Large Platelets Few 11/13/18 11:45 Giant Platelets 1+ 11/13/18 11:45 Platelet Satelliting Not Reportable 11/13/18 11:45 Plt Morphology Comment Not Reportable 11/13/18 11:45 RBC Morphology Not Reportable 11/13/18 11:45 Dimorphic RBCs Not Reportable 11/13/18 11:45 Polychromasia 1+ 11/13/18 11:45 Hypochromasia 2+ 11/13/18 11:45 Poikilocytosis 1+ 11/13/18 11:45 Anisocytosis 1+ 11/13/18 11:45 Microcytosis Not Reportable 11/13/18 11:45 Macrocytosis Not Reportable 11/13/18 11:45 Spherocytes Not Reportable 11/13/18 11:45 Pappenheimer Bodies Not Reportable 11/13/18 11:45 Sickle Cells Not Reportable 11/13/18 11:45 Target Cells 2+ 11/13/18 11:45 Tear Drop Cells Not Reportable 11/13/18 11:45 Ovalocytes Not Reportable 11/13/18 11:45 Helmet Cells Not Reportable 11/13/18 11:45 [place] Bodies Not Reportable 11/13/18 11:45 Wilson Rings Not Reportable 11/13/18 11:45 [place] Cells Not Reportable 11/13/18 11:45 Bite Cells Not Reportable 11/13/18 11:45 Crenated Cell Not Reportable 11/13/18 11:45 Elliptocytes Not Reportable 11/13/18 11:45 Acanthocytes (Spur) Not Reportable 11/13/18 11:45 Rouleaux Not Reportable 11/13/18 11:45 Hemoglobin C Crystals Not Reportable 11/13/18 11:45 Schistocytes Not Reportable 11/13/18 11:45 Malaria parasites Not Reportable 11/13/18 11:45 [place] Bodies Not Reportable 11/13/18 11:45 Hem Pathologist Commnt No 11/13/18 11:45 PT 15.0 Sec. (12.2-14.9) H 11/06/18 20:18 INR 1.11 (0.87-1.13) 11/06/18 20:18 VBG pH 7.340 (7.320-7.420) 11/06/18 20:18 Sodium 138 mmol/L (137-145) 11/13/18 11:45 Potassium 3.7 mmol/L (3.6-5.0) 11/13/18 11:45 Chloride 104.1 mmol/L (98-107) 11/13/18 11:45 Carbon Dioxide 24 mmol/L (22-30) 11/13/18 11:45 Anion Gap 14 mmol/L 11/13/18 11:45 BUN 16 mg/dL (9-20) 11/13/18 11:45 Creatinine 0.8 mg/dL (0.8-1.5) 11/13/18 11:45 Estimated GFR > 60 ml/min 11/13/18 11:45 BUN/Creatinine Ratio 20 % 11/13/18 11:45 Glucose 168 mg/dL (75-100) H 11/13/18 11:45 Lactic Acid 1.40 mmol/L (0.7-2.0) 11/07/18 23:22 Calcium 8.5 mg/dL (8.4-10.2) 11/13/18 11:45 Total Bilirubin 1.70 mg/dL (0.1-1.2) H 11/06/18 20:18 AST 29 units/L (5-40) 11/06/18 20:18 ALT 17 units/L (7-56) 11/06/18 20:18 Alkaline Phosphatase 88 units/L (35-129) 11/06/18 20:18 C-Reactive Protein 31.80 mg/dL (0.00-1.30) H 11/14/18 00:00 Total Protein 6.2 g/dL (6.3-8.2) L 11/06/18 20:18 Albumin 4.0 g/dL (3.9-5) 11/06/18 20:18 Albumin/Globulin Ratio 1.8 % 11/06/18 20:18 Urine Color Rubia (Yellow) 11/07/18 00:07 Urine Turbidity Cloudy (Clear) 11/07/18 00:07 Urine pH 5.0 (5.0-7.0) 11/07/18 00:07 Ur Specific [place] 1.015 (1.003-1.030) 11/07/18 00:07 Urine Protein 100 mg/dl mg/dL (Negative) 11/07/18 00:07 Urine Glucose (UA) Neg mg/dL (Negative) 11/07/18 00:07 Urine Ketones Neg mg/dL (Negative) 11/07/18 00:07 Urine Blood Lg (Negative) 11/07/18 00:07 Urine Nitrite Pos (Negative) 11/07/18 00:07 Urine Bilirubin Neg (Negative) 11/07/18 00:07 Urine Urobilinogen < 2.0 mg/dL (<2.0) 11/07/18 00:07 Ur Leukocyte Esterase Tr (Negative) 11/07/18 00:07 Urine WBC (Auto) 59.0 /HPF (0.0-6.0) H 11/07/18 00:07 Urine RBC (Auto) > 182.0 /HPF (0.0-6.0) 11/07/18 00:07 U Epithel Cells (Auto) 1.0 /HPF (0-13.0) 11/07/18 00:07 Urine Bacteria (Auto) 2+ /HPF (Negative) 11/07/18 00:07 Hyaline Casts 56 /LPF 11/07/18 00:07 Granular Casts 2 /LPF 11/07/18 00:07 Urine Mucus Few /HPF 11/07/18 00:07 HIV 1&2 Antibody Rapid Non react (Non React) 11/13/18 15:59 HIV P24 Antigen Non react (Non React) 11/13/18 15:59 Active Medications - Current Medications Current Medications: Generic Name Dose Route Start Last Admin Trade Name Freq PRN Reason Stop Dose Admin Acetaminophen 650 mg 11/07/18 01:19 11/13/18 23:16 Tylenol PO 650 mg Q4H PRN Administration Pain MILD(1-3)/Fever >100.5/RAY Albuterol 2.5 mg 11/10/18 04:01 11/12/18 05:23 Proventil IH 2.5 mg Q6HRT PRN Administration Shortness Of Breath Albuterol/Ipratropium 1 ampul 11/14/18 08:00 11/14/18 14:21 Duoneb *Not For Prn Use* IH 1 ampul TIDRT LENORE Administration Docusate Sodium 100 mg 11/12/18 15:00 11/14/18 10:00 Colace PO Not Given BID LENORE Heparin Sodium (Porcine) 5,000 unit 11/10/18 22:00 11/14/18 12:36 Heparin SUB-Q 5,000 unit Q12HR LENORE Administration Sodium Chloride 1,000 mls @ 75 mls/hr 11/07/18 02:00 11/14/18 03:08 Nacl 0.9% 1000 Ml IV 150 mls/hr DIRECT LENORE Administration MEROPENEM/VABORBACTAM 4 gm/ 250 mls @ 90 mls/hr 11/14/18 12:00 11/14/18 12:37 Sodium Chloride IV 90 mls/hr Q8HR LENORE Administration Vancomycin HCl 1,250 mg/ 275 mls @ 166.667 mls/hr 11/15/18 06:00 Sodium Chloride IV Q12H LENORE Ibuprofen 600 mg 11/14/18 17:00 11/14/18 17:06 Motrin PO 600 mg Q8HR LENORE Administration Morphine Sulfate 2 mg 11/07/18 01:19 Morphine IV Q4H PRN Pain, Moderate (4-6) Ondansetron HCl 4 mg 11/07/18 01:19 11/07/18 18:08 Zofran IV 4 mg Q4H PRN Administration Nausea And Vomiting Senna 17.2 mg 11/12/18 22:00 11/14/18 10:00 Senokot PO Not Given Q12H LENORE Sodium Chloride 10 ml 11/07/18 10:00 11/14/18 11:33 Sodium Chloride Flush Syringe 10 Ml IV Not Given BID LENORE Sodium Chloride 10 ml 11/07/18 01:19 Sodium Chloride Flush Syringe 10 Ml IV PRN PRN LINE FLUSH Nutrition/Malnutrition Assess - Dietary Evaluation Nutrition/Malnutrition Findings: Nutrition Notes Start: 11/07/18 14:42 Freq: Status: Active Protocol: Document 11/13/18 08:59 TW (Rec: 11/13/18 09:00 TW [id number]) Co-Sign 11/13/18 08:59 LP Nutrition Notes Need for Assessment generated from: LOS Initial or Follow up Brief Note Height 5 ft 9 in Weight 92 kg Couch Body Weight (kg) 72.72 BMI 29.9 Subjective/Other Information Screened for LOS. Per ADL, pt is eating 100% of meals. Nutrition Intervention Revisit per MD consult or patient Sign Off request:
[2018-11-15] MEDS: VANCOMYCIN 1,250 MG in NACL 0.9% 250ML 250 ML IV SCH ×2 (05:15→17:51)
[2018-11-15 05:34] LABS: Hemoglobin 6.8 gm/dl (11.8-15.2); Mean Corpuscular HGB Conc 35 % (32-34); Mean Corpuscular Volume 81 fl (84-94); Platelet Count 245 K/mm3 (140-440); Red Cell Distribution Width 19.6 % (13.2-15.2)
[2018-11-15 05:44] LABS: Hematocrit 19.5 % (35.5-45.6)
[2018-11-15 05:45] LABS: Alanine Aminotransferase 23 units/L (7-56); Albumin 2.4 g/dL (3.9-5); BUN/Creatinine Ratio 14; Blood Urea Nitrogen 10 mg/dL (9-20); Calcium 7.7 mg/dL (8.4-10.2); Hemolysis Index 5
[2018-11-15] MEDS ORDERED: NACL 0.9% 500 ML 500 ML IV ONE (05:59)
[2018-11-15] MEDS: VABOMERE 4 GM in NACL 0.9% 250ML 250 ML IV SCH ×3 (06:29→22:52)
[2018-11-15] MEDS: IBUPROFEN PO SCH (06:29)
[2018-11-15 06:35] LABS: Band Neutrophils # (Manual) 0.8 K/mm3; Basophils % (Manual) 0 % (0.0-1.8); Eosinophils % (Manual) 0 % (0.0-4.3); Total Cells Counted 100
[2018-11-15 06:38] LABS: Anisocytosis 1+; Poikilocytosis 3+; Target Cells 3+
[2018-11-15 06:39] LABS: Large Platelets Few; Platelet Estimate Cons; Stomatocytes Few
[2018-11-15 07:36] LABS: Iron 15 ug/dL (49-181)
[2018-11-15] MEDS: DUONEB *Not for PRN Use IH SCH ×3 (07:42→20:37)
--- NOTE | 2018-11-15 08:53 | Progress Note ---
Assessment and Plan Assessment and plan: Patient is a 62-year-old man with a history of Sickle cell disease, AVN of bilateral hips, AVN shoulder and elevated PSA (2->5) s/p transrectal-prostate biopsy on 11/05/[address] Hidalgo who presented to [facility] ED with fevers. Patient was diagnosis with prostatitis/urinary tract infection and sepsis. He was seen by Urologist, Dr. Hui on 11/12/18. Patient was treated with sepsis protocol including, IV fluids and antibiotics. His labs revealed elevated white count, acute renal insufficiency, lactic acidosis and UTI. Patient has continuedto have persistent bacteremia of E. coli despite Abx given for 7 days. Patient was scheduled for bilateral THR and had a MRI pelvis by Dr. Quiroga at [place] and it showed a lesion on the prostate 1 week prior to TURP * Chest xray: cardiomegaly * CT A/P: IMPRESSION: Mild cardiomegaly, stable. Small pleural effusions have developed. Partial atelectasis has developed in the left lower lobe. Infiltrate is thought less likely. Moderate splenomegaly. There are multiple foci of enhancement in the spleen following IV contrast. The etiology of these are unclear. Please see above. Nonspecific fat stranding surrounding the prostate gland, seminal vesicles and rectum has resolved. * 11/12/18 U/S renal bilateral IMPRESSION: Unremarkable study. * 11/12/18 U/S abdomen IMPRESSION: Multiple nonspecific lesions identified in the spleen which appear predominantly solid and mixed echoic. Differential diagnosis includes benign lesions such as hemangioma and malignant lesions such as metastases. Clinical correlation and biopsy are recommended. Etiologies such as abscess, and infarction are unlikely and etiologies such as lymphangioma and lymphoma are felt to be less likely. * 11/14/18 CT chest wo constrast IMPRESSION: Left lower lobe consolidation consistent with pneumonia. Trace bilateral pleural effusions. Mild cardiomegaly. * 11/14/18 CT abd/pelvis with and withou contrast IMPRESSION: Evolving infarction of the spleen is suspected. Please see above. These findings were discussed with Dr. Powell. /Severe Sepsis, Secondary to E.coli UTI/prostatitis: ID is following, continue abx. 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, added NSAIDs will stop due to anemia /ESBL E coli bactermia is presumed to be a result of prostate biopsy induced prostatitis: continue abx per ID recommendations, /Acute Cystitis s/p recent prostate biopsy: Urology did evaluate and deemed no surgery needed at the time, recommended continuing ABX /Acute renal failure Secondary to vasomotor nephropathy: continue to monitor bmp /Sickle cell disease, stable: pain control and adequate hydration /Acute Respiratory Failure with Hypoxia-Improving: continue daily weaning O2 trails /Thrombocytopenia most likely consumption related: continue to monitor cbc and treat the sepsis /DVT ppx: on sq heparin Preventive Immunization once ID clears. 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 ?ANGELA get MRI pelvis on Saturday, if patient stay bacteremia, Urology will need to re- evaluate History Interval history: Patient was seen and examined. Follow-up on current diagnosis fevers. Overnight uneventful. Patient denies any chest pain, shortness breath, nausea/vomiting or severe headaches. Imaging, nursing note, chart, labs and old chart reviewed. Discussed with patient. Hospitalist Physical - Physical exam Narrative exam: Gen: WDWN, NAD, Awake, Alert, Orientated HEENT: NCAT, EOMI, PERRL, OP Clear Neck: supple, no adenopathy, no thyromegaly, no JVD CVS/Heart: Regular tachycardia, normal S1S2, pulses present bilaterally Chest/Lungs: CTA B, Symmetrical chest expansion, good air entry bilaterally GI/Abdomen: soft, NTND, good bowel sounds, no guarding or rebound /Bladder: no suprapubic tenderness, no CVA or paraspinal tenderness Extermity/Skin: no c/c/e, no obvious rash MSK: FROM x 4 Neuro: CN 2-12 grossly intact, no new focal deficits Psych: calm - Constitutional Vitals: Temp Pulse Resp BP Pulse Ox 98.5 F 97 H 20 114/67 100 11/15/18 05:40 11/15/18 07:52 11/15/18 07:52 11/15/18 05:40 11/15/18 07:42 General appearance: Present: no acute distress, well-nourished Results - Labs CBC & Chem 7: 11/15/18 04:43 11/15/18 04:43 Labs: Laboratory Last Values WBC 25.0 K/mm3 (4.5-11.0) H 11/15/18 04:43 RBC 2.40 M/mm3 (3.65-5.03) L 11/15/18 04:43 Hgb 6.8 gm/dl (11.8-15.2) L 11/15/18 04:43 Hct 19.5 % (35.5-45.6) L* 11/15/18 04:43 MCV 81 fl (84-94) L 11/15/18 04:43 MCH 28 pg (28-32) 11/15/18 04:43 MCHC 35 % (32-34) H 11/15/18 04:43 RDW 19.6 % (13.2-15.2) H 11/15/18 04:43 Plt Count 245 K/mm3 (140-440) 11/15/18 04:43 [place] % (Auto) [employer] 11/15/18 04:43 Lymph # [employer] 11/13/18 11:45 Add Manual Diff Complete 11/15/18 04:43 Total Counted 100 11/15/18 04:43 Seg Neutrophils % [employer] 11/07/18 05:13 Seg Neuts % (Manual) 87.0 % (40.0-70.0) H 11/15/18 04:43 Band Neutrophils % 3.0 % 11/15/18 04:43 Lymphocytes % (Manual) 5.0 % (13.4-35.0) L 11/15/18 04:43 Reactive Lymphs % (Man) 0 % 11/15/18 04:43 Monocytes % (Manual) 5.0 % (0.0-7.3) 11/15/18 04:43 Eosinophils % (Manual) 0 % (0.0-4.3) 11/15/18 04:43 Basophils % (Manual) 0 % (0.0-1.8) 11/15/18 04:43 Metamyelocytes % 0 % 11/15/18 04:43 Myelocytes % 0 % 11/15/18 04:43 Promyelocytes % 0 % 11/15/18 04:43 Blast Cells % 0 % 11/15/18 04:43 Nucleated RBC % Not Reportable 11/15/18 04:43 Seg Neutrophils # Man 21.8 K/mm3 (1.8-7.7) H 11/15/18 04:43 Band Neutrophils # 0.8 K/mm3 11/15/18 04:43 Lymphocytes # (Manual) 1.3 K/mm3 (1.2-5.4) 11/15/18 04:43 Abs React Lymphs (Man) 0.0 K/mm3 11/15/18 04:43 Monocytes # (Manual) 1.3 K/mm3 (0.0-0.8) H 11/15/18 04:43 Eosinophils # (Manual) 0.0 K/mm3 (0.0-0.4) 11/15/18 04:43 Basophils # (Manual) 0.0 K/mm3 (0.0-0.1) 11/15/18 04:43 Metamyelocytes # 0.0 K/mm3 11/15/18 04:43 Myelocytes # 0.0 K/mm3 11/15/18 04:43 Promyelocytes # 0.0 K/mm3 11/15/18 04:43 Blast Cells # 0.0 K/mm3 11/15/18 04:43 WBC Morphology Not Reportable 11/15/18 04:43 Hypersegmented Neuts Not Reportable 11/15/18 04:43 Hyposegmented Neuts Not Reportable 11/15/18 04:43 Hypogranular Neuts Not Reportable 11/15/18 04:43 Smudge Cells Not Reportable 11/15/18 04:43 Toxic Granulation Not Reportable 11/15/18 04:43 Toxic Vacuolation Not Reportable 11/15/18 04:43 Dohle Bodies Not Reportable 11/15/18 04:43 Pelger-Huet Anomaly Not Reportable 11/15/18 04:43 Tory Rods Not Reportable 11/15/18 04:43 Platelet Estimate Cons 11/15/18 04:43 Clumped Platelets Not Reportable 11/15/18 04:43 Plt Clumps, EDTA Not Reportable 11/15/18 04:43 Large Platelets Few 11/15/18 04:43 Giant Platelets Not Reportable 11/15/18 04:43 Platelet Satelliting Not Reportable 11/15/18 04:43 Plt Morphology Comment Not Reportable 11/15/18 04:43 RBC Morphology Not Reportable 11/15/18 04:43 Dimorphic RBCs Not Reportable 11/15/18 04:43 Polychromasia Not Reportable 11/15/18 04:43 Hypochromasia Not Reportable 11/15/18 04:43 Poikilocytosis 3+ 11/15/18 04:43 Anisocytosis 1+ 11/15/18 04:43 Microcytosis Not Reportable 11/15/18 04:43 Macrocytosis Not Reportable 11/15/18 04:43 Spherocytes Not Reportable 11/15/18 04:43 Pappenheimer Bodies Not Reportable 11/15/18 04:43 Sickle Cells Not Reportable 11/15/18 04:43 Target Cells 3+ 11/15/18 04:43 Tear Drop Cells Not Reportable 11/15/18 04:43 Ovalocytes Not Reportable 11/15/18 04:43 Stomatocytes Few 11/15/18 04:43 Helmet Cells Not Reportable 11/15/18 04:43 [place] Bodies Not Reportable 11/15/18 04:43 [place] Rings Not Reportable 11/15/18 04:43 Sheng Cells Not Reportable 11/15/18 04:43 Bite Cells Not Reportable 11/15/18 04:43 Crenated Cell Not Reportable 11/15/18 04:43 Elliptocytes Not Reportable 11/15/18 04:43 Acanthocytes (Spur) Not Reportable 11/15/18 04:43 Rouleaux Not Reportable 11/15/18 04:43 Hemoglobin C Crystals Not Reportable 11/15/18 04:43 Schistocytes Not Reportable 11/15/18 04:43 Malaria parasites Not Reportable 11/15/18 04:43 [place] Bodies Not Reportable 11/15/18 04:43 Hem Pathologist Commnt No 11/15/18 04:43 PT 15.0 Sec. (12.2-14.9) H 11/06/18 20:18 INR 1.11 (0.87-1.13) 11/06/18 20:18 VBG pH 7.340 (7.320-7.420) 11/06/18 20:18 Sodium 138 mmol/L (137-145) 11/15/18 04:43 Potassium 4.0 mmol/L (3.6-5.0) 11/15/18 04:43 Chloride 104.9 mmol/L (98-107) 11/15/18 04:43 Carbon Dioxide 24 mmol/L (22-30) 11/15/18 04:43 Anion Gap 13 mmol/L 11/15/18 04:43 BUN 10 mg/dL (9-20) 11/15/18 04:43 Creatinine 0.7 mg/dL (0.8-1.5) L 11/15/18 04:43 Estimated GFR > 60 ml/min 11/15/18 04:43 BUN/Creatinine Ratio 14 % 11/15/18 04:43 Glucose 146 mg/dL (75-100) H 11/15/18 04:43 Lactic Acid 1.40 mmol/L (0.7-2.0) 11/07/18 23:22 Calcium 7.7 mg/dL (8.4-10.2) L 11/15/18 04:43 Iron 15 ug/dL (49-181) L 11/15/18 04:43 Total Bilirubin 1.70 mg/dL (0.1-1.2) H 11/15/18 04:43 AST 31 units/L (5-40) 11/15/18 04:43 ALT 23 units/L (7-56) 11/15/18 04:43 Alkaline Phosphatase 87 units/L (35-129) 11/15/18 04:43 C-Reactive Protein 31.80 mg/dL (0.00-1.30) H 11/14/18 00:00 Total Protein 5.2 g/dL (6.3-8.2) L 11/15/18 04:43 Albumin 2.4 g/dL (3.9-5) L 11/15/18 04:43 Albumin/Globulin Ratio 0.9 % 11/15/18 04:43 Urine Color Rubia (Yellow) 11/07/18 00:07 Urine Turbidity Cloudy (Clear) 11/07/18 00:07 Urine pH 5.0 (5.0-7.0) 11/07/18 00:07 Ur Specific [place] 1.015 (1.003-1.030) 11/07/18 00:07 Urine Protein 100 mg/dl mg/dL (Negative) 11/07/18 00:07 Urine Glucose (UA) Neg mg/dL (Negative) 11/07/18 00:07 Urine Ketones Neg mg/dL (Negative) 11/07/18 00:07 Urine Blood Lg (Negative) 11/07/18 00:07 Urine Nitrite Pos (Negative) 11/07/18 00:07 Urine Bilirubin Neg (Negative) 11/07/18 00:07 Urine Urobilinogen < 2.0 mg/dL (<2.0) 11/07/18 00:07 Ur Leukocyte Esterase Tr (Negative) 11/07/18 00:07 Urine WBC (Auto) 59.0 /HPF (0.0-6.0) H 11/07/18 00:07 Urine RBC (Auto) > 182.0 /HPF (0.0-6.0) 11/07/18 00:07 U Epithel Cells (Auto) 1.0 /HPF (0-13.0) 11/07/18 00:07 Urine Bacteria (Auto) 2+ /HPF (Negative) 11/07/18 00:07 Hyaline Casts 56 /LPF 11/07/18 00:07 Granular Casts 2 /LPF 11/07/18 00:07 Urine Mucus Few /HPF 11/07/18 00:07 HIV 1&2 Antibody Rapid Non react (Non React) 11/13/18 15:59 HIV P24 Antigen Non react (Non React) 11/13/18 15:59 Blood Type A POSITIVE 11/15/18 05:25 Antibody Screen Negative 11/15/18 05:25 Crossmatch See Detail 11/15/18 05:25 Active Medications - Current Medications Current Medications: Generic Name Dose Route Start Last Admin Trade Name Freq PRN Reason Stop Dose Admin Acetaminophen 650 mg 11/07/18 01:19 11/13/18 23:16 Tylenol PO 650 mg Q4H PRN Administration Pain MILD(1-3)/Fever >100.5/RAY Albuterol 2.5 mg 11/10/18 04:01 11/12/18 05:23 Proventil IH 2.5 mg Q6HRT PRN Administration Shortness Of Breath Albuterol/Ipratropium 1 ampul 11/14/18 08:00 11/15/18 07:42 Duoneb *Not For Prn Use* IH 1 ampul TIDRT LENORE Administration Docusate Sodium 100 mg 11/12/18 15:00 11/14/18 22:18 Colace PO Not Given BID LENORE Sodium Chloride 1,000 mls @ 75 mls/hr 11/07/18 02:00 11/14/18 22:04 Nacl 0.9% 1000 Ml IV 150 mls/hr DIRECT LENORE Administration MEROPENEM/VABORBACTAM 4 gm/ 250 mls @ 90 mls/hr 11/14/18 12:00 11/15/18 06:29 Sodium Chloride IV 90 mls/hr Q8HR LENORE Administration Vancomycin HCl 1,250 mg/ 275 mls @ 166.667 mls/hr 11/15/18 06:00 11/15/18 05: 15 Sodium Chloride IV 166.667 mls/hr Q12H LENORE Administration Morphine Sulfate 2 mg 11/07/18 01:19 Morphine IV Q4H PRN Pain, Moderate (4-6) Ondansetron HCl 4 mg 11/07/18 01:19 11/07/18 18:08 Zofran IV 4 mg Q4H PRN Administration Nausea And Vomiting Senna 17.2 mg 11/12/18 22:00 11/14/18 22:18 Senokot PO Not Given Q12H LENORE Sodium Chloride 10 ml 11/07/18 10:00 11/14/18 22:19 Sodium Chloride Flush Syringe 10 Ml IV 10 ml BID LENORE Administration Sodium Chloride 10 ml 11/07/18 01:19 Sodium Chloride Flush Syringe 10 Ml IV PRN PRN LINE FLUSH Nutrition/Malnutrition Assess - Dietary Evaluation Nutrition/Malnutrition Findings: Nutrition Notes Start: 11/07/18 14:42 Freq: Status: Active Protocol: Document 11/13/18 08:59 TW (Rec: 11/13/18 09:00 TW [id number]) Co-Sign 11/13/18 08:59 LP Nutrition Notes Need for Assessment generated from: LOS Initial or Follow up Brief Note Height 5 ft 9 in Weight 92 kg [place] Body Weight (kg) 72.72 BMI 29.9 Subjective/Other Information Screened for LOS. Per ADL, pt is eating 100% of meals. Nutrition Intervention Revisit per MD consult or patient Sign Off request:
[2018-11-15] MEDS: TYLENOL PO PRN ×2 (09:28→14:24)
[2018-11-15] MEDS: NACL 0.9% 1000 ML 1,000 ML IV SCH (09:29)
[2018-11-15] MEDS: COLACE PO SCH ×2 (09:29→22:45)
[2018-11-15] MEDS ORDERED: IBUPROFEN PO ONE (10:00)
[2018-11-15 11:19] LABS: Total Iron Binding Capacity 169 mcg/dL (250-450)
[2018-11-15] MEDS: SENOKOT PO SCH ×2 (11:47→22:45)
[2018-11-15] MEDS: SODIUM CHLORIDE FLUSH SYRINGE 10 ML IV SCH (11:48)
--- NOTE | 2018-11-15 13:03 | Progress Note ---
Assessment and Plan - Patient Problems (1) Sepsis Current Visit: Yes Status: Acute Qualifiers: Sepsis type: sepsis due to unspecified organism Qualified Code(s): A41.9 - Sepsis, unspecified organism Plan to address problem: Pt stable. normal temp and vitals on last check. We may have two separate problems -- 1. splenic infarct due to SCD, 2. bacteremia due to prostatitis. It appears the WBC is peaking and the platelets are rising as expected with an infarcted spleen. Should see the WBC begin to drop in next few days. Platelets will probably rise even higher. Not uncommon to get to 1000. Drop in Hgb may be autolysis from SCD. Could check indirect bilirubin to confirm, if desired. Shoul d be high. No surgery recommended at this time. Will continue to follow. Please call with questions. Time=10min Subjective Date of service: 11/15/18 Patient Reports: Positive: no new complaints, other (feels bloated). Negative: nausea Objective Vital Signs - 12hr 11/15/18 11/15/18 11/15/18 05:40 06:29 07:42 Temperature 98.5 F Pulse Rate 87 Pulse Rate [ 98 H Anterior Bilateral Throughout] Respiratory 18 20 Rate Respiratory 20 Rate [Anterior Bilateral Throughout] Blood Pressure 114/67 O2 Sat by Pulse 95 100 Oximetry 11/15/18 11/15/18 07:52 09:23 Temperature Pulse Rate Pulse Rate [ 97 H Anterior Bilateral Throughout] Respiratory 18 Rate Respiratory 20 Rate [Anterior Bilateral Throughout] Blood Pressure 102/55 O2 Sat by Pulse Oximetry - General physical appearance no distress, no pain - Respiratory normal expansion, other (slight increased work of breathing) - Abdomen soft, tender (focal in left flank. rest is benign), distended (minimal), not guarding, not rigid - Integumentary no rash, no growths, no abnormal pigmentation - Psychiatric oriented to time, oriented to person, oriented to place, speech is normal, memory intact - Labs 11/15/18 04:43 11/15/18 04:43 Diabetes panel 11/15/18 Range/Units 04:43 Sodium 138 (137-145) mmol/L Potassium 4.0 (3.6-5.0) mmol/L Chloride 104.9 (98-107) mmol/L Carbon Dioxide 24 (22-30) mmol/L BUN 10 (9-20) mg/dL Creatinine 0.7 L (0.8-1.5) mg/dL Glucose 146 H (75-100) mg/dL Calcium 7.7 L (8.4-10.2) mg/dL AST 31 (5-40) units/L ALT 23 (7-56) units/L Alkaline Phosphatase 87 (35-129) units/L Total Protein 5.2 L (6.3-8.2) g/dL Albumin 2.4 L (3.9-5) g/dL Calcium panel 11/15/18 Range/Units 04:43 Calcium 7.7 L (8.4-10.2) mg/dL Albumin 2.4 L (3.9-5) g/dL Pituitary panel 11/15/18 Range/Units 04:43 Sodium 138 (137-145) mmol/L Potassium 4.0 (3.6-5.0) mmol/L Chloride 104.9 (98-107) mmol/L Carbon Dioxide 24 (22-30) mmol/L BUN 10 (9-20) mg/dL Creatinine 0.7 L (0.8-1.5) mg/dL Glucose 146 H (75-100) mg/dL Calcium 7.7 L (8.4-10.2) mg/dL Adrenal panel 11/15/18 Range/Units 04:43 Sodium 138 (137-145) mmol/L Potassium 4.0 (3.6-5.0) mmol/L Chloride 104.9 (98-107) mmol/L Carbon Dioxide 24 (22-30) mmol/L BUN 10 (9-20) mg/dL Creatinine 0.7 L (0.8-1.5) mg/dL Glucose 146 H (75-100) mg/dL Calcium 7.7 L (8.4-10.2) mg/dL Total Bilirubin 1.70 H (0.1-1.2) mg/dL AST 31 (5-40) units/L ALT 23 (7-56) units/L Alkaline Phosphatase 87 (35-129) units/L Total Protein 5.2 L (6.3-8.2) g/dL Albumin 2.4 L (3.9-5) g/dL
--- NOTE | 2018-11-15 14:14 | Progress Note ---
Assessment and Plan Cultures: 11/06/2018 Blood culture : ESBL E. Coli, 11/07/2018 urine culture: <10K bacteria 11/08/2018 Blood culture: ESBL E. coli 4 out of 4 bottles 11/10/2018 Blood culture: ESBL E. coli 2 out of 4 bottles 11/12/2018 Blood Cultures: ESBL E. coli 1 out of 4 bottles 11/14/2018 Blood Cultures: no growth todau Assessment: 62 y/o male with a history of sickle cell disease; admitted on 11/06/18 due to 24 hour-history of fever, chills and generalized malaise. Patient underwent transrectal-prostate biopsy on 11/05/[address] Hidalgo. Patient denies N/V/D, cough, SOB, abdominal pain, urinary symptoms. 1) Severe Sepsis: fever trensing down after changing to vabomere. Etiology most likely persistent ESBL bacteremia+/-UTI +/- post-biopsy prostatitis and proctitis. 2) Persistent ESBL bacteremia: source likely post trans-rectal biopsy UTI, prostatitis and proctitis. Was on meropenem for 7 days w/o improvement. Now on vabomere D2 - UA 59 wbc, trace LE, +nitrates, large blood. - Blood culture 10/17/2018 no growth today. - CT abd showed rectal prostate and seminal vesicles stranding - CT with contrast showed that the The prostate gland remains mildly enlarged measuring 6 cm in diameter.Nonspecific fat stranding surrounding the prostate gland, seminal vesicles and rectum has resolved. -Spleen CT/US - showed lesions, ?sickle cell or emboli -Chest xray: The lungs are grossly clear. No consolidation -Renal U/S: right kidney: Normal echotexture. Left Kidney: well-defined simple cyst measuring 2.1 x 1.9 cm is noted in the lower portion. Otherwise renal parenchymal echotexture is within normal limits without calculi or hydronephrosus -Abdominal U/S: Multiple nonspecific lesions identified in the spleen which appear predominantly solid and mixed echoic. DDX includes benign lesions such as hemangioma and malignant lesions such as metastases. Clinical correlation and biopsy are recommended. -CRP 31.80 -TTE- No valvular vegetation -CT abdomen and pelvis with 4 phase liver protocol shows evidence of evolving splenic infarction.The remainder of the splenic parenchyma is hypoattenuated with no evidence of perfusion. Mild inflammatory fat stranding has developed surrounding the spleen. No splenic hemorrhage. 3) Post trans-rectal biopsy UTI, prostatitis and proctitis. UA 59 wbc, trace LE, +nitrates, large blood. 11/07/2018 urine culture<10K bacteria. He received cipro PO x 3 days before biopsy. 4) Multiple Evolving Splenic infarcts +/- abscesses. CT abdomen progressive spleen infarcts. I am concerned that the spleen has developed superimposed abscesses from ESBL E coli in light of persistent bacteremia and fever. 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 I believe this is not due to meropenem failure and it is more from uncontrolled source. Continue vancomycin D2 to cover HAP ANGELA to r/o endocarditis, however endocarditis due to ESBL E coli is very rare. f/u autoimmune w/u check MRSA screening Dr Lara is rounding on Saturday Deborah Escobedo MD Infectious Diseases Polysomnographic Technician [facility] [phone] O [phone] Subjective Date of service: 11/15/18 Principal diagnosis: anemia - fever Interval history: Feels the same c/o abdominal distention, noted fever trending down. ROS as above rest negative Objective - Exam Narrative Exam: General appearance: Alert in NAD, conversant Eyes: anicteric sclerae, moist conjunctivae; no lid-lag; PERRLA HENT: Atraumatic; oropharynx clear with moist mucous membranes and no mucosal ulcerations/no oral thrush; normal hard and soft palate. Normal external ears. Neck: Trachea midline; supple, no thyromegaly or lymphadenopathy Lungs: CTA, with normal respiratory effort and no intercostal retractions CV: RRR, Abdomen: Soft, distended mild TTP LUQ no rebound Extremities: miya ankle peripheral edema Skin: Normal temperature, turgor and texture; no rash, ulcers or subcutaneous nodules Psych: Appropriate affect, alert and oriented to person, place and time. Neuro: alert and oriented x 3. Moving all extermities - Constitutional Vitals: Vital Signs Temp Pulse Resp BP Pulse Ox 98.5 F 92 H 20 102/55 100 11/15/18 05:40 11/15/18 13:58 11/15/18 13:58 11/15/18 09:23 11/15/18 07:42 Temperature -Last 24 Hours Temperature 98.5 F Temperature 98.3 F Temperature 102.6 F - Labs CBC & Chem 7: 11/15/18 04:43 11/15/18 04:43 Labs: Abnormal lab results 11/15/18 11/15/18 11/15/18 Range/Units 04:43 04:43 04:43 WBC 25.0 H (4.5-11.0) K/mm3 RBC 2.40 L (3.65-5.03) M/mm3 Hgb 6.8 L (11.8-15.2) gm/dl Hct 19.5 L* (35.5-45.6) % MCV 81 L (84-94) fl MCHC 35 H (32-34) % RDW 19.6 H (13.2-15.2) % Seg Neuts % (Manual) 87.0 H (40.0-70.0) % Lymphocytes % (Manual) 5.0 L (13.4-35.0) % Seg Neutrophils # Man 21.8 H (1.8-7.7) K/mm3 Monocytes # (Manual) 1.3 H (0.0-0.8) K/mm3 Creatinine 0.7 L (0.8-1.5) mg/dL Glucose 146 H (75-100) mg/dL Calcium 7.7 L (8.4-10.2) mg/dL Iron 15 L (49-181) ug/dL TIBC 169 L (250-450) mcg/dL Total Bilirubin 1.70 H (0.1-1.2) mg/dL Total Protein 5.2 L (6.3-8.2) g/dL Albumin 2.4 L (3.9-5) g/dL Crossmatch 11/15/18 Range/Units 05:25 WBC (4.5-11.0) K/mm3 RBC (3.65-5.03) M/mm3 Hgb (11.8-15.2) gm/dl Hct (35.5-45.6) % MCV (84-94) fl MCHC (32-34) % RDW (13.2-15.2) % Seg Neuts % (Manual) (40.0-70.0) % Lymphocytes % (Manual) (13.4-35.0) % Seg Neutrophils # Man (1.8-7.7) K/mm3 Monocytes # (Manual) (0.0-0.8) K/mm3 Creatinine (0.8-1.5) mg/dL Glucose (75-100) mg/dL Calcium (8.4-10.2) mg/dL Iron (49-181) ug/dL TIBC (250-450) mcg/dL Total Bilirubin (0.1-1.2) mg/dL Total Protein (6.3-8.2) g/dL Albumin (3.9-5) g/dL Crossmatch See Detail
--- NOTE | 2018-11-15 14:43 | Consultation ---
REASON FOR CONSULTATION: Fever, history of sickle cell. HISTORY OF PRESENT ILLNESS: I saw the patient, a 62-year-old male with a history of sickle cell, came to the hospital because of fever, chills, fatigue. He was admitted on 11/06/2018. In the recent past, the patient has been having some hip issues. Recently as the PSA was elevated, he underwent post-biopsy, which was done on Saturday, he came to the hospital because of fever, chills, fatigue. The patient has been seen by ID team, surgical team. As the fever is not improving, I have been asked to evaluate the patient. The patient has undergone CT of the chest, abdomen, and pelvis. PAST MEDICAL HISTORY: Sickle cell disease. PAST SURGICAL HISTORY: Shoulder and left wrist surgery. SOCIAL HISTORY: No history of tobacco or alcohol use. FAMILY HISTORY: Hypertension. ALLERGIES: None. MEDICATIONS: Include albuterol, meropenem. PHYSICAL EXAMINATION: GENERAL: Temperature 103, pulse 120, respirations 20, BP is 116/66. HEENT: Pallor present, no icterus. NECK: No neck lymph nodes. HEART: S1, S2. LUNGS: Clear to auscultation anteriorly. ABDOMEN: Soft. EXTREMITIES: No calf tenderness. NEUROLOGIC: Alert, awake, oriented. LABORATORY DATA: White cell 19, hemoglobin 8.3, MCV 81, and platelet 135. Potassium 3.7, creatinine 0.8, calcium 8.5 and at admission, bilirubin was 1.7. ASSESSMENT AND PLAN: 1. History of elevated PSA, status post prostate biopsy. 2. History of fevers. Based on temporal events, this has to be related to the prostate issues. ID team is on case. 3. History of anemia. At admission; hemoglobin was 11.1, MCV was normal. 4. History of sickle cell disease. Radiology mentions splenomegaly of 15.7 cm. The patient would need outpatient evaluation for the question of sickle cell. At this time, hematology issues may be secondary to the infection/medication. 5. Splenomegaly, likely secondary to infection issues. I discussed with ID team. The patient has E. coli in the blood culture. I spoke to Dr. Marcano about the patient. JOB# [id number] NM/NTS
--- NOTE | 2018-11-15 19:04 | Hem/Onc Progress Note ---
Assessment and Plan fever prostate bx h/o sickle - admission hb 11, MCV normal. splenomegaly d/w dr rubio - ? spleen infarct - ? trial of NSAID 1. History of elevated PSA, status post prostate biopsy. 2. History of fevers. Based on temporal events, this has to be related to the prostate issues. ID team is on case. 3. History of anemia. At admission; hemoglobin was 11.1, MCV was normal. 4. History of sickle cell disease. Radiology mentions splenomegaly of 15.7 cm. The patient would need outpatient evaluation for the question of sickle cell. At this time, hematology issues may be secondary to the infection/medication. 5. Splenomegaly, likely secondary to infection issues. I had discussed with ID team. The patient has E. coli in the blood culture. I spoke to Dr. Marcano about the patient. 11/15 sickle cell test - smear - no sickle cells seen fever could be sec to pneumonia or splenic infarct PRBC - low iron - IV iron trial - Patient Problems (1) Fever Current Visit: Yes Status: Acute Qualifiers: Fever type: unspecified Qualified Code(s): R50.9 - Fever, unspecified Subjective Date of service: 11/15/18 Principal diagnosis: anemia - fever Interval history: hb low - PRBC Objective - Constitutional Vitals: Last Vital Signs Temp 98.7 F 11/15/18 17:40 Pulse 106 H 11/15/18 17:40 Resp 18 11/15/18 17:40 BP 103/64 11/15/18 17:40 Pulse Ox 92 11/15/18 17:40 Pain Intensity (0-10): denies any pain General appearance: no acute distress Performance status: 3-limited selfcare - EENT Eyes: EOM intact ENT: clear oral mucosa - Neck Neck: supple - Respiratory Respiratory effort: Positive: normal Respiratory: bilateral: diminished - Cardiovascular Heart Sounds: Present: S1 & S2 Extremity abnormal: edema - Gastrointestinal General gastrointestinal: Present: soft, non-tender Rectal Exam: deferred - Genitourinary Male genitourinary: Present: deferred - Integumentary Integumentary: warm - Musculoskeletal Musculoskeletal: generalized weakness - Neurologic Neurologic: moves all extremities - Labs Lab Results: Laboratory Results - last 24 hr 11/15/18 11/15/18 11/15/18 04:43 04:43 04:43 WBC 25.0 H RBC 2.40 L Hgb 6.8 L Hct 19.5 L* MCV 81 L MCH 28 MCHC 35 H RDW 19.6 H Plt Count 245 [place] % (Auto) Poultry Farmer Add Manual Diff Complete Total Counted 100 Seg Neuts % (Manual) 87.0 H Band Neutrophils % 3.0 Lymphocytes % (Manual) 5.0 L Reactive Lymphs % (Man) 0 Monocytes % (Manual) 5.0 Eosinophils % (Manual) 0 Basophils % (Manual) 0 Metamyelocytes % 0 Myelocytes % 0 Promyelocytes % 0 Blast Cells % 0 Nucleated RBC % Not Reportable Seg Neutrophils # Man 21.8 H Band Neutrophils # 0.8 Lymphocytes # (Manual) 1.3 Abs React Lymphs (Man) 0.0 Monocytes # (Manual) 1.3 H Eosinophils # (Manual) 0.0 Basophils # (Manual) 0.0 Metamyelocytes # 0.0 Myelocytes # 0.0 Promyelocytes # 0.0 Blast Cells # 0.0 WBC Morphology Not Reportable Hypersegmented Neuts Not Reportable Hyposegmented Neuts Not Reportable Hypogranular Neuts Not Reportable Smudge Cells Not Reportable Toxic Granulation Not Reportable Toxic Vacuolation Not Reportable Dohle Bodies Not Reportable Pelger-Huet Anomaly Not Reportable Tory Rods Not Reportable Platelet Estimate Cons Clumped Platelets Not Reportable Plt Clumps, EDTA Not Reportable Large Platelets Few Giant Platelets Not Reportable Platelet Satelliting Not Reportable Plt Morphology Comment Not Reportable RBC Morphology Not Reportable Dimorphic RBCs Not Reportable Polychromasia Not Reportable Hypochromasia Not Reportable Poikilocytosis 3+ Anisocytosis 1+ Microcytosis Not Reportable Macrocytosis Not Reportable Spherocytes Not Reportable Pappenheimer Bodies Not Reportable Sickle Cells Not Reportable Target Cells 3+ Tear Drop Cells Not Reportable Ovalocytes Not Reportable Stomatocytes Few Helmet Cells Not Reportable [place] Bodies Not Reportable [place] Rings Not Reportable Sheng Cells Not Reportable Bite Cells Not Reportable Crenated Cell Not Reportable Elliptocytes Not Reportable Acanthocytes (Spur) Not Reportable Rouleaux Not Reportable Hemoglobin C Crystals Not Reportable Schistocytes Not Reportable Malaria parasites Not Reportable Sarwat Bodies Not Reportable Hem Pathologist Commnt No Sodium 138 Potassium 4.0 Chloride 104.9 Carbon Dioxide 24 Anion Gap 13 BUN 10 Creatinine 0.7 L Estimated GFR > 60 BUN/Creatinine Ratio 14 Glucose 146 H Calcium 7.7 L Iron 15 L TIBC 169 L Total Bilirubin 1.70 H AST 31 ALT 23 Alkaline Phosphatase 87 C-Reactive Protein Total Protein 5.2 L Albumin 2.4 L Albumin/Globulin Ratio 0.9 Blood Type Antibody Screen Crossmatch 11/15/18 11/15/18 05:25 17:36 WBC RBC Hgb Hct MCV MCH MCHC RDW Plt Count [place] % (Auto) Add Manual Diff Total Counted Seg Neuts % (Manual) Band Neutrophils % Lymphocytes % (Manual) Reactive Lymphs % (Man) Monocytes % (Manual) Eosinophils % (Manual) Basophils % (Manual) Metamyelocytes % Myelocytes % Promyelocytes % Blast Cells % Nucleated RBC % Seg Neutrophils # Man Band Neutrophils # Lymphocytes # (Manual) Abs React Lymphs (Man) Monocytes # (Manual) Eosinophils # (Manual) Basophils # (Manual) Metamyelocytes # Myelocytes # Promyelocytes # Blast Cells # WBC Morphology Hypersegmented Neuts Hyposegmented Neuts Hypogranular Neuts Smudge Cells Toxic Granulation Toxic Vacuolation Dohle Bodies Pelger-Huet Anomaly Tory Rods Platelet Estimate Clumped Platelets Plt Clumps, EDTA Large Platelets Giant Platelets Platelet Satelliting Plt Morphology Comment RBC Morphology Dimorphic RBCs Polychromasia Hypochromasia Poikilocytosis Anisocytosis Microcytosis Macrocytosis Spherocytes Pappenheimer Bodies Sickle Cells Target Cells Tear Drop Cells Ovalocytes Stomatocytes Helmet Cells [place] Bodies Allen Rings Sheng Cells Bite Cells Crenated Cell Elliptocytes Acanthocytes (Spur) Rouleaux Hemoglobin C Crystals Schistocytes Malaria parasites Sarwat Bodies Hem Pathologist Commnt Sodium Potassium Chloride Carbon Dioxide Anion Gap BUN Creatinine Estimated GFR BUN/Creatinine Ratio Glucose Calcium Iron TIBC Total Bilirubin AST ALT Alkaline Phosphatase C-Reactive Protein 35.00 H Total Protein Albumin Albumin/Globulin Ratio Blood Type A POSITIVE Antibody Screen Negative Crossmatch See Detail Medications & Allergies - Medications Allergies/Adverse Reactions: Allergies No Known Allergies Allergy (Unverified 04/17/16 18:17) Home Medications: Home Medications Medication Instructions Recorded Confirmed Last Taken Type Aspir-Low 81 mg PO DAILY 11/08/18 11/15/18 1 Week Ago History ~11/01/18 Folic Acid [Folvite] 1 mg PO QDAY 11/08/18 11/08/18 1 Week Ago History ~11/01/18 Multivitamin 1 tab PO DAILY 11/08/18 11/08/18 11/01/18 History Active Medications: Generic Name Dose Route Start Last Admin Trade Name Freq PRN Reason Stop Dose Admin Acetaminophen 650 mg 11/07/18 01:19 11/15/18 14:24 Tylenol PO 650 mg Q4H PRN Administration Pain MILD(1-3)/Fever >100.5/RAY Albuterol 2.5 mg 11/10/18 04:01 11/12/18 05:23 Proventil IH 2.5 mg Q6HRT PRN Administration Shortness Of Breath Albuterol/Ipratropium 1 ampul 11/14/18 08:00 11/15/18 13:48 Duoneb *Not For Prn Use* IH 1 ampul TIDRT LENORE Administration Docusate Sodium 100 mg 11/12/18 15:00 11/15/18 09:29 Colace PO 100 mg BID LENORE Administration Sodium Chloride 1,000 mls @ 75 mls/hr 11/07/18 02:00 11/15/18 09:29 Nacl 0.9% 1000 Ml IV 150 mls/hr DIRECT LENORE Administration MEROPENEM/VABORBACTAM 4 gm/ 250 mls @ 90 mls/hr 11/14/18 12:00 11/15/18 14:36 Sodium Chloride IV 90 mls/hr Q8HR LENORE Administration Vancomycin HCl 1,250 mg/ 275 mls @ 166.667 mls/hr 11/15/18 06:00 11/15/18 17:51 Sodium Chloride IV 166.667 mls/hr Q12H LENORE Administration Morphine Sulfate 2 mg 11/07/18 01:19 Morphine IV Q4H PRN Pain, Moderate (4-6) Ondansetron HCl 4 mg 11/07/18 01:19 11/07/18 18:08 Zofran IV 4 mg Q4H PRN Administration Nausea And Vomiting Senna 17.2 mg 11/12/18 22:00 11/15/18 11:47 Senokot PO Not Given Q12H LENORE Sodium Chloride 10 ml 11/07/18 10:00 11/15/18 11:48 Sodium Chloride Flush Syringe 10 Ml IV 10 ml BID LENORE Administration Sodium Chloride 10 ml 11/07/18 01:19 Sodium Chloride Flush Syringe 10 Ml IV PRN PRN LINE FLUSH
[2018-11-16] MEDS: NACL 0.9% 1000 ML 1,000 ML IV SCH (01:18)
[2018-11-16] MEDS: SODIUM CHLORIDE FLUSH SYRINGE 10 ML IV SCH ×3 (01:18→23:46)
[2018-11-16] MEDS: VANCOMYCIN 1,250 MG in NACL 0.9% 250ML 250 ML IV SCH ×2 (05:12→19:23)
[2018-11-16] MEDS: VABOMERE 4 GM in NACL 0.9% 250ML 250 ML IV SCH ×3 (06:06→21:23)
[2018-11-16] MEDS: TYLENOL PO PRN ×3 (06:26→23:43)
[2018-11-16] MEDS: DUONEB *Not for PRN Use IH SCH ×3 (07:51→20:49)
[2018-11-16 10:50] LABS: Hematocrit 22.8 % (35.5-45.6); Hemoglobin 8.1 gm/dl (11.8-15.2)
[2018-11-16] MEDS: SENOKOT PO SCH ×2 (11:25→23:45)
[2018-11-16] MEDS: COLACE PO SCH ×2 (11:25→21:25)
--- NOTE | 2018-11-16 12:01 | Progress Note ---
Assessment and Plan - Patient Problems (1) Sepsis Current Visit: Yes Status: Acute Qualifiers: Sepsis type: sepsis due to unspecified organism Qualified Code(s): A41.9 - Sepsis, unspecified organism Plan to address problem: Pt with increased work of breathing and some congested breath sounds. Appears to be volume overloaded. I have asked the hospitalists whether we can diurese the patient. The pleural effusion on the chest x-ray is often present as a reaction to splenic infarction. If it increases and/or compromises breathing, a thoracentesis or drain placement may be necessary. Check CBC in AM. Time=10min Subjective Date of service: 11/16/18 Patient Reports: Positive: still having pain (primarily with movement), tolerating a regular diet, shortness of breath, other (leg swelling. feels bloated) Objective Vital Signs - 12hr 11/16/18 11/16/18 11/16/18 01:29 06:21 06:27 Temperature 103.3 F H Pulse Rate 121 H Pulse Rate [ Anterior Bilateral Throughout] Respiratory 20 24 Rate Respiratory Rate [Anterior Bilateral Throughout] Blood Pressure 122/79 O2 Sat by Pulse 96 Oximetry 11/16/18 11/16/18 11/16/18 08:30 08:40 10:00 Temperature Pulse Rate Pulse Rate [ 88 87 Anterior Bilateral Throughout] Respiratory Rate Respiratory 18 18 Rate [Anterior Bilateral Throughout] Blood Pressure O2 Sat by Pulse 97 Oximetry - General physical appearance no distress, no pain, other (increased work of breathing) - Respiratory other (increased effort) - Abdomen soft, tender (in left flank only), distended (mild) - Integumentary no rash, no growths, no abnormal pigmentation - Psychiatric oriented to time, oriented to person, oriented to place, speech is normal, memory intact - Labs 11/16/18 10:39 11/15/18 04:43 - Imaging Chest x-ray: report reviewed, image reviewed
--- NOTE | 2018-11-16 12:30 | XRay Report ---
PROCEDURE: XR CHEST 1V AP TECHNIQUE: Single frontal view of the chest HISTORY: shortness of breath COMPARISONS: 11/12/2018 FINDINGS: The cardiomediastinal silhouette is normal in appearance. Streaky atelectasis or scarring at the right lung base. Small left pleural effusion, slightly increased since previous study. Streaky atelectasis or infiltra te at the left lung base. No acute bony or soft tissue abnormality. Right shoulder arthroplasty is in place. IMPRESSION: Small left pleural effusion, slightly increased since the previous study. Streaky atelectasis or infi ltrate at the left lung base. Streaky atelectasis or scarring at the right lung base.. This document is electronically signed by Trinh Hawkins MD., November 16 2018 12:28:39 PM ET
[2018-11-16] MEDS ORDERED: LASIX IV ONE (13:43)
--- NOTE | 2018-11-16 13:52 | Progress Note ---
Assessment and Plan Assessment and plan: Patient is a 62-year-old man with a history of Sickle cell disease, AVN of bilateral hips, AVN shoulder and elevated PSA (2->5) s/p transrectal-prostate biopsy on 11/05/[address] Hidalgo who presented to [facility] ED with fevers. Patient was diagnosis with prostatitis/urinary tract infection and sepsis. He was seen by Urologist, Dr. Hui on 11/12/18. Patient was treated with sepsis protocol including, IV fluids and antibiotics. His labs revealed elevated white count, acute renal insufficiency, lactic acidosis and UTI. Patient has continued to have persistent bacteremia of E. coli despite Abx given for 7 days. Patient was scheduled for bilateral THR of bilateral AVN and had a MRI pelvis by Dr. Quiroga at [place] and it showed a lesion on the prostate 1 week prior to TURP * Chest xray: cardiomegaly * CT A/P: IMPRESSION: Mild cardiomegaly, stable. Small pleural effusions have developed. Partial atelectasis has developed in the left lower lobe. Infiltrate is thought less likely. Moderate splenomegaly. There are multiple foci of enhancement in the spleen following IV contrast. The etiology of these are unclear. Please see above. Nonspecific fat stranding surrounding the prostate gland, seminal vesicles and rectum has resolved. * 11/12/18 U/S renal bilateral IMPRESSION: Unremarkable study. * 11/12/18 U/S abdomen IMPRESSION: Multiple nonspecific lesions identified in the spleen which appear predominantly solid and mixed echoic. Differential diagnosis includes benign lesions such as hemangioma and malignant lesions such as metastases. Clinical correlation and biopsy are recommended. Etiologies such as abscess, and infarction are unlikely and etiologies such as lymphangioma and lymphoma are felt to be less likely. * 11/14/18 CT chest wo constrast IMPRESSION: Left lower lobe consolidation con sistent with pneumonia. Trace bilateral pleural effusions. Mild cardiomegaly. * 11/14/18 CT abd/pelvis with and withou contrast IMPRESSION: Evolving infarction of the spleen is suspected. Please see above. These findings were discussed with Dr. Powell. /Severe Sepsis, Secondary to E.coli UTI/prostatitis: ID is following, continue abx. 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, added NSAIDs will stop due to anemia /ESBL E coli bactermia is presumed to be a result of prostate biopsy induced prostatitis: continue abx per ID recommendations, /Acute Cystitis s/p recent prostate biopsy: Urology did evaluate and deemed no surgery needed at the time, recommended continuing ABX /Acute renal failure Secondary to vasomotor nephropathy: continue to monitor bmp /Sickle cell disease, stable: pain control and adequate hydration /Acute Respiratory Failure with Hypoxia-Improving: continue daily weaning O2 trails /Thrombocytopenia most likely consumption related: continue to monitor cbc and treat the sepsis /DVT ppx: off sq heparin due to anemia s/p 2 units Preventive Immunization for splenic infarction once ID clears. 11/15/18 New issues: Drop in HCT s/p 1 units blood transfusion ordered by head of training and development, stopped sq heparin adn (2) LLL pneumonia on CT chest: IV Vancomycin added. 11/16/18 Still febrile despite IV abx, so I contacted Urology to re-evaluate for prostate abscess. Restarted Ibuprofen to combat the fevers. Patient getting fluid overloaded, ordered stat ABG and pCXr which shows worsening right pleural effusion and atelectasis, so I ordered 40mg iv lasix x 1, stopped nss at 75ml/hr and added Incentive spirometry to the duoneb tid. Depending on what the Dr. Hui, Urologist, decides, MRI pelvis maybe warranted also, ?ANGELA once afebrile if ID deems necessary. CCT 34 minutes History Interval history: Patient was seen and examined. Follow-up on current diagnosis fevers. Overnight uneventful. Patient denies any chest pain, shortness breath, nausea/vomiting or severe headaches. Imaging, nursing note, chart, labs and old chart reviewed. Discussed with patient. Hospitalist Physical - Physical exam Narrative exam: Gen: WDWN, NAD, Awake, Alert, Orientated HEENT: NCAT, EOMI, PERRL, OP Clear Neck: supple, no adenopathy, no thyromegaly, no JVD CVS/Heart: Regular tachycardia, normal S1S2, pulses present bilaterally Chest/Lungs: CTA B, Symmetrical chest expansion, good air entry bilaterally GI/Abdomen: soft, NTND, good bowel sounds, no guarding or rebound /Bladder: no suprapubic tenderness, no CVA or paraspinal tenderness Extermity/Skin: no c/c/e, no obvious rash MSK: FROM x 4 Neuro: CN 2-12 grossly intact, no new focal deficits Psych: calm - Constitutional Vitals: Temp Pulse Resp BP Pulse Ox 103.6 F H 131 H 19 114/76 96 11/16/18 12:29 11/16/18 12:29 11/16/18 12:29 11/16/18 12:29 11/16/18 12:29 General appearance: Present: no acute distress, well-nourished Results - Labs CBC & Chem 7: 11/16/18 10:39 11/15/18 04:43 Labs: Laboratory Last Values WBC 25.0 K/mm3 (4.5-11.0) H 11/15/18 04:43 RBC 2.40 M/mm3 (3.65-5.03) L 11/15/18 04:43 Hgb 8.1 gm/dl (11.8-15.2) L 11/16/18 10:39 Hct 22.8 % (35.5-45.6) L 11/16/18 10:39 MCV 81 fl (84-94) L 11/15/18 04:43 MCH 28 pg (28-32) 11/15/18 04:43 MCHC 35 % (32-34) H 11/15/18 04:43 RDW 19.6 % (13.2-15.2) H 11/15/18 04:43 Plt Count 245 K/mm3 (140-440) 11/15/18 04:43 [place] % (Auto) Access Manager 11/15/18 04:43 Lymph # Access Manager 11/13/18 11:45 Add Manual Diff Complete 11/15/18 04:43 Total Counted 100 11/15/18 04:43 Seg Neutrophils % Access Manager 11/07/18 05:13 Seg Neuts % (Manual) 87.0 % (40.0-70.0) H 11/15/18 04:43 Band Neutrophils % 3.0 % 11/15/18 04:43 Lymphocytes % (Manual) 5.0 % (13.4-35.0) L 11/15/18 04:43 Reactive Lymphs % (Man) 0 % 11/15/18 04:43 Monocytes % (Manual) 5.0 % (0.0-7.3) 11/15/18 04:43 Eosinophils % (Manual) 0 % (0.0-4.3) 11/15/18 04:43 Basophils % (Manual) 0 % (0.0-1.8) 11/15/18 04:43 Metamyelocytes % 0 % 11/15/18 04:43 Myelocytes % 0 % 11/15/18 04:43 Promyelocytes % 0 % 11/15/18 04:43 Blast Cells % 0 % 11/15/18 04:43 Nucleated RBC % Not Reportable 11/15/18 04:43 Seg Neutrophils # Man 21.8 K/mm3 (1.8-7.7) H 11/15/18 04:43 Band Neutrophils # 0.8 K/mm3 11/15/18 04:43 Lymphocytes # (Manual) 1.3 K/mm3 (1.2-5.4) 11/15/18 04:43 Abs React Lymphs (Man) 0.0 K/mm3 11/15/18 04:43 Monocytes # (Manual) 1.3 K/mm3 (0.0-0.8) H 11/15/18 04:43 Eosinophils # (Manual) 0.0 K/mm3 (0.0-0.4) 11/15/18 04:43 Basophils # (Manual) 0.0 K/mm3 (0.0-0.1) 11/15/18 04:43 Metamyelocytes # 0.0 K/mm3 11/15/18 04:43 Myelocytes # 0.0 K/mm3 11/15/18 04:43 Promyelocytes # 0.0 K/mm3 11/15/18 04:43 Blast Cells # 0.0 K/mm3 11/15/18 04:43 WBC Morphology Not Reportable 11/15/18 04:43 Hypersegmented Neuts Not Reportable 11/15/18 04:43 Hyposegmented Neuts Not Reportable 11/15/18 04:43 Hypogranular Neuts Not Reportable 11/15/18 04:43 Smudge Cells Not Reportable 11/15/18 04:43 Toxic Granulation Not Reportable 11/15/18 04:43 Toxic Vacuolation Not Reportable 11/15/18 04:43 Dohle Bodies Not Reportable 11/15/18 04:43 Pelger-Huet Anomaly Not Reportable 11/15/18 04:43 Tory Rods Not Reportable 11/15/18 04:43 Platelet Estimate Cons 11/15/18 04:43 Clumped Platelets Not Reportable 11/15/18 04:43 Plt Clumps, EDTA Not Reportable 11/15/18 04:43 Large Platelets Few 11/15/18 04:43 Giant Platelets Not Reportable 11/15/18 04:43 Platelet Satelliting Not Reportable 11/15/18 04:43 Plt Morphology Comment Not Reportable 11/15/18 04:43 RBC Morphology Not Reportable 11/15/18 04:43 Dimorphic RBCs Not Reportable 11/15/18 04:43 Polychromasia Not Reportable 11/15/18 04:43 Hypochromasia Not Reportable 11/15/18 04:43 Poikilocytosis 3+ 11/15/18 04:43 Anisocytosis 1+ 11/15/18 04:43 Microcytosis Not Reportable 11/15/18 04:43 Macrocytosis Not Reportable 11/15/18 04:43 Spherocytes Not Reportable 11/15/18 04:43 Pappenheimer Bodies Not Reportable 11/15/18 04:43 Sickle Cells Not Reportable 11/15/18 04:43 Target Cells 3+ 11/15/18 04:43 Tear Drop Cells Not Reportable 11/15/18 04:43 Ovalocytes Not Reportable 11/15/18 04:43 Stomatocytes Few 11/15/18 04:43 Helmet Cells Not Reportable 11/15/18 04:[address] [place] Bodies Not Reportable 11/15/18 04:43 [place] Rings Not Reportable 11/15/18 04:43 Sheng Cells Not Reportable 11/15/18 04:43 Bite Cells Not Reportable 11/15/18 04:43 Crenated Cell Not Reportable 11/15/18 04:43 Elliptocytes Not Reportable 11/15/18 04:43 Acanthocytes (Spur) Not Reportable 11/15/18 04:43 Rouleaux Not Reportable 11/15/18 04:43 Hemoglobin C Crystals Not Reportable 11/15/18 04:43 Schistocytes Not Reportable 11/15/18 04:43 Malaria parasites Not Reportable 11/15/18 04:43 Sickle Cell Screen Positive (Negtaive) 11/15/18 04:00 Sarwat Bodies Not Reportable 11/15/18 04:43 Hem Pathologist Commnt No 11/15/18 04:43 PT 15.0 Sec. (12.2-14.9) H 11/06/18 20:18 INR 1.11 (0.87-1.13) 11/06/18 20:18 VBG pH 7.340 (7.320-7.420) 11/06/18 20:18 Sodium 138 mmol/L (137-145) 11/15/18 04:43 Potassium 4.0 mmol/L (3.6-5.0) 11/15/18 04:43 Chloride 104.9 mmol/L (98-107) 11/15/18 04:43 Carbon Dioxide 24 mmol/L (22-30) 11/15/18 04:43 Anion Gap 13 mmol/L 11/15/18 04:43 BUN 10 mg/dL (9-20) 11/15/18 04:43 Creatinine 0.7 mg/dL (0.8-1.5) L 11/15/18 04:43 Estimated GFR > 60 ml/min 11/15/18 04:43 BUN/Creatinine Ratio 14 % 11/15/18 04:43 Glucose 146 mg/dL (75-100) H 11/15/18 04:43 Lactic Acid 1.40 mmol/L (0.7-2.0) 11/07/18 23:22 Calcium 7.7 mg/dL (8.4-10.2) L 11/15/18 04:43 Iron 15 ug/dL (49-181) L 11/15/18 04:43 TIBC 169 mcg/dL (250-450) L 11/15/18 04:43 Ferritin 1631.0 ng/mL (13.0-400.0) H 11/16/18 04:57 Total Bilirubin 1.70 mg/dL (0.1-1.2) H 11/15/18 04:43 AST 31 units/L (5-40) 11/15/18 04:43 ALT 23 units/L (7-56) 11/15/18 04:43 Alkaline Phosphatase 87 units/L (35-129) 11/15/18 04:43 C-Reactive Protein 35.00 mg/dL (0.00-1.30) H 11/15/18 17:36 Total Protein 5.2 g/dL (6.3-8.2) L 11/15/18 04:43 Albumin 2.4 g/dL (3.9-5) L 11/15/18 04:43 Albumin/Globulin Ratio 0.9 % 11/15/18 04:43 Vitamin B12 1442 pg/mL (211-911) H 11/16/18 04:57 Folate 16.81 ng/mL (7.3-26.0) 11/16/18 04:57 Urine Color Rubia (Yellow) 11/07/18 00:07 Urine Turbidity Cloudy (Clear) 11/07/18 00:07 Urine pH 5.0 (5.0-7.0) 11/07/18 00:07 Ur Specific [place] 1.015 (1.003-1.030) 11/07/18 00:07 Urine Protein 100 mg/dl mg/dL (Negative) 11/07/18 00:07 Urine Glucose (UA) Neg mg/dL (Negative) 11/07/18 00:07 Urine Ketones Neg mg/dL (Negative) 11/07/18 00:07 Urine Blood Lg (Negative) 11/07/18 00:07 Urine Nitrite Pos (Negative) 11/07/18 00:07 Urine Bilirubin Neg (Negative) 11/07/18 00:07 Urine Urobilinogen < 2.0 mg/dL (<2.0) 11/07/18 00:07 Ur Leukocyte Esterase Tr (Negative) 11/07/18 00:07 Urine WBC (Auto) 59.0 /HPF (0.0-6.0) H 11/07/18 00:07 Urine RBC (Auto) > 182.0 /HPF (0.0-6.0) 11/07/18 00:07 U Epithel Cells (Auto) 1.0 /HPF (0-13.0) 11/07/18 00:07 Urine Bacteria (Auto) 2+ /HPF (Negative) 11/07/18 00:07 Hyaline Casts 56 /LPF 11/07/18 00:07 Granular Casts 2 /LPF 11/07/18 00:07 Urine Mucus Few /HPF 11/07/18 00:07 HIV 1&2 Antibody Rapid Non react (Non React) 11/13/18 15:59 HIV P24 Antigen Non react (Non React) 11/13/18 15:59 Influenza A (Rapid) Negative (Negative) 11/13/18 16:30 Influenza A (RT-PCR) Negative (Negative) 11/13/18 16:30 Influenza B (Rapid) Negative (Negative) 11/13/18 16:30 Influenza B (RT-PCR) Negative (Negative) 11/13/18 16:30 Blood Type A POSITIVE 11/15/18 05:25 Antibody Screen Negative 11/15/18 05:25 Crossmatch See Detail 11/15/18 05:25 Active Medications - Current Medications Current Medications: Generic Name Dose Route Start Last Admin Trade Name Freq PRN Reason Stop Dose Admin Acetaminophen 650 mg 11/07/18 01:19 11/16/18 06:26 Tylenol PO 650 mg Q4H PRN Administration Pain MILD(1-3)/Fever >100.5/RAY Albuterol 2.5 mg 11/10/18 04:01 11/12/18 05:23 Proventil IH 2.5 mg Q6HRT PRN Administration Shortness Of Breath Albuterol/Ipratropium 1 ampul 11/14/18 08:00 11/16/18 07:51 Duoneb *Not For Prn Use* IH 1 ampul TIDRT LENORE Administration Docusate Sodium 100 mg 11/12/18 15:00 11/16/18 11:25 Colace PO 100 mg BID LENORE Administration MEROPENEM/VABORBACTAM 4 gm/ 250 mls @ 90 mls/hr 11/14/18 12:00 11/16/18 06:06 Sodium Chloride IV 90 mls/hr Q8HR LENORE Administration Vancomycin HCl 1,250 mg/ 275 mls @ 166.667 mls/hr 11/15/18 06:00 11/16/18 05:12 Sodium Chloride IV 166.667 mls/hr Q12H LENORE Administration Ibuprofen 800 mg 11/16/18 13:44 Motrin PO Q8H PRN Non Cardiac Pain or Temp>100.5 Morphine Sulfate 2 mg 11/07/18 01:19 Morphine IV Q4H PRN Pain, Moderate (4-6) Ondansetron HCl 4 mg 11/07/18 01:19 11/07/18 18:08 Zofran IV 4 mg Q4H PRN Administration Nausea And Vomiting Senna 17.2 mg 11/12/18 22:00 11/16/18 11:25 Senokot PO 17.2 mg Q12H LENORE Administration Sodium Chloride 10 ml 11/07/18 10:00 11/16/18 11:34 Sodium Chloride Flush Syringe 10 Ml IV 10 ml BID LENORE Administration Sodium Chloride 10 ml 11/07/18 01:19 Sodium Chloride Flush Syringe 10 Ml IV PRN PRN LINE FLUSH Nutrition/Malnutrition Assess - Dietary Evaluation Nutrition/Malnutrition Findings: Nutrition Notes Start: 11/07/18 14:42 Freq: Status: Active Protocol: Document 11/13/18 08:59 TW (Rec: 11/13/18 09:00 TW [id number]) Co-Sign 11/13/18 08:59 LP Nutrition Notes Need for Assessment generated from: LOS Initial or Follow up Brief Note Height 5 ft 9 in Weight 92 kg [place] Body Weight (kg) 72.72 BMI 29.9 Subjective/Other Information Screened for LOS. Per ADL, pt is eating 100% of meals. Nutrition Intervention Revisit per MD consult or patient Sign Off request:
[2018-11-16] MEDS ORDERED: FERRLECIT 125 MG in NACL 0.9% 100 ML IV ONE (15:31)
[2018-11-16] MEDS: IBUPROFEN PO PRN (21:25)
[2018-11-17 05:24] LABS: Hematocrit 22.1 % (35.5-45.6); Hemoglobin 7.5 gm/dl (11.8-15.2); Mean Corpuscular HGB Conc 34 % (32-34); Mean Corpuscular Volume 82 fl (84-94); Platelet Count 459 K/mm3 (140-440); Red Blood Count 2.69 M/mm3 (3.65-5.03); Red Cell Distribution Width 19.3 % (13.2-15.2)
[2018-11-17] MEDS: VANCOMYCIN 1,250 MG in NACL 0.9% 250ML 250 ML IV SCH ×2 (05:24→06:10)
[2018-11-17] MEDS: SODIUM CHLORIDE FLUSH SYRINGE 10 ML IV SCH ×3 (05:25→22:55)
[2018-11-17 05:50] LABS: BUN/Creatinine Ratio 13; Blood Urea Nitrogen 10 mg/dL (9-20); Calcium 8.2 mg/dL (8.4-10.2); Hemolysis Index 2
[2018-11-17] MEDS: VABOMERE 4 GM in NACL 0.9% 250ML 250 ML IV SCH ×2 (06:24→15:24)
--- NOTE | 2018-11-17 07:50 | Hem/Onc Progress Note ---
Assessment and Plan fever prostate bx h/o sickle - admission hb 11, MCV normal. splenomegaly d/w dr rubio - ? spleen infarct - ? trial of NSAID 1. History of elevated PSA, status post prostate biopsy. 2. History of fevers. Based on temporal events, this has to be related to the prostate issues. ID team is on case. 3. History of anemia. At admission; hemoglobin was 11.1, MCV was normal. 4. History of sickle cell disease. Radiology mentions splenomegaly of 15.7 cm. The patient would need outpatient evaluation for the question of sickle cell. At this time, hematology issues may be secondary to the infection/medication. 5. Splenomegaly, likely secondary to infection issues. I had discussed with ID team. The patient has E. coli in the blood culture. I spoke to Dr. Marcano about the patient. 11/15 sickle cell test - smear - no sickle cells seen fever could be sec to pneumonia or splenic infarct PRBC - low iron - IV iron trial 11/17 - sickle testing + - will do hb electrophoresis fever - d/w Dr harley ID - reg abx vs NSAID trial for spleen infarct. d/w pt and mother reg these issues PRBC was given for anemia - Patient Problems (1) Fever Current Visit: Yes Status: Acute Qualifiers: Fever type: unspecified Qualified Code(s): R50.9 - Fever, unspecified Subjective Date of service: 11/17/18 Principal diagnosis: sickle cell - anemia - fever Interval history: fever + Objective - Constitutional Vitals: Last Vital Signs Temp 98.0 F 11/17/18 06:17 Pulse 94 H 11/17/18 06:17 Resp 18 11/17/18 06:17 BP 109/69 11/17/18 06:17 Pulse Ox 97 11/17/18 06:17 Pain Intensity (0-10): denies any pain General appearance: no acute distress Performance status: 3-limited selfcare - EENT Eyes: EOM intact ENT: clear oral mucosa Lymph node exam: negative cervical - Neck Neck: normal ROM - Respiratory Respiratory effort: Positive: normal Respiratory: bilateral: CTA - Cardiovascular Heart Sounds: Present: S1 & S2 Extremity abnormal: edema - Gastrointestinal General gastrointestinal: Present: soft, non-tender Rectal Exam: deferred - Genitourinary Male genitourinary: Present: deferred - Integumentary Integumentary: warm - Musculoskeletal Musculoskeletal: strength equal bilaterally - Neurologic Neurologic: moves all extremities - Labs Lab Results: Laboratory Results - last 24 hr 11/13/18 11/16/18 11/17/18 16:30 10:39 04:55 WBC RBC Hgb 8.1 L Hct 22.8 L MCV MCH MCHC RDW Plt Count Sodium Potassium Chloride Carbon Dioxide Anion Gap BUN Creatinine Estimated GFR BUN/Creatinine Ratio Glucose Calcium Vancomycin Trough 8.3 Influenza A (Rapid) Negative Influenza A (RT-PCR) Negative Influenza B (Rapid) Negative Influenza B (RT-PCR) Negative 11/17/18 11/17/18 04:55 04:55 WBC 34.9 H RBC 2.69 L Hgb 7.5 L Hct 22.1 L MCV 82 L MCH 28 MCHC 34 RDW 19.3 H Plt Count 459 H Sodium 141 Potassium 4.2 Chloride 104.2 Carbon Dioxide 25 Anion Gap 16 BUN 10 Creatinine 0.8 Estimated GFR > 60 BUN/Creatinine Ratio 13 Glucose 161 H Calcium 8.2 L Vancomycin Trough Influenza A (Rapid) Influenza A (RT-PCR) Influenza B (Rapid) Influenza B (RT-PCR) Medications & Allergies - Medications Allergies/Adverse Reactions: Allergies No Known Allergies Allergy (Unverified 04/17/16 18:17) Home Medications: Home Medications Medication Instructions Recorded Confirmed Last Taken Type Aspir-Low 81 mg PO DAILY 11/08/18 11/15/18 1 Week Ago History ~11/01/18 Folic Acid [Folvite] 1 mg PO QDAY 11/08/18 11/08/18 1 Week Ago History ~11/01/18 Multivitamin 1 tab PO DAILY 11/08/18 11/08/18 11/01/18 History Active Medications: Generic Name Dose Route Start Last Admin Trade Name Freq PRN Reason Stop Dose Admin Acetaminophen 650 mg 11/07/18 01:19 11/16/18 23:43 Tylenol PO 650 mg Q4H PRN Administration Pain MILD(1-3)/Fever >100.5/RAY Albuterol 2.5 mg 11/10/18 04:01 11/12/18 05:23 Proventil IH 2.5 mg Q6HRT PRN Administration Shortness Of Breath Albuterol/Ipratropium 1 ampul 11/14/18 08:00 11/16/18 20:49 Duoneb *Not For Prn Use* IH 1 ampul TIDRT LENORE Administration Docusate Sodium 100 mg 11/12/18 15:00 11/16/18 21:25 Colace PO 100 mg BID LENORE Administration MEROPENEM/VABORBACTAM 4 gm/ 250 mls @ 90 mls/hr 11/14/18 12:00 11/17/18 06:24 Sodium Chloride IV 90 mls/hr Q8HR LENORE Administration Vancomycin HCl 1,250 mg/ 275 mls @ 166.667 mls/hr 11/15/18 06:00 11/17/18 06:10 Sodium Chloride IV 166.667 mls/hr Q12H LENORE Administration Ibuprofen 800 mg 11/16/18 13:44 11/16/18 21:25 Motrin PO 800 mg Q8H PRN Administration Non Cardiac Pain or Temp>100.5 Morphine Sulfate 2 mg 11/07/18 01:19 Morphine IV Q4H PRN Pain, Moderate (4-6) Ondansetron HCl 4 mg 11/07/18 01:19 11/07/18 18:08 Zofran IV 4 mg Q4H PRN Administration Nausea And Vomiting Senna 17.2 mg 11/12/18 22:00 11/16/18 23:45 Senokot PO 17.2 mg Q12H LENORE Administration Sodium Chloride 10 ml 11/07/18 10:00 11/17/18 05:25 Sodium Chloride Flush Syringe 10 Ml IV 10 ml BID LENORE Administration Sodium Chloride 10 ml 11/07/18 01:19 Sodium Chloride Flush Syringe 10 Ml IV PRN PRN LINE FLUSH
[2018-11-17] MEDS: DUONEB *Not for PRN Use IH SCH ×3 (08:16→20:34)
--- NOTE | 2018-11-17 08:26 | Progress Note ---
Subjective Date of service: 11/17/18 Principal diagnosis: anemia - fever Interval history: NEW TO OUR PRACTICE 62 y/o male with a history of sickle cell disease; admitted on 11/06/18 due to 24 hour-history of fever, chills and generalized malaise. Patient underwent transrectal-prostate biopsy on 11/05/[address] Hidalgo. Patient denies N/V/D, cough, SOB, abdominal pain, urinary symptoms. Voiding without issues. Pt's mother at the bedside. Cultures: 11/06/2018 Blood culture : ESBL E. Coli, 11/07/2018 urine culture: <10K bacteria 11/08/2018 Blood culture: GNR, 4 out of 4 bottles 11/10/2018 Blood culture: GNR 2 out of 4 bottles - UA 59 wbc, trace LE, +nitrates, large blood. - Blood culture 10/17/2018 no growth today. - CT abd showed rectal prostate and seminal vesicles stranding - CT with contrast showed that the The prostate gland remains mildly enlarged measuring 6 cm in diameter.Nonspecific fat stranding surrounding the prostate gland, seminal vesicles and rectum has resolved. -Spleen CT/US - showed lesions, ?sickle cell or emboli -Chest xray: The lungs are grossly clear. No consolidation -Renal U/S: right kidney: Normal echotexture. Left Kidney: well-defined simple cyst measuring 2.1 x 1.9 cm is noted in the lower portion. Otherwise renal parenchymal echotexture is within normal limits without calculi or hydronephrosus Assessment: 1) Severe Sepsis secondary to GNR bacteremia: Fever improving Etiology E.coli bacteremia, Source most likely UTI. He received cipro PO x 3 days before biopsy. -No surigical intervention needed at this time -continue abx therapy pt asked about bx results - pt or nurse can call his primary urologist for results Objective - Constitutional Vitals: Vital Signs - 12hr 11/16/18 11/16/18 11/16/18 20:50 20:55 21:16 Temperature Pulse Rate Pulse Rate [ 112 H 118 H Anterior Bilateral Throughout] Pulse Rate [ Apical] Respiratory Rate Respiratory 28 H 26 H Rate [Anterior Bilateral Throughout] Respiratory Rate [Right Shoulder] Blood Pressure O2 Sat by Pulse 97 Oximetry 11/16/18 11/16/18 11/16/18 21:25 22:00 22:14 Temperature 104 F H 103.1 F H Pulse Rate 135 H 133 H Pulse Rate [ Anterior Bilateral Throughout] Pulse Rate [ 135 H Apical] Respiratory 24 22 20 Rate Respiratory Rate [Anterior Bilateral Throughout] Respiratory 22 Rate [Right Shoulder] Blood Pressure 105/58 O2 Sat by Pulse 94 Oximetry 11/16/18 11/16/18 11/16/18 22:25 23:43 23:53 Temperature 100.8 F H Pulse Rate Pulse Rate [ Anterior Bilateral Throughout] Pulse Rate [ Apical] Respiratory 22 22 Rate Respiratory Rate [Anterior Bilateral Throughout] Respiratory Rate [Right Shoulder] Blood Pressure O2 Sat by Pulse Oximetry 11/17/18 11/17/18 00:43 06:17 Temperature 98.0 F Pulse Rate 94 H Pulse Rate [ Anterior Bilateral Throughout] Pulse Rate [ Apical] Respiratory 20 18 Rate Respiratory Rate [Anterior Bilateral Throughout] Respiratory Rate [Right Shoulder] Blood Pressure 109/69 O2 Sat by Pulse 97 Oximetry - Labs CBC & Chem 7: 11/17/18 04:55 11/17/18 04:55 Labs: Abnormal lab results 11/16/18 11/17/18 11/17/18 Range/Units 10:39 04:55 04:55 WBC 34.9 H (4.5-11.0) K/mm3 RBC 2.69 L (3.65-5.03) M/mm3 Hgb 8.1 L 7.5 L (11.8-15.2) gm/dl Hct 22.8 L 22.1 L (35.5-45.6) % MCV 82 L (84-94) fl RDW 19.3 H (13.2-15.2) % Plt Count 459 H (140-440) K/mm3 Glucose 161 H (75-100) mg/dL Calcium 8.2 L (8.4-10.2) mg/dL Medications & Allergies - Medications Allergies/Adverse Reactions: Allergies No Known Allergies Allergy (Unverified 04/17/16 18:17) Home Medications: Home Medications Medication Instructions Recorded Confirmed Last Taken Type Aspir-Low 81 mg PO DAILY 11/08/18 11/15/18 1 Week Ago History ~11/01/18 Folic Acid [Folvite] 1 mg PO QDAY 11/08/18 11/08/18 1 Week Ago History ~11/01/18 Multivitamin 1 tab PO DAILY 03/11/08/18 11/01/18 History Active Medications: Generic Name Dose Route Start Last Admin Trade Name Freq PRN Reason Stop Dose Admin Acetaminophen 650 mg 11/07/18 01:19 11/16/18 23:43 Tylenol PO 650 mg Q4H PRN Administration Pain MILD(1-3)/Fever >100.5/RAY Albuterol 2.5 mg 11/10/18 04:01 11/12/18 05:23 Proventil IH 2.5 mg Q6HRT PRN Administration Shortness Of Breath Albuterol/Ipratropium 1 ampul 11/14/18 08:00 11/17/18 08:16 Duoneb *Not For Prn Use* IH 1 ampul TIDRT LENORE Administration Docusate Sodium 100 mg 11/12/18 15:00 11/16/18 21:25 Colace PO 100 mg BID LENORE Administration MEROPENEM/VABORBACTAM 4 gm/ 250 mls @ 90 mls/hr 11/14/18 12:00 11/17/18 06:24 Sodium Chloride IV 90 mls/hr Q8HR LENORE Administration Vancomycin HCl 1,250 mg/ 275 mls @ 166.667 mls/hr 11/15/18 06:00 11/17/18 06:10 Sodium Chloride IV 166.667 mls/hr Q12H LENORE Administration Ibuprofen 800 mg 11/16/18 13:44 11/16/18 21:25 Motrin PO 800 mg Q8H PRN Administration Non Cardiac Pain or Temp>100.5 Morphine Sulfate 2 mg 11/07/18 01:19 Morphine IV Q4H PRN Pain, Moderate (4-6) Ondansetron HCl 4 mg 11/07/18 01:19 11/07/18 18:08 Zofran IV 4 mg Q4H PRN Administration Nausea And Vomiting Senna 17.2 mg 11/12/18 22:00 11/16/18 23:45 Senokot PO 17.2 mg Q12H LENORE Administration Sodium Chloride 10 ml 11/07/18 10:00 11/17/18 05:25 Sodium Chloride Flush Syringe 10 Ml IV 10 ml BID LENORE Administration Sodium Chloride 10 ml 11/07/18 01:19 Sodium Chloride Flush Syringe 10 Ml IV PRN PRN LINE FLUSH
[2018-11-17] MEDS: IBUPROFEN PO PRN (08:31)
--- NOTE | 2018-11-17 10:18 | Progress Note ---
Assessment and Plan Cultures: 11/06/2018 Blood culture : ESBL E. Coli, 11/07/2018 urine culture: <10K bacteria 11/08/2018 Blood culture: ESBL E. coli 4 out of 4 bottles 11/10/2018 Blood culture: ESBL E. coli 2 out of 4 bottles 11/12/2018 Blood Cultures: ESBL E. coli 1 out of 4 bottles 11/14/2018 Blood Cultures: no growth in 48 hours Assessment: 62 y/o male with a history of sickle cell disease; admitted on 11/06/18 due to 24 hour-history of fever, chills and generalized malaise. Patient underwent transrectal-prostate biopsy on 11/05/[address] Hidalgo. Patient denies N/V/D, cough, SOB, abdominal pain, urinary symptoms. 1) Severe Sepsis: Fever spikes and leukocytosis continuing.. Etiology most likely persistent ESBL bacteremia+/-UTI +/- post-biopsy prostatitis and proctitis. Repeat BC fro 11/14/18 show no growth in 48 hours. 2) Persistent ESBL bacteremia: source likely post trans-rectal biopsy UTI, prostatitis and proctitis. Repeat BC's show no growth to date. Discontinue Vabomere. Restart Meropenem. - UA 59 wbc, trace LE, +nitrates, large blood. - Blood culture 10/17/2018 no growth today. - CT abd showed rectal prostate and seminal vesicles stranding - CT with contrast showed that the The prostate gland remains mildly enlarged measuring 6 cm in diameter.Nonspecific fat stranding surrounding the prostate gland, seminal vesicles and rectum has resolved. -Spleen CT/US - showed lesions, ?sickle cell or emboli -Chest xray: The lungs are grossly clear. No consolidation -Renal U/S: right kidney: Normal echotexture. Left Kidney: well-defined simple cyst measuring 2.1 x 1.9 cm is noted in the lower portion. Otherwise renal parenchymal echotexture is within normal limits without calculi or hydronephrosus -Abdominal U/S: Multiple nonspecific lesions identified in the spleen which appear predominantly solid and mixed echoic. DDX includes benign lesions such as hemangioma and malignant lesions such as metastases. Clinical correlati on and biopsy are recommended. -CRP 31.80 -TTE- No valvular vegetation -CT abdomen and pelvis with 4 phase liver protocol shows evidence of evolving splenic infarction.The remainder of the splenic parenchyma is hypoattenuated with no evidence of perfusion. Mild inflammatory fat stranding has developed surrounding the spleen. No splenic hemorrhage. -HIV - nonreactive -Influenza Rapid and PCR - Negative 3) Post trans-rectal biopsy UTI, prostatitis and proctitis. UA 59 wbc, trace LE, +nitrates, large blood. 11/07/2018 urine culture<10K bacteria. He received cipro PO x 3 days before biopsy. 4) Multiple Evolving Splenic infarcts +/- abscesses. CT abdomen progressive spleen infarcts. I am concerned that the spleen has developed superimposed abscesses from ESBL E coli in light of persistent bacteremia and fever. 5) Likely HAP: repeat CT chest showed pneumonia. Continue Vancomycin. Recommendations: Discontinue Vabomere (Meropenem + Vaborbactam) Start Meropenem 2 gms q 8 Continue vancomycin to cover HAP, D3 f/u Pelvic MRI If fever persist may need to consider ANGELA. f/u autoimmune w/u check MRSA screening [facility] M: [phone] O:[phone] Subjective Date of service: 11/17/18 Principal diagnosis: sickle cell - anemia - fever Interval history: Patient seen and examined. Sitting up in the chair. Denies generalized pain. +tachypnea and fevers. Nurses notes, labs and reports reviewed, discussed with patient. Objective - Exam Narrative Exam: Constitutional: Alert, cooperative. No acute distress Head, Ears, Nose: Normocephalic, atraumatic. External ears, nose normal Eyes: Conjunctivae/corneas clear. No icterus. No ptosis. Neck: Supple, no meningeal signs Cardiovascular: S1, S2 normal. Respiratory: Good air entry, clear to auscultation bilaterally, + tachypnea GI: Soft, non-tender; bowel sounds normal. No peritoneal signs Musculoskeletal: No pedal edema, no cyanosis. Skin: No rash or abscess Hem/Lymphatic: No palpable cervical or supraclavicular nodes. No lymphangitis Psych: Mood ok. Affect normal Neurological: Awake, alert, oriented. No gross abnormality - Constitutional Vitals: Vital Signs Temp Pulse Resp BP Pulse Ox 98.0 F 94 H 18 109/69 97 11/17/18 06:17 11/17/18 06:17 11/17/18 06:17 11/17/18 06:17 11/17/18 06:17 Temperature -Last 24 Hours Temperature 98.0 F Temperature 100.8 F Temperature 103.1 F Temperature 104 F Temperature 102.6 F Temperature 103.6 F - Labs CBC & Chem 7: 11/17/18 04:55 11/17/18 04:55 Labs: Abnormal lab results 11/16/18 11/17/18 11/17/18 Range/Units 10:39 04:55 04:55 WBC 34.9 H (4.5-11.0) K/mm3 RBC 2.69 L (3.65-5.03) M/mm3 Hgb 8.1 L 7.5 L (11.8-15.2) gm/dl Hct 22.8 L 22.1 L (35.5-45.6) % MCV 82 L (84-94) fl RDW 19.3 H (13.2-15.2) % Plt Count 459 H (140-440) K/mm3 Glucose 161 H (75-100) mg/dL Calcium 8.2 L (8.4-10.2) mg/dL
--- NOTE | 2018-11-17 14:37 | Progress Note ---
Assessment and Plan Assessment and plan: Patient is a 62-year-old man with a history of Sickle cell disease, AVN of bilateral hips, AVN shoulder and elevated PSA (2->5) s/p transrectal-prostate biopsy on 11/05/[address] Hidalgo who presented to [facility] ED with fevers. Patient was diagnosis with prostatitis/urinary tract infection and sepsis. He was seen by Urologist, Dr. Hui on 11/12/18. Patient was treated with sepsis protocol including, IV fluids and antibiotics. His labs revealed elevated white count, acute renal insufficiency, lactic acidosis and UTI. Patient has continued to have persistent bacteremia of E. coli despite Abx given for 7 days. Patient was scheduled for bilateral THR of bilateral AVN and had a MRI pelvis by Dr. Quiroga at [place] and it showed a lesion on the prostate 1 week prior to TURP * Chest xray: Cardiomegaly * CT A/P: IMPRESSION: Mild cardiomegaly, stable. Small pleural effusions have developed. Partial atelectasis has developed in the left lower lobe. Infiltrate is thought less likely. Moderate splenomegaly. There are multiple foci of enhancement in the spleen following IV contrast. The etiology of these are unclear. Please see above. Nonspecific fat stranding surrounding the prostate gland, seminal vesicles and rectum has resolved. * 11/12/18 U/S renal bilateral IMPRESSION: Unremarkable study. * 11/12/18 U/S abdomen IMPRESSION: Multiple nonspecific lesions identified in the spleen which appear predominantly solid and mixed echoic. Differential diagnosis includes benign lesions such as hemangioma and malignant lesions such as metastases. Clinical correlation and biopsy are recommended. Etiologies such as abscess, and infarction are unlikely and etiologies such as lymphangioma and lymphoma are felt to be less likely. * 11/14/18 CT chest wo constrast IMPRESSION: Left lower lobe consolidation con sistent with pneumonia. Trace bilateral pleural effusions. Mild cardiomegaly. * 11/14/18 CT abd/pelvis with and withou contrast IMPRESSION: Evolving infarction of the spleen is suspected. Please see above. These findings were discussed with Dr. Powell. /Severe Sepsis, Secondary to E.coli UTI/prostatitis: ID is following, continue abx. 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, added NSAIDs will stop due to anemia /ESBL E coli bactermia is presumed to be a result of prostate biopsy induced prostatitis: continue abx per ID recommendations, /Acute Cystitis s/p recent prostate biopsy: Urology did evaluate and deemed no surgery needed at the time, recommended continuing ABX /Acute renal failure Secondary to vasomotor nephropathy: continue to monitor bmp /Sickle cell disease, stable: pain control and adequate hydration /Acute Respiratory Failure with Hypoxia-Improving: continue daily weaning O2 trails /Thrombocytopenia most likely consumption related: continue to monitor cbc and treat the sepsis /DVT ppx: off sq heparin due to anemia s/p 2 units Preventive Immunization for splenic infarction once ID clears. 11/15/18 New issues: Drop in HCT s/p 1 units blood transfusion ordered by apparel manager, stopped sq heparin adn (2) LLL pneumonia on CT chest: IV Vancomycin added. 11/16/18 Still febrile despite IV abx, so I contacted Urology to re-evaluate for prostate abscess. Restarted Ibuprofen to combat the fevers. Patient getting fluid overloaded, ordered stat ABG and pCXr which shows worsening right pleural effusion and atelectasis, so I ordered 40mg iv lasix x 1, stopped nss at 75ml/hr and added Incentive spirometry to the duoneb tid. Depending on what the Dr. Hui, Urologist, decides, MRI pelvis maybe warranted also, ?ANGELA once afebrile if ID deems necessary. 11/17/18 Urologist re-evaluated. The lasix helped and he is off O2. Now, patient WBC has increased to 34.9 (I don't think all this is explained by sickle cell), so I ordered MRI pelvis, to evaluate the AVN and rule out any abscesses. Last blood culture has been negative. No need for ANGELA unless ID deems necessary. History Interval history: Patient was seen and examined. Follow-up on current diagnosis fevers. Overnight uneventful. Patient denies any chest pain, shortness breath, nausea/vomiting or severe headaches. Imaging, nursing note, chart, labs and old chart reviewed. Discussed with patient. Hospitalist Physical - Physical exam Narrative exam: Gen: WDWN, NAD, Awake, Alert, Orientated HEENT: NCAT, EOMI, PERRL, OP Clear Neck: supple, no adenopathy, no thyromegaly, no JVD CVS/Heart: Regular tachycardia, normal S1S2, pulses present bilaterally Chest/Lungs: CTA B, Symmetrical chest expansion, good air entry bilaterally GI/Abdomen: soft, NTND, good bowel sounds, no guarding or rebound /Bladder: no suprapubic tenderness, no CVA or paraspinal tenderness Extermity/Skin: no c/c/e, no obvious rash MSK: FROM x 4 Neuro: CN 2-12 grossly intact, no new focal deficits Psych: calm - Constitutional Vitals: Temp Pulse Resp BP Pulse Ox 98.2 F 99 H 20 107/70 95 11/17/18 11:55 11/17/18 11:55 11/17/18 11:55 11/17/18 11:55 11/17/18 11:55 General appearance: Present: no acute distress, well-nourished Results - Labs CBC & Chem 7: 11/17/18 04:55 11/17/18 04:55 Labs: Laboratory Last Values WBC 34.9 K/mm3 (4.5-11.0) H 11/17/18 04:55 RBC 2.69 M/mm3 (3.65-5.03) L 11/17/18 04:55 Hgb 7.5 gm/dl (11.8-15.2) L 11/17/18 04:55 Hct 22.1 % (35.5-45.6) L 11/17/18 04:55 MCV 82 fl (84-94) L 11/17/18 04:55 MCH 28 pg (28-32) 11/17/18 04:55 MCHC 34 % (32-34) 11/17/18 04:55 RDW 19.3 % (13.2-15.2) H 11/17/18 04:55 Plt Count 459 K/mm3 (140-440) H 11/17/18 04:55 [place] % (Auto) Bilingual Patient Support Caseworker 11/15/18 04:43 Lymph # Bilingual Patient Support Caseworker 11/13/18 11:45 Add Manual Diff Complete 11/15/18 04:43 Total Counted 100 11/15/18 04:43 Seg Neutrophils % Bilingual Patient Support Caseworker 11/07/18 05:13 Seg Neuts % (Manual) 87.0 % (40.0-70.0) H 11/15/18 04:43 Band Neutrophils % 3.0 % 11/15/18 04:43 Lymphocytes % (Manual) 5.0 % (13.4-35.0) L 11/15/18 04:43 Reactive Lymphs % (Man) 0 % 11/15/18 04:43 Monocytes % (Manual) 5.0 % (0.0-7.3) 11/15/18 04:43 Eosinophils % (Manual) 0 % (0.0-4.3) 11/15/18 04:43 Basophils % (Manual) 0 % (0.0-1.8) 11/15/18 04:43 Metamyelocytes % 0 % 11/15/18 04:43 Myelocytes % 0 % 11/15/18 04:43 Promyelocytes % 0 % 11/15/18 04:43 Blast Cells % 0 % 11/15/18 04:43 Nucleated RBC % Not Reportable 11/15/18 04:43 Seg Neutrophils # Man 21.8 K/mm3 (1.8-7.7) H 11/15/18 04:43 Band Neutrophils # 0.8 K/mm3 11/15/18 04:43 Lymphocytes # (Manual) 1.3 K/mm3 (1.2-5.4) 11/15/18 04:43 Abs React Lymphs (Man) 0.0 K/mm3 11/15/18 04:43 Monocytes # (Manual) 1.3 K/mm3 (0.0-0.8) H 11/15/18 04:43 Eosinophils # (Manual) 0.0 K/mm3 (0.0-0.4) 11/15/18 04:43 Basophils # (Manual) 0.0 K/mm3 (0.0-0.1) 11/15/18 04:43 Metamyelocytes # 0.0 K/mm3 11/15/18 04:43 Myelocytes # 0.0 K/mm3 11/15/18 04:43 Promyelocytes # 0.0 K/mm3 11/15/18 04:43 Blast Cells # 0.0 K/mm3 11/15/18 04:43 WBC Morphology Not Reportable 11/15/18 04:43 Hypersegmented Neuts Not Reportable 11/15/18 04:43 Hyposegmented Neuts Not Reportable 11/15/18 04:43 Hypogranular Neuts Not Reportable 11/15/18 04:43 Smudge Cells Not Reportable 11/15/18 04:43 Toxic Granulation Not Reportable 11/15/18 04:43 Toxic Vacuolation Not Reportable 11/15/18 04:43 Dohle Bodies Not Reportable 11/15/18 04:43 Pelger-Huet Anomaly Not Reportable 11/15/18 04:43 Tory Rods Not Reportable 11/15/18 04:43 Platelet Estimate Cons 11/15/18 04:43 Clumped Platelets Not Reportable 11/15/18 04:43 Plt Clumps, EDTA Not Reportable 11/15/18 04:43 Large Platelets Few 11/15/18 04:43 Giant Platelets Not Reportable 11/15/18 04:43 Platelet Satelliting Not Reportable 11/15/18 04:43 Plt Morphology Comment Not Reportable 11/15/18 04:43 RBC Morphology Not Reportable 11/15/18 04:43 Dimorphic RBCs Not Reportable 11/15/18 04:43 Polychromasia Not Reportable 11/15/18 04:43 Hypochromasia Not Reportable 11/15/18 04:43 Poikilocytosis 3+ 11/15/18 04:43 Anisocytosis 1+ 11/15/18 04:43 Microcytosis Not Reportable 11/15/18 04:43 Macrocytosis Not Reportable 11/15/18 04:43 Spherocytes Not Reportable 11/15/18 04:43 Pappenheimer Bodies Not Reportable 11/15/18 04:43 Sickle Cells Not Reportable 11/15/18 04:43 Target Cells 3+ 11/15/18 04:43 Tear Drop Cells Not Reportable 11/15/18 04:43 Ovalocytes Not Reportable 11/15/18 04:43 Stomatocytes Few 11/15/18 04:43 Helmet Cells Not Reportable 11/15/18 04:43 Quesada-Arbuckle Bodies Not Reportable 11/15/18 04:43 [place] Rings Not Reportable 11/15/18 04:43 [place] Cells Not Reportable 11/15/18 04:43 Bite Cells Not Reportable 11/15/18 04:43 Crenated Cell Not Reportable 11/15/18 04:43 Elliptocytes Not Reportable 11/15/18 04:43 Acanthocytes (Spur) Not Reportable 11/15/18 04:43 Rouleaux Not Reportable 11/15/18 04:43 Hemoglobin C Crystals Not Reportable 11/15/18 04:43 Schistocytes Not Reportable 11/15/18 04:43 Malaria parasites Not Reportable 11/15/18 04:43 Sickle Cell Screen Positive (Negtaive) 11/15/18 04:00 [place] Bodies Not Reportable 11/15/18 04:43 Hem Pathologist Commnt No 11/15/18 04:43 PT 15.0 Sec. (12.2-14.9) H 11/06/18 20:18 INR 1.11 (0.87-1.13) 11/06/18 20:18 VBG pH 7.340 (7.320-7.420) 11/06/18 20:18 Sodium 141 mmol/L (137-145) 11/17/18 04:55 Potassium 4.2 mmol/L (3.6-5.0) 11/17/18 04:55 Chloride 104.2 mmol/L (98-107) 11/17/18 04:55 Carbon Dioxide 25 mmol/L (22-30) 11/17/18 04:55 Anion Gap 16 mmol/L 11/17/18 04:55 BUN 10 mg/dL (9-20) 11/17/18 04:55 Creatinine 0.8 mg/dL (0.8-1.5) 11/17/18 04:55 Estimated GFR > 60 ml/min 11/17/18 04:55 BUN/Creatinine Ratio 13 % 11/17/18 04:55 Glucose 161 mg/dL (75-100) H 11/17/18 04:55 Lactic Acid 1.40 mmol/L (0.7-2.0) 11/07/18 23:22 Calcium 8.2 mg/dL (8.4-10.2) L 11/17/18 04:55 Iron 15 ug/dL (49-181) L 11/15/18 04:43 TIBC 169 mcg/dL (250-450) L 11/15/18 04:43 Ferritin 1631.0 ng/mL (13.0-400.0) H 11/16/18 04:57 Total Bilirubin 1.70 mg/dL (0.1-1.2) H 11/15/18 04:43 AST 31 units/L (5-40) 11/15/18 04:43 ALT 23 units/L (7-56) 11/15/18 04:43 Alkaline Phosphatase 87 units/L (35-129) 11/15/18 04:43 C-Reactive Protein 35.00 mg/dL (0.00-1.30) H 11/15/18 17:36 Total Protein 5.2 g/dL (6.3-8.2) L 11/15/18 04:43 Albumin 2.4 g/dL (3.9-5) L 11/15/18 04:43 Albumin/Globulin Ratio 0.9 % 11/15/18 04:43 Vitamin B12 1442 pg/mL (211-911) H 11/16/18 04:57 Folate 16.81 ng/mL (7.3-26.0) 11/16/18 04:57 Urine Color [place] (Yellow) 11/07/18 00:07 Urine Turbidity Cloudy (Clear) 11/07/18 00:07 Urine pH 5.0 (5.0-7.0) 11/07/18 00:07 Ur Specific [place] 1.015 (1.003-1.030) 11/07/18 00:07 Urine Protein 100 mg/dl mg/dL (Negative) 11/07/18 00:07 Urine Glucose (UA) Neg mg/dL (Negative) 11/07/18 00:07 Urine Ketones Neg mg/dL (Negative) 11/07/18 00:07 Urine Blood Lg (Negative) 11/07/18 00:07 Urine Nitrite Pos (Negative) 11/07/18 00:07 Urine Bilirubin Neg (Negative) 11/07/18 00:07 Urine Urobilinogen < 2.0 mg/dL (<2.0) 11/07/18 00:07 Ur Leukocyte Esterase Tr (Negative) 11/07/18 00:07 Urine WBC (Auto) 59.0 /HPF (0.0-6.0) H 11/07/18 00:07 Urine RBC (Auto) > 182.0 /HPF (0.0-6.0) 11/07/18 00:07 U Epithel Cells (Auto) 1.0 /HPF (0-13.0) 11/07/18 00:07 Urine Bacteria (Auto) 2+ /HPF (Negative) 11/07/18 00:07 Hyaline Casts 56 /LPF 11/07/18 00:07 Granular Casts 2 /LPF 11/07/18 00:07 Urine Mucus Few /HPF 11/07/18 00:07 Vancomycin Trough 8.3 ug/mL (5.0-20.0) 11/17/18 04:55 HIV 1&2 Antibody Rapid Non react (Non React) 11/13/18 15:59 HIV P24 Antigen Non react (Non React) 11/13/18 15:59 Influenza A (Rapid) Negative (Negative) 11/13/18 16:30 Influenza A (RT-PCR) Negative (Negative) 11/13/18 16:30 Influenza B (Rapid) Negative (Negative) 11/13/18 16:30 Influenza B (RT-PCR) Negative (Negative) 11/13/18 16:30 Blood Type A POSITIVE 11/15/18 05:25 Antibody Screen Negative 11/15/18 05:25 Crossmatch See Detail 11/15/18 05:25 Active Medications - Current Medications Current Medications: Generic Name Dose Route Start Last Admin Trade Name Freq PRN Reason Stop Dose Admin Acetaminophen 650 mg 11/07/18 01:19 11/16/18 23:43 Tylenol PO 650 mg Q4H PRN Administration Pain MILD(1-3)/Fever >100.5/RAY Albuterol 2.5 mg 11/10/18 04:01 11/12/18 05:23 Proventil IH 2.5 mg Q6HRT PRN Administration Shortness Of Breath Albuterol/Ipratropium 1 ampul 11/14/18 08:00 11/17/18 08:16 Duoneb *Not For Prn Use* IH 1 ampul TIDRT LENORE Administration Docusate Sodium 100 mg 11/12/18 15:00 11/16/18 21:25 Colace PO 100 mg BID LENORE Administration MEROPENEM/VABORBACTAM 4 gm/ 250 mls @ 90 mls/hr 11/14/18 12:00 11/17/18 06:24 Sodium Chloride IV 90 mls/hr Q8HR LENORE Administration Vancomycin HCl 1,750 mg/ 535 mls @ 333.333 mls/hr 11/17/18 18:00 Sodium Chloride IV Q12H LENORE Ibuprofen 800 mg 11/16/18 13:44 11/17/18 08:31 Motrin PO 800 mg Q8H PRN Administration Non Cardiac Pain or Temp>100.5 Morphine Sulfate 2 mg 11/07/18 01:19 Morphine IV Q4H PRN Pain, Moderate (4-6) Ondansetron HCl 4 mg 11/07/18 01:19 11/07/18 18:08 Zofran IV 4 mg Q4H PRN Administration Nausea And Vomiting Senna 17.2 mg 11/12/18 22:00 11/16/18 23:45 Senokot PO 17.2 mg Q12H LENORE Administration Sodium Chloride 10 ml 11/07/18 10:00 11/17/18 05:25 Sodium Chloride Flush Syringe 10 Ml IV 10 ml BID LENORE Administration Sodium Chloride 10 ml 11/07/18 01:19 Sodium Chloride Flush Syringe 10 Ml IV PRN PRN LINE FLUSH Nutrition/Malnutrition Assess - Dietary Evaluation Nutrition/Malnutrition Findings: Nutrition Notes Start: 11/07/18 14:42 Freq: Status: Active Protocol: Document 11/13/18 08:59 TW (Rec: 11/13/18 09:00 TW [id number]) Co-Sign 11/13/18 08:59 LP Nutrition Notes Need for Assessment generated from: LOS Initial or Follow up Brief Note Height 5 ft 9 in Weight 92 kg [place] Body Weight (kg) 72.72 BMI 29.9 Subjective/Other Information Screened for LOS. Per ADL, pt is eating 100% of meals. Nutrition Intervention Revisit per MD consult or patient Sign Off request:
[2018-11-17] MEDS: COLACE PO SCH ×2 (15:23→21:48)
[2018-11-17] MEDS: SENOKOT PO SCH ×2 (15:23→21:48)
[2018-11-17] MEDS: NACL 0.9% IV SCH ×2 (16:20→21:52)
[2018-11-17] MEDS: MERREM IV SCH ×2 (16:20→21:52)
--- NOTE | 2018-11-17 16:59 | Progress Note ---
Assessment and Plan 62 yo M with 1. sepsis 2. GNR bacteremia 3. UTI 4. s/p transrectal prostate biopsy on 11/05/18 5. splenomegaly 6. sickle cell disease 7. PNA Ct scan a/p Liver protocol performed today was reviewed with Dr. Bowser and Dr. Day. 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 There is no definitive abscess. Probable LLL PNA. Splenic infarction can lead to fever, LUQ pain, and leukocytosis and is not necessarily related to E coli bacteremia. Bacteremia is presumed to be a result of prostate biopsy induced prostatitis. Plan: 1. continue with abx 2. doubt acute rectal perforation. No evidence for perforation or abscess on physical exam or imaging. Firm area on rectal exam likely the site of prostate biopsy. MRI pelvis pending per 1' team 3. bowel regimen 4. reg diet 5. No clear indication for splenectomy or splenic drainage at this time. Would continue to observe patient and trend WBC 6. prn pain control Discussed work up and plan with patient and his mother. They understand. They i nquired about transfer. They are frustrated that it is taking this long in the hospital. I explained to them that the patient has two issues going on and we are treating both issues actively. I informed them that if there is a physician at another hospital who accepts the patient, the transfer process can be started. Very complex case. Thank you, please call with questions Subjective Date of service: 11/17/18 Narrative: Pt seen and examined. No acute complaints. Some LUQ soreness when moving or reaching. +Fevers. Objective Vital Signs - 12hr 11/17/18 11/17/18 11/17/18 06:17 08:16 08:26 Temperature 98.0 F Pulse Rate 94 H Pulse Rate [ 92 H 94 H Anterior Bilateral Throughout] Respiratory 18 Rate Respiratory 20 20 Rate [Anterior Bilateral Throughout] Blood Pressure 109/69 O2 Sat by Pulse 97 97 Oximetry 11/17/18 11:55 Temperature 98.2 F Pulse Rate 99 H Pulse Rate [ Anterior Bilateral Throughout] Respiratory 20 Rate Respiratory Rate [Anterior Bilateral Throughout] Blood Pressure 107/70 O2 Sat by Pulse 95 Oximetry - General physical appearance Narrative Exam: Gen: AAOx3. NDA CV: s1, s2+ resp: even and unlabored Abd: soft, ND, +LUQ TTP. no r/r/g Ext; no c/c/e - Labs 11/17/18 04:55 11/17/18 04:55 Diabetes panel 11/17/18 Range/Units 04:55 Sodium 141 (137-145) mmol/L Potassium 4.2 (3.6-5.0) mmol/L Chloride 104.2 (98-107) mmol/L Carbon Dioxide 25 (22-30) mmol/L BUN 10 (9-20) mg/dL Creatinine 0.8 (0.8-1.5) mg/dL Glucose 161 H (75-100) mg/dL Calcium 8.2 L (8.4-10.2) mg/dL Calcium panel 11/17/18 Range/Units 04:55 Calcium 8.2 L (8.4-10.2) mg/dL Pituitary panel 11/17/18 Range/Units 04:55 Sodium 141 (137-145) mmol/L Potassium 4.2 (3.6-5.0) mmol/L Chloride 104.2 (98-107) mmol/L Carbon Dioxide 25 (22-30) mmol/L BUN 10 (9-20) mg/dL Creatinine 0.8 (0.8-1.5) mg/dL Glucose 161 H (75-100) mg/dL Calcium 8.2 L (8.4-10.2) mg/dL Adrenal panel 11/17/18 Range/Units 04:55 Sodium 141 (137-145) mmol/L Potassium 4.2 (3.6-5.0) mmol/L Chloride 104.2 (98-107) mmol/L Carbon Dioxide 25 (22-30) mmol/L BUN 10 (9-20) mg/dL Creatinine 0.8 (0.8-1.5) mg/dL Glucose 161 H (75-100) mg/dL Calcium 8.2 L (8.4-10.2) mg/dL
[2018-11-17] MEDS: VANCOMYCIN 1,750 MG in NACL 0.9% 500 ML 500 ML IV SCH (19:32)
--- NOTE | 2018-11-17 20:23 | Magnetic Resonance Report ---
PROCEDURE: MR PELVIS WO/W CON TECHNIQUE: Magnetic resonance imaging of the pelvis was performed using standard sequences before an d after the IV injection of paramagnetic contrast. CPT 42845 HISTORY: prostatis, pelvis pain, abscess COMPARISONS: CT dated 11/14/2018 . FINDINGS: Prostate is normal in size with heterogeneous signal intensity and enhancement. There is no discrete mass. There is no pelvic mass or fluid collection. There is no adenopathy or abscess. There is moderate stool in the colon, sigmoid colon and rectum. The urinary bladder is unremarkable. The bony structures are intact. Superficial soft tissues are unremarkable. There is no perirectal abscess. IMPRESSION: Prostate is normal in size with heterogeneous signal intensity and enhancement. There is no discrete mass. There is no pelvic mass or fluid collection. There is no adenopathy or abscess. There is no perirectal abscess. This document is electronically signed by Ray Lantigua MD., November 17 2018 08:22:16 PM ET
[2018-11-18] MEDS: VANCOMYCIN 1,750 MG in NACL 0.9% 500 ML 500 ML IV SCH ×2 (05:59→20:20)
[2018-11-18] MEDS: NACL 0.9% IV SCH ×3 (05:59→22:06)
[2018-11-18] MEDS: MERREM IV SCH ×3 (05:59→22:06)
[2018-11-18] MEDS: TYLENOL PO PRN ×4 (06:21→20:19)
--- NOTE | 2018-11-18 08:01 | Hem/Onc Progress Note ---
Assessment and Plan fever prostate bx h/o sickle - admission hb 11, MCV normal. splenomegaly d/w dr rubio - ? spleen infarct - ? trial of NSAID 1. History of elevated PSA, status post prostate biopsy. 2. History of fevers. Based on temporal events, this has to be related to the prostate issues. ID team is on case. 3. History of anemia. At admission; hemoglobin was 11.1, MCV was normal. 4. History of sickle cell disease. Radiology mentions splenomegaly of 15.7 cm. The patient would need outpatient evaluation for the question of sickle cell. At this time, hematology issues may be secondary to the infection/medication. 5. Splenomegaly, likely secondary to infection issues. I had discussed with ID team. The patient has E. coli in the blood culture. I spoke to Dr. Marcano about the patient. 11/15 sickle cell test - smear - no sickle cells seen fever could be sec to pneumonia or splenic infarct PRBC - low iron - IV iron trial 11/17 - sickle testing + - will do hb electrophoresis fever - d/w Dr harley ID - reg abx vs NSAID trial for spleen infarct. d/w pt and mother reg these issues PRBC was given for anemia 11/18/2018 MRI pelvis Abx fever Hb electrophoresis s/p iv iron and PRBC for anemia h/o splenimegaly - infarct vs ?abscess - Patient Problems (1) Fever Current Visit: Yes Status: Acute Qualifiers: Fever type: unspecified Qualified Code(s): R50.9 - Fever, unspecified Subjective Date of service: 11/18/18 Principal diagnosis: fever Interval history: pt had fever Objective - Constitutional Vitals: Last Vital Signs Temp 102.3 F H 11/18/18 06:06 Pulse 113 H 11/18/18 06:06 Resp 20 11/18/18 06:06 BP 119/69 11/18/18 06:06 Pulse Ox 96 11/18/18 06:06 Pain Intensity (0-10): denies any pain General appearance: no acute distress Performance status: 3-limited selfcare - EENT Eyes: EOM intact ENT: clear oral mucosa Lymph node exam: negative cervical - Neck Neck: normal ROM - Respiratory Respiratory effort: Positive: normal Respiratory: bilateral: CTA (anteriorly) - Cardiovascular Heart Sounds: Present: S1 & S2 Extremities: No edema - Gastrointestinal General gastrointestinal: Present: soft, non-tender Rectal Exam: deferred - Genitourinary Male genitourinary: Present: deferred - Integumentary Integumentary: warm - Musculoskeletal Musculoskeletal: strength equal bilaterally - Neurologic Neurologic: moves all extremities Medications & Allergies - Medications Allergies/Adverse Reactions: Allergies No Known Allergies Allergy (Unverified 04/17/16 18:17) Home Medications: Home Medications Medication Instructions Recorded Confirmed Last Taken Type Aspir-Low 81 mg PO DAILY 11/08/18 11/15/18 1 Week Ago History ~11/01/18 Folic Acid [Folvite] 1 mg PO QDAY 11/08/18 11/08/18 1 Week Ago History ~11/01/18 Multivitamin 1 tab PO DAILY 11/08/18 11/08/18 11/01/18 History Active Medications: Generic Name Dose Route Start Last Admin Trade Name Freq PRN Reason Stop Dose Admin Acetaminophen 650 mg 11/07/18 01:19 11/18/18 06:21 Tylenol PO 650 mg Q4H PRN Administration Pain MILD(1-3)/Fever >100.5/RAY Albuterol 2.5 mg 11/10/18 04:01 11/12/18 05:23 Proventil IH 2.5 mg Q6HRT PRN Administration Shortness Of Breath Albuterol/Ipratropium 1 ampul 11/14/18 08:00 11/17/18 20:34 Duoneb *Not For Prn Use* IH 1 ampul TIDRT LENORE Administration Docusate Sodium 100 mg 11/12/18 15:00 11/17/18 21:48 Colace PO 100 mg BID LENORE Administration Vancomycin HCl 1,750 mg/ 535 mls @ 333.333 mls/hr 11/17/18 18:00 11/18/18 05:59 Sodium Chloride IV 333.333 mls/hr Q12H LENORE Administration Meropenem 2,000 mg/ Sodium 100 mls @ 100 mls/hr 11/17/18 16:00 11/18/18 05:59 Chloride IV 100 mls/hr Q8HR LENORE Administration Protocol Ibuprofen 800 mg 11/16/18 13:44 11/17/18 08:31 Motrin PO 800 mg Q8H PRN Administration Non Cardiac Pain or Temp>100.5 Morphine Sulfate 2 mg 03/22/19 01:19 Morphine IV Q4H PRN Pain, Moderate (4-6) Ondansetron HCl 4 mg 11/07/18 01:19 11/07/18 18:08 Zofran IV 4 mg Q4H PRN Administration Nausea And Vomiting Senna 17.2 mg 11/12/18 22:00 11/17/18 21:48 Senokot PO 17.2 mg Q12H LENORE Administration Sodium Chloride 10 ml 11/07/18 10:00 11/17/18 22:55 Sodium Chloride Flush Syringe 10 Ml IV 10 ml BID LENORE Administration Sodium Chloride 10 ml 11/07/18 01:19 Sodium Chloride Flush Syringe 10 Ml IV PRN PRN LINE FLUSH
[2018-11-18] MEDS: DUONEB *Not for PRN Use IH SCH ×3 (08:29→22:20)
--- NOTE | 2018-11-18 09:29 | Progress Note ---
Assessment and Plan Cultures: 11/06/2018 Blood culture : ESBL E. Coli, 11/07/2018 urine culture: <10K bacteria 11/08/2018 Blood culture: ESBL E. coli 4 out of 4 bottles 11/10/2018 Blood culture: ESBL E. coli 2 out of 4 bottles 11/12/2018 Blood Cultures: ESBL E. coli 1 out of 4 bottles 11/14/2018 Blood Cultures: no growth 11/15/2018 MRSA PCR: negative 11/17/2018 Stool: negative Assessment: 62 y/o male with a history of sickle cell disease; admitted on 11/06/18 due to 24 hour-history of fever, chills and generalized malaise. Patient underwent transrectal-prostate biopsy on 11/05/[address] Hidalgo. Patient denies N/V/D, cough, SOB, abdominal pain, urinary symptoms. 1) Severe Sepsis: Fever spikes and leukocytosis continuing.. Etiology most likely persistent ESBL E. coli, +progressive spleenic infarcts, superimposed abscesses. Repeat BC fro 11/14/18 show no growth. When discharged will treat with erthapenem 1 gm IV every 24 hours for 21 days ending 12-05-18. 2) Persistent ESBL bacteremia: source likely post trans-rectal biopsy UTI, prostatitis and proctitis. Repeat BC's show no growth to date. Discontinue Vabomere. Restart Meropenem. - UA 59 wbc, trace LE, +nitrates, large blood. - Blood culture 10/17/2018 no growth today. - CT abd showed rectal prostate and seminal vesicles stranding - CT with contrast showed that the The prostate gland remains mildly enlarged measuring 6 cm in diameter.Nonspecific fat stranding surrounding the prostate gland, seminal vesicles and rectum has resolved. -Spleen CT/US - showed lesions, ?sickle cell or emboli -Chest xray: The lungs are grossly clear. No consolidation -Renal U/S: right kidney: Normal echotexture. Left Kidney: well-defined simple cyst measuring 2.1 x 1.9 cm is noted in the lower portion. Otherwise renal parenchymal echotexture is within normal limits without calculi or hydronephrosus -Abdominal U/S: Multiple nonspecific lesions identified in the spleen whic h appear predominantly solid and mixed echoic. DDX includes benign lesions such as hemangioma and malignant lesions such as metastases. Clinical correlation and biopsy are recommended. -CRP 31.80 -TTE- No valvular vegetation -CT abdomen and pelvis with 4 phase liver protocol shows evidence of evolving splenic infarction.The remainder of the splenic parenchyma is hypoa ttenuated with no evidence of perfusion. Mild inflammatory fat stranding has developed surrounding the spleen. No splenic hemorrhage. -HIV - nonreactive -Influenza Rapid and PCR - Negative -CT Pelvis: Prostate is normal in size with heterogeneous signal intensity and enhancement. There is no discrete mass. 3) Post trans-rectal biopsy UTI, prostatitis and proctitis. UA 59 wbc, trace LE, +nitrates, large blood. 11/07/2018 urine culture<10K bacteria. He received cipro PO x 3 days before biopsy. 4) Multiple Evolving Splenic infarcts +/- abscesses. CT abdomen progressive spleen infarcts. I am concerned that the spleen has developed superimposed abscesses from ESBL E coli in light of persistent bacteremia and fever.No indication for surgery for splenic infarction. Surgery following 5) Likely HAP: repeat CT chest showed pneumonia. Continue Vancomycin. 6) Severe Anemia: Blood transfusion today. Continue to monitor Recommendations: Continue Meropenem 2 gms q 8, D2 Continue vancomycin to cover HAP, D4 Fevers persisting, will order ANGELA f/u autoimmune w/u Alexandria Iverson NP [facility] M: [id number] O:[phone] Subjective Date of service: 11/18/18 Principal diagnosis: sickle cell - anemia - fever Interval history: Patient seen and examined. Sitting up in the chair. Denies generalized pain. Fevers continuing. Nurses notes, labs and reports reviewed, discussed with patient and Mother. Objective - Exam Narrative Exam: Constitutional: Alert, cooperative. No acute distress Head, Ears, Nose: Normocephalic, atraumatic. External ears, nose normal Eyes: Conjunctivae/corneas clear. No icterus. No ptosis. Neck: Supple, no meningeal signs Cardiovascular: S1, S2 normal. Respiratory: Good air entry, clear to auscultation bilaterally, + tachypnea GI: Soft, non-tender; bowel sounds normal. No peritoneal signs Musculoskeletal: No pedal edema, no cyanosis. Skin: No rash or abscess Hem/Lymphatic: No palpable cervical or supraclavicular nodes. No lymphangitis Psych: Mood ok. Affect normal Neurological: Awake, alert, oriented. No gross abnormality - Constitutional Vitals: Vital Signs Temp Pulse Resp BP Pulse Ox 102.3 F H 114 H 20 119/69 96 11/18/18 06:06 11/18/18 08:30 11/18/18 08:30 11/18/18 06:06 11/18/18 08:31 Temperature -Last 24 Hours Temperature 102.3 F Temperature 97.9 F Temperature 102.9 F Temperature 98.9 F Temperature 98.2 F - Labs CBC & Chem 7: 11/18/18 10:53 11/18/18 10:53
[2018-11-18] MEDS: COLACE PO SCH ×2 (10:47→22:07)
[2018-11-18 11:31] LABS: Hematocrit 20.7 % (35.5-45.6); Hemoglobin 6.9 gm/dl (11.8-15.2); Mean Corpuscular HGB Conc 34 % (32-34); Mean Corpuscular Volume 82 fl (84-94); Platelet Count 579 K/mm3 (140-440); Red Blood Count 2.51 M/mm3 (3.65-5.03); Red Cell Distribution Width 20.1 % (13.2-15.2)
[2018-11-18 11:38] LABS: BUN/Creatinine Ratio 11; Blood Urea Nitrogen 8 mg/dL (9-20); Calcium 8.3 mg/dL (8.4-10.2); Hemolysis Index 0
--- NOTE | 2018-11-18 11:40 | Progress Note ---
Assessment and Plan 62 yo M with 1. sepsis 2. GNR bacteremia 3. UTI 4. s/p transrectal prostate biopsy on 11/05/18 5. splenomegaly 6. sickle cell disease 7. PNA Ct scan a/p Liver protocol performed today was reviewed with Dr. Bowser and Dr. Day. 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 There is no definitive abscess. Probable LLL PNA. Splenic infarction can lead to fever, LUQ pain, and leukocytosis and is not necessarily related to E coli bacteremia. Bacteremia is presumed to be a result of prostate biopsy induced prostatitis. Plan: 1. continue with abx per ID. Last set of blood cultures negative thus far 2. doubt acute rectal perforation. No evidence for perforation or abscess on physical exam or imaging. Firm area on rectal exam likely the site of prostate biopsy. MRI pelvis negative 3. bowel regimen 4. reg diet 5. WBC count has peaked and is trending down, platelets are trending up. Still with fever. This is most likely due splenic infarction. No indication for surgery for splenic infarction. Will continue to monitor 6. anemia - ?hemolysis from sickle cell. Will obtain fractionated bilirubin with labs in am 7. prn pain control S/W Dr. Navarro and Jane Thank you, please call with questions Subjective Date of service: 11/18/18 Narrative: Pt seen and examined. No acute complaints. + fevers. Objective Vital Signs - 12hr 11/18/18 11/18/18 11/18/18 04:34 06:06 08:30 Temperature 97.9 F 102.3 F H Pulse Rate 113 H Pulse Rate [ 114 H Anterior Bilateral Throughout] Pulse Rate [ 120 H Throughout] Respiratory 20 Rate Respiratory 20 Rate [Anterior Bilateral Throughout] Respiratory 18 Rate [ Throughout] Blood Pressure 119/69 O2 Sat by Pulse 96 Oximetry 11/18/18 08:31 Temperature Pulse Rate Pulse Rate [ Anterior Bilateral Throughout] Pulse Rate [ Throughout] Respiratory Rate Respiratory Rate [Anterior Bilateral Throughout] Respiratory Rate [ Throughout] Blood Pressure O2 Sat by Pulse 96 Oximetry - General physical appearance Narrative Exam: Gen: AAOx3. NAD CV: S1, S2+ resp; even and unlabored Abd: soft, distended, LUQ TTP. no r/r/g Ext: no c/c/e - Labs 11/18/18 10:53 11/18/18 10:53 Diabetes panel 11/18/18 Range/Units 10:53 Sodium 140 (137-145) mmol/L Potassium 4.1 (3.6-5.0) mmol/L Chloride 103.9 (98-107) mmol/L Carbon Dioxide 25 (22-30) mmol/L BUN 8 L (9-20) mg/dL Creatinine 0.7 L (0.8-1.5) mg/dL Glucose 139 H (75-100) mg/dL Calcium 8.3 L (8.4-10.2) mg/dL Calcium panel 11/18/18 Range/Units 10:53 Calcium 8.3 L (8.4-10.2) mg/dL Pituitary panel 11/18/18 Range/Units 10:53 Sodium 140 (137-145) mmol/L Potassium 4.1 (3.6-5.0) mmol/L Chloride 103.9 (98-107) mmol/L Carbon Dioxide 25 (22-30) mmol/L BUN 8 L (9-20) mg/dL Creatinine 0.7 L (0.8-1.5) mg/dL Glucose 139 H (75-100) mg/dL Calcium 8.3 L (8.4-10.2) mg/dL Adrenal panel 11/18/18 Range/Units 10:53 Sodium 140 (137-145) mmol/L Potassium 4.1 (3.6-5.0) mmol/L Chloride 103.9 (98-107) mmol/L Carbon Dioxide 25 (22-30) mmol/L BUN 8 L (9-20) mg/dL Creatinine 0.7 L (0.8-1.5) mg/dL Glucose 139 H (75-100) mg/dL Calcium 8.3 L (8.4-10.2) mg/dL
[2018-11-18] MEDS ORDERED: NACL 0.9% 500 ML 500 ML IV NR (11:50)
[2018-11-18] MEDS: SODIUM CHLORIDE FLUSH SYRINGE 10 ML IV SCH ×2 (12:19→22:08)
[2018-11-18] MEDS: SENOKOT PO SCH ×2 (12:50→22:15)
[2018-11-18 14:37] LABS: Myeloperoxidase Antibody <1.0 AI (<1.0)
--- NOTE | 2018-11-18 16:36 | Progress Note ---
Assessment and Plan /Severe Sepsis, - Secondary to ESBL bacteremia: ID is following, continue abx. 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, no plan for any surgical intervention now /ESBL E coli bactermia is presumed to be a result of prostate biopsy induced prostatitis: continue abx per ID recommendations, /Acute Cystitis s/p recent prostate biopsy: Urology did evaluate and deemed no surgery needed at the time, recommended continuing ABX /Acute renal failure Secondary to vasomotor nephropathy: continue to monitor bmp, improved /Sickle cell crisis: cont pain control and adequate hydration. Hb again dropped today, transfuse one unit PRBC /Acute Respiratory Failure with Hypoxia-Improving: continue daily weaning O2 trails /Thrombocytosis: continue to monitor cbc and treat bacteremia /DVT ppx: off sq heparin due to anemia Brief History Patient is a 62-year-old man with a history of Sickle cell disease, AVN of bilateral hips, AVN shoulder and elevated PSA (2->5) s/p transrectal-prostate biopsy on 11/05/[address] Hidalgo who presented to [facility] ED with fevers. Patient was treated with sepsis protocol including, IV fluids and antibiotics. His labs revealed elevated white count, acute renal insufficiency, lactic acidosis and UTI. He was seen by Urologist, Dr. Hui on 11/12/18. Patient had continued to have persistent bacteremia of E. coli despite Abx given for 7 days. Then he developed splenic infract. Surgery following - plan to cont abx. Family requesting transfer to [place] - referral made, per family request- pending on insurance approval. * Chest xray: Cardiomegaly * CT A/P: IMPRESSION: Mild cardiomegaly, stable. Small pleural effusions have developed. Partial atelectasis has developed in the left lower lobe. Infiltrate is thought less likely. Moderate splenomegaly. There are multiple f oci of enhancement in the spleen following IV contrast. The etiology of these are unclear. Please see above. Nonspecific fat stranding surrounding the prostate gland, seminal vesicles and rectum has resolved. * 11/12/18 U/S renal bilateral IMPRESSION: Unremarkable study. * 11/12/18 U/S abdomen IMPRESSION: Multiple nonspecific lesions identified in the spleen which appear predominantly solid and mixed echoic. Differential diagnosis includes benign lesions such as hemangioma and malignant lesions suc h as metastases. Clinical correlation and biopsy are recommended. Etiologies such as abscess, and infarction are unlikely and etiologies such as lymphangioma and lymphoma are felt to be less likely. * 11/14/18 CT chest wo constrast IMPRESSION: Left lower lobe consolidation consistent with pneumonia. Trace bilateral pleural effusions. Mild cardiomegaly. * 11/14/18 CT abd/pelvis with and withou contrast IMPRESSION: Evolving infarction of the spleen is suspected. Hospitalist Physical Gen: WDWN, NAD, Awake, Alert, Orientated HEENT: NCAT, EOMI, PERRL, OP Clear Neck: supple, no adenopathy, no thyromegaly, no JVD CVS/Heart: Regular tachycardia, normal S1S2, pulses present bilaterally Chest/Lungs: CTA B, Symmetrical chest expansion, good air entry bilaterally GI/Abdomen: soft, NTND, good bowel sounds, no guarding or rebound /Bladder: no suprapubic tenderness, no CVA or paraspinal tenderness Extermity/Skin: no c/c/e, no obvious rash MSK: FROM x 4 Neuro: CN 2-12 grossly intact, no new focal deficits Psych: calm Subjective Date of service: 11/18/18 Principal diagnosis: sickle cell - anemia - fever Interval history: Patient seen and examined Discussed with Mother and patient at bedside - request to transfer to [place] Discussed with Dr. Powell and Dr Lara - had conference call with GS at [place] who agrees with current plan and management. Referral has made to patient's insurance for possible transfer to [place] per patient request Objective - Constitutional Vitals: Vital Signs - 12hr 11/18/18 11/18/18 11/18/18 06:06 08:30 08:31 Temperature 102.3 F H Pulse Rate 113 H Pulse Rate [ 114 H Anterior Bilateral Throughout] Pulse Rate [ 120 H Throughout] Respiratory 20 Rate Respiratory 20 Rate [Anterior Bilateral Throughout] Respiratory 18 Rate [ Throughout] Blood Pressure 119/69 O2 Sat by Pulse 96 96 Oximetry 11/18/18 11/18/18 11:46 13:47 Temperature 102.9 F H 101.9 F H Pulse Rate 114 H Pulse Rate [ 104 H Anterior Bilateral Throughout] Pulse Rate [ 104 H Throughout] Respiratory 24 Rate Respiratory 16 Rate [Anterior Bilateral Throughout] Respiratory 16 Rate [ Throughout] Blood Pressure 126/82 O2 Sat by Pulse 100 Oximetry - Labs CBC & Chem 7: 11/20/18 09:00 11/20/18 09:00 Labs: Abnormal lab results 11/18/18 11/18/18 11/18/18 Range/Units 10:53 10:53 12:22 WBC 27.8 H (4.5-11.0) K/mm3 RBC 2.51 L (3.65-5.03) M/mm3 Hgb 6.9 L (11.8-15.2) gm/dl Hct 20.7 L (35.5-45.6) % MCV 82 L (84-94) fl RDW 20.1 H (13.2-15.2) % Plt Count 579 H (140-440) K/mm3 BUN 8 L (9-20) mg/dL Creatinine 0.7 L (0.8-1.5) mg/dL Glucose 139 H (75-100) mg/dL Calcium 8.3 L (8.4-10.2) mg/dL Crossmatch See Detail
[2018-11-18] MEDS ORDERED: LASIX IV ONE (17:11)
--- NOTE | 2018-11-18 20:22 | Event Note ---
Date: 11/18/[address] Desirae Carrero, production control coordinating clerk [facility] at [place] at the request of Dr. Navarro as a surgical second opinion. I spoke with the surgeon and discussed admission reason, hospital course, imaging results, and current condition. I explained that patient has a hx of sickle cell disease. He was admitted due to ESBL bacteremia s/p transrectal prostate biopsy on 11/05/18. During the hospital admission, the patient developed new splenic infarction which was seen on repeat Ct scan A/P on 11/10/18. Ct scan was repeated on 11/14/18 and showed evolving splenic infarct and no evidence of abscess or drainable collection. These images were reviewed with radiologist in person. I explained that although most recent blood cultures are negative, the patient remains febrile and WBC is elevated but trending down. I explained that there was concern for possible splenic abscess. Dr. Moya agrees that patient is likely exhibiting symptoms of splenic infarction such as leukocytosis, fever. Because his WBC is improving, she feels that we should continue to observe. She does not feel that she would do anything differently at this time from a surgical standpoint and that splenectomy is not urgent. If the patient still wishes for a transfer he will need to go through insurance because it is at request of patient. Dr. Navarro updated.
[2018-11-19] MEDS: TYLENOL PO PRN ×3 (01:02→21:53)
[2018-11-19 01:28] LABS: Hematocrit 22.3 % (35.5-45.6); Hemoglobin 7.4 gm/dl (11.8-15.2); Mean Corpuscular HGB Conc 33 % (32-34); Mean Corpuscular Volume 84 fl (84-94); Platelet Count 576 K/mm3 (140-440); Red Blood Count 2.66 M/mm3 (3.65-5.03); Red Cell Distribution Width 18.6 % (13.2-15.2)
[2018-11-19 02:56] LABS: Total Cells Counted 100
[2018-11-19 02:58] LABS: Basophils % (Manual) 0 % (0.0-1.8); Eosinophils % (Manual) 0 % (0.0-4.3)
[2018-11-19 02:59] LABS: Large Platelets 1+; Platelet Estimate Appears Increased
[2018-11-19 03:00] LABS: Target Cells 2+
[2018-11-19 03:02] LABS: Anisocytosis 1+
[2018-11-19] MEDS: NACL 0.9% IV SCH ×3 (05:33→21:55)
[2018-11-19] MEDS: MERREM IV SCH ×3 (05:33→21:55)
[2018-11-19] MEDS: VANCOMYCIN 1,750 MG in NACL 0.9% 500 ML 500 ML IV SCH ×2 (06:50→18:19)
[2018-11-19 08:36] LABS: Hematocrit 23.2 % (35.5-45.6); Hemoglobin 7.7 gm/dl (11.8-15.2); Mean Corpuscular HGB Conc 33 % (32-34); Mean Corpuscular Volume 84 fl (84-94); Platelet Count 593 K/mm3 (140-440); Red Blood Count 2.76 M/mm3 (3.65-5.03); Red Cell Distribution Width 18.6 % (13.2-15.2)
[2018-11-19 08:58] LABS: BUN/Creatinine Ratio 10; Bilirubin,Direct 0.3 mg/dL (0-0.2); Blood Urea Nitrogen 6 mg/dL (9-20); Hemolysis Index 9
[2018-11-19] MEDS: DUONEB *Not for PRN Use IH SCH ×3 (09:22→22:25)
--- NOTE | 2018-11-19 09:41 | Progress Note ---
Assessment and Plan Cultures: 11/06/2018 Blood culture : ESBL E. Coli, 11/07/2018 urine culture: <10K bacteria 11/08/2018 Blood culture: ESBL E. coli 4 out of 4 bottles 11/10/2018 Blood culture: ESBL E. coli 2 out of 4 bottles 11/12/2018 Blood Cultures: ESBL E. coli 1 out of 4 bottles 11/14/2018 Blood Cultures: no growth 11/15/2018 MRSA PCR: negative 11/17/2018 Stool: negative Assessment: 62 y/o male with a history of sickle cell disease; admitted on 11/06/18 due to 24 hour-history of fever, chills and generalized malaise. Patient underwent transrectal-prostate biopsy on 11/05/[address] Hidalgo. Patient denies N/V/D, cough, SOB, abdominal pain, urinary symptoms. 1) Severe Sepsis: Fever spikes and leukocytosis continuing.. Etiology most likely persistent ESBL E. coli, +progressive spleenic infarcts, superimposed abscesses. Repeat BC fro 11/14/18 show no growth. When discharged will treat with erthapenem 1 gm IV every 24 hours for 21 days ending 12-05-18. 2) Persistent ESBL bacteremia: source likely post trans-rectal biopsy UTI, prostatitis and proctitis. Repeat BC's show no growth to date. Discontinue Vabomere. Restart Meropenem. - UA 59 wbc, trace LE, +nitrates, large blood. - Blood culture 10/17/2018 no growth today. - CT abd showed rectal prostate and seminal vesicles stranding - CT with contrast showed that the The prostate gland remains mildly enlarged measuring 6 cm in diameter.Nonspecific fat stranding surrounding the prostate gland, seminal vesicles and rectum has resolved. -Spleen CT/US - showed lesions, ?sickle cell or emboli -Chest xray: The lungs are grossly clear. No consolidation -Renal U/S: right kidney: Normal echotexture. Left Kidney: well-defined simple cyst measuring 2.1 x 1.9 cm is noted in the lower portion. Otherwise renal parenchymal echotexture is within normal limits without calculi or hydronephrosus -Abdominal U/S: Multiple nonspecific lesions identified in the spleen whic h appear predominantly solid and mixed echoic. DDX includes benign lesions such as hemangioma and malignant lesions such as metastases. Clinical correlation and biopsy are recommended. -CRP 31.80 -TTE- No valvular vegetation -CT abdomen and pelvis with 4 phase liver protocol shows evidence of evolving splenic infarction.The remainder of the splenic parenchyma is hypoa ttenuated with no evidence of perfusion. Mild inflammatory fat stranding has developed surrounding the spleen. No splenic hemorrhage. -HIV - nonreactive -Influenza Rapid and PCR - Negative -CT Pelvis: Prostate is normal in size with heterogeneous signal intensity and enhancement. There is no discrete mass. 3) Post trans-rectal biopsy UTI, prostatitis and proctitis. UA 59 wbc, trace LE, +nitrates, large blood. 11/07/2018 urine culture<10K bacteria. He received cipro PO x 3 days before biopsy. 4) Multiple Evolving Splenic infarcts +/- abscesses. CT abdomen progressive spleen infarcts. I am concerned that the spleen has developed superimposed abscesses from ESBL E coli in light of persistent bacteremia and fever.No indication for surgery for splenic infarction. Surgery following 5) Likely HAP: repeat CT chest showed pneumonia. Continue Vancomycin. 6) Severe Anemia: Blood transfusion today. Continue to monitor Recommendations: Continue Meropenem 2 gms q 8, D2 Continue vancomycin to cover HAP, D4 of D7 Continue to monitor fevers and WBC [facility] M: [id number] O:[phone] Subjective Date of service: 11/19/18 Principal diagnosis: fever Interval history: Patient seen and examined. Sitting up in the chair. Denies generalized pain. Fevers continuing. Nurses notes, labs and reports reviewed, discussed with patient and Mother. Objective - Exam Narrative Exam: Constitutional: Alert, cooperative. Mild distress observed Head, Ears, Nose: Normocephalic, atraumatic. External ears, nose normal Eyes: Conjunctivae/corneas clear. No icterus. No ptosis. Neck: Supple, no meningeal signs Cardiovascular: S1, S2 normal. Respiratory: Good air entry, clear to auscultation bilaterally, + tachypnea GI: Soft, non-tender; bowel sounds normal. No peritoneal signs Musculoskeletal: No pedal edema, no cyanosis. Skin: No rash or abscess Hem/Lymphatic: No palpable cervical or supraclavicular nodes. No lymphangitis Psych: Mood ok. Affect normal Neurological: Awake, alert, oriented. No gross abnormality - Constitutional Vitals: Vital Signs Temp Pulse Resp BP Pulse Ox 100.4 F H 109 H 22 118/74 96 11/19/18 05:21 11/19/18 05:21 11/19/18 05:21 11/19/18 05:21 11/19/18 09:23 Temperature -Last 24 Hours Temperature 100.4 F Temperature 102.2 F Temperature 10.6 F Temperature 101.2 F Temperature 101.4 F Temperature 101 F Temperature 101 F Temperature 100.9 F Temperature 100.1 F Temperature 100.8 F Temperature 102.8 F Temperature 101 F Temperature 101.9 F Temperature 102.9 F - Labs CBC & Chem 7: 11/19/18 08:02 11/19/18 08:02 Labs: Abnormal lab results 11/15/18 11/18/18 11/18/18 Range/Units 05:25 10:53 10:53 WBC 27.8 H (4.5-11.0) K/mm3 RBC 2.51 L (3.65-5.03) M/mm3 Hgb 6.9 L (11.8-15.2) gm/dl Hct 20.7 L (35.5-45.6) % MCV 82 L (84-94) fl RDW 20.1 H (13.2-15.2) % Plt Count 579 H (140-440) K/mm3 Seg Neuts % (Manual) (40.0-70.0) % Lymphocytes % (Manual) (13.4-35.0) % Monocytes % (Manual) (0.0-7.3) % Nucleated RBC % (0.0-0.9) % Seg Neutrophils # Man (1.8-7.7) K/mm3 Lymphocytes # (Manual) (1.2-5.4) K/mm3 Monocytes # (Manual) (0.0-0.8) K/mm3 BUN 8 L (9-20) mg/dL Creatinine 0.7 L (0.8-1.5) mg/dL Glucose 139 H (75-100) mg/dL Calcium 8.3 L (8.4-10.2) mg/dL Direct Bilirubin (0-0.2) mg/dL Crossmatch See Detail 11/18/18 11/19/18 11/19/18 Range/Units 12:22 00:37 08:02 WBC 26.5 H 26.2 H (4.5-11.0) K/mm3 RBC 2.66 L 2.76 L (3.65-5.03) M/mm3 Hgb 7.4 L 7.7 L (11.8-15.2) gm/dl Hct 22.3 L 23.2 L (35.5-45.6) % MCV (84-94) fl RDW 18.6 H 18.6 H (13.2-15.2) % Plt Count 576 H 593 H (140-440) K/mm3 Seg Neuts % (Manual) 83.0 H (40.0-70.0) % Lymphocytes % (Manual) 3.0 L (13.4-35.0) % Monocytes % (Manual) 13.0 H (0.0-7.3) % Nucleated RBC % 7.0 H (0.0-0.9) % Seg Neutrophils # Man 22.0 H (1.8-7.7) K/mm3 Lymphocytes # (Manual) 0.8 L (1.2-5.4) K/mm3 Monocytes # (Manual) 3.4 H (0.0-0.8) K/mm3 BUN (9-20) mg/dL Creatinine (0.8-1.5) mg/dL Glucose (75-100) mg/dL Calcium (8.4-10.2) mg/dL Direct Bilirubin (0-0.2) mg/dL Crossmatch See Detail 11/19/18 Range/Units 08:02 WBC (4.5-11.0) K/mm3 RBC (3.65-5.03) M/mm3 Hgb (11.8-15.2) gm/dl Hct (35.5-45.6) % MCV (84-94) fl RDW (13.2-15.2) % Plt Count (140-440) K/mm3 Seg Neuts % (Manual) (40.0-70.0) % Lymphocytes % (Manual) (13.4-35.0) % Monocytes % (Manual) (0.0-7.3) % Nucleated RBC % (0.0-0.9) % Seg Neutrophils # Man (1.8-7.7) K/mm3 Lymphocytes # (Manual) (1.2-5.4) K/mm3 Monocytes # (Manual) (0.0-0.8) K/mm3 BUN 6 L (9-20) mg/dL Creatinine 0.6 L (0.8-1.5) mg/dL Glucose 117 H (75-100) mg/dL Calcium 8.0 L (8.4-10.2) mg/dL Direct Bilirubin 0.3 H (0-0.2) mg/dL Crossmatch
[2018-11-19] MEDS: SENOKOT PO SCH ×2 (12:49→21:53)
[2018-11-19] MEDS: COLACE PO SCH ×2 (12:49→21:54)
--- NOTE | 2018-11-19 13:08 | Progress Note ---
Assessment and Plan 62 yo M with 1. sepsis 2. GNR bacteremia 3. UTI 4. s/p transrectal prostate biopsy on 11/05/18 5. splenomegaly 6. sickle cell disease 7. PNA Ct scan a/p Liver protocol performed today was reviewed with Dr. Bowser and Dr. Day. 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 There is no definitive abscess. Probable LLL PNA. Splenic infarction can lead to fever, LUQ pain, and leukocytosis and is not necessarily related to E coli bacteremia. Bacteremia is presumed to be a result of prostate biopsy induced prostatitis. Plan: 1. continue with abx per ID. Last set of blood cultures negative 2. doubt acute rectal perforation. No evidence for perforation or abscess on physical exam or imaging. Firm area on rectal exam likely the site of prostate biopsy. MRI pelvis negative 3. bowel regimen 4. reg diet 5. WBC count has peaked and is trending down, platelets are trending up. Still with fever. This is most likely due splenic infarction. No indication for surgery for splenic infarction. Will continue to monitor. Will discuss with radiology regarding best time and form of reimaging. 6. prn pain control I spoke with general surgeon otm consultant at [facility] last night at the request of the hospitalist. Per general surgeon there is no indication for splenectomy at this time and the course of treatment would remain the same even if the patient was transferred to [facility]. I explained the plan once again to the patient and his mother as well as the conversation I had with [facility] general surgeon. I also spoke with Dr. Rocky kolb on speaker phone at the request of the patient and updated him on the plan. He is agreeable. The patient understands and all questions answered. They are still frustrated with being in the hospital for so long. He wants to go home. I explained that he is not stable to be discharged with persistent fevers. Subjective Date of service: 11/19/18 Narrative: Pt seen and examined. Frustrated that "nothing is being done." States he wants to go home. Febrile overnight. Objective Vital Signs - 12hr 11/19/18 11/19/18 05:21 09:23 Temperature 100.4 F H Pulse Rate 109 H Respiratory 22 Rate Blood Pressure 118/74 O2 Sat by Pulse 96 96 Oximetry - General physical appearance Narrative Exam: Gen: AAOx3. NAD - Labs 11/19/18 08:02 11/19/18 08:02 Diabetes panel 11/19/18 Range/Units 08:02 Sodium 138 (137-145) mmol/L Potassium 4.6 (3.6-5.0) mmol/L Chloride 102.2 (98-107) mmol/L Carbon Dioxide 23 (22-30) mmol/L BUN 6 L (9-20) mg/dL Creatinine 0.6 L (0.8-1.5) mg/dL Glucose 117 H (75-100) mg/dL Calcium 8.0 L (8.4-10.2) mg/dL Calcium panel 11/19/18 Range/Units 08:02 Calcium 8.0 L (8.4-10.2) mg/dL Pituitary panel 11/19/18 Range/Units 08:02 Sodium 138 (137-145) mmol/L Potassium 4.6 (3.6-5.0) mmol/L Chloride 102.2 (98-107) mmol/L Carbon Dioxide 23 (22-30) mmol/L BUN 6 L (9-20) mg/dL Creatinine 0.6 L (0.8-1.5) mg/dL Glucose 117 H (75-100) mg/dL Calcium 8.0 L (8.4-10.2) mg/dL Adrenal panel 11/19/18 Range/Units 08:02 Sodium 138 (137-145) mmol/L Potassium 4.6 (3.6-5.0) mmol/L Chloride 102.2 (98-107) mmol/L Carbon Dioxide 23 (22-30) mmol/L BUN 6 L (9-20) mg/dL Creatinine 0.6 L (0.8-1.5) mg/dL Glucose 117 H (75-100) mg/dL Calcium 8.0 L (8.4-10.2) mg/dL Total Bilirubin 0.80 (0.1-1.2) mg/dL
--- NOTE | 2018-11-19 17:04 | Progress Note ---
Assessment and Plan /Severe Sepsis, - Secondary to ESBL bacteremia: ID is following, continue abx. 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, no plan for any surgical intervention now /ESBL E coli bactermia is presumed to be a result of prostate biopsy induced prostatitis: continue abx per ID recommendations, /Acute Cystitis s/p recent prostate biopsy: Urology did evaluate and deemed no surgery needed at the time, recommended continuing ABX /Acute renal failure Secondary to vasomotor nephropathy: continue to monitor bmp, improved /Sickle cell crisis: cont pain control and adequate hydration. monitor h/h, transfused total two units of PRBC /Acute Respiratory Failure with Hypoxia-Improving: continue daily weaning O2 trails /Thrombocytosis: continue to monitor cbc and treat bacteremia /DVT ppx: off sq heparin due to anemia Brief History Patient is a 62-year-old man with a history of Sickle cell disease, AVN of bilateral hips, AVN shoulder and elevated PSA (2->5) s/p transrectal-prostate biopsy on 11/05/[address] Hidalgo who presented to [facility] ED with fevers. Patient was treated with sepsis protocol including, IV fluids and antibiotics. His labs revealed elevated white count, acute renal insufficiency, lactic acidosis and UTI. He was seen by Urologist, Dr. Hui on 11/12/18. Patient had continued to have persistent bacteremia of E. coli despite Abx given for 7 days. Then he developed splenic infract. Surgery following - plan to cont abx. Family requesting transfer to [place] - referral made, per family request- pending on insurance approval. * Chest xray: Cardiomegaly * CT A/P: IMPRESSION: Mild cardiomegaly, stable. Small pleural effusions have developed. Partial atelectasis has developed in the left lower lobe. Infiltrate is thought less likely. Moderate splenomegaly. There are multiple foci of enhancement in the spleen following IV contrast. The etiology of these are unclear. Please see above. Nonspecific fat stranding surrounding the prostate gland, seminal vesicles and rectum has resolved. * 11/12/18 U/S renal bilateral IMPRESSION: Unremarkable study. * 11/12/18 U/S abdomen IMPRESSION: Multiple nonspecific lesions identified in the spleen which appear predominantly solid and mixed echoic. Differential diagnosis includes benign lesions such as hemangioma and malignant lesions such as metastases. Clinical correlation and biopsy are recommended. Etiologie s such as abscess, and infarction are unlikely and etiologies such as lymphangioma and lymphoma are felt to be less likely. * 11/14/18 CT chest wo constrast IMPRESSION: Left lower lobe consolidation c onsistent with pneumonia. Trace bilateral pleural effusions. Mild cardiomegaly. * 11/14/18 CT abd/pelvis with and withou contrast IMPRESSION: Evolving infarction of the spleen is suspected. Hospitalist Physical Gen: WDWN, NAD, Awake, Alert, Orientated HEENT: NCAT, EOMI, PERRL, OP Clear Neck: supple, no adenopathy, no thyromegaly, no JVD CVS/Heart: Regular tachycardia, normal S1S2, pulses present bilaterally Chest/Lungs: CTA B, Symmetrical chest expansion, good air entry bilaterally GI/Abdomen: soft, NTND, good bowel sounds, no guarding or rebound /Bladder: no suprapubic tenderness, no CVA or paraspinal tenderness Extermity/Skin: no c/c/e, no obvious rash MSK: FROM x 4 Neuro: CN 2-12 grossly intact, no new focal deficits Psych: calm Subjective Date of service: 11/19/18 Principal diagnosis: fever Interval history: Patient seen and examined Discussed with Mother and patient at bedside cont to spike fever Referral has made to patient's insurance for possible transfer to [place] per patient request - which is pending Objective - Constitutional Vitals: Vital Signs - 12hr 11/19/18 11/19/18 11/19/18 05:21 09:23 13:15 Temperature 100.4 F H 103.1 F H Pulse Rate 109 H 118 H Respiratory 22 24 Rate Blood Pressure 118/74 140/79 O2 Sat by Pulse 96 96 95 Oximetry - Labs CBC & Chem 7: 11/20/18 09:00 11/20/18 09:00 Labs: Abnormal lab results 11/15/18 11/18/18 11/19/18 Range/Units 05:25 12:22 00:37 WBC 26.5 H (4.5-11.0) K/mm3 RBC 2.66 L (3.65-5.03) M/mm3 Hgb 7.4 L (11.8-15.2) gm/dl Hct 22.3 L (35.5-45.6) % RDW 18.6 H (13.2-15.2) % Plt Count 576 H (140-440) K/mm3 Seg Neuts % (Manual) 83.0 H (40.0-70.0) % Lymphocytes % (Manual) 3.0 L (13.4-35.0) % Monocytes % (Manual) 13.0 H (0.0-7.3) % Nucleated RBC % 7.0 H (0.0-0.9) % Seg Neutrophils # Man 22.0 H (1.8-7.7) K/mm3 Lymphocytes # (Manual) 0.8 L (1.2-5.4) K/mm3 Monocytes # (Manual) 3.4 H (0.0-0.8) K/mm3 BUN (9-20) mg/dL Creatinine (0.8-1.5) mg/dL Glucose (75-100) mg/dL Calcium (8.4-10.2) mg/dL Direct Bilirubin (0-0.2) mg/dL Crossmatch See Detail See Detail 11/19/18 11/19/18 Range/Units 08:02 08:02 WBC 26.2 H (4.5-11.0) K/mm3 RBC 2.76 L (3.65-5.03) M/mm3 Hgb 7.7 L (11.8-15.2) gm/dl Hct 23.2 L (35.5-45.6) % RDW 18.6 H (13.2-15.2) % Plt Count 593 H (140-440) K/mm3 Seg Neuts % (Manual) (40.0-70.0) % Lymphocytes % (Manual) (13.4-35.0) % Monocytes % (Manual) (0.0-7.3) % Nucleated RBC % (0.0-0.9) % Seg Neutrophils # Man (1.8-7.7) K/mm3 Lymphocytes # (Manual) (1.2-5.4) K/mm3 Monocytes # (Manual) (0.0-0.8) K/mm3 BUN 6 L (9-20) mg/dL Creatinine 0.6 L (0.8-1.5) mg/dL Glucose 117 H (75-100) mg/dL Calcium 8.0 L (8.4-10.2) mg/dL Direct Bilirubin 0.3 H (0-0.2) mg/dL Crossmatch
[2018-11-19] MEDS: SODIUM CHLORIDE FLUSH SYRINGE 10 ML IV SCH (21:55)
[2018-11-20] MEDS ORDERED: NAPROSYN PO ONE (00:08)
[2018-11-20] MEDS ORDERED: NACL 0.9% 1000 ML 1,000 ML IV SCH (01:00)
[2018-11-20] MEDS: NACL 0.9% IV SCH ×3 (05:15→21:35)
[2018-11-20] MEDS: MERREM IV SCH ×3 (05:15→21:35)
[2018-11-20] MEDS: VANCOMYCIN 1,750 MG in NACL 0.9% 500 ML 500 ML IV SCH (06:01)
--- NOTE | 2018-11-20 07:16 | Hem/Onc Progress Note ---
Assessment and Plan fever prostate bx h/o sickle - admission hb 11, MCV normal. splenomegaly d/w dr rubio - ? spleen infarct - ? trial of NSAID 1. History of elevated PSA, status post prostate biopsy. 2. History of fevers. Based on temporal events, this has to be related to the prostate issues. ID team is on case. 3. History of anemia. At admission; hemoglobin was 11.1, MCV was normal. 4. History of sickle cell disease. Radiology mentions splenomegaly of 15.7 cm. The patient would need outpatient evaluation for the question of sickle cell. At this time, hematology issues may be secondary to the infection/medication. 5. Splenomegaly, likely secondary to infection issues. I had discussed with ID team. The patient has E. coli in the blood culture. I spoke to Dr. Marcano about the patient. 11/15 sickle cell test - smear - no sickle cells seen fever could be sec to pneumonia or splenic infarct PRBC - low iron - IV iron trial 11/17 - sickle testing + - will do hb electrophoresis fever - d/w Dr harley ID - reg abx vs NSAID trial for spleen infarct. d/w pt and mother reg these issues PRBC was given for anemia 11/18/2018 MRI pelvis Abx fever Hb electrophoresis s/p iv iron and PRBC for anemia h/o splenimegaly - infarct vs ?abscess 11/20 hb electrophoresis pending fever - ID team IX pt on SAID motril 800 TID since 11/16 - Patient Problems (1) Fever Current Visit: Yes Status: Acute Qualifiers: Fever type: unspecified Qualified Code(s): R50.9 - Fever, unspecified Subjective Date of service: 11/20/18 Principal diagnosis: anemia - fever Interval history: fever + Objective - Constitutional Vitals: Last Vital Signs Temp 99.4 F 11/20/18 06:02 Pulse 101 H 11/20/18 06:02 Resp 16 11/20/18 06:02 BP 95/56 11/20/18 06:02 Pulse Ox 96 11/20/18 06:02 Pain Intensity (0-10): denies any pain General appearance: no acute distress Performance status: 3-limited selfcare - EENT Eyes: EOM intact ENT: clear oral mucosa Lymph node exam: bilateral cervical - Neck Neck: normal ROM - Respiratory Respiratory effort: Positive: normal Respiratory: bilateral: CTA - Cardiovascular Heart Sounds: Present: S1 & S2 Extremity abnormal: edema - Gastrointestinal General gastrointestinal: Present: soft, non-tender Rectal Exam: deferred - Genitourinary Male genitourinary: Present: deferred - Integumentary Integumentary: warm - Musculoskeletal Musculoskeletal: strength equal bilaterally - Neurologic Neurologic: moves all extremities - Labs Lab Results: Laboratory Results - last 24 hr 11/19/18 11/19/18 11/20/18 08:02 08:02 04:00 WBC 26.2 H RBC 2.76 L Hgb 7.7 L Hct 23.2 L MCV 84 MCH 28 MCHC 33 RDW 18.6 H Plt Count 593 H Sodium 138 Potassium 4.6 Chloride 102.2 Carbon Dioxide 23 Anion Gap 17 BUN 6 L Creatinine 0.6 L Estimated GFR > 60 BUN/Creatinine Ratio 10 Glucose 117 H Calcium 8.0 L Total Bilirubin 0.80 Direct Bilirubin 0.3 H Indirect Bilirubin 0.5 Vancomycin Trough 9.5 Medications & Allergies - Medications Allergies/Adverse Reactions: Allergies No Known Allergies Allergy (Unverified 04/17/16 18:17) Home Medications: Home Medications Medication Instructions Recorded Confirmed Last Taken Type Aspir-Low 81 mg PO DAILY 11/08/18 11/15/18 1 Week Ago History ~11/01/18 Folic Acid [Folvite] 1 mg PO QDAY 11/08/18 11/08/18 1 Week Ago History ~11/01/18 Multivitamin 1 tab PO DAILY 11/08/18 11/08/18 11/01/18 History Active Medications: Generic Name Dose Route Start Last Admin Trade Name Abramq PRN Reason Stop Dose Admin Acetaminophen 650 mg 11/07/18 01:19 11/19/18 21:53 Tylenol PO 650 mg Q4H PRN Administration Pain MILD(1-3)/Fever >100.5/RAY Albuterol 2.5 mg 11/10/18 04:01 11/12/18 05:23 Proventil IH 2.5 mg Q6HRT PRN Administration Shortness Of Breath Albuterol/Ipratropium 1 ampul 11/14/18 08:00 11/19/18 22:25 Duoneb *Not For Prn Use* IH 1 ampul TIDRT LENORE Administration Docusate Sodium 100 mg 11/12/18 15:00 11/19/18 21:54 Colace PO 100 mg BID LENORE Administration Vancomycin HCl 1,750 mg/ 535 mls @ 333.333 mls/hr 11/17/18 18:00 11/20/18 06:01 Sodium Chloride IV 333.333 mls/hr Q12H LENORE Administration Meropenem 2,000 mg/ Sodium 100 mls @ 100 mls/hr 11/17/18 16:00 11/20/18 05:15 Chloride IV 100 mls/hr Q8HR LENORE Administration Protocol Sodium Chloride 1,000 mls @ 100 mls/hr 11/20/18 01:00 Nacl 0.9% 1000 Ml IV DIRECT LENORE Ibuprofen 800 mg 11/16/18 13:44 11/17/18 08:31 Motrin PO 800 mg Q8H PRN Administration Non Cardiac Pain or Temp>100.5 Morphine Sulfate 2 mg 11/07/18 01:19 Morphine IV Q4H PRN Pain, Moderate (4-6) Ondansetron HCl 4 mg 11/07/18 01:19 11/07/18 18:08 Zofran IV 4 mg Q4H PRN Administration Nausea And Vomiting Senna 17.2 mg 11/12/18 22:00 11/19/18 21:53 Senokot PO 17.2 mg Q12H LENORE Administration Sodium Chloride 10 ml 11/07/18 10:00 11/19/18 21:55 Sodium Chloride Flush Syringe 10 Ml IV 10 ml BID LENORE Administration Sodium Chloride 10 ml 11/07/18 01:19 Sodium Chloride Flush Syringe 10 Ml IV PRN PRN LINE FLUSH
[2018-11-20] MEDS: DUONEB *Not for PRN Use IH SCH ×3 (08:03→20:44)
[2018-11-20] MEDS ORDERED: NACL 0.45% 1000 ML 1,000 ML IV SCH (09:00)
[2018-11-20 10:22] LABS: Hematocrit 22.5 % (35.5-45.6); Hemoglobin 7.5 gm/dl (11.8-15.2); Mean Corpuscular HGB Conc 33 % (32-34); Mean Corpuscular Volume 83 fl (84-94); Platelet Count 674 K/mm3 (140-440); Red Blood Count 2.72 M/mm3 (3.65-5.03); Red Cell Distribution Width 18.2 % (13.2-15.2)
[2018-11-20 10:34] LABS: BUN/Creatinine Ratio 13; Blood Urea Nitrogen 8 mg/dL (9-20); Calcium 8.1 mg/dL (8.4-10.2); Hemolysis Index 4
--- NOTE | 2018-11-20 10:35 | Progress Note ---
Assessment and Plan Cultures: 11/06/2018 Blood culture : ESBL E. Coli, 11/07/2018 urine culture: <10K bacteria 11/08/2018 Blood culture: ESBL E. coli 4 out of 4 bottles 11/10/2018 Blood culture: ESBL E. coli 2 out of 4 bottles 11/12/2018 Blood Cultures: ESBL E. coli 1 out of 4 bottles 11/14/2018 Blood Cultures: no growth 11/15/2018 MRSA PCR: negative 11/17/2018 Stool: negative Assessment: 62 y/o male with a history of sickle cell disease; admitted on 11/06/18 due to 24 hour-history of fever, chills and generalized malaise. Patient underwent transrectal-prostate biopsy on 11/05/[address] Hidalgo. Patient denies N/V/D, cough, SOB, abdominal pain, urinary symptoms. 1) Severe Sepsis: Fevers and leukocytosis continuing.. Etiology most likely persistent ESBL E. coli, +progressive spleenic infarcts, superimposed abscesses. Repeat BC fro 11/14/18 show no growth. When discharged will treat with erthapenem 1 gm IV every 24 hours for 21 days ending 12-05-18. 2) Persistent ESBL bacteremia: source likely post trans-rectal biopsy UTI, prostatitis and proctitis. Repeat BC's show no growth to date. Discontinue Vabomere. Restart Meropenem. - UA 59 wbc, trace LE, +nitrates, large blood. - Blood culture 10/17/2018 no growth today. - CT abd showed rectal prostate and seminal vesicles stranding - CT with contrast showed that the The prostate gland remains mildly enlarged measuring 6 cm in diameter.Nonspecific fat stranding surrounding the prostate gland, seminal vesicles and rectum has resolved. -Spleen CT/US - showed lesions, ?sickle cell or emboli -Chest xray: The lungs are grossly clear. No consolidation -Renal U/S: right kidney: Normal echotexture. Left Kidney: well-defined simple cyst measuring 2.1 x 1.9 cm is noted in the lower portion. Otherwise renal parenchymal echotexture is within normal limits without calculi or hydronephrosus -Abdominal U/S: Multiple nonspecific lesions identified in the spleen which appear predominantly solid and mixed echoic. DDX includes benign lesions such as hemangioma and malignant lesions such as metastases. Clinical correlation and biopsy are recommended. -CRP 31.80 -TTE- No valvular vegetation -CT abdomen and pelvis with 4 phase liver protocol shows evidence of evolving splenic infarction.The remainder of the splenic parenchyma is hypoattenuated with no evidence of perfusion. Mild inflammatory fat stranding has developed surrounding the spleen. No splenic hemorrhage. -HIV - nonreactive -Influenza Rapid and PCR - Negative -CT Pelvis: Prostate is normal in size with heterogeneous signal intensity and enhancement. There is no discrete mass. 3) Post trans-rectal biopsy UTI, prostatitis and proctitis. UA 59 wbc, trace LE, +nitrates, large blood. 11/07/2018 urine culture<10K bacteria. He received cipro PO x 3 days before biopsy. 4) Multiple Evolving Splenic infarcts +/- abscesses. CT abdomen progressive spleen infarcts. I am concerned that the spleen has developed superimposed abscesses from ESBL E coli in light of persistent bacteremia and fever.No indication for surgery for splenic infarction. Surgery following 5) Likely HAP: repeat CT chest showed pneumonia. Continue Vancomycin. 6) Severe Anemia: Blood transfusion today. Continue to monitor Recommendations: Continue Meropenem 2 gms q 8, D3 Continue vancomycin to cover HAP, D6 of D7 Continue to monitor fevers and WBC [facility] [employer] M: [phone] O:[phone] Subjective Date of service: 11/20/18 Principal diagnosis: fever Interval history: Patient seen and examined. Sitting up in the chair. Denies generalized pain. Fe vers continuing. Nurses notes, labs and reports reviewed, discussed with patient. Objective - Exam Narrative Exam: Constitutional: Alert, cooperative. No acute distress Head, Ears, Nose: Normocephalic, atraumatic. External ears, nose normal Eyes: Conjunctivae/corneas clear. No icterus. No ptosis. Neck: Supple, no meningeal signs Cardiovascular: S1, S2 normal. Respiratory: Good air entry, clear to auscultation bilaterally, + tachypnea GI: Soft, non-tender; bowel sounds normal. No peritoneal signs Musculoskeletal: No pedal edema, no cyanosis. Skin: No rash or abscess Hem/Lymphatic: No palpable cervical or supraclavicular nodes. No lymphangitis Psych: Mood ok. Affect normal Neurological: Awake, alert, oriented. No gross abnormality - Constitutional Vitals: Vital Signs Temp Pulse Resp BP Pulse Ox 99.4 F 100 H 19 95/56 94 11/20/18 06:02 11/20/18 08:13 11/20/18 08:13 11/20/18 06:02 11/20/18 08:06 Temperature -Last 24 Hours Temperature 99.4 F Temperature 98.1 F Temperature 102.9 F Temperature 102.0 F Temperature 103.1 F - Labs CBC & Chem 7: 11/20/18 09:00 11/20/18 09:00 Labs: Abnormal lab results 11/20/18 Range/Units 09:00 BUN 8 L (9-20) mg/dL Creatinine 0.6 L (0.8-1.5) mg/dL Glucose 107 H (75-100) mg/dL Calcium 8.1 L (8.4-10.2) mg/dL
[2018-11-20] MEDS: COLACE PO SCH ×2 (12:26→21:00)
[2018-11-20] MEDS: SENOKOT PO SCH ×2 (12:26→21:01)
[2018-11-20 12:31] LABS: ANA Screen, IFA Negative (Negative)
[2018-11-20] MEDS: SODIUM CHLORIDE FLUSH SYRINGE 10 ML IV SCH ×3 (13:07→21:35)
[2018-11-20] MEDS: VANCOMYCIN 1,500 MG in NACL 0.9% 500 ML 500 ML IV SCH (15:58)
--- NOTE | 2018-11-20 16:23 | Progress Note ---
Assessment and Plan 62 yo M with 1. sepsis 2. GNR bacteremia 3. UTI 4. s/p transrectal prostate biopsy on 11/05/18 5. splenomegaly 6. sickle cell disease 7. PNA Ct scan a/p Liver protocol performed today was reviewed with Dr. Bowser and Dr. Day. 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 There is no definitive abscess. Probable LLL PNA. Splenic infarction can lead to fever, LUQ pain, and leukocytosis and is not necessarily related to E coli bacteremia. Bacteremia is presumed to be a result of prostate biopsy induced prostatitis. Plan: 1. continue with abx per ID. Last set of blood cultures negative 2. doubt acute rectal perforation. No evidence for perforation or abscess on physical exam or imaging. Firm area on rectal exam likely the site of prostate biopsy. MRI pelvis negative 3. bowel regimen 4. reg diet 5. WBC count has peaked and is trending down, platelets are trending up. A febrile today. Patient with splenic infarction. No indication for surgery for splenic infarction. Will continue to monitor. Will discuss with radiology regarding best time and form of reimaging. 6. prn pain control General surgery at [place] agree with current treatment plan Patient asked me to call Dr. Quiroga at [facility]. I called and left a message. Thank you, please call with questions. Subjective Date of service: 11/20/18 Narrative: Pt seen and examined. Feels better today. No f/c today. No n/v. Objective Vital Signs - 12hr 11/20/18 11/20/18 11/20/18 06:02 08:03 08:06 Temperature 99.4 F Pulse Rate 101 H Pulse Rate [ 99 H Throughout] Respiratory 16 Rate Respiratory 18 Rate [ Throughout] Blood Pressure 95/56 O2 Sat by Pulse 96 94 Oximetry 11/20/18 11/20/18 11/20/18 08:13 12:06 14:05 Temperature 98.6 F Pulse Rate 96 H Pulse Rate [ 100 H 101 H Throughout] Respiratory 20 Rate Respiratory 19 19 Rate [ Throughout] Blood Pressure 110/70 O2 Sat by Pulse 96 Oximetry 11/20/18 14:15 Temperature Pulse Rate Pulse Rate [ 101 H Throughout] Respiratory Rate Respiratory 19 Rate [ Throughout] Blood Pressure O2 Sat by Pulse Oximetry - General physical appearance Narrative Exam: Gen: AAOx3. NAD CV: S1, S2+ resp; even and unlabored Abd: soft, distended, LUQ TTP. no r/r/g Ext: no c/c/e - Labs 11/20/18 09:00 11/20/18 09:00 Diabetes panel 11/20/18 Range/Units 09:00 Sodium 138 (137-145) mmol/L Potassium 4.7 (3.6-5.0) mmol/L Chloride 101.3 (98-107) mmol/L Carbon Dioxide 26 (22-30) mmol/L BUN 8 L (9-20) mg/dL Creatinine 0.6 L (0.8-1.5) mg/dL Glucose 107 H (75-100) mg/dL Calcium 8.1 L (8.4-10.2) mg/dL Calcium panel 11/20/18 Range/Units 09:00 Calcium 8.1 L (8.4-10.2) mg/dL Pituitary panel 11/20/18 Range/Units 09:00 Sodium 138 (137-145) mmol/L Potassium 4.7 (3.6-5.0) mmol/L Chloride 101.3 (98-107) mmol/L Carbon Dioxide 26 (22-30) mmol/L BUN 8 L (9-20) mg/dL Creatinine 0.6 L (0.8-1.5) mg/dL Glucose 107 H (75-100) mg/dL Calcium 8.1 L (8.4-10.2) mg/dL Adrenal panel 11/20/18 Range/Units 09:00 Sodium 138 (137-145) mmol/L Potassium 4.7 (3.6-5.0) mmol/L Chloride 101.3 (98-107) mmol/L Carbon Dioxide 26 (22-30) mmol/L BUN 8 L (9-20) mg/dL Creatinine 0.6 L (0.8-1.5) mg/dL Glucose 107 H (75-100) mg/dL Calcium 8.1 L (8.4-10.2) mg/dL
--- NOTE | 2018-11-20 23:37 | Progress Note ---
Assessment and Plan /Severe Sepsis, - Secondary to ESBL bacteremia: ID is following, continue abx. - afebrile today. If he remains afebrile for around 48 hours, plan to d/c home with IV abx (already arranged for previously). 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, no plan for any surgical intervention now /ESBL E coli bactermia is presumed to be a result of prostate biopsy induced prostatitis: continue abx per ID recommendations, /Acute Cystitis s/p recent prostate biopsy: Urology did evaluate and deemed no surgery needed at the time, recommended continuing ABX /Acute renal failure Secondary to vasomotor nephropathy: continue to monitor bmp, improved /Sickle cell crisis: cont pain control and adequate hydration. monitor h/h, transfused total two units of PRBC /Acute Respiratory Failure with Hypoxia-Improving: continue daily weaning O2 trails /Thrombocytosis: continue to monitor cbc and treat bacteremia /DVT ppx: off sq heparin due to anemia Brief History Patient is a 62-year-old man with a history of Sickle cell disease, AVN of bilateral hips, AVN shoulder and elevated PSA (2->5) s/p transrectal-prostate biopsy on 11/05/[address] Hidalgo who presented to [facility] ED with fevers. Patient was treated with sepsis protocol including, IV fluids and antibiotics. His labs revealed elevated white count, acute renal insufficiency, lactic acidosis and UTI. He was seen by Urologist, Dr. Hui on 11/12/18. Patient had continued to have persistent bacteremia of E. coli despite Abx given for 7 days. Then he developed splenic infract. Surgery following - plan to cont abx. Family requesting transfer to [place] - referral made, per family request- pending on insurance approval. He last spiked fever afebrile yesterday. Per ID If he remains afebrile for around 48 hours, plan to d/c home with IV abx (already arranged for previously). * Chest xray: Cardiomegaly * CT A/P: IMPRESSION: Mild cardiomegaly, stable. Small pleural effusions have developed. Partial atelectasis has developed in the left lower lobe. Infiltrate is thought less likely. Moderate splenomegaly. There are multiple foci of enhancement in the spleen following IV contrast. The etiology of these are unclear. Please see above. Nonspecific fat stranding surrounding the prostate gland, seminal vesicles and rectum has resolved. * 11/12/18 U/S renal bilateral IMPRESSION: Unremarkable study. * 11/12/18 U/S abdomen IMPRESSION: Multiple nonspecific lesions identified in the spleen which appear predominantly solid and mixed echoic. Differential diagnosis includes benign lesions such as hemangioma and malignant lesions such as metastases. Clinical correlation and biopsy are recommended. Etiologies such as abscess, and infarction are unlikely and etiologies such as lymphangioma and lymphoma are felt to be less likely. * 11/14/18 CT chest wo constrast IMPRESSION: Left lower lobe consolidation consistent with pneumonia. Trace bilateral pleural effusions. Mild cardiomegaly. * 11/14/18 CT abd/pelvis with and withou contrast IMPRESSION: Evolving infarction of the spleen is suspected. Hospitalist Physical Gen: WDWN, NAD, Awake, Alert, Orientated HEENT: NCAT, EOMI, PERRL, OP Clear Neck: supple, no adenopathy, no thyromegaly, no JVD CVS/Heart: Regular tachycardia, normal S1S2, pulses present bilaterally Chest/Lungs: CTA B, Symmetrical chest expansion, good air entry bilaterally GI/Abdomen: soft, NTND, good bowel sounds, no guarding or rebound /Bladder: no suprapubic tenderness, no CVA or paraspinal tenderness Extermity/Skin: no c/c/e, no obvious rash MSK: FROM x 4 Neuro: CN 2-12 grossly intact, no new focal deficits Psych: calm Subjective Date of service: 11/20/18 Principal diagnosis: fever Interval history: Patient seen and examined Discussed with Mother and patient at bedside Afebrile since yesterday Referral has made to patient's insurance for possible transfer to [place] per patient request - which is pending. Per [place] most likely transfer not possible as higher level of care not needed Objective - Constitutional Vitals: Vital Signs - 12hr 11/20/18 11/20/18 11/20/18 12:06 14:05 14:15 Temperature 98.6 F Pulse Rate 96 H Pulse Rate [ Anterior Bilateral Throughout] Pulse Rate [ 101 H 101 H Throughout] Respiratory 20 Rate Respiratory Rate [Anterior Bilateral Throughout] Respiratory 19 19 Rate [ Throughout] Blood Pressure 110/70 O2 Sat by Pulse 96 Oximetry 11/20/18 11/20/18 11/20/18 16:37 20:44 20:45 Temperature 99.0 F Pulse Rate 102 H Pulse Rate [ 117 H 114 H Anterior Bilateral Throughout] Pulse Rate [ Throughout] Respiratory 22 Rate Respiratory 20 20 Rate [Anterior Bilateral Throughout] Respiratory Rate [ Throughout] Blood Pressure 107/71 O2 Sat by Pulse 91 90 Oximetry 11/20/18 22:44 Temperature Pulse Rate Pulse Rate [ Anterior Bilateral Throughout] Pulse Rate [ Throughout] Respiratory Rate Respiratory Rate [Anterior Bilateral Throughout] Respiratory Rate [ Throughout] Blood Pressure O2 Sat by Pulse 95 Oximetry - Labs CBC & Chem 7: 11/20/18 09:00 11/20/18 09:00 Labs: Abnormal lab results 11/20/18 11/20/18 Range/Units 09:00 09:00 WBC 23.9 H (4.5-11.0) K/mm3 RBC 2.72 L (3.65-5.03) M/mm3 Hgb 7.5 L (11.8-15.2) gm/dl Hct 22.5 L (35.5-45.6) % MCV 83 L (84-94) fl RDW 18.2 H (13.2-15.2) % Plt Count 674 H (140-440) K/mm3 BUN 8 L (9-20) mg/dL Creatinine 0.6 L (0.8-1.5) mg/dL Glucose 107 H (75-100) mg/dL Calcium 8.1 L (8.4-10.2) mg/dL
[2018-11-21] MEDS: VANCOMYCIN 1,500 MG in NACL 0.9% 500 ML 500 ML IV SCH ×3 (00:35→16:06)
[2018-11-21 01:31] LABS: Hematocrit 22.3 % (35.5-45.6); Hemoglobin 7.6 gm/dl (11.8-15.2); Mean Corpuscular HGB Conc 34 % (32-34); Mean Corpuscular Volume 83 fl (84-94); Platelet Count 720 K/mm3 (140-440); Red Blood Count 2.69 M/mm3 (3.65-5.03); Red Cell Distribution Width 18.9 % (13.2-15.2)
[2018-11-21 02:41] LABS: Basophils % (Manual) 0 % (0.0-1.8); Eosinophils % (Manual) 0 % (0.0-4.3); Total Cells Counted 100
[2018-11-21 02:42] LABS: Anisocytosis 1+; Large Platelets 1+; Platelet Estimate Appears Increased; Target Cells 2+
[2018-11-21] MEDS: NACL 0.9% IV SCH ×3 (05:07→22:06)
[2018-11-21] MEDS: MERREM IV SCH ×3 (05:07→22:06)
[2018-11-21] MEDS: TYLENOL PO PRN ×2 (06:05→14:32)
[2018-11-21] MEDS: DUONEB *Not for PRN Use IH SCH ×3 (08:10→22:17)
[2018-11-21] MEDS: SENOKOT PO SCH ×2 (09:12→22:06)
--- NOTE | 2018-11-21 11:25 | Progress Note ---
Assessment and Plan Cultures: 11/06/2018 Blood culture : ESBL E. Coli, 11/07/2018 urine culture: <10K bacteria 11/08/2018 Blood culture: ESBL E. coli 4 out of 4 bottles 11/10/2018 Blood culture: ESBL E. coli 2 out of 4 bottles 11/12/2018 Blood Cultures: ESBL E. coli 1 out of 4 bottles 11/14/2018 Blood Cultures: no growth 11/15/2018 MRSA PCR: negative 11/17/2018 Stool: negative Assessment: 62 y/o male with a history of sickle cell disease; admitted on 11/06/18 due to 24 hour-history of fever, chills and generalized malaise. Patient underwent transrectal-prostate biopsy on 11/05/[address] Hidalgo. Patient denies N/V/D, cough, SOB, abdominal pain, urinary symptoms. 1) Severe Sepsis: Noted Fever spike 101.1, leukocytosis trending down. Etiology most likely persistent ESBL E. coli, +progressive spleenic infarcts, superimposed abscesses. Repeat BC fro 11/14/18 show no growth. When discharged will treat with erthapenem 1 gm IV every 24 hours for 21 days ending 12-05-18. 2) Persistent ESBL bacteremia: source likely post trans-rectal biopsy UTI, prostatitis and proctitis. Repeat BC's show no growth to date. Discontinue Vabomere. Restart Meropenem. - UA 59 wbc, trace LE, +nitrates, large blood. - Blood culture 10/17/2018 no growth today. - CT abd showed rectal prostate and seminal vesicles stranding - CT with contrast showed that the The prostate gland remains mildly enlarged measuring 6 cm in diameter.Nonspecific fat stranding surrounding the prostate gland, seminal vesicles and rectum has resolved. -Spleen CT/US - showed lesions, ?sickle cell or emboli -Chest xray: The lungs are grossly clear. No consolidation -Renal U/S: right kidney: Normal echotexture. Left Kidney: well-defined simple cyst measuring 2.1 x 1.9 cm is noted in the lower portion. Otherwise renal parenchymal echotexture is within normal limits without calculi or hy dronephrosus -Abdominal U/S: Multiple nonspecific lesions identified in the spleen which appear predominantly solid and mixed echoic. DDX includes benign lesions such as hemangioma and malignant lesions such as metastases. Clinical correlation and biopsy are recommended. -CRP 31.80 -TTE- No valvular vegetation -CT abdomen and pelvis with 4 phase liver protocol shows evidence of evolving splenic infarction.The remainder of the splenic parenchyma is hypoattenuated with no evidence of perfusion. Mild inflammatory fat stranding has developed surrounding the spleen. No splenic hemorrhage. -HIV - nonreactive -Influenza Rapid and PCR - Negative -CT Pelvis: Prostate is normal in size with heterogeneous signal intensity and enhancement. There is no discrete mass. 3) Post trans-rectal biopsy UTI, prostatitis and proctitis. UA 59 wbc, trace LE, +nitrates, large blood. 11/07/2018 urine culture<10K bacteria. He received cipro PO x 3 days before biopsy. 4) Multiple Evolving Splenic infarcts +/- abscesses. CT abdomen progressive spleen infarcts. I am concerned that the spleen has developed superimposed abscesses from ESBL E coli in light of persistent bacteremia and fever.No indication for surgery for splenic infarction. Surgery following 5) Likely HAP: repeat CT chest showed pneumonia. Continue Vancomycin. 6) Severe Anemia: Blood transfusion today. Continue to monitor Recommendations: Continue Meropenem 2 gms q 8, D4 Continue vancomycin to cover HAP, D7 last dose today Continue to monitor fevers and WBC Dr. Lara will be it applications manager this weekend, . Please call for questions [facility] M: [phone] O:[phone] Subjective Date of service: 11/21/18 Principal diagnosis: fever Interval history: Patient seen and examined. Sitting up in the chair. Denies generalized pain. Fevers continuing. Nurses notes, labs and reports reviewed, discussed with patient. Objective - Exam Narrative Exam: Constitutional: Alert, cooperative. No acute distress Head, Ears, Nose: Normocephalic, atraumatic. External ears, nose normal Eyes: Conjunctivae/corneas clear. No icterus. No ptosis. Neck: Supple, no meningeal signs Cardiovascular: S1, S2 normal. Respiratory: Good air entry, clear to auscultation bilaterally, + tachypnea GI: Soft, non-tender; bowel sounds normal. No peritoneal signs Musculoskeletal: No pedal edema, no cyanosis. Skin: No rash or abscess Hem/Lymphatic: No palpable cervical or supraclavicular nodes. No lymphangitis Psych: Mood ok. Affect normal Neurological: Awake, alert, oriented. No gross abnormality - Constitutional Vitals: Vital Signs Temp Pulse Resp BP Pulse Ox 101.1 F H 101 H 18 114/71 93 11/21/18 04:58 11/21/18 08:28 11/21/18 08:28 11/21/18 04:58 11/21/18 08:28 Temperature -Last 24 Hours Temperature 101.1 F Temperature 100.7 F Temperature 99.0 F Temperature 98.6 F - Labs CBC & Chem 7: 11/21/18 00:39 11/20/18 09:00 Labs: Abnormal lab results 11/21/18 Range/Units 00:39 WBC 19.7 H (4.5-11.0) K/mm3 RBC 2.69 L (3.65-5.03) M/mm3 Hgb 7.6 L (11.8-15.2) gm/dl Hct 22.3 L (35.5-45.6) % MCV 83 L (84-94) fl RDW 18.9 H (13.2-15.2) % Plt Count 720 H (140-440) K/mm3 Seg Neuts % (Manual) 84.0 H (40.0-70.0) % Lymphocytes % (Manual) 4.0 L (13.4-35.0) % Monocytes % (Manual) 12.0 H (0.0-7.3) % Nucleated RBC % 11.0 H (0.0-0.9) % Seg Neutrophils # Man 16.5 H (1.8-7.7) K/mm3 Lymphocytes # (Manual) 0.8 L (1.2-5.4) K/mm3 Monocytes # (Manual) 2.4 H (0.0-0.8) K/mm3
--- NOTE | 2018-11-21 13:01 | Progress Note ---
Assessment and Plan 62 yo M with 1. sepsis 2. GNR bacteremia 3. UTI 4. s/p transrectal prostate biopsy on 11/05/18 5. splenomegaly 6. sickle cell disease 7. PNA Ct scan a/p Liver protocol performed today was reviewed with Dr. Bowser and Dr. Day. 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 There is no definitive abscess. Probable LLL PNA. Splenic infarction can lead to fever, LUQ pain, and leukocytosis and is not necessarily related to E coli bacteremia. Bacteremia is presumed to be a result of prostate biopsy induced prostatitis. Plan: 1. continue with abx per ID. Last set of blood cultures negative 2. doubt acute rectal perforation. No evidence for perforation or abscess on physical exam or imaging. Firm area on rectal exam likely the site of prostate biopsy. MRI pelvis negative 3. bowel regimen 4. reg diet 5. WBC count has peaked and continues to trend down, platelets are trending up. Fever overnight only. Patient with splenic infarction. No indication for surgery for splenic infarction. Will continue to monitor. 6. prn pain control General surgery at [place] agree with current treatment plan Spoke with Dr. Quiroga at [place] [facility]. Updated him on patient's hospitalization, imaging, and current plan of care. He agrees that there is no indication for splenectomy at this time. He asked me to notify him when patient is being discharged and that he will arrange immediate follow up in sickle cell clinic. He will manage vaccination and repeat imaging. Thank you, please call with questions. Subjective Date of service: 11/21/18 Narrative: Pt seen and examined. No complaints. Fever overnight. No n/v, abd pain. Hasn't had a BM in a few days. Objective Vital Signs - 12hr 11/21/18 11/21/18 11/21/18 04:58 07:50 08:28 Temperature 101.1 F H Pulse Rate 110 H Pulse Rate [ 101 H 101 H Throughout] Respiratory 18 Rate Respiratory 18 18 Rate [ Throughout] Blood Pressure 114/71 O2 Sat by Pulse 92 93 Oximetry 11/21/18 11:38 Temperature 98.7 F Pulse Rate 98 H Pulse Rate [ Throughout] Respiratory 22 Rate Respiratory Rate [ Throughout] Blood Pressure 117/79 O2 Sat by Pulse 96 Oximetry - General physical appearance Narrative Exam: Gen: AAOx3. NAD CV: S1, S2+ resp; even and unlabored Abd: soft, distended, mild LUQ TTP. no r/r/g Ext: no c/c/e - Labs 11/21/18 00:39 11/20/18 09:00
[2018-11-21] MEDS: SODIUM CHLORIDE FLUSH SYRINGE 10 ML IV SCH ×2 (13:07→22:06)
[2018-11-21] MEDS: COLACE PO SCH ×2 (13:11→22:06)
--- NOTE | 2018-11-21 17:24 | Progress Note ---
Assessment and Plan Severe Sepsis, - Secondary to ESBL bacteremia: ID is following, continue abx. - afebrile today. If he remains afebrile for around 48 hours, plan to d/c home with IV abx (already arranged for previously). Splenic infarction: General Surgery is following, no plan for any surgical intervention now ESBL E coli bactermia is presumed to be a result of prostate biopsy induced prostatitis: continue abx per ID recommendations--On Meropenem Acute Cystitis s/p recent prostate biopsy: Urology did evaluate and deemed no surgery needed at the time, recommended continuing ABX Acute renal failure Secondary to vasomotor nephropathy: continue to monitor bmp, improved Sickle cell crisis: cont pain control and adequate hydration. monitor h/h, transfused total two units of PRBC Acute Respiratory Failure with Hypoxia-Improving: continue daily weaning O2 trails Thrombocytosis: continue to monitor cbc and treat bacteremia DVT ppx: off sq heparin due to anemia Subjective Date of service: 11/21/18 Principal diagnosis: fever Interval history: Feeling better Objective - Constitutional Vitals: Vital Signs - 12hr 11/21/18 11/21/18 11/21/18 07:50 08:28 11:38 Temperature 98.7 F Pulse Rate 98 H Pulse Rate [ 101 H 101 H Throughout] Respiratory 22 Rate Respiratory 18 18 Rate [ Throughout] Blood Pressure 117/79 O2 Sat by Pulse 93 96 Oximetry General appearance: Present: no acute distress, well-nourished - EENT Eyes: PERRL, EOM intact ENT: hearing intact, clear oral mucosa Ears: bilateral: normal - Neck Neck: supple, normal ROM - Respiratory Respiratory effort: normal Respiratory: bilateral: CTA - Breasts Breasts: normal - Cardiovascular Rhythm: regular Heart Sounds: Present: S1 & S2. Absent: gallop, rub Extremities: pulses intact, No edema, normal color, Full ROM - Gastrointestinal General gastrointestinal: Present: soft, non-tender, non-distended, normal bowel sounds - Genitourinary Male genitourinary: normal - Integumentary Integumentary: clear, warm, dry - Musculoskeletal Musculoskeletal: 1, strength equal bilaterally - Neurologic Neurologic: moves all extremities - Psychiatric Psychiatric: memory intact, appropriate mood/affect, intact judgment & insight - Labs CBC & Chem 7: 11/24/18 09:11 11/22/18 04:21 Labs: Abnormal lab results 11/21/18 Range/Units 00:39 WBC 19.7 H (4.5-11.0) K/mm3 RBC 2.69 L (3.65-5.03) M/mm3 Hgb 7.6 L (11.8-15.2) gm/dl Hct 22.3 L (35.5-45.6) % MCV 83 L (84-94) fl RDW 18.9 H (13.2-15.2) % Plt Count 720 H (140-440) K/mm3 Seg Neuts % (Manual) 84.0 H (40.0-70.0) % Lymphocytes % (Manual) 4.0 L (13.4-35.0) % Monocytes % (Manual) 12.0 H (0.0-7.3) % Nucleated RBC % 11.0 H (0.0-0.9) % Seg Neutrophils # Man 16.5 H (1.8-7.7) K/mm3 Lymphocytes # (Manual) 0.8 L (1.2-5.4) K/mm3 Monocytes # (Manual) 2.4 H (0.0-0.8) K/mm3
[2018-11-21] MEDS: IBUPROFEN PO PRN (23:25)
[2018-11-22] MEDS: TYLENOL PO PRN (00:48)
[2018-11-22] MEDS: VANCOMYCIN 1,500 MG in NACL 0.9% 500 ML 500 ML IV SCH ×3 (00:48→17:42)
[2018-11-22 05:03] LABS: Hemoglobin 6.8 gm/dl (11.8-15.2); Mean Corpuscular HGB Conc 34 % (32-34); Mean Corpuscular Volume 83 fl (84-94); Platelet Count 772 K/mm3 (140-440); Red Blood Count 2.42 M/mm3 (3.65-5.03); Red Cell Distribution Width 19.1 % (13.2-15.2)
[2018-11-22 05:21] LABS: Alanine Aminotransferase 14 units/L (7-56); Albumin 2.2 g/dL (3.9-5); BUN/Creatinine Ratio 9; Blood Urea Nitrogen 6 mg/dL (9-20); Calcium 8.2 mg/dL (8.4-10.2); Hemolysis Index 0
[2018-11-22] MEDS: NACL 0.9% IV SCH ×3 (06:00→23:45)
[2018-11-22] MEDS: MERREM IV SCH ×3 (06:00→23:45)
[2018-11-22] MEDS ORDERED: NACL 0.9% 500 ML 500 ML IV ONE (07:05)
--- NOTE | 2018-11-22 07:06 | Hem/Onc Progress Note ---
Assessment and Plan fever prostate bx h/o sickle - admission hb 11, MCV normal. splenomegaly d/w dr rubio - ? spleen infarct - ? trial of NSAID 1. History of elevated PSA, status post prostate biopsy. 2. History of fevers. Based on temporal events, this has to be related to the prostate issues. ID team is on case. 3. History of anemia. At admission; hemoglobin was 11.1, MCV was normal. 4. History of sickle cell disease. Radiology mentions splenomegaly of 15.7 cm. The patient would need outpatient evaluation for the question of sickle cell. At this time, hematology issues may be secondary to the infection/medication. 5. Splenomegaly, likely secondary to infection issues. I had discussed with ID team. The patient has E. coli in the blood culture. I spoke to Dr. Marcano about the patient. 11/15 sickle cell test - smear - no sickle cells seen fever could be sec to pneumonia or splenic infarct PRBC - low iron - IV iron trial 11/17 - sickle testing + - will do hb electrophoresis fever - d/w Dr harley ID - reg abx vs NSAID trial for spleen infarct. d/w pt and mother reg these issues PRBC was given for anemia 11/18/2018 MRI pelvis Abx fever Hb electrophoresis s/p iv iron and PRBC for anemia h/o splenimegaly - infarct vs ?abscess 11/20 hb electrophoresis pending fever - ID team IX pt on NSAID motril 800 TID since 11/16 - but only PRN - did not use 11/22/2018 pt took ibuprofen 800 mg last night - had sweating has fever MRI pelvis done hb low - PRBC q 8hrs ibuprofen for 2 days as trial - Patient Problems (1) Fever Current Visit: Yes Status: Acute Qualifiers: Fever type: unspecified Qualified Code(s): R50.9 - Fever, unspecified Subjective Date of service: 11/22/18 Principal diagnosis: fever - anemia Interval history: pt got ibuprofen last night had profound sweating Objective - Constitutional Vitals: Last Vital Signs Temp 97.5 F L 11/22/18 05:32 Pulse 91 H 11/22/18 05:32 Resp 18 11/22/18 05:32 BP 115/79 11/22/18 05:32 Pulse Ox 92 11/22/18 05:32 Pain Intensity (0-10): denies any pain General appearance: no acute distress Performance status: 3-limited selfcare - EENT Eyes: EOM intact ENT: clear oral mucosa Lymph node exam: negative cervical - Cardiovascular Heart Sounds: Present: S1 & S2 Extremity abnormal: edema - Gastrointestinal General gastrointestinal: Present: soft, non-tender Rectal Exam: deferred - Genitourinary Male genitourinary: Present: deferred - Integumentary Integumentary: warm - Musculoskeletal Musculoskeletal: generalized weakness - Neurologic Neurologic: moves all extremities - Labs Lab Results: Laboratory Results - last 24 hr 11/22/18 11/22/18 04:21 04:21 WBC 20.8 H RBC 2.42 L Hgb 6.8 L Hct 20.0 L MCV 83 L MCH 28 MCHC 34 RDW 19.1 H Plt Count 772 H Sodium 138 Potassium 4.4 Chloride 103.0 Carbon Dioxide 27 Anion Gap 12 BUN 6 L Creatinine 0.7 L Estimated GFR > 60 BUN/Creatinine Ratio 9 Glucose 111 H Calcium 8.2 L Total Bilirubin 0.90 AST 23 ALT 14 Alkaline Phosphatase 77 Total Protein 6.0 L Albumin 2.2 L Albumin/Globulin Ratio 0.6 Medications & Allergies - Medications Allergies/Adverse Reactions: Allergies No Known Allergies Allergy (Unverified 04/17/16 18:17) Home Medications: Home Medications Medication Instructions Recorded Confirmed Last Taken Type Aspir-Low 81 mg PO DAILY 11/08/18 11/15/18 1 Week Ago History ~11/01/18 Folic Acid [Folvite] 1 mg PO QDAY 11/08/18 11/08/18 1 Week Ago History ~11/01/18 Multivitamin 1 tab PO DAILY 11/08/18 11/08/18 11/01/18 History Active Medications: Generic Name Dose Route Start Last Admin Trade Name Freq PRN Reason Stop Dose Admin Acetaminophen 650 mg 11/07/18 01:19 11/22/18 00:48 Tylenol PO 650 mg Q4H PRN Administration Pain MILD(1-3)/Fever >100.5/RAY Albuterol 2.5 mg 11/10/18 04:01 11/12/18 05:23 Proventil IH 2.5 mg Q6HRT PRN Administration Shortness Of Breath Albuterol/Ipratropium 1 ampul 11/14/18 08:00 11/21/18 22:17 Duoneb *Not For Prn Use* IH 1 ampul TIDRT LENORE Administration Docusate Sodium 100 mg 11/12/18 15:00 11/21/18 22:06 Colace PO 100 mg BID LENORE Administration Meropenem 2,000 mg/ Sodium 100 mls @ 100 mls/hr 11/17/18 16:00 11/22/18 06:00 Chloride IV 100 mls/hr Q8HR LENORE Administration Protocol Vancomycin HCl 1,500 mg/ 530 mls @ 333.333 mls/hr 11/20/18 16:00 11/22/18 00:48 Sodium Chloride IV 333.333 mls/hr Q8H LENORE Administration Ibuprofen 800 mg 11/16/18 13:44 11/21/18 23:25 Motrin PO 800 mg Q8H PRN Administration Non Cardiac Pain or Temp>100.5 Morphine Sulfate 2 mg 11/07/18 01:19 Morphine IV Q4H PRN Pain, Moderate (4-6) Ondansetron HCl 4 mg 11/07/18 01:19 11/07/18 18:08 Zofran IV 4 mg Q4H PRN Administration Nausea And Vomiting Senna 17.2 mg 11/12/18 22:00 11/21/18 22:06 Senokot PO 17.2 mg Q12H LENORE Administration Sodium Chloride 10 ml 11/07/18 10:00 11/21/18 22:06 Sodium Chloride Flush Syringe 10 Ml IV 10 ml BID LENORE Administration Sodium Chloride 10 ml 11/07/18 01:19 Sodium Chloride Flush Syringe 10 Ml IV PRN PRN LINE FLUSH
[2018-11-22] MEDS: DUONEB *Not for PRN Use IH SCH ×3 (07:44→21:50)
[2018-11-22] MEDS: IBUPROFEN PO PRN (10:04)
[2018-11-22] MEDS: COLACE PO SCH ×2 (10:04→21:39)
[2018-11-22] MEDS: IBUPROFEN PO SCH ×2 (10:13→17:51)
[2018-11-22] MEDS: SODIUM CHLORIDE FLUSH SYRINGE 10 ML IV SCH ×2 (10:17→23:58)
[2018-11-22] MEDS: SENOKOT PO SCH ×2 (10:17→21:39)
[2018-11-22] MEDS ORDERED: NACL 0.9% 500 ML 500 ML IV SCH (11:00)
--- NOTE | 2018-11-22 13:22 | Progress Note ---
Assessment and Plan Severe Sepsis, - Secondary to ESBL bacteremia: ID is following, continue abx. - afebrile today. If he remains afebrile for around 48 hours, plan to d/c home with IV abx (already arranged for previously). Splenic infarction: General Surgery is following, no plan for any surgical intervention now ESBL E coli bactermia is presumed to be a result of prostate biopsy induced prostatitis: continue abx per ID recommendations---on Meropenem Acute Cystitis s/p recent prostate biopsy: Urology did evaluate and deemed no surgery needed at the time, recommended continuing ABX Acute renal failure Secondary to vasomotor nephropathy: continue to monitor bmp, improved Sickle cell crisis: cont pain control and adequate hydration. monitor h/h, transfused total two units of PRBC Acute Respiratory Failure with Hypoxia-Improving: continue daily weaning O2 trails Thrombocytosis: continue to monitor cbc and treat bacteremia DVT ppx: off sq heparin due to anemia Subjective Date of service: 11/22/18 Principal diagnosis: fever - anemia Interval history: Feeling better Objective - Constitutional Vitals: Vital Signs - 12hr 11/22/18 11/22/18 11/22/18 05:32 11:35 11:36 Temperature 97.5 F L 98.3 F Pulse Rate 91 H 113 H Respiratory 18 20 Rate Blood Pressure 115/79 114/70 O2 Sat by Pulse 92 94 Oximetry General appearance: Present: no acute distress, well-nourished - EENT Eyes: PERRL, EOM intact ENT: hearing intact, clear oral mucosa Ears: bilateral: normal - Neck Neck: supple, normal ROM - Respiratory Respiratory effort: normal Respiratory: bilateral: CTA - Breasts Breasts: normal - Cardiovascular Heart rate: 80 Rhythm: regular Heart Sounds: Present: S1 & S2. Absent: gallop, rub Extremities: pulses intact, No edema, normal color, Full ROM - Gastrointestinal General gastrointestinal: Present: soft, non-tender, non-distended, normal bowel sounds - Genitourinary Male genitourinary: normal - Integumentary Integumentary: clear, warm, dry - Musculoskeletal Musculoskeletal: 1, strength equal bilaterally - Neurologic Neurologic: moves all extremities - Psychiatric Psychiatric: memory intact, appropriate mood/affect, intact judgment & insight - Labs CBC & Chem 7: 11/24/18 09:11 11/22/18 04:21 Labs: Abnormal lab results 11/22/18 11/22/18 11/22/18 Range/Units 04:21 04:21 08:01 WBC 20.8 H (4.5-11.0) K/mm3 RBC 2.42 L (3.65-5.03) M/mm3 Hgb 6.8 L (11.8-15.2) gm/dl Hct 20.0 L (35.5-45.6) % MCV 83 L (84-94) fl RDW 19.1 H (13.2-15.2) % Plt Count 772 H (140-440) K/mm3 BUN 6 L (9-20) mg/dL Creatinine 0.7 L (0.8-1.5) mg/dL Glucose 111 H (75-100) mg/dL Calcium 8.2 L (8.4-10.2) mg/dL Total Protein 6.0 L (6.3-8.2) g/dL Albumin 2.2 L (3.9-5) g/dL Crossmatch See Detail
--- NOTE | 2018-11-22 13:45 | Progress Note ---
Assessment and Plan 62 yo M with 1. sepsis 2. GNR bacteremia 3. UTI 4. s/p transrectal prostate biopsy on 11/05/18 5. splenomegaly 6. sickle cell disease 7. PNA Ct scan a/p Liver protocol performed today was reviewed with Dr. Bowser and Dr. Day. 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 There is no definitive abscess. Probable LLL PNA. Splenic infarction can lead to fever, LUQ pain, and leukocytosis and is not necessarily related to E coli bacteremia. Bacteremia is presumed to be a result of prostate biopsy induced prostatitis. Plan: 1. continue with abx per ID. Last set of blood cultures negative 2. doubt acute rectal perforation. No evidence for perforation or abscess on physical exam or imaging. Firm area on rectal exam likely the site of prostate biopsy. MRI pelvis negative 3. bowel regimen 4. reg diet 5. WBC count has peaked, platelets are trending up. Fever overnight. Patient with splenic infarction. No indication for surgery for splenic infarction. Will continue to monitor. If WBC increases significantly, will consider reimaging with CT 6. prn pain control 7. NSAID trial per Dr. Celestin - ibuprofen q8 General surgery at [place] agree with current treatment plan Spoke with Dr. Quiroga at [place] [facility]. Updated him on patient's hospitalization, imaging, and current plan of care. He agrees that there is no indication for splenectomy at this time. He asked me to notify him when patient is being discharged and that he will arrange immediate follow up in sickle cell clinic. He will manage vaccination and repeat imaging. All patient and family member questions answered. Thank you, please call with questions. Subjective Date of service: 11/22/18 Narrative: Pt seen and examined. No acute complaints. Febrile overnight. Objective Vital Signs - 12hr 11/22/18 11/22/18 11/22/18 05:32 11:35 11:36 Temperature 97.5 F L 98.3 F Pulse Rate 91 H 113 H Respiratory 18 20 Rate Blood Pressure 115/79 114/70 O2 Sat by Pulse 92 94 Oximetry - General physical appearance Narrative Exam: Gen: AAOx3. NAD CV: s1, S2+ resp; even and unlabored Abd: soft, distended, splenomegaly, mild LUQ TTP. no r/r/g Ext: + edema - Labs 11/22/18 04:21 11/22/18 04:21 Diabetes panel 11/22/18 Range/Units 04:21 Sodium 138 (137-145) mmol/L Potassium 4.4 (3.6-5.0) mmol/L Chloride 103.0 (98-107) mmol/L Carbon Dioxide 27 (22-30) mmol/L BUN 6 L (9-20) mg/dL Creatinine 0.7 L (0.8-1.5) mg/dL Glucose 111 H (75-100) mg/dL Calcium 8.2 L (8.4-10.2) mg/dL AST 23 (5-40) units/L ALT 14 (7-56) units/L Alkaline Phosphatase 77 (35-129) units/L Total Protein 6.0 L (6.3-8.2) g/dL Albumin 2.2 L (3.9-5) g/dL Calcium panel 11/22/18 Range/Units 04:21 Calcium 8.2 L (8.4-10.2) mg/dL Albumin 2.2 L (3.9-5) g/dL Pituitary panel 11/22/18 Range/Units 04:21 Sodium 138 (137-145) mmol/L Potassium 4.4 (3.6-5.0) mmol/L Chloride 103.0 (98-107) mmol/L Carbon Dioxide 27 (22-30) mmol/L BUN 6 L (9-20) mg/dL Creatinine 0.7 L (0.8-1.5) mg/dL Glucose 111 H (75-100) mg/dL Calcium 8.2 L (8.4-10.2) mg/dL Adrenal panel 11/22/18 Range/Units 04:21 Sodium 138 (137-145) mmol/L Potassium 4.4 (3.6-5.0) mmol/L Chloride 103.0 (98-107) mmol/L Carbon Dioxide 27 (22-30) mmol/L BUN 6 L (9-20) mg/dL Creatinine 0.7 L (0.8-1.5) mg/dL Glucose 111 H (75-100) mg/dL Calcium 8.2 L (8.4-10.2) mg/dL Total Bilirubin 0.90 (0.1-1.2) mg/dL AST 23 (5-40) units/L ALT 14 (7-56) units/L Alkaline Phosphatase 77 (35-129) units/L Total Protein 6.0 L (6.3-8.2) g/dL Albumin 2.2 L (3.9-5) g/dL
[2018-11-22 15:36] LABS: Anisocytosis 1+; Band Neutrophils # (Manual) 0.2 K/mm3; Basophils % (Manual) 0.5 % (0.0-1.8); Eosinophils % (Manual) 0.5 % (0.0-4.3); Stomatocytes 1+; Target Cells 2+; Total Cells Counted 200
[2018-11-22 15:37] LABS: Platelet Estimate Consistent w Auto
[2018-11-23] MEDS: VANCOMYCIN 1,500 MG in NACL 0.9% 500 ML 500 ML IV SCH ×2 (01:38→08:38)
[2018-11-23] MEDS: IBUPROFEN PO SCH ×3 (01:40→19:41)
[2018-11-23] MEDS: NACL 0.9% IV SCH ×3 (05:58→22:16)
[2018-11-23] MEDS: MERREM IV SCH ×3 (05:58→22:16)
--- NOTE | 2018-11-23 08:40 | Hem/Onc Progress Note ---
Assessment and Plan fever prostate bx h/o sickle - admission hb 11, MCV normal. splenomegaly d/w dr rubio - ? spleen infarct - ? trial of NSAID 1. History of elevated PSA, status post prostate biopsy. 2. History of fevers. Based on temporal events, this has to be related to the prostate issues. ID team is on case. 3. History of anemia. At admission; hemoglobin was 11.1, MCV was normal. 4. History of sickle cell disease. Radiology mentions splenomegaly of 15.7 cm. The patient would need outpatient evaluation for the question of sickle cell. At this time, hematology issues may be secondary to the infection/medication. 5. Splenomegaly, likely secondary to infection issues. I had discussed with ID team. The patient has E. coli in the blood culture. I spoke to Dr. Marcano about the patient. 11/15 sickle cell test - smear - no sickle cells seen fever could be sec to pneumonia or splenic infarct PRBC - low iron - IV iron trial 11/17 - sickle testing + - will do hb electrophoresis fever - d/w Dr harley ID - reg abx vs NSAID trial for spleen infarct. d/w pt and mother reg these issues PRBC was given for anemia 11/18/2018 MRI pelvis Abx fever Hb electrophoresis s/p iv iron and PRBC for anemia h/o splenimegaly - infarct vs ?abscess 11/20 hb electrophoresis pending fever - ID team IX pt on NSAID motril 800 TID since 11/16 - but only PRN - did not use 11/22/2018 pt took ibuprofen 800 mg last night - had sweating has fever MRI pelvis done hb low - PRBC q 8hrs ibuprofen for 2 days as trial 11/23 pt now says he was told he has hb C disease and takes folic acid - this is consistent with his spleen and hb hb better post transfusion motrin - hence no fever pt wants to go home he has apt to see sickle cell specialist tomorrow it is possible that fever may be sec to spleen infarct other possibility is an infection - he is aware - Patient Problems (1) Fever Current Visit: Yes Status: Acute Qualifiers: Fever type: unspecified Qualified Code(s): R50.9 - Fever, unspecified Subjective Date of service: 11/23/18 Principal diagnosis: fever - anemia Interval history: ~ 36 hrs without fever Objective - Constitutional Vitals: Last Vital Signs Temp 98.2 F 11/23/18 05:08 Pulse 89 11/23/18 05:08 Resp 18 11/23/18 05:08 BP 116/71 11/23/18 05:08 Pulse Ox 94 11/23/18 05:08 Pain Intensity (0-10): denies any pain General appearance: no acute distress Performance status: 3-limited selfcare - EENT Eyes: EOM intact ENT: clear oral mucosa Lymph node exam: negative cervical - Neck Neck: normal ROM - Respiratory Respiratory effort: Positive: normal Respiratory: bilateral: CTA - Cardiovascular Heart Sounds: Present: S1 & S2 Extremity abnormal: edema - Gastrointestinal General gastrointestinal: Present: soft Rectal Exam: deferred - Genitourinary Male genitourinary: Present: deferred - Integumentary Integumentary: warm - Musculoskeletal Musculoskeletal: strength equal bilaterally - Neurologic Neurologic: moves all extremities - Psychiatric Psychiatric: appropriate mood/affect - Labs Lab Results: Laboratory Results - last 24 hr 11/18/18 11/22/18 11/22/18 12:22 04:21 08:01 Add Manual Diff Complete Total Counted 200 Seg Neuts % (Manual) 81.5 H Band Neutrophils % 1.0 Lymphocytes % (Manual) 7.0 L Reactive Lymphs % (Man) 0.5 Monocytes % (Manual) 9.0 H Eosinophils % (Manual) 0.5 Basophils % (Manual) 0.5 Metamyelocytes % 0 Myelocytes % 0 Promyelocytes % 0 Blast Cells % 0 Nucleated RBC % 3.0 H Seg Neutrophils # Man 17.0 H Band Neutrophils # 0.2 Lymphocytes # (Manual) 1.5 Abs React Lymphs (Man) 0.1 Monocytes # (Manual) 1.9 H Eosinophils # (Manual) 0.1 Basophils # (Manual) 0.1 Metamyelocytes # 0.0 Myelocytes # 0.0 Promyelocytes # 0.0 Blast Cells # 0.0 WBC Morphology Not Reportable Hypersegmented Neuts Not Reportable Hyposegmented Neuts Not Reportable Hypogranular Neuts Not Reportable Smudge Cells Not Reportable Toxic Granulation Not Reportable Toxic Vacuolation Not Reportable Dohle Bodies Not Reportable Pelger-Huet Anomaly Not Reportable Tory Rods Not Reportable Platelet Estimate Consistent w auto Clumped Platelets Not Reportable Plt Clumps, EDTA Not Reportable Large Platelets Not Reportable Giant Platelets Not Reportable Platelet Satelliting Not Reportable Plt Morphology Comment Not Reportable RBC Morphology Not Reportable Dimorphic RBCs Not Reportable Polychromasia Not Reportable Hypochromasia Not Reportable Poikilocytosis Not Reportable Anisocytosis 1+ Microcytosis Not Reportable Macrocytosis Not Reportable Spherocytes Not Reportable Pappenheimer Bodies Not Reportable Sickle Cells Not Reportable Target Cells 2+ Tear Drop Cells Not Reportable Ovalocytes Not Reportable Stomatocytes 1+ Helmet Cells Not Reportable [place] Bodies Not Reportable [place] Rings Not Reportable [place] Cells Not Reportable Bite Cells Not Reportable Crenated Cell Not Reportable Elliptocytes Not Reportable Acanthocytes (Spur) Not Reportable Rouleaux Not Reportable Hemoglobin C Crystals Not Reportable Schistocytes Not Reportable Malaria parasites Not Reportable [place] Bodies Not Reportable Hem Pathologist Commnt No Vancomycin Trough Blood Type A POSITIVE Antibody Screen Negative Crossmatch See Detail See Detail 11/23/18 07:29 Add Manual Diff Total Counted Seg Neuts % (Manual) Band Neutrophils % Lymphocytes % (Manual) Reactive Lymphs % (Man) Monocytes % (Manual) Eosinophils % (Manual) Basophils % (Manual) Metamyelocytes % Myelocytes % Promyelocytes % Blast Cells % Nucleated RBC % Seg Neutrophils # Man Band Neutrophils # Lymphocytes # (Manual) Abs React Lymphs (Man) Monocytes # (Manual) Eosinophils # (Manual) Basophils # (Manual) Metamyelocytes # Myelocytes # Promyelocytes # Blast Cells # WBC Morphology Hypersegmented Neuts Hyposegmented Neuts Hypogranular Neuts Smudge Cells Toxic Granulation Toxic Vacuolation Dohle Bodies Pelger-Huet Anomaly Tory Rods Platelet Estimate Clumped Platelets Plt Clumps, EDTA Large Platelets Giant Platelets Platelet Satelliting Plt Morphology Comment RBC Morphology Dimorphic RBCs Polychromasia Hypochromasia Poikilocytosis Anisocytosis Microcytosis Macrocytosis Spherocytes Pappenheimer Bodies Sickle Cells Target Cells Tear Drop Cells Ovalocytes Stomatocytes Helmet Cells [place] Bodies [place] Rings [place] Cells Bite Cells Crenated Cell Elliptocytes Acanthocytes (Spur) Rouleaux Hemoglobin C Crystals Schistocytes Malaria parasites [place] Bodies Hem Pathologist Commnt Vancomycin Trough 22.6 H Blood Type Antibody Screen Crossmatch Medications & Allergies - Medications Allergies/Adverse Reactions: Allergies No Known Allergies Allergy (Unverified 04/17/16 18:17) Home Medications: Home Medications Medication Instructions Recorded Confirmed Last Taken Type Aspir-Low 81 mg PO DAILY 11/08/18 11/15/18 1 Week Ago History ~11/01/18 Folic Acid [Folvite] 1 mg PO QDAY 11/08/18 11/08/18 1 Week Ago History ~11/01/18 Multivitamin 1 tab PO DAILY 11/08/18 11/08/18 11/01/18 History Active Medications: Generic Name Dose Route Start Last Admin Trade Name Freq PRN Reason Stop Dose Admin Acetaminophen 650 mg 11/07/18 01:19 11/22/18 00:48 Tylenol PO 650 mg Q4H PRN Administration Pain MILD(1-3)/Fever >100.5/RAY Albuterol 2.5 mg 11/10/18 04:01 11/12/18 05:23 Proventil IH 2.5 mg Q6HRT PRN Administration Shortness Of Breath Albuterol/Ipratropium 1 ampul 11/14/18 08:00 11/22/18 21:50 Duoneb *Not For Prn Use* IH 1 ampul TIDRT LENORE Administration Docusate Sodium 100 mg 11/12/18 15:00 11/22/18 21:39 Colace PO 100 mg BID LENORE Administration Meropenem 2,000 mg/ Sodium 100 mls @ 100 mls/hr 11/17/18 16:00 11/23/18 05:58 Chloride IV 100 mls/hr Q8HR LENORE Administration Protocol Vancomycin HCl 1,500 mg/ 530 mls @ 333.333 mls/hr 11/20/18 16:00 11/23/18 08:38 Sodium Chloride IV Not Given Q8H LENORE Ibuprofen 800 mg 11/22/18 10:00 11/23/18 01:40 Motrin PO 11/24/18 02:00 800 mg Q8H LENORE Administration Ibuprofen 800 mg 11/24/18 10:00 Motrin PO Q8H PRN Non Cardiac Pain or Temp>100.5 Morphine Sulfate 2 mg 11/07/18 01:19 Morphine IV Q4H PRN Pain, Moderate (4-6) Ondansetron HCl 4 mg 11/07/18 01:19 11/07/18 18:08 Zofran IV 4 mg Q4H PRN Administration Nausea And Vomiting Senna 17.2 mg 11/12/18 22:00 11/22/18 21:39 Senokot PO 17.2 mg Q12H LENORE Administration Sodium Chloride 10 ml 11/07/18 10:00 11/22/18 23:58 Sodium Chloride Flush Syringe 10 Ml IV 10 ml BID LENORE Administration Sodium Chloride 10 ml 11/07/18 01:19 Sodium Chloride Flush Syringe 10 Ml IV PRN PRN LINE FLUSH
--- NOTE | 2018-11-23 09:15 | Progress Note ---
Assessment and Plan Cultures: 11/06/2018 Blood culture : ESBL E. Coli, 11/07/2018 urine culture: <10K bacteria 11/08/2018 Blood culture: ESBL E. coli 4 out of 4 bottles 11/10/2018 Blood culture: ESBL E. coli 2 out of 4 bottles 11/12/2018 Blood Cultures: ESBL E. coli 1 out of 4 bottles 11/14/2018 Blood Cultures: no growth 11/15/2018 MRSA PCR: negative 11/17/2018 Stool: negative Assessment: 62 y/o male with a history of sickle cell disease; admitted on 11/06/18 due to 24 hour-history of fever, chills and generalized malaise. Patient underwent transrectal-prostate biopsy on 11/05/[address] Hidalgo. Patient denies N/V/D, cough, SOB, abdominal pain, urinary symptoms. 1) Severe Sepsis: no fever in >24 hours. leukocytosis trending down. Etiology most likely persistent ESBL E. coli, +progressive spleenic infarcts, superimposed abscesses. Repeat BC fro 11/14/18 show no growth. When discharged will treat with erthapenem 1 gm IV every 24 hours for 21 days ending 12-05-18. 2) Persistent ESBL bacteremia: source likely post trans-rectal biopsy UTI, prostatitis and proctitis. Repeat BC's show no growth to date. Discontinue Vabomere. Restart Meropenem. - UA 59 wbc, trace LE, +nitrates, large blood. - Blood culture 10/17/2018 no growth today. - CT abd showed rectal prostate and seminal vesicles stranding - CT with contrast showed that the The prostate gland remains mildly enlarged measuring 6 cm in diameter.Nonspecific fat stranding surrounding the prostate gland, seminal vesicles and rectum has resolved. -Spleen CT/US - showed lesions, ?sickle cell or emboli -Chest xray: The lungs are grossly clear. No consolidation -Renal U/S: right kidney: Normal echotexture. Left Kidney: well-defined simple cyst measuring 2.1 x 1.9 cm is noted in the lower portion. Otherwise renal parenchymal echotexture is within normal limits without calculi or hyd ronephrosus -Abdominal U/S: Multiple nonspecific lesions identified in the spleen which appear predominantly solid and mixed echoic. DDX includes benign lesions such as hemangioma and malignant lesions such as metastases. Clinical correlation and biopsy are recommended. -CRP 31.80 -TTE- No valvular vegetation -CT abdomen and pelvis with 4 phase liver protocol shows evidence of evolving splenic infarction.The remainder of the splenic parenchyma is hypoattenuated with no evidence of perfusion. Mild inflammatory fat stranding has developed surrounding the spleen. No splenic hemorrhage. -HIV - nonreactive -Influenza Rapid and PCR - Negative -CT Pelvis: Prostate is normal in size with heterogeneous signal intensity and enhancement. There is no discrete mass. 3) Post trans-rectal biopsy UTI, prostatitis and proctitis. UA 59 wbc, trace LE, +nitrates, large blood. 11/07/2018 urine culture<10K bacteria. He received cipro PO x 3 days before biopsy. 4) Multiple Evolving Splenic infarcts +/- abscesses. CT abdomen progressive spleen infarcts. I am concerned that the spleen has developed superimposed abscesses from ESBL E coli in light of persistent bacteremia and fever.No indication for surgery for splenic infarction. Surgery following 5) Likely HAP: repeat CT chest showed pneumonia. Continue Vancomycin. 6) Severe Anemia: Blood transfusion today. Continue to monitor 7) Thrombocytosis: Continue to monitor CBC Recommendations: Continue Meropenem 2 gms q 8, D7 Discontinue vancomycin CBC ordered for tomorrow If afebrile for 48 hours, Anticipate discharge on Ertapenem 1 gm IV q day for total 21 days ending 12-05-18 order sent and approved by [facility] [employer] M: [phone] O:[phone] Subjective Date of service: 11/23/18 Principal diagnosis: fever - anemia Interval history: Patient seen and examined. Sitting up in bed. Reports no generalized pain or weakness. No fevers. Mother at bedside. Objective - Exam Narrative Exam: Constitutional: Alert, cooperative. No acute distress Head, Ears, Nose: Normocephalic, atraumatic. External ears, nose normal Eyes: Conjunctivae/corneas clear. No icterus. No ptosis. Neck: Supple, no meningeal signs Cardiovascular: S1, S2 normal. Respiratory: Good air entry, clear to auscultation bilaterally, + tachypnea GI: Soft, non-tender; bowel sounds normal. No peritoneal signs Musculoskeletal: No pedal edema, no cyanosis. Skin: No rash or abscess Hem/Lymphatic: No palpable cervical or supraclavicular nodes. No lymphangitis Psych: Mood ok. Affect normal Neurological: Awake, alert, oriented. No gross abnormality - Constitutional Vitals: Vital Signs Temp Pulse Resp BP Pulse Ox 98.2 F 89 18 116/71 94 11/23/18 05:08 11/23/18 05:08 11/23/18 05:08 11/23/18 05:08 11/23/18 05:08 Temperature -Last 24 Hours Temperature 98.2 F Temperature 97.8 F Temperature 98.2 F Temperature 98.3 F Temperature 98.3 F Temperature 98.5 F Temperature 98.3 F Temperature 98.3 F Temperature 98.6 F Temperature 98.5 F Temperature 98.4 F Temperature 98.3 F - Labs CBC & Chem 7: 11/23/18 09:55 11/22/18 04:21 Labs: Abnormal lab results 11/18/18 11/22/18 11/22/18 Range/Units 12:22 04:21 08:01 Seg Neuts % (Manual) 81.5 H (40.0-70.0) % Lymphocytes % (Manual) 7.0 L (13.4-35.0) % Monocytes % (Manual) 9.0 H (0.0-7.3) % Nucleated RBC % 3.0 H (0.0-0.9) % Seg Neutrophils # Man 17.0 H (1.8-7.7) K/mm3 Monocytes # (Manual) 1.9 H (0.0-0.8) K/mm3 Vancomycin Trough (5.0-20.0) ug/mL Crossmatch See Detail See Detail 11/23/18 Range/Units 07:29 Seg Neuts % (Manual) (40.0-70.0) % Lymphocytes % (Manual) (13.4-35.0) % Monocytes % (Manual) (0.0-7.3) % Nucleated RBC % (0.0-0.9) % Seg Neutrophils # Man (1.8-7.7) K/mm3 Monocytes # (Manual) (0.0-0.8) K/mm3 Vancomycin Trough 22.6 H (5.0-20.0) ug/mL Crossmatch
[2018-11-23] MEDS: DUONEB *Not for PRN Use IH SCH ×3 (09:48→20:57)
[2018-11-23 10:14] LABS: Hemoglobin 8.2 gm/dl (11.8-15.2)
[2018-11-23] MEDS: COLACE PO SCH ×3 (11:36→22:17)
[2018-11-23] MEDS: SENOKOT PO SCH ×3 (11:36→22:18)
[2018-11-23] MEDS: SODIUM CHLORIDE FLUSH SYRINGE 10 ML IV SCH ×2 (11:37→22:16)
[2018-11-23] MEDS: VANCOMYCIN 1,500 MG in NACL 0.9% 500 ML 500 ML IV ONE ×2 (13:18→14:10)
--- NOTE | 2018-11-23 14:23 | Progress Note ---
Assessment and Plan 62 yo M with 1. sepsis 2. GNR bacteremia 3. UTI 4. s/p transrectal prostate biopsy on 11/05/18 5. splenomegaly 6. sickle cell disease 7. PNA Ct scan a/p Liver protocol performed today was reviewed with Dr. Bowser and Dr. Day. 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 There is no definitive abscess. Probable LLL PNA. Splenic infarction can lead to fever, LUQ pain, and leukocytosis and is not necessarily related to E coli bacteremia. Bacteremia is presumed to be a result of prostate biopsy induced prostatitis. Plan: 1. abx per ID 2. bowel regimen 3. reg diet 4. No fever x 24 hours. Patient with splenic infarction. No indication for surgery for splenic infarction. 5. prn pain control 6. NSAID trial per Dr. Celestin - ibuprofen q8 General surgery at [place] agree with current treatment plan Spoke with Dr. Quiroga at [place] [facility] last week. Updated him on patient's hospitalization, imaging, and current plan of care. He agrees that there is no indication for splenectomy at this time. He asked me to notify him when patient is being discharged and that he will arrange immediate follow up in sickle cell clinic. He will manage vaccination and repeat imaging. All patient and family member questions answered. Patient is ok for discharge from surgery standpoint. He should continue ASA at discharge. Dr. Bauer notified that patient is being discharged so follow up can be arranged. Patient advised to remain on modified bedrest at home in order to prevent traumatic injury to spleen. He understands. D/W Dr. Giron Thank you, please call with questions. Subjective Date of service: 11/23/18 Narrative: Pt seen and examined. No acute complaints. No f/c for 24 hours. Objective Vital Signs - 12hr 11/23/18 11/23/18 05:08 09:48 Temperature 98.2 F Pulse Rate 89 Pulse Rate [ 115 H Throughout] Respiratory 18 Rate Respiratory 16 Rate [ Throughout] Blood Pressure 116/71 O2 Sat by Pulse 94 Oximetry - General physical appearance Narrative Exam: Gen: AAOx3. NAD ENT: no scleral icterus or conjunctival pallor CV: s1, s2+ resp: even and unlabored Ext: bilateral LE edema - Labs 11/23/18 09:55 11/22/18 04:21
--- NOTE | 2018-11-23 15:20 | Progress Note ---
Assessment and Plan Severe Sepsis, - Secondary to ESBL bacteremia: ID is following, continue abx. - afebrile today. If he remains afebrile for around 48 hours, plan to d/c home with IV abx (already arranged for previously). Splenic infarction: General Surgery is following, no plan for any surgical intervention now ESBL E coli bactermia is presumed to be a result of prostate biopsy induced prostatitis: continue abx per ID recommendations, Acute Cystitis s/p recent prostate biopsy: Urology did evaluate and deemed no surgery needed at the time, recommended continuing ABX Acute renal failure Secondary to vasomotor nephropathy: continue to monitor bmp, improved Sickle cell crisis: cont pain control and adequate hydration. monitor h/h, transfused total two units of PRBC Acute Respiratory Failure with Hypoxia-Improving: continue daily weaning O2 trails Thrombocytosis: continue to monitor cbc and treat bacteremia DVT ppx: off sq heparin due to anemia Picc line/Midline tomorrow and discharge on Ertapenem once daily Subjective Date of service: 11/23/18 Principal diagnosis: fever - anemia Interval history: Feeling better Objective - Constitutional Vitals: Vital Signs - 12hr 11/23/18 11/23/18 11/23/18 05:08 09:48 12:32 Temperature 98.2 F 97.5 F L Pulse Rate 89 96 H Pulse Rate [ 115 H Throughout] Respiratory 18 39 H Rate Respiratory 16 Rate [ Throughout] Blood Pressure 116/71 112/71 O2 Sat by Pulse 94 96 Oximetry General appearance: Present: no acute distress, well-nourished - EENT Eyes: PERRL, EOM intact ENT: hearing intact, clear oral mucosa Ears: bilateral: normal - Neck Neck: supple, normal ROM - Respiratory Respiratory effort: normal Respiratory: bilateral: CTA - Breasts Breasts: normal - Cardiovascular Rhythm: regular Heart Sounds: Present: S1 & S2. Absent: gallop, rub Extremities: pulses intact, No edema, normal color, Full ROM - Gastrointestinal General gastrointestinal: Present: soft, non-tender, non-distended, normal bowel sounds - Genitourinary Male genitourinary: normal - Integumentary Integumentary: clear, warm, dry - Musculoskeletal Musculoskeletal: 1, strength equal bilaterally - Neurologic Neurologic: moves all extremities - Psychiatric Psychiatric: memory intact, appropriate mood/affect, intact judgment & insight - Labs CBC & Chem 7: 11/24/18 09:11 11/22/18 04:21 Labs: Abnormal lab results 11/18/18 11/22/18 11/22/18 Range/Units 12:22 04:21 08:01 Hgb (11.8-15.2) gm/dl Hct (35.5-45.6) % Seg Neuts % (Manual) 81.5 H (40.0-70.0) % Lymphocytes % (Manual) 7.0 L (13.4-35.0) % Monocytes % (Manual) 9.0 H (0.0-7.3) % Nucleated RBC % 3.0 H (0.0-0.9) % Seg Neutrophils # Man 17.0 H (1.8-7.7) K/mm3 Monocytes # (Manual) 1.9 H (0.0-0.8) K/mm3 Vancomycin Trough (5.0-20.0) ug/mL Crossmatch See Detail See Detail 11/23/18 11/23/18 Range/Units 07:29 09:55 Hgb 8.2 L (11.8-15.2) gm/dl Hct 24.0 L (35.5-45.6) % Seg Neuts % (Manual) (40.0-70.0) % Lymphocytes % (Manual) (13.4-35.0) % Monocytes % (Manual) (0.0-7.3) % Nucleated RBC % (0.0-0.9) % Seg Neutrophils # Man (1.8-7.7) K/mm3 Monocytes # (Manual) (0.0-0.8) K/mm3 Vancomycin Trough 22.6 H (5.0-20.0) ug/mL Crossmatch
[2018-11-24] MEDS: IBUPROFEN PO SCH (02:22)
[2018-11-24] MEDS: NACL 0.9% IV SCH (06:57)
[2018-11-24] MEDS: MERREM IV SCH (06:57)
--- NOTE | 2018-11-24 07:53 | Hem/Onc Progress Note ---
Assessment and Plan fever prostate bx h/o sickle - admission hb 11, MCV normal. splenomegaly d/w dr rubio - ? spleen infarct - ? trial of NSAID 1. History of elevated PSA, status post prostate biopsy. 2. History of fevers. Based on temporal events, this has to be related to the prostate issues. ID team is on case. 3. History of anemia. At admission; hemoglobin was 11.1, MCV was normal. 4. History of sickle cell disease. Radiology mentions splenomegaly of 15.7 cm. The patient would need outpatient evaluation for the question of sickle cell. At this time, hematology issues may be secondary to the infection/medication. 5. Splenomegaly, likely secondary to infection issues. I had discussed with ID team. The patient has E. coli in the blood culture. I spoke to Dr. Marcano about the patient. 11/15 sickle cell test - smear - no sickle cells seen fever could be sec to pneumonia or splenic infarct PRBC - low iron - IV iron trial 11/17 - sickle testing + - will do hb electrophoresis fever - d/w Dr harley ID - reg abx vs NSAID trial for spleen infarct. d/w pt and mother reg these issues PRBC was given for anemia 11/18/2018 MRI pelvis Abx fever Hb electrophoresis s/p iv iron and PRBC for anemia h/o splenimegaly - infarct vs ?abscess 11/20 hb electrophoresis pending fever - ID team IX pt on NSAID motril 800 TID since 11/16 - but only PRN - did not use 11/22/2018 pt took ibuprofen 800 mg last night - had sweating has fever MRI pelvis done hb low - PRBC q 8hrs ibuprofen for 2 days as trial 11/23 pt now says he was told he has hb C disease and takes folic acid - this is consistent with his spleen and hb hb better post transfusion motrin - hence no fever pt wants to go home he has apt to see sickle cell specialist tomorrow it is possible that fever may be sec to spleen infarct other possibility is an infection - he is aware 11/24 pt wants to go home waiting for PICC temp of only 99 hb c disease - pt on folic acid at home s.p prbc here s/p one dose of iv iron pt will see his hem for anemia - Patient Problems (1) Fever Current Visit: Yes Status: Acute Qualifiers: Fever type: unspecified Qualified Code(s): R50.9 - Fever, unspecified Subjective Date of service: 11/24/18 Principal diagnosis: hb c disease - fever - splenic infarct Interval history: pt had temp of 99 sitting on chair - wants to go home waiting for PICC for Abx Objective - Constitutional Vitals: Last Vital Signs Temp 99.0 F 11/24/18 05:49 Pulse 97 H 11/24/18 05:49 Resp 18 11/24/18 05:49 BP 123/85 11/24/18 05:49 Pulse Ox 90 11/24/18 05:49 Pain Intensity (0-10): denies any pain General appearance: no acute distress Performance status: 2- selfcare, ambulatory - EENT Eyes: EOM intact ENT: clear oral mucosa Lymph node exam: negative cervical - Neck Neck: normal ROM - Respiratory Respiratory effort: Positive: normal Respiratory: negative: CTA - Cardiovascular Heart Sounds: Present: S1 & S2 Extremity abnormal: edema - Gastrointestinal General gastrointestinal: Present: soft, non-tender Rectal Exam: deferred - Genitourinary Male genitourinary: Present: deferred - Integumentary Integumentary: warm - Musculoskeletal Musculoskeletal: strength equal bilaterally - Neurologic Neurologic: moves all extremities - Labs Lab Results: Laboratory Results - last 24 hr 11/23/18 11/23/18 07:29 09:55 Hgb 8.2 L Hct 24.0 L Vancomycin Trough 22.6 H Medications & Allergies - Medications Allergies/Adverse Reactions: Allergies No Known Allergies Allergy (Unverified 04/17/16 18:17) Home Medications: Home Medications Medication Instructions Recorded Confirmed Last Taken Type Aspir-Low 81 mg PO DAILY 11/08/18 11/15/18 1 Week Ago History ~11/01/18 Folic Acid [Folvite] 1 mg PO QDAY 11/08/18 11/08/18 1 Week Ago History ~11/01/18 Multivitamin 1 tab PO DAILY 11/08/18 11/08/18 11/01/18 History Active Medications: Generic Name Dose Route Start Last Admin Trade Name Freq PRN Reason Stop Dose Admin Acetaminophen 650 mg 11/07/18 01:19 11/22/18 00:48 Tylenol PO 650 mg Q4H PRN Administration Pain MILD(1-3)/Fever >100.5/RAY Albuterol 2.5 mg 11/10/18 04:01 11/12/18 05:23 Proventil IH 2.5 mg Q6HRT PRN Administration Shortness Of Breath Albuterol/Ipratropium 1 ampul 11/14/18 08:00 11/23/18 20:57 Duoneb *Not For Prn Use* IH 1 ampul TIDRT LENORE Administration Docusate Sodium 100 mg 11/12/18 15:00 11/23/18 22:17 Colace PO Not Given BID [facility] Meropenem 2,000 mg/ Sodium 100 mls @ 100 mls/hr 11/17/18 16:00 11/24/18 06:57 Chloride IV Not Given Q8HR [facility] Protocol Ibuprofen 800 mg 11/24/18 10:00 Motrin PO Q8H PRN Non Cardiac Pain or Temp>100.5 Morphine Sulfate 2 mg 11/07/18 01:19 Morphine IV Q4H PRN Pain, Moderate (4-6) Ondansetron HCl 4 mg 11/07/18 01:19 11/07/18 18:08 Zofran IV 4 mg Q4H PRN Administration Nausea And Vomiting Senna 17.2 mg 11/12/18 22:00 11/23/18 22:18 Senokot PO Not Given Q12H [facility] Sodium Chloride 10 ml 11/07/18 10:00 11/23/18 22:16 Sodium Chloride Flush Syringe 10 Ml IV Not Given BID LENORE Sodium Chloride 10 ml 11/07/18 01:19 Sodium Chloride Flush Syringe 10 Ml IV PRN PRN LINE FLUSH
[2018-11-24] MEDS: DUONEB *Not for PRN Use IH SCH ×2 (08:49→14:30)
[2018-11-24 09:24] LABS: Hematocrit 25.5 % (35.5-45.6); Hemoglobin 8.4 gm/dl (11.8-15.2); Mean Corpuscular HGB Conc 33 % (32-34); Mean Corpuscular Volume 84 fl (84-94); Platelet Count 897 K/mm3 (140-440); Red Blood Count 3.04 M/mm3 (3.65-5.03); Red Cell Distribution Width 18.5 % (13.2-15.2)
[2018-11-24] MEDS ORDERED: FOLVITE PO SCH (10:00)
[2018-11-24] MEDS ORDERED: IBUPROFEN PO PRN (10:00)
--- NOTE | 2018-11-24 10:27 | Progress Note ---
Assessment and Plan Cultures: 11/06/2018 Blood culture : ESBL E. Coli, 11/07/2018 urine culture: <10K bacteria 11/08/2018 Blood culture: ESBL E. coli 4 out of 4 bottles 11/10/2018 Blood culture: ESBL E. coli 2 out of 4 bottles 11/12/2018 Blood Cultures: ESBL E. coli 1 out of 4 bottles 11/14/2018 Blood Cultures: no growth 11/15/2018 MRSA PCR: negative 11/17/2018 Stool: negative Assessment: 62 y/o male with a history of sickle cell disease; admitted on 11/06/18 due to 24 hour-history of fever, chills and generalized malaise. Patient underwent transrectal-prostate biopsy on 11/05/[address] Hidalgo. Patient denies N/V/D, cough, SOB, abdominal pain, urinary symptoms. 1) Severe Sepsis: Improved. no fever in >48 hours. leukocytosis trending down. Etiology most likely persistent ESBL E. coli, +progressive spleenic infarcts, superimposed abscesses. Repeat BC fro 11/14/18 show no growth. When discharged will treat with erthapenem 1 gm IV every 24 hours for 21 days ending 12-05-18. 2) Persistent ESBL bacteremia: source likely post trans-rectal biopsy UTI, prostatitis and proctitis. Repeat BC's show no growth to date. Discontinue Vabomere. Restart Meropenem. - UA 59 wbc, trace LE, +nitrates, large blood. - Blood culture 10/17/2018 no growth today. - CT abd showed rectal prostate and seminal vesicles stranding - CT with contrast showed that the The prostate gland remains mildly enlarged measuring 6 cm in diameter.Nonspecific fat stranding surrounding the prostate gland, seminal vesicles and rectum has resolved. -Spleen CT/US - showed lesions, ?sickle cell or emboli -Chest xray: The lungs are grossly clear. No consolidation -Renal U/S: right kidney: Normal echotexture. Left Kidney: well-defined simple cyst measuring 2.1 x 1.9 cm is noted in the lower portion. Otherwise renal parenchymal echotexture is within normal limits without calculi or hydronephrosus -Abdominal U/S: Multiple nonspecific lesions identified in the spleen which appear predominantly solid and mixed echoic. DDX includes benign lesions such as hemangioma and malignant lesions such as metastases. Clinical correlation and biopsy are recommended. -CRP 31.80 -TTE- No valvular vegetation -CT abdomen and pelvis with 4 phase liver protocol shows evidence of evolving splenic infarction.The remainder of the splenic parenchyma is hypoattenuated with no evidence of perfusion. Mild inflammatory fat stranding has developed surrounding the spleen. No splenic hemorrhage. -HIV - nonreactive -Influenza Rapid and PCR - Negative -CT Pelvis: Prostate is normal in size with heterogeneous signal intensity and enhancement. There is no discrete mass. 3) Post trans-rectal biopsy UTI, prostatitis and proctitis. UA 59 wbc, trace LE, +nitrates, large blood. 11/07/2018 urine culture<10K bacteria. He received cipro PO x 3 days before biopsy. 4) Multiple Evolving Splenic infarcts +/- abscesses. CT abdomen progressive spleen infarcts. I am concerned that the spleen has developed superimposed abscesses from ESBL E coli in light of persistent bacteremia and fever.No indication for surgery for splenic infarction. Surgery following 5) Likely HAP: repeat CT chest showed pneumonia. Completed antibiotic treatment 6) Severe Anemia: Better. Continue to monitor 7) Thrombocytosis: Continue to monitor CBC Recommendations: Discontinue Meropenem Start Ertapenem 1 gm IV q 24 hour -No fevers in > than 48 hours, OK to discharge from ID standpoint Anticipate discharge on Ertapenem 1 gm IV q day for total 21 days ending 12-05-18 order sent and approved by [facility], Will f/u in the office tomorrow for teach and train [employer] M: [phone] O:[phone] Subjective Date of service: 11/24/18 Principal diagnosis: hb c disease - fever - splenic infarct Interval history: Patient seen and examined. Sitting up in bed. Reports no generalized pain or weakness. No fevers. Mother at bedside. Discussion regarding OPAT and appointment at [facility] 11/24/18 for teach and train. verbalized understanding. Objective - Exam Narrative Exam: Constitutional: Alert, cooperative. No acute distress Head, Ears, Nose: Normocephalic, atraumatic. External ears, nose normal Eyes: Conjunctivae/corneas clear. No icterus. No ptosis. Neck: Supple, no meningeal signs Cardiovascular: S1, S2 normal. Respiratory: Good air entry, clear to auscultation bilaterally, + tachypnea GI: Soft, non-tender; bowel sounds normal. No peritoneal signs Musculoskeletal: No pedal edema, no cyanosis. Skin: No rash or abscess Hem/Lymphatic: No palpable cervical or supraclavicular nodes. No lymphangitis Psych: Mood ok. Affect normal Neurological: Awake, alert, oriented. No gross abnormality - Constitutional Vitals: Vital Signs Temp Pulse Resp BP Pulse Ox 99.0 F 97 H 18 123/85 96 11/24/18 05:49 11/24/18 08:58 11/24/18 08:58 11/24/18 05:49 11/24/18 08:49 Temperature -Last 24 Hours Temperature 99.0 F Temperature 99.4 F Temperature 97.7 F Temperature 97.5 F - Labs CBC & Chem 7: 11/24/18 09:11 11/22/18 04:21 Labs: Abnormal lab results 11/23/18 11/24/18 Range/Units 09:55 09:11 WBC 12.1 H (4.5-11.0) K/mm3 RBC 3.04 L (3.65-5.03) M/mm3 Hgb 8.2 L 8.4 L (11.8-15.2) gm/dl Hct 24.0 L 25.5 L (35.5-45.6) % RDW 18.5 H (13.2-15.2) % Plt Count 897 H (140-440) K/mm3
[2018-11-24] MEDS ORDERED: HALFPRIN EC PO SCH (11:00)
[2018-11-24] MEDS: COLACE PO SCH (11:28)
[2018-11-24] MEDS: SENOKOT PO SCH (11:28)
[2018-11-24 11:56] VITALS: BP 110/70
[2018-11-24] MEDS ORDERED: INVanz 1 GM in NACL 0.9% 50 ML IV SCH (12:00)
[2018-11-24] MEDS: SODIUM CHLORIDE FLUSH SYRINGE 10 ML IV SCH (12:17)
[2018-11-24 13:08] LABS: Anisocytosis 1+; Basophils % (Manual) 0 % (0.0-1.8); Giant Platelets Rare; Myelocytes # (Manual) 0.4 K/mm3; Platelet Estimate Consistent w Auto; Target Cells 2+; Total Cells Counted 100
--- NOTE | 2018-11-24 14:17 | Discharge Summary ---
Providers - Providers Date of Admission: 11/06/18 23:47 Date of discharge: 11/24/18 Attending physician: PHYLICIA CARDENAS 11/07/18 10:43 Consult to Physician [CONS] Routine Comment: Consulting Provider: JAY VILLEGAS Physician Instructions: Reason For Exam: SEPSIS 11/12/18 09:20 Consult to Physician [CONS] Routine Comment: Consulting Provider: DAVY RAHMAN Physician Instructions: Reason For Exam: prostatitis 11/12/18 13:20 Consult to Physician [CONS] Routine Comment: Consulting Provider: JORDYN JARA Physician Instructions: Reason For Exam: ?perirectal abscess vs peforation 11/13/18 12:06 Consult to Physician [CONS] Routine Comment: Consulting Provider: BRITTNEE LORA Physician Instructions: Reason For Exam: febrile illness 11/23/18 15:59 Consult to PICC Line RN [CONS] Stat Reason For Exam: Outpatient IV antibiotics Type Line:: PICC 11/23/18 16:02 Consult to Case Management [CONS] Routine Services Needed at Discharge: Home Health Services Notified:: cm Comment:: IV Ertapenem to be arranged AVILA 11/24/18 00:01 PICC Line Insertion [Consult to PICC Line RN] [CONS] Urgent Reason For Exam: OPAT Type Line:: PICC Primary care physician: LIANNA BERRY Hospitalization Condition: Critical Hospital course: Severe Sepsis, - Secondary to ESBL bacteremia: ID is following, continue abx. - afebrile today. If he remains afebrile for around 48 hours, plan to d/c home with IV abx (already arranged for previously). Splenic infarction: General Surgery is following, no plan for any surgical intervention now ESBL E coli bactermia is presumed to be a result of prostate biopsy induced prostatitis: IV Ertapenem for 11 more fdays till 12/05/18 Midline inserted today. Acute Cystitis s/p recent prostate biopsy: Urology did evaluate and deemed no surgery needed at the time, recommended continuing ABX Acute renal failure Secondary to vasomotor nephropathy: continue to monitor bmp, improved Sickle cell crisis: cont pain control and adequate hydration. monitor h/h, transfused total two units of PRBC Acute Respiratory Failure with Hypoxia-Improved Thrombocytosis: continue to monitor cbc and treat bacteremia DVT ppx: off sq heparin due to anemia Picc line/Midline tomorrow and discharge on Ertapenem once daily When discharged will treat with erthapenem 1 gm IV every 24 hours for 21 days ending 12-05-18. Disposition: DC-01 TO HOME OR SELFCARE Core Measure Documentation - Palliative Care Palliative Care/ Comfort Measures: Not Applicable - Core Measures Any of the following diagnoses?: none Exam - Constitutional Vitals: Temp Pulse Resp BP Pulse Ox 99.0 F 91 H 20 110/70 95 11/24/18 11:50 11/24/18 11:50 11/24/18 11:50 11/24/18 11:50 11/24/18 11:50 General appearance: Present: no acute distress, well-nourished - EENT Eyes: Present: PERRL ENT: hearing intact, clear oral mucosa - Neck Neck: Present: supple, normal ROM - Respiratory Respiratory effort: normal Respiratory: bilateral: CTA - Cardiovascular Heart rate: 79 Rhythm: regular Heart Sounds: Present: S1 & S2. Absent: rub, click - Extremities Extremities: no ischemia, pulses intact, pulses symmetrical, No edema Peripheral Pulses: within normal limits - Abdominal General gastrointestinal: Present: soft, non-tender, non-distended, normal bowel sounds Male genitourinary: Present: normal - Integumentary Integumentary: Present: clear, warm, dry - Musculoskeletal Musculoskeletal: gait normal, strength equal bilaterally - Psychiatric Psychiatric: appropriate mood/affect, intact judgment & insight - Neurologic Neurologic: CNII-XII intact, moves all extremities - Allied Health Allied health notes reviewed: nursing, case management Plan Activity: no restrictions Diet: regular Follow up with: TRAN TORRES MD [Referring] - 3-5 Days AMOL SY MD [Staff Physician] - 7 Days Prescriptions: Aspir-Low 81 mg PO DAILY #100 Folic Acid [Folvite] 1 mg PO QDAY #30 tablet Ibuprofen [Motrin 800 MG tab] 800 mg PO Q8H PRN #40 tablet PRN Reason: Non Cardiac Pain Or Temp>100.5 Multivitamin 1 tab PO DAILY #30
[2018-11-27 13:09] LABS: Hemoglobin A2 Prime SEE SCANNED RESULT; Hemoglobin Barts SEE SCANNED RESULT; Hemoglobin E SEE SCANNED RESULT; Hemoglobin G SEE SCANNED RESULT; Hemoglobin Lepore SEE SCANNED RESULT; Hemoglobin O-Arab SEE SCANNED RESULT; IEF Confirm SEE SCANNED RESULT; Interpretation SEE SCANNED RESULT; Sickle Solubility Test SEE SCANNED RESULT
== END 2018-11-24 14:45 | disposition home or self-care (01) | DRG 862 ==
LOC: ED 19:26 → 3A 23:47
PROVIDERS: ADMIT Internal Medicine; ATTEND Internal Medicine
PROC: 30233N1 Transfusion of Nonautologous Red Blood Cells into Peripheral Vein, Percutaneous Approach (ICD-10-PCS; principal; 2018-11-15)
DX: T81.40XA Infection following a procedure, unspecified, initial encounter (principal); A41.51 Sepsis due to Escherichia coli [E. coli]; J96.01 Acute respiratory failure with hypoxia; N17.0 Acute kidney failure with tubular necrosis; D57.00 Hb-SS disease with crisis, unspecified; J18.9 Pneumonia, unspecified organism; R65.20 Severe sepsis without septic shock; N30.00 Acute cystitis without hematuria; N41.0 Acute prostatitis; T81.44XA Sepsis following a procedure, initial encounter; N41.9 Inflammatory disease of prostate, unspecified; D73.3 Abscess of spleen; D73.5 Infarction of spleen; R16.1 Splenomegaly, not elsewhere classified; D69.6 Thrombocytopenia, unspecified; Y84.8 Other medical procedures as the cause of abnormal reaction of the patient, or of later complication, without mention of misadventure at the time of the procedure; Y92.098 Other place in other non-institutional residence as the place of occurrence of the external cause; Z82.49 Family history of ischemic heart disease and other diseases of the circulatory system
CPT/HCPCS: 36415; 71045; 71250; 72197; 74176; 74177; 74178; 76705; 76770; 80048; 80053; 80202; 81001; 82140; 82247; 82248; 82270; 82607; 82728; 82747; 82805; 83550; 85007; 85014; 85018; 85025; 85027; 85610; 85660; 86021; 86038; 86140; 86160; 86850; 86900; 86901; 86920; 87040; 87076; 87086; 87116; 87186; 87400; 87497; 87806; 93005; 93010; 93306; 94640; 94760; 96365; G0378; 87502; A9577; J0692; J1335; J1644; J1940; J2185; J2405; J2543; J2916; J2920; J2930; J3370; J3490; J7030; J7040; J7050; P9016; Q9967